=== PATIENT | female | born 1945 | race Caucasian/White ===

== ENCOUNTER → 2017-08-24 | Outpatient (CLI) | payer MEDICARE, BC ==
[2017-08-24 17:28] LABS: Anti-DNA, DS unit <1.0 IU/mL; DNA Double-Stranded NEGATIVE (NEGATIVE); RNP 0.2 AI; Scleroderma SC-70 Ab <0.2 AI
[2017-08-26 14:42] LABS: ANA Pattern Centromere
== END | disposition home or self-care (01) ==
LOC: LABWHC1 11:26
PROVIDERS: ATTEND Internal Medicine Rheumatology
DX: M10.9 Gout, unspecified (principal); M34.9 Systemic sclerosis, unspecified; J84.9 Interstitial pulmonary disease, unspecified
CPT/HCPCS: 36415; 84550; 86038; 86039; 86160; 86225; 86235

== ENCOUNTER → 2017-10-13 | Outpatient (CLI) | payer MEDICARE, BC ==
[2017-10-13 11:35] LABS: Basophils # (A) 0.1 k/uL (0-0.2); Basophils % (A) 1 %; Eosinophils # (A) 0.3 k/uL (0-0.7); Eosinophils % (A) 4 %; HCT 36.6 % (34.0-46.0); HGB 12.1 gm/dL (11.4-16.0); Lymphocytes # (A) 1.8 k/uL (1.0-4.8); Lymphocytes % (A) 25 %; MCH 31.5 pg (25.0-35.0); MCHC 33.1 g/dL (31.0-37.0); MCV 94.9 fL (80.0-100.0); Mean Platelet Volume 7.6; Monocytes # (A) 0.4 k/uL (0-1.0); Monocytes % (A) 6 %; Neutrophils # (A) 4.5 k/uL (1.3-7.7); Neutrophils % (A) 62 %; Platelet Count 245 k/uL (150-450); RBC 3.86 m/uL (3.80-5.40); RDW 13.1 % (11.5-15.5); WBC 7.3 k/uL (3.8-10.6)
[2017-10-13 11:43] LABS: Calcium 9.2 mg/dL (8.4-10.2); Potassium 3.9 mmol/L (3.5-5.1)
== END | disposition home or self-care (01) ==
LOC: LABWHC1 11:00
PROVIDERS: ATTEND Internal Medicine Nephrology
DX: N18.6 End stage renal disease (principal); D64.9 Anemia, unspecified
CPT/HCPCS: 36415; 80048; 85025

== ENCOUNTER 2018-07-28 12:34 | Emergency (ER) | payer MEDICARE, BC ==
[2018-07-28 12:56] VITALS: RESP 18; TEMP 97.9
[2018-07-28] MEDS ORDERED: HYDROcodone/APAP 5-325MG 1 EACH TAB PO STA (13:56)
--- NOTE | 2018-07-28 15:14 | ED ---
Fall HPI - General Chief Complaint: Fall Stated Complaint: Fall Time Seen by Provider: 07/28/18 13:30 Source: patient Mode of arrival: wheelchair - History of Present Illness Initial Comments: 72-year-old female patient with past medical history significant for renal failure with peritoneal dialysis, and pulmonary embolus with chronic use of Eliquis presents to the emergency department today after experiencing a fall. Patient states that she was coming up the steps when she tripped on the last step and fell forward striking her face and head on the porch. States that she is having right-sided neck pain, headache, blurred vision to the right eye, and abdominal discomfort since the fall. She is reporting right upper quadrant pain and tenderness as well as tenderness around her dialysis catheter. She denies any loss of consciousness with this. States that she did have epistaxis and does have nasal pain; is concerned that she may have fractured her nose. She is also complaining of left knee pain. She does have history of left total knee arthroplasty. States she is able to ambulate however it is painful. Denies any difficulty with range of motion. Injury occurred around 11:30 this morning. Patient denies any back pain, chest pain, shortness of breath, dizziness, weakness, abdominal pain, nausea, vomiting, or difficulties with bowel movements or urination. - Related Data Home Medications Medication Instructions Recorded Confirmed Apixaban [Eliquis] 12.5 mg PO BID 07/28/18 07/28/18 Atorvastatin [Lipitor] 20 mg PO HS 07/28/18 07/28/18 Doxepin HCl 75 mg PO HS 07/28/18 07/28/18 Folic Acid 0.8 mg PO DAILY 07/28/18 07/28/18 Furosemide [Lasix] 80 mg PO BID 07/28/18 07/28/18 Levothyroxine Sodium [Synthroid] 125 mcg PO DAILY 07/28/18 07/28/18 Sevelamer [Renvela] 800 mg PO AC-TID 07/28/18 07/28/18 Temazepam [Restoril] 15 mg PO HS 07/28/18 07/28/18 azaTHIOprine [Imuran] 25 mg PO DAILY 07/28/18 07/28/18 Allergies Allergy/AdvReac Type Severity Reaction Status Date / Time adhesive Allergy Unknown Verified 07/28/18 13:40 allopurinol Allergy Unknown Verified 07/28/18 13:40 codeine Allergy Unknown Verified 07/28/18 13:40 iodine Allergy Unknown Verified 07/28/18 13:40 meperidine HCl [From Demerol] Allergy Unknown Verified 07/28/18 13:40 povidone-iodine Allergy Unknown Verified 07/28/18 13:40 [From Betadine] soap [From Betadine] Allergy Unknown Verified 07/28/18 13:40 Sulfa (Sulfonamide Allergy Unknown Verified 07/28/18 13:40 Antibiotics) Review of Systems ROS Statement: Those systems with pertinent positive or pertinent negative responses have been documented in the HPI. ROS Other: All systems not noted in ROS Statement are negative. Past Medical History Past Medical History: Blood Disorder, Heart Failure, COPD, Dialysis, GERD/Reflux , Hyperlipidemia, Pulmonary Embolus (PE), Renal Disease, Thyroid Disorder Additional Past Medical History / Comment(s): scleraderma, gout, peritoneal dialysis History of Any Multi-Drug Resistant Organisms: None Reported Past Surgical History: Bowel Resection, Cholecystectomy, Hysterectomy, Orthopedic Surgery Additional Past Surgical History / Comment(s): left knee replacement, insertion of peritoneal diaylsis Past Psychological History: Anxiety, Depression Smoking Status: Never smoker Past Alcohol Use History: None Reported Past Drug Use History: None Reported General Exam Limitations: no limitations General appearance: alert, in no apparent distress, other (Social well-developed , well-nourished elderly female patient in no acute distress. Vital signs upon presentation are temperature 97.9F, pulse 90, respirations 18, blood pressure 123/80, pulse ox 96% on room air.) Head exam: Present: other (Right forehead ecchymosis) Eye exam: Present: normal appearance, PERRL, EOMI. Absent: scleral icterus, conjunctival injection, periorbital swelling, periorbital tenderness ENT exam: Present: normal oropharynx, mucous membranes moist, other (There is nasal bridge tenderness, small nasal abrasion. Dried blood to the bilateral nares. No evidence of septal hematoma. ). Absent: normal exam Neck exam: Present: normal inspection, tenderness (Right sided paraspinal cervical tenderness), full ROM (Increased pain with rotation), other (No cervical tenderness, bony step-off, or deformity to firm midline palpation of the posterior cervical spine.). Absent: meningismus, lymphadenopathy Respiratory exam: Present: normal lung sounds bilaterally. Absent: respiratory distress, wheezes, rales, rhonchi, stridor Cardiovascular Exam: Present: regular rate, normal rhythm, normal heart sounds. Absent: systolic murmur, diastolic murmur, rubs, gallop, clicks GI/Abdominal exam: Present: soft, tenderness (Right upper quadrant tenderness, lower abdominal tenderness.), normal bowel sounds. Absent: distended, guarding , rebound, rigid Back exam: Present: normal inspection, other (Nontender, no step-off, no deformity to firm midline palpation of the thoracic and lumbar vertebrae. Full range of motion without pain or limitation.). Absent: vertebral tenderness Neurological exam: Present: alert, oriented X3, CN II-XII intact Psychiatric exam: Present: normal affect, normal mood Skin exam: Present: warm, dry, intact, normal color. Absent: rash Course Vital Signs 07/28/18 07/28/18 12:52 16:49 Temperature 97.9 F Pulse Rate 90 94 Respiratory 18 18 Rate Blood Pressure 123/80 123/74 O2 Sat by Pulse 96 98 Oximetry Medical Decision Making - Medical Decision Making 72-year-old female patient presented to the emergency department today for evaluation after expressing H and fall. Patient did have facial trauma nasal bone tenderness, bleeding from the bilateral nares. Patient is also reporting headache and blurred vision and abdominal pain. CT brain C-spine was performed and showed no acute intracranial or cervical abnormalities. CT facial bones did reveal nasal bone fracture with deviation to the left. Patient had no evidence of septal hematoma. CT abdomen and pelvis was obtained and showed no acute abnormalities. Patient be discharged home to follow-up with the ears, nose, and throat specialist for further evaluation. She is instructed take Tylenol for pain control. Apply ice to the painful areas. Return parameters were discussed in detail. She verbalizes understanding and agrees with this plan. - Radiology Data Radiology results: report reviewed, image reviewed Computed tomography scan of the sinuses performed without contrast. Report was reviewed in its entirety. Impression by Dr. Leo shows nasal bone fracture with deviation to the left side. He does not clear. Soft tissue air on the lateral aspect of the maxilla the right side more than the left could relate to laceration. No maxillary fracture seen. Right lateral orbital fracture cannot be entirely excluded. CT abdomen and pelvis without contrast was obtained. Dialysis catheter noted. Free fluid in the abdomen consistent with peritoneal dialysis. No dilated x- ray no acute abnormality seen within the abdomen and pelvis. Mild fibrotic changes and subsegmental atelectasis at the lung bases. Small pericardial effusion. 3 views of the left knee are obtained. Report was reviewed in its entirety. Impression by Dr. Leo shows no Acute process. No fracture. CT of the head and C-spine are performed without contrast. Report was reviewed in its entirety. Impression by Dr. Leo shows mild cerebral atrophy. Otherwise negative exam. Spondylotic changes of cervical spine with degenerative mild kyphotic curvature. No fracture seen. Disposition Clinical Impression: Nasal bone fracture, Forehead contusion, Abdominal pain Disposition: HOME SELF-CARE Condition: Good Instructions: Nasal Fracture (ED), Contusion in Adults (ED), Abdominal Pain (ED ) Additional Instructions: Apply ice to the painful areas. Follow-up with ears, nose, and throat specialist for further evaluation of the nasal bone fracture. Return immediately for any new, worsening, or concerning symptoms. Is patient prescribed a controlled substance at d/c from ED?: No Referrals: Cheryl Penny MD [Primary Care Provider] - 1-2 days Justino Grove MD [STAFF PHYSICIAN] - 1-2 days Time of Disposition: 17:17
--- NOTE | 2018-07-28 16:04 | CT ---
EXAMINATION TYPE: CT brain mag jin con DATE OF EXAM: 07/28/2018 COMPARISON: None HISTORY: Patient fell and landed on face. Right side facial pain. CT DLP: 1047.2 mGycm Automated exposure control for dose reduction was used. TECHNIQUE: CT scan of the head and cervical spine are performed without contrast. FINDINGS: Ventricles of normal size. There is no mass effect nor midline shift. There is no sign of intracranial hemorrhage. Calvarium is intact. There is minimal cerebral atrophy. The cervical vertebra show slight kyphotic curvature. There is degenerative disc space narrowing from C3 to C7 with spurring. Facet joints are intact. Skull base is intact. I see no bony destructive pro cess. There is mild hypertrophic facet arthropathy. IMPRESSION: Mild cerebral atrophy. Otherwise negative exam. Spondylotic changes of the cervical spine with degenerative mild kyphotic curvature. No fracture seen .
--- NOTE | 2018-07-28 16:12 | CT ---
EXAMINATION TYPE: CT facial bones wo con DATE OF EXAM: 07/28/2018 COMPARISON: HISTORY: Patient fell and landed on face. Right side facial pain. CT DLP: 769.5 mGycm Automated exposure control for dose reduction was used. TECHNIQUE: CT scan of the sinuses is performed without contrast, axial images are obtained, coronal r eformatted images are also reviewed. FINDINGS: Nasal bone is deviated slightly to the left side. The zygomatic arches are intact. The maxi lla appears intact. There is soft tissue air around the maxilla bilaterally. The mandibular ring appe ars intact. Temporomandibular joints are intact. There is no evidence of a blowout fracture. There is fairly normal aeration of the paranasal sinuses. There is no evidence of retro-orbital mass. There is a thin lucent line through the anterior aspect of the lateral wall of the right orbit that is thou ght to be not a fracture. This would be unusual location for fracture. Correlation with the physical exam is recommended. IMPRESSION: There is nasal bone fracture with deviation to the left side. Age is not clear. There is soft tissue air around the lateral aspect of the maxilla on the right side more than the lef t and could relate to laceration. No maxillary fracture seen. Right lateral wall orbital fracture can not BE entirely excluded.
--- NOTE | 2018-07-28 16:13 | XR ---
EXAMINATION TYPE: XR knee complete LT DATE OF EXAM: 07/28/2018 COMPARISON: NONE HISTORY: Fall. Pain. TECHNIQUE: 3 views FINDINGS: There is left knee prosthesis. Components appear in anatomic position. I see no fracture. IMPRESSION: No complicating process seen. No fracture seen.
--- NOTE | 2018-07-28 16:24 | CT ---
EXAMINATION TYPE: CT abdomen pelvis wo con DATE OF EXAM: 07/28/2018 COMPARISON: None HISTORY: Patient fell and landed on face. Right side facial pain. CT DLP: 606.6 mGycm Automated exposure control for dose reduction was used. TECHNIQUE: Helical acquisition of images was performed from the lung bases through the pelvis. FINDINGS: Lung bases are clear of consolidation. There is some patchy scarring and atelectasis at the lung base s. There is pericardial effusion. Heart is enlarged. There are clips from cholecystectomy. Liver shows no focal defect. Spleen appears normal. There is no sign of a pancreatic mass. There is fluid in the abdomen related apparently to dialysis. There is no adrenal mass. Kidneys show mild atrophy. There are bilateral renal cortical cysts that measure up to 3 cm. There is no hydronephrosis. Ureters are not dilated. There is no retroperitoneal adenopathy. T here is peritoneal dialysis catheter noted. The bladder distends smoothly. There is no inguinal hernia. There is no evidence of a bowel obstructi on. I see no sign of free air. There are spondylotic changes in the lower lumbar spine. There is no c ompression fracture. I see no bony destructive process. There is hemangioma in the left acetabulum. IMPRESSION: DIALYSIS CATHETER NOTED. FREE FLUID IN THE ABDOMEN CONSISTENT WITH PERITONEAL DIALYSIS. NO DILATED DU CTS. NO ACUTE ABNORMALITY SEEN WITHIN THE ABDOMEN AND PELVIS. MILD FIBROTIC CHANGES AND SUBSEGMENTAL ATELECTASIS AT THE LUNG BASES. SMALL PERICARDIAL EFFUSION.
[2018-07-28 16:50] VITALS: BP 123/74; PULSE 94
== END 2018-07-28 17:33 | disposition home or self-care (01) ==
LOC: EC 12:34
DX: S02.2XXA Fracture of nasal bones, initial encounter for closed fracture (principal); S00.83XA Contusion of other part of head, initial encounter; R10.11 Right upper quadrant pain; G31.9 Degenerative disease of nervous system, unspecified; M40.292 Other kyphosis, cervical region; J84.10 Pulmonary fibrosis, unspecified; J98.11 Atelectasis; I31.3 Pericardial effusion (noninflammatory); H53.8 Other visual disturbances; M54.2 Cervicalgia; M25.562 Pain in left knee; N19 Unspecified kidney failure; E78.5 Hyperlipidemia, unspecified; I50.9 Heart failure, unspecified; Z88.2 Allergy status to sulfonamides; Z88.5 Allergy status to narcotic agent; Z88.8 Allergy status to other drugs, medicaments and biological substances; Z91.048 Other nonmedicinal substance allergy status; Z79.01 Long term (current) use of anticoagulants; Z79.899 Other long term (current) drug therapy; Z86.711 Personal history of pulmonary embolism; Z90.49 Acquired absence of other specified parts of digestive tract; Z96.652 Presence of left artificial knee joint; Z99.2 Dependence on renal dialysis; W01.0XXA Fall on same level from slipping, tripping and stumbling without subsequent striking against object, initial encounter; Y93.01 Activity, walking, marching and hiking
CPT/HCPCS: 70450; 70486; 72125; 74176; 99284

== ENCOUNTER 2020-01-29 18:09 | Emergency (ER) | payer MEDICARE, BC ==
--- NOTE | 2020-01-29 19:36 | ED ---
Fever HPI - General Chief Complaint: Fever Stated Complaint: Covid test sent by PCP Time Seen by Provider: 01/29/20 18:39 Source: patient, RN notes reviewed Mode of arrival: ambulatory Limitations: no limitations - History of Present Illness Initial Comments: This is a 74-year-old female with a history of recent hand surgery for skin cancer also history of renal dialysis who presents with complaints of sore throat and right earache and fever and also some diarrhea. States he had a shunt placed 2 weeks ago and has not had any trouble that she was exposed to a young family member with strep in last couple days. She call her dialysis unit was sent over for evaluation for possible covid. She also has somewhat of a headache. She states her normal temperature 90.5 96 was 99 today. MD Complaint: fever - Related Data Home Medications Medication Instructions Recorded Confirmed Apixaban [Eliquis] 12.5 mg PO BID 07/28/18 07/28/18 Atorvastatin [Lipitor] 20 mg PO HS 07/28/18 07/28/18 Doxepin HCl 75 mg PO HS 07/28/18 07/28/18 Folic Acid 0.8 mg PO DAILY 07/28/18 07/28/18 Furosemide [Lasix] 80 mg PO BID 07/28/18 07/28/18 Levothyroxine Sodium [Synthroid] 125 mcg PO DAILY 07/28/18 07/28/18 Sevelamer [Renvela] 800 mg PO AC-TID 07/28/18 07/28/18 Temazepam [Restoril] 15 mg PO HS 07/28/18 07/28/18 azaTHIOprine [Imuran] 25 mg PO DAILY 07/28/18 07/28/18 Previous Rx's Medication Instructions Recorded Amoxic-Pot Clav 875-125Mg 1 tab PO Q12HR 3 Days #20 tab 01/29/20 [Augmentin 875-125] Allergies Allergy/AdvReac Type Severity Reaction Status Date / Time adhesive Allergy Unknown Verified 01/29/20 18:21 allopurinol Allergy Unknown Verified 01/29/20 18:21 codeine Allergy Unknown Verified 01/29/20 18:21 iodine Allergy Unknown Verified 01/29/20 18:21 meperidine HCl [From Demerol] Allergy Unknown Verified 01/29/20 18:21 povidone-iodine Allergy Unknown Verified 01/29/20 18:21 [From Betadine] soap [From Betadine] Allergy Unknown Verified 01/29/20 18:21 Sulfa (Sulfonamide Allergy Unknown Verified 01/29/20 18:21 Antibiotics) Review of Systems ROS Statement: Those systems with pertinent positive or pertinent negative responses have been documented in the HPI. ROS Other: All systems not noted in ROS Statement are negative. Past Medical History Past Medical History: Blood Disorder, Heart Failure, COPD, Dialysis, GERD/Reflux, Hyperlipidemia, Pulmonary Embolus (PE), Renal Disease, Thyroid Disorder Additional Past Medical History / Comment(s): scleraderma, gout, peritoneal dialysis History of Any Multi-Drug Resistant Organisms: None Reported Past Surgical History: Bowel Resection, Cholecystectomy, Hysterectomy, Orthopedic Surgery Additional Past Surgical History / Comment(s): left knee replacement, insertion of peritoneal diaylsis Past Psychological History: Anxiety, Depression Smoking Status: Never smoker Past Alcohol Use History: None Reported Past Drug Use History: None Reported General Exam - General Exam Comments Initial Comments: This a well-developed well-nourished awake alert oriented 3 female Limitations: no limitations General appearance: alert, in no apparent distress Head exam: Present: atraumatic, normocephalic, normal inspection Eye exam: Present: normal appearance, PERRL, EOMI. Absent: scleral icterus, conjunctival injection, periorbital swelling ENT exam: Present: mucous membranes moist, other (Right tympanic membrane is somewhat dull compared to the left also note tonsillar exudates no apparent hyperemia seen.) Neck exam: Present: normal inspection, lymphadenopathy ( Salicylate adenopathy absent right with some mild tenderness in the right submandibular region no stridor JVD or bruits). Absent: tenderness, meningismus Respiratory exam: Present: normal lung sounds bilaterally. Absent: respiratory distress, wheezes, rales, rhonchi, stridor Cardiovascular Exam: Present: regular rate, normal rhythm, normal heart sounds. Absent: systolic murmur, diastolic murmur, rubs, gallop, clicks GI/Abdominal exam: Present: soft, normal bowel sounds. Absent: distended, tenderness, guarding, rebound, rigid Extremities exam: Present: normal inspection, full ROM, normal capillary refill. Absent: tenderness, pedal edema, joint swelling, calf tenderness Back exam: Present: normal inspection Neurological exam: Present: alert, oriented X3, CN II-XII intact Psychiatric exam: Present: normal affect, normal mood Skin exam: Present: warm, dry, intact, normal color, other (No evidence of infectious processes on the integument). Absent: rash Course Vital Signs 01/29/20 18:19 Temperature 98.1 F Pulse Rate 85 Respiratory 16 Rate Blood Pressure 120/64 O2 Sat by Pulse 96 Oximetry Medical Decision Making - Medical Decision Making I did discuss findings with patient the strep screen is negative as is the influenza screening the other viral screen is pending. Patient does demonstrate evidence of otitis media she'll be placed on appropriate antibiotics she will follow-up with her doctor return when necessary she is in agreement with this. - Lab Data Lab Results 01/29/20 01/29/20 Range/Units 19:39 19:46 Influenza Type A RNA Not Detected (Not Detectd) Influenza Type B (PCR) Not Detected (Not Detectd) Group A Strep Rapid Negative (Negative) Disposition Clinical Impression: Otitis media Disposition: HOME SELF-CARE Condition: Good Instructions (If sedation given, give patient instructions): Serous Otitis Media (ED) Additional Instructions: Your prescription was e scribed to your preferred [facility] pharmacy Prescriptions: Amoxic-Pot Clav 875-125Mg [Augmentin 875-125] 1 tab PO Q12HR 3 Days #20 tab Is patient prescribed a controlled substance at d/c from ED?: No Referrals: Cheryl Penny MD [Primary Care Provider] - 1-2 days
[2020-01-29] MEDS ORDERED: AMOXIC-POT CLAV 875MG STARTER PACK 2 TAB BTL PO STA (20:16)
[2020-01-29 20:43] VITALS: BP 139/79; PULSE 77; RESP 18; TEMP 97.8
== END 2020-01-29 20:31 | disposition home or self-care (01) ==
LOC: EC 18:09
DX: H66.91 Otitis media, unspecified, right ear (principal); R19.7 Diarrhea, unspecified; I50.9 Heart failure, unspecified; J44.9 Chronic obstructive pulmonary disease, unspecified; K21.9 Gastro-esophageal reflux disease without esophagitis; E78.5 Hyperlipidemia, unspecified; E07.9 Disorder of thyroid, unspecified; F32.9 Major depressive disorder, single episode, unspecified; F41.9 Anxiety disorder, unspecified; Z86.711 Personal history of pulmonary embolism; Z79.01 Long term (current) use of anticoagulants; Z79.899 Other long term (current) drug therapy; Z79.890 Hormone replacement therapy; Z88.2 Allergy status to sulfonamides; Z88.5 Allergy status to narcotic agent; Z88.8 Allergy status to other drugs, medicaments and biological substances; Z91.041 Radiographic dye allergy status; Z91.048 Other nonmedicinal substance allergy status; Z96.652 Presence of left artificial knee joint; Z99.2 Dependence on renal dialysis; Z20.828 Contact with and (suspected) exposure to other viral communicable diseases
CPT/HCPCS: 99283; 87081; 87430; 87502; U0003

== ENCOUNTER 2020-03-13 09:05 | Inpatient (IN) | payer MEDICARE, BC ==
[2020-03-13] MEDS ORDERED: DIPH,PERTUS(ACELL)TETVAC-LF 0.5 ML VIAL IM ONE (09:08)
[2020-03-13] MEDS ORDERED: HYDROmorphone 1 MG/ML 1 ML SYRINGE IVP STA ×2 (09:10→10:19)
[2020-03-13] MEDS ORDERED: ETOMIDATE 2 MG/ML 10 ML VIAL IVP STA (09:27)
--- NOTE | 2020-03-13 09:28 | XR ---
EXAMINATION TYPE: XR pelvis AP view DATE OF EXAM: 03/13/2020 CLINICAL HISTORY: Fall injury with pain TECHNIQUE: A single AP view of the pelvis is obtained. COMPARISON: CT 2018. FINDINGS: There is no acute fracture/dislocation evident in the pelvis. The sacroiliac joints are t hought within normal limits. Moderate axial joint space loss in both hips. Scattered pelvic phleboli ths bilaterally. Pubic symphysis is intact. IMPRESSION: There is no acute fracture or dislocation in the pelvis.
--- NOTE | 2020-03-13 09:30 | XR ---
EXAMINATION TYPE: XR ankle limited LT DATE OF EXAM: 03/13/2020 CLINICAL HISTORY: Pain after fall injury. TECHNIQUE: Frontal and lateral images of the left ankle are obtained. COMPARISON: None. FINDINGS: Overlying clothing or blanket material is seen. There is significant fracture and dislocati on with displaced fracture deformity through the medial malleolus, distal fracture fragment not well identified. Comminuted displaced fracture through the lateral malleolus is present. Posterior malleol us appears intact. The talus is impacted along with laterally displaced and posteriorly and laterally angulated relative to the distal tibia. Incidental large inferior calcaneal spur. IMPRESSION: There is acute markedly displaced bimalleolar fracture with mortise disruption. (Initial encounter closed type post traumatic fracture)
--- NOTE | 2020-03-13 09:32 | XR ---
EXAMINATION TYPE: XR chest 1V portable DATE OF EXAM: 03/13/2020 COMPARISON: Chest x-ray December 17, 2015. HISTORY: Chest pain after fall injury. TECHNIQUE: Single AP portable frontal upright view of the chest is obtained. FINDINGS: New right internal jugular dual lumen dialysis catheter has leads terminating in SVC. Ther e is background chronic parenchymal change bilaterally without suspicious new focal air space opacity , pleural effusion, or pneumothorax seen. The cardiac silhouette size remains upper limits of normal . The osseous structures are demineralized. Surgical coils or clips right midabdomen are suspected. IMPRESSION: Chronic changes without acute pulmonary process.
[2020-03-13 09:36] LABS: Basophils % (A) 1 %; Eosinophils # (A) 0.2 k/uL (0-0.7); Eosinophils % (A) 3 %; HCT 39.4 % (34.0-46.0); HGB 12.5 gm/dL (11.4-16.0); Lymphocytes # (A) 2.1 k/uL (1.0-4.8); Lymphocytes % (A) 30 %; MCH 31.1 pg (25.0-35.0); MCHC 31.6 g/dL (31.0-37.0); MCV 98.4 fL (80.0-100.0); Mean Platelet Volume 7.7; Monocytes # (A) 0.4 k/uL (0-1.0); Monocytes % (A) 6 %; Neutrophils % (A) 58 %; Platelet Count 225 k/uL (150-450); RBC 4.01 m/uL (3.80-5.40); RDW 13.8 % (11.5-15.5); WBC 6.9 k/uL (3.8-10.6)
--- NOTE | 2020-03-13 09:36 | ED ---
General Adult HPI - General Chief complaint: Trauma Stated complaint: Fall Time Seen by Provider: 03/13/20 09:07 Source: patient, EMS Mode of arrival: EMS Limitations: no limitations - History of Present Illness Initial comments: 74-year-old female presents status post fall down 3 stairs. With left ankle injury. Transported by EMS. She is on our requests there was no head neck or back trauma. Patient's only pain complaint is of the left ankle. There was deformity, splint was applied by EMS during transport. Distal pulses were intact during transport. Patient denies abdominal pain or chest pain. She denies any other known injury. Patient does have history of end-stage renal disease, she is on Eliquis. Severity scale (1-10): 10 - Related Data Home Medications Medication Instructions Recorded Confirmed Apixaban [Eliquis] 12.5 mg PO BID 07/28/18 07/28/18 Atorvastatin [Lipitor] 20 mg PO HS 07/28/18 07/28/18 Doxepin HCl 75 mg PO HS 07/28/18 07/28/18 Folic Acid 0.8 mg PO DAILY 07/28/18 07/28/18 Furosemide [Lasix] 80 mg PO BID 07/28/18 07/28/18 Levothyroxine Sodium [Synthroid] 125 mcg PO DAILY 07/28/18 07/28/18 Sevelamer [Renvela] 800 mg PO AC-TID 07/28/18 07/28/18 Temazepam [Restoril] 15 mg PO HS 07/28/18 07/28/18 azaTHIOprine [Imuran] 25 mg PO DAILY 07/28/18 07/28/18 Previous Rx's Medication Instructions Recorded Amoxic-Pot Clav 875-125Mg 1 tab PO Q12HR 3 Days #20 tab 01/29/20 [Augmentin 875-125] Allergies Allergy/AdvReac Type Severity Reaction Status Date / Time adhesive Allergy Unknown Verified 01/29/20 18:21 allopurinol Allergy Unknown Verified 01/29/20 18:21 codeine Allergy Unknown Verified 01/29/20 18:21 iodine Allergy Unknown Verified 01/29/20 18:21 meperidine HCl [From Demerol] Allergy Unknown Verified 01/29/20 18:21 povidone-iodine Allergy Unknown Verified 01/29/20 18:21 [From Betadine] soap [From Betadine] Allergy Unknown Verified 01/29/20 18:21 Sulfa (Sulfonamide Allergy Unknown Verified 01/29/20 18:21 Antibiotics) Review of Systems ROS Statement: Those systems with pertinent positive or pertinent negative responses have been documented in the HPI. ROS Other: All systems not noted in ROS Statement are negative. Past Medical History Past Medical History: Blood Disorder, Heart Failure, COPD, Dialysis, GERD/Refl ux, Hyperlipidemia, Pulmonary Embolus (PE), Renal Disease, Thyroid Disorder Additional Past Medical History / Comment(s): scleraderma, gout, peritoneal dialysis History of Any Multi-Drug Resistant Organisms: None Reported Past Surgical History: Bowel Resection, Cholecystectomy, Hysterectomy, Orthopedic Surgery Additional Past Surgical History / Comment(s): left knee replacement, insertion of peritoneal diaylsis Past Psychological History: Anxiety, Depression Past Alcohol Use History: None Reported Past Drug Use History: None Reported General Exam Limitations: no limitations General appearance: alert, in no apparent distress Head exam: Present: atraumatic, normocephalic Eye exam: Present: normal appearance, PERRL ENT exam: Present: normal exam Neck exam: Present: normal inspection. Absent: tenderness, meningismus Respiratory exam: Present: normal lung sounds bilaterally. Absent: respiratory distress Cardiovascular Exam: Present: regular rate, normal rhythm GI/Abdominal exam: Present: soft. Absent: distended, tenderness, guarding Extremities exam: Present: other (Deformity of the left ankle, with external angulation, distal pulses intact 2+, normal cap refill, there is abrasion on the medial malleolus, no laceration, I do not think this is an open fracture.) Neurological exam: Present: alert, oriented X3 Psychiatric exam: Present: normal affect, normal mood Skin exam: Present: abrasion (left Malleolus abrasion) Course Vital Signs 03/13/20 03/13/20 03/13/20 09:07 09:12 09:48 Temperature 98.1 F 98.1 F Pulse Rate 81 Pulse Rate [ 81 Sde ] Respiratory 18 16 12 Rate Blood Pressure 109/81 Blood Pressure 109/81 [Right Arm Sitting] O2 Sat by Pulse 98 98 Oximetry 03/13/20 10:09 Temperature Pulse Rate 77 Pulse Rate [ Sde ] Respiratory 18 Rate Blood Pressure 127/89 Blood Pressure [Right Arm Sitting] O2 Sat by Pulse 98 Oximetry - Reevaluation(s) Reevaluation #1: 03/13/ 09:[address] Cain bryant for trauma surgery regarding fall on [place]. EKG Findings - EKG Comments: EKG Findings:: EKG: Sinus rhythm with first-degree AV block, rate of 80, OH interval 222, QRS duration 102, QTC 452, no ST segment elevation. Procedures - Orthopedic Fracture Reduction Fracture #1 Consent Obtained: written consent Side: left Fracture Reduction Location: tibia, fibula Analgesia: procedural sedation Technique: direct manipulation, traction/counter-traction Post Reduction X-rays Demonstrate: anatomical reduction Post-Reduction Neuro Exam: intact Post-Reduction Vascular Exam: intact Splint Applied: Yes Patient Tolerated Procedure: well - Orthopedic Splinting/Casting Injury #1 Side: left Lower Extremity Injury Location: short leg, ankle Lower Extremity Immobilizer: posterior splint, stirrup splint - Procedural Sedation Indications: fracture/dislocation reduction ASA Class: III Mallampati Airway Score: 2 Preparation: alarm security or surveillance monitor applied, pulse oximeter, capnometry used, supplemental O2 applied, suction/airway equipment at bedside, IV secured IV Etomidate Dose (mgs): 10 Reversal Agents Used: Naloxone Complications: hypoventilation Interventions: oxygen applied, airway repositioned, assist by BVM Patient Tolerated Procedure: other Additional Comments: Patient did hyperventilate and required BVM, there was no hypoxia, oxygenation remained greater than 90% throughout the procedure. She had return of normal ventilation after approximately 5 minutes. There is no bradycardia, no hypotension. Medical Decision Making - Medical Decision Making 74-year-old female with fall down 3 steps with ankle deformity. X-ray revealing a bimalleolar fracture and dislocation. Patient does have an overlying abrasion over the medial malleolus and is given a dose of IV antibiotics in the emergency department. I do not think this is an open fracture. She has end-stage renal disease and laboratory studies are unremarkable in the setting with an elevated serum creatinine. X-rays of the chest and pelvis are performed these are negative for any acute traumatic injury. After reduction the patient has improved alignment of the left ankle. She's placed in a splint in the emergency department. She has good cap refill and distal pulses. She will be admitted to orthopedics, case discussed with Dr. Raines. Both internal medicine and nephrology have been placed on consult. - Lab Data Result diagrams: 03/13/20 09:12 03/13/20 09:12 Lab Results 03/13/20 03/13/20 03/13/20 Range/Units 09:10 09:12 09:12 WBC 6.9 (3.8-10.6) k/uL RBC 4.01 (3.80-5.40) m/uL Hgb 12.5 (11.4-16.0) gm/dL Hct 39.4 (34.0-46.0) % MCV 98.4 (80.0-100.0) fL MCH 31.1 (25.0-35.0) pg MCHC 31.6 (31.0-37.0) g/dL RDW 13.8 (11.5-15.5) % Plt Count 225 (150-450) k/uL Neutrophils % 58 % Lymphocytes % 30 % Monocytes % 6 % Eosinophils % 3 % Basophils % 1 % Neutrophils # 4.0 (1.3-7.7) k/uL Lymphocytes # 2.1 (1.0-4.8) k/uL Monocytes # 0.4 (0-1.0) k/uL Eosinophils # 0.2 (0-0.7) k/uL Basophils # 0.0 (0-0.2) k/uL PT 10.3 (9.0-12.0) sec INR 1.0 (<1.2) APTT 22.9 (22.0-30.0) sec Sodium (137-145) mmol/L Potassium (3.5-5.1) mmol/L Chloride (98-107) mmol/L Carbon Dioxide (22-30) mmol/L Anion Gap mmol/L BUN (7-17) mg/dL Creatinine (0.52-1.04) mg/dL Est GFR (CKD-EPI)AfAm (>60 ml/min/1.73 sqM) Est GFR (CKD-EPI)NonAf (>60 ml/min/1.73 sqM) Glucose (74-99) mg/dL Plasma Lactic Acid Jose Antonio (0.7-2.0) mmol/L Calcium (8.4-10.2) mg/dL Total Bilirubin (0.2-1.3) mg/dL AST (14-36) U/L ALT (4-34) U/L Alkaline Phosphatase (38-126) U/L Total Creatine Kinase (30-135) U/L CK-MB (CK-2) (0.0-2.4) ng/mL CK-MB (CK-2) Rel Index Troponin I (0.000-0.034) ng/mL Total Protein (6.3-8.2) g/dL Albumin (3.5-5.0) g/dL Amylase (30-110) U/L Lipase (23-300) U/L Serum Alcohol mg/dL Blood Type A Positive Blood Type Confirm Blood Type Recheck No Previous Record Bld Type Recheck Status CABO Indicated Antibody Screen NEGATIVE Spec Expiration Date 03/16/2020230903/13/20 03/13/20 03/13/20 Range/Units 09:12 09:12 09:12 WBC (3.8-10.6) k/uL RBC (3.80-5.40) m/uL Hgb (11.4-16.0) gm/dL Hct (34.0-46.0) % MCV (80.0-100.0) fL MCH (25.0-35.0) pg MCHC (31.0-37.0) g/dL RDW (11.5-15.5) % Plt Count (150-450) k/uL Neutrophils % % Lymphocytes % % Monocytes % % Eosinophils % % Basophils % % Neutrophils # (1.3-7.7) k/uL Lymphocytes # (1.0-4.8) k/uL Monocytes # (0-1.0) k/uL Eosinophils # (0-0.7) k/uL Basophils # (0-0.2) k/uL PT (9.0-12.0) sec INR (<1.2) APTT (22.0-30.0) sec Sodium 133 L (137-145) mmol/L Potassium 3.8 (3.5-5.1) mmol/L Chloride 98 (98-107) mmol/L Carbon Dioxide 23 (22-30) mmol/L Anion Gap 12 mmol/L BUN 23 H (7-17) mg/dL Creatinine 4.41 H (0.52-1.04) mg/dL Est GFR (CKD-EPI)AfAm 11 (>60 ml/min/1.73 sqM) Est GFR (CKD-EPI)NonAf 9 (>60 ml/min/1.73 sqM) Glucose 111 H (74-99) mg/dL Plasma Lactic Acid Jose Antonio 2.7 H* (0.7-2.0) mmol/L Calcium 9.1 (8.4-10.2) mg/dL Total Bilirubin 0.4 (0.2-1.3) mg/dL AST 20 (14-36) U/L ALT 10 (4-34) U/L Alkaline Phosphatase 69 (38-126) U/L Total Creatine Kinase 47 (30-135) U/L CK-MB (CK-2) 1.1 (0.0-2.4) ng/mL CK-MB (CK-2) Rel Index 2.3 Troponin I <0.012 (0.000-0.034) ng/mL Total Protein 6.1 L (6.3-8.2) g/dL Albumin 3.8 (3.5-5.0) g/dL Amylase 43 (30-110) U/L Lipase 105 (23-300) U/L Serum Alcohol <10 mg/dL Blood Type Blood Type Confirm Blood Type Recheck Bld Type Recheck Status Antibody Screen Spec Expiration Date 03/13/20 Range/Units 09:14 WBC (3.8-10.6) k/uL RBC (3.80-5.40) m/uL Hgb (11.4-16.0) gm/dL Hct (34.0-46.0) % MCV (80.0-100.0) fL MCH (25.0-35.0) pg MCHC (31.0-37.0) g/dL RDW (11.5-15.5) % Plt Count (150-450) k/uL Neutrophils % % Lymphocytes % % Monocytes % % Eosinophils % % Basophils % % Neutrophils # (1.3-7.7) k/uL Lymphocytes # (1.0-4.8) k/uL Monocytes # (0-1.0) k/uL Eosinophils # (0-0.7) k/uL Basophils # (0-0.2) k/uL PT (9.0-12.0) sec INR (<1.2) APTT (22.0-30.0) sec Sodium (137-145) mmol/L Potassium (3.5-5.1) mmol/L Chloride (98-107) mmol/L Carbon Dioxide (22-30) mmol/L Anion Gap mmol/L BUN (7-17) mg/dL Creatinine (0.52-1.04) mg/dL Est GFR (CKD-EPI)AfAm (>60 ml/min/1.73 sqM) Est GFR (CKD-EPI)NonAf (>60 ml/min/1.73 sqM) Glucose (74-99) mg/dL Plasma Lactic Acid Jose Antonio (0.7-2.0) mmol/L Calcium (8.4-10.2) mg/dL Total Bilirubin (0.2-1.3) mg/dL AST (14-36) U/L ALT (4-34) U/L Alkaline Phosphatase (38-126) U/L Total Creatine Kinase (30-135) U/L CK-MB (CK-2) (0.0-2.4) ng/mL CK-MB (CK-2) Rel Index Troponin I (0.000-0.034) ng/mL Total Protein (6.3-8.2) g/dL Albumin (3.5-5.0) g/dL Amylase (30-110) U/L Lipase (23-300) U/L Serum Alcohol mg/dL Blood Type Blood Type Confirm A Positive Blood Type Recheck Bld Type Recheck Status Antibody Screen Spec Expiration Date Disposition Clinical Impression: Bimalleolar fracture of left ankle, ESRD (end stage renal disease) Disposition: ADMITTED IP TO THIS [facility] Condition: Stable Is patient prescribed a controlled substance at d/c from ED?: No Referrals: Cheryl Penny MD [Primary Care Provider] - 1-2 days Decision to Admit Reason: Admit from EC Decision Date: 03/13/20 Decision Time: 10:28
[2020-03-13 09:44] LABS: ALT 10 U/L (4-34); AST 20 U/L (14-36); African American GFR (CKD) 11 (>60 ml/min/1.73 sqM); Albumin 3.8 g/dL (3.5-5.0); Alcohol <10 mg/dL; Alkaline Phosphatase 69 U/L (38-126); Amylase 43 U/L (30-110); Anion Gap 12 mmol/L; Blood Urea Nitrogen 23 mg/dL (7-17); Calcium 9.1 mg/dL (8.4-10.2); Carbon Dioxide 23 mmol/L (22-30); Chloride 98 mmol/L (98-107); Glucose 111 mg/dL (74-99); Non-African American GFR(CKD) 9 (>60 ml/min/1.73 sqM); Potassium 3.8 mmol/L (3.5-5.1); Sodium 133 mmol/L (137-145); Total Bilirubin 0.4 mg/dL (0.2-1.3); Total Protein 6.1 g/dL (6.3-8.2)
[2020-03-13 09:47] LABS: Partial Thromboplastin Time 22.9 sec (22.0-30.0); Prothrombin Time 10.3 sec (9.0-12.0)
[2020-03-13] MEDS ORDERED: NALOXONE 0.4 MG/ML 1 ML VIAL IVP STA (09:48)
[2020-03-13 09:53] LABS: Creatine Kinase 47 U/L (30-135)
[2020-03-13] MEDS ORDERED: SODIUM CHLORIDE 0.9% 500 ML 500 ML IV ONE (09:53)
[2020-03-13 10:05] LABS: Creatine Kinase MB 1.1 ng/mL (0.0-2.4); Troponin I <0.012 ng/mL (0.000-0.034)
--- NOTE | 2020-03-13 10:14 | XR ---
EXAMINATION TYPE: XR ankle limited LT DATE OF EXAM: 03/13/2020 CLINICAL HISTORY: Ankle fracture status post reduction and splinting. TECHNIQUE: Frontal and lateral images of the left ankle are obtained. COMPARISON: Left ankle x-ray earlier today.. FINDINGS: There is now new overlying fiberglass cast or splint material which is noted to lower radi ographic sensitivity. Comminuted fractures through the lateral malleolus shows marked improved alignm ent with some persistent posterior and slight lateral displacement distal fracture fragments. Transve rse fracture through the medial malleolus shows some improved alignment with some persistent distract ion and slight lateral displacement. Ankle mortise shows persistent but improved lateral position rel ative to the distal tibia. Moderate diffuse soft tissue swelling noted. IMPRESSION: As above. Improved alignment after reduction and casting.
[2020-03-13] MEDS ORDERED: NALOXONE 0.4 MG/ML 1 ML VIAL IV PRN (10:24)
[2020-03-13] MEDS ORDERED: ACETAMINOPHEN TAB 325 MG TAB PO PRN (10:24)
--- NOTE | 2020-03-13 11:30 | XR ---
EXAMINATION TYPE: XR knee complete LT, XR tibia fibula LT DATE OF EXAM: 03/13/2020 CLINICAL HISTORY: Pain after fall injury. Known left ankle fractures after recent fall. TECHNIQUE: Three views of the left knee are obtained. 2 views left tibia and fibula. COMPARISON: Left knee x-ray July 28, 2018. Left ankle x-rays earlier today FINDINGS: There is metallic hardware from total left knee arthroplasty redemonstrated. There is new mildly displaced oblique fracture through the proximal fibular diaphysis. Of more concern however is cortical step-off consistent with new acute comminuted fracture through the medial aspect of the dist al femoral metaphysis. There is new large suprapatellar joint effusion or hemarthrosis. Fracture line less well seen on lateral view. Casting material and known bimalleolar fractures are redemonstrated and unchanged in appearance from most recent x-ray. IMPRESSION: As above. Additional proximal fractures noted.
--- NOTE | 2020-03-13 12:14 | P.HPOR ---
History of Present Illness H&P Date: 03/13/20 Chief Complaint: Left bimalleolar ankle fracture with dislocation Patient is a 74-year-old female who was brought to [facility] early this morning after tripping down her stairs on her front porch. She had immediate pain and deformity of the left ankle, EMS to bring the patient to the hospital. Upon arrival to the hospital, multiple imaging and lab tests were done. He was determined she had a bimalleolar ankle fracture with dislocation. The ER staff Garibay Dr. Raines regarding this, a reduction of the ankle with splinting was done by the emergency room physician. I was unable to examine the patient later in the morning in the emergency room. She is resting comfortably, there is a posterior splint intact time. She notes most discomfort in the ankle and her knee. X-rays were also done of the tib-fib and left knee, this demonstrated a minimally displaced medial femoral condyle fracture and also a proximal fibular fracture. Patient does have a history of a left total knee [place]. X-rays were also done post reduction and splinting of the left ankle which do demonstrate a displaced bimalleolar fracture. At this time she has no other orthopedic complaints. She has multiple medical comorbidities which she sees multiple medical doctors for. Currently she denies any chest pain, shortness of breath, lightheadedness, headaches, fever chills, nausea vomiting, abdominal discomfort, lower extremity paresthesias. Review of Systems Constitutional: Reports as per HPI Past Medical History Past Medical History: Blood Disorder, Heart Failure, COPD, Dialysis, GERD/Reflux, Hyperlipidemia, Pulmonary Embolus (PE), Renal Disease, Thyroid Disorder Additional Past Medical History / Comment(s): scleraderma, gout, peritoneal dialysis History of Any Multi-Drug Resistant Organisms: None Reported Past Surgical History: Bowel Resection, Cholecystectomy, Hysterectomy, Orthopedic Surgery Additional Past Surgical History / Comment(s): left knee replacement, insertion of peritoneal diaylsis Past Psychological History: Anxiety, Depression Past Alcohol Use History: None Reported Past Drug Use History: None Reported Medications and Allergies Home Medications Medication Instructions Recorded Confirmed Type Apixaban [Eliquis] 12.5 mg PO BID 07/28/18 07/28/18 History Atorvastatin [Lipitor] 20 mg PO HS 07/28/18 07/28/18 History Doxepin HCl 75 mg PO HS 07/28/18 07/28/18 History Folic Acid 0.8 mg PO DAILY 07/28/18 07/28/18 History Furosemide [Lasix] 80 mg PO BID 07/28/18 07/28/18 History Levothyroxine Sodium [Synthroid] 125 mcg PO DAILY 07/28/18 07/28/18 History Sevelamer [Renvela] 800 mg PO AC-TID 07/28/18 07/28/18 History Temazepam [Restoril] 15 mg PO HS 07/28/18 07/28/18 History azaTHIOprine [Imuran] 25 mg PO DAILY 07/28/18 07/28/18 History Amoxic-Pot Clav 875-125Mg 1 tab PO Q12HR 3 Days #20 tab 01/29/20 Rx [Augmentin 875-125] Allergies Allergy/AdvReac Type Severity Reaction Status Date / Time adhesive Allergy Unknown Verified 01/29/20 18:21 allopurinol Allergy Unknown Verified 01/29/20 18:21 codeine Allergy Unknown Verified 01/29/20 18:21 iodine Allergy Unknown Verified 01/29/20 18:21 meperidine HCl [From Demerol] Allergy Unknown Verified 01/29/20 18:21 povidone-iodine Allergy Unknown Verified 01/29/20 18:21 [From Betadine] soap [From Betadine] Allergy Unknown Verified 01/29/20 18:21 Sulfa (Sulfonamide Allergy Unknown Verified 01/29/20 18:21 Antibiotics) Physical Examination left lower extremity: Incision is well-healed over the anterior aspect of the knee. There is an obvious effusion present on the knee. She's tender with palpation along the medial femoral condyle. Valgus stress test does reveal some laxity there. She is absent is tender with palpation in that area. There is no open lesions or sores visualized. Logroll maneuver that extremity reproduces no groin pain, she is nontender in the proximal femur. Posterior splint is in good position and condition. I was able to discuss with the emergency room physician the general skin exam prior to putting on the splint. He mentioned a small abrasion just distal to the medial malleolus, there was obvious skin tenting prereduction. He was unable to appreciate any lacerations or other wounds. The skin is warm to touch both proximal distal splint. Her sensory exam to light touch both proximal distal to the splint are intact. She is able to wiggle the toes and no difficulties. Results - Labs Labs: Abnormal Lab Results - Last 24 Hours (Table) 03/13/20 03/13/20 Range/Units 09:12 09:12 Sodium 133 L (137-145) mmol/L BUN 23 H (7-17) mg/dL Creatinine 4.41 H (0.52-1.04) mg/dL Glucose 111 H (74-99) mg/dL Plasma Lactic Acid Jose Antonio 2.7 H* (0.7-2.0) mmol/L Total Protein 6.1 L (6.3-8.2) g/dL H & H 03/13/20 Range/Units 09:12 Hgb 12.5 (11.4-16.0) gm/dL Hct 39.4 (34.0-46.0) % Coagulation 03/13/20 Range/Units 09:12 INR 1.0 (<1.2) Result Diagrams: 03/13/20 09:12 03/13/20 09:12 - Diagnostic results Knee x-ray: report reviewed, image reviewed Ankle/Foot x-ray: report reviewed, image reviewed (Multiple x-rays were reviewed, the pre-and post reduction x-rays of the ankle demonstrate a bimalleolar ankle fracture. The x-rays involving the knee and tib-fib demonstrate a minimally displaced medial femoral condyle fracture and the proximal fibular fracture.) Assessment and Plan Assessment: Left ankle bimalleolar ankle fracture with dislocation, status post relocation with splinting Minimally displaced medial femoral condyle fracture left knee Minimally displaced left proximal fibular fracture Multiple medical comorbidities Plan: I was able to discuss the case, including both physical exam findings and imaging studies my attending Dr. Raines. Our plan is to proceed with an open reduction internal fixation procedure of the left ankle, date will be 03/14/2020. Obtain consent for procedure on the left ankle Continue use of the splint on the ankle at this time, recommend icing and elevating [id number] until then No orthopedic surgical intervention recommended on the knee and proximal fibula at this time, we'll likely utilize bracing post ankle procedure Patient has history of blood clots, she takes Eliquis, this will be held at this time. Will utilize tourniquet at surgery and plan to restart medication after surgery Consult multiple medical providers for help with management of her medical comorbidities Pain control, oral and IV as needed Further recommendations to follow Time with Patient: Less than 30
--- NOTE | 2020-03-13 13:35 | P.NPCON ---
History of Present Illness - Reason for Consult Consult date: 03/13/20 end stage renal disease - Chief Complaint Left ankle fracture - History of Present Illness ESRD patient of [facility] schedule coming to the hospital with left ankle pain. Last dialysis was Sunday, on dialysis for the last 4 years initially on PD for first 2 years and later switched over to he more. Currently dialysis through right jugular permacath. Complaining of pain no nausea vomiting diarrhea. No missed dialysis treatments. Review of Systems Constitutional: Reports as per HPI Past Medical History Past Medical History: Blood Disorder, Heart Failure, COPD, Dialysis, GERD/Reflux, Hyperlipidemia, Pulmonary Embolus (PE), Renal Disease, Thyroid Disorder Additional Past Medical History / Comment(s): scleraderma, gout, peritoneal dialysis History of Any Multi-Drug Resistant Organisms: None Reported Past Surgical History: Bowel Resection, Cholecystectomy, Hysterectomy, Orthopedic Surgery Additional Past Surgical History / Comment(s): left knee replacement, insertion of peritoneal diaylsis Past Psychological History: Anxiety, Depression Past Alcohol Use History: None Reported Past Drug Use History: None Reported Medications and Allergies Home Medications Medication Instructions Recorded Confirmed Type Apixaban [Eliquis] 12.5 mg PO BID 07/28/18 07/28/18 History Atorvastatin [Lipitor] 20 mg PO HS 07/28/18 07/28/18 History Doxepin HCl 75 mg PO HS 07/28/18 07/28/18 History Folic Acid 0.8 mg PO DAILY 07/28/18 07/28/18 History Furosemide [Lasix] 80 mg PO BID 07/28/18 07/28/18 History Levothyroxine Sodium [Synthroid] 125 mcg PO DAILY 07/28/18 07/28/18 History Sevelamer [Renvela] 800 mg PO AC-TID 07/28/18 07/28/18 History Temazepam [Restoril] 15 mg PO HS 07/28/18 07/28/18 History azaTHIOprine [Imuran] 25 mg PO DAILY 07/28/18 07/28/18 History Amoxic-Pot Clav 875-125Mg 1 tab PO Q12HR 3 Days #20 tab 01/29/20 Rx [Augmentin 875-125] Allergies Allergy/AdvReac Type Severity Reaction Status Date / Time adhesive Allergy Unknown Verified 03/13/20 13:19 allopurinol Allergy Unknown Verified 03/13/20 13:19 codeine Allergy Unknown Verified 03/13/20 13:19 iodine Allergy Unknown Verified 03/13/20 13:19 meperidine HCl [From Demerol] Allergy Unknown Verified 03/13/20 13:19 povidone-iodine Allergy Unknown Verified 03/13/20 13:19 [From Betadine] soap [From Betadine] Allergy Unknown Verified 03/13/20 13:19 Sulfa (Sulfonamide Allergy Unknown Verified 03/13/20 13:19 Antibiotics) Physical Exam Vitals: Vital Signs Temp Pulse Pulse Pulse Resp BP BP 03/13/20 13:31 97.5 F L 56 L 18 94/57 03/13/20 12:46 98.1 F 81 16 104/64 03/13/20 10:57 98.1 F 65 18 120/81 03/13/20 10:30 98.0 F 69 15 127/89 03/13/20 10:09 77 18 127/89 03/13/20 09:48 12 03/13/20 09:12 98.1 F 81 16 109/81 03/13/20 09:07 98.1 F 81 18 109/81 Pulse Ox 03/13/20 13:31 92 L 03/13/20 12:46 98 03/13/20 10:57 98 03/13/20 10:30 100 03/13/20 10:09 98 03/13/20 09:48 03/13/20 09:12 98 03/13/20 09:07 98 Intake and Output 03/12/20 03/13/20 03/13/20 22:59 06:59 14:59 Other: Weight 78.018 kg No acute distress S1-S2 heard Lungs clear Right jugular permacath No edema Results - Lab Results Most recent lab results Calcium 9.1 mg/dL (8.4-10.2) 03/13/20 09:12 03/13/20 09:12 03/13/20 09:12 Assessment and Plan Assessment: #1 left ankle fracture #2 ESRD on HD via right jugular permacath MWF schedule. #3 hypertension with ESRD #4 anemia with ESRD #5 metabolic bone disease with ESRD Plan: #1 plan hemodialysis on Sunday #2 ESRD medications #3 supportive care
[2020-03-13] MEDS: HYDROmorphone 0.5 MG/0.5 ML SYRINGE IVP PRN ×2 (13:47→17:31)
[2020-03-13] MEDS: SEVELAMER 800 MG TAB PO SCH (17:31)
--- NOTE | 2020-03-13 17:48 | P.CONS ---
History of Present Illness - Reason for Consult Consult date: 03/13/20 pre op clearance Requesting physician: Luis M Raines - Chief Complaint left ankle pain - History of Present Illness Patient is a 74-year-old female with a history of end-stage renal disease on dialysis Sunday/Sunday/Sunday, hypotension, hypothyroidism, scleroderma, and I'll be who was brought to [facility] secondary to left ankle deformity. She was subsequently found to have a left bimalleolar ankle fracture with dislocation in the emergency department. She was admitted to orthopedic services and we were asked to consult regarding medical clearance for operation. Patient seen and examined at bedside. She reports that she has chronic shortness of breath secondary to her scleroderma and interstitial lung disease. She also has a history of lupus. She denies any history of congestive heart failure, myocardial infarction, stroke. She has no history of diabetes. 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 She states she has been in her typical state of health. She denies any recent chest pain, changes in her shortness of breath, nausea, vomiting, diarrhea, or dysuria. She does urinate approximately once daily. We discussed her NSQUIP surgical calculator score. She is aware that she is at a higher risk than average for serious complications of this surgery including readmission, PNA, cardiac complications. She is having pain in her left ankle. She states that she does have a tendency to develop fluid overload from her ESRD but this is a rare occurence. She does have dizziness from her low blood pressur es. Last Stress test at in [place] years ago. Review of Systems Pertinent positives and negatives as discussed in HPI, a complete review of sys tems was performed and all other systems are negative. Past Medical History Past Medical History: Blood Disorder, COPD, Dialysis, GERD/Reflux, Hype rlipidemia, Pulmonary Embolus (PE), Renal Disease, Thyroid Disorder Additional Past Medical History / Comment(s): scleraderma, gout, peritoneal dialysis. 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, Lupus History of Any Multi-Drug Resistant Organisms: None Reported Past Surgical History: Bowel Resection, Cholecystectomy, Hysterectomy, Orthopedic Surgery Additional Past Surgical History / Comment(s): left knee replacement, insertion of peritoneal diaylsis, thyroidectomy due to goiter, kidney biopsy X 2, Lung biopsy, Graft Left arm with failure, Right pointer finger amputation Past Psychological History: Anxiety, Depression Smoking Status: Never smoker Past Alcohol Use History: None Reported Past Drug Use History: None Reported Additional History: Cane and walker at home - Past Family History Mother Additional Family Medical History / Comment(s): breast CA , mitrale valve damage, kidney disease, gout Father Family Medical History: Thyroid Disorder Medications and Allergies Home Medications Medication Instructions Recorded Confirmed Type Apixaban [Eliquis] 12.5 mg PO BID 07/28/18 03/13/20 History Atorvastatin [Lipitor] 20 mg PO HS 07/28/18 03/13/20 History Doxepin HCl 75 mg PO HS 07/28/18 03/13/20 History Folic Acid 0.8 mg PO DAILY 07/28/18 03/13/20 History Levothyroxine Sodium [Synthroid] 125 mcg PO DAILY 07/28/18 03/13/20 History azaTHIOprine [Imuran] 25 mg PO DAILY 07/28/18 03/13/20 History Calcium Acetate [Phoslo] 667 mg PO BID 03/13/20 03/13/20 History Cyclobenzaprine [Flexeril] 10 mg PO BID 03/13/20 03/13/20 History Magnebind 300 1 tab PO BID 03/13/20 03/13/20 History Midodrine HCl 10 mg PO TID 03/13/20 03/13/20 History Allergies Allergy/AdvReac Type Severity Reaction Status Date / Time adhesive Allergy Unknown Verified 03/13/20 16:36 allopurinol Allergy Unknown Verified 03/13/20 16:36 codeine Allergy Unknown Verified 03/13/20 16:36 iodine Allergy Unknown Verified 03/13/20 16:36 meperidine HCl [From Demerol] Allergy Unknown Verified 03/13/20 16:36 povidone-iodine Allergy Unknown Verified 03/13/20 16:36 [From Betadine] soap [From Betadine] Allergy Unknown Verified 03/13/20 16:36 Sulfa (Sulfonamide Allergy Unknown Verified 03/13/20 16:36 Antibiotics) Physical Exam Osteopathic Statement: *. No significant issues noted on an osteopathic structural exam other than those noted in the History and Physical/Consult. Vitals: Vital Signs Temp Pulse Pulse Pulse Resp BP BP 03/13/20 15:04 62 18 03/13/20 15:00 97.7 F 66 18 132/74 03/13/20 13:47 62 110/69 03/13/20 13:31 97.5 F L 56 L 18 94/57 03/13/20 12:46 98.1 F 81 16 104/64 03/13/20 10:57 98.1 F 65 18 120/81 03/13/20 10:30 98.0 F 69 15 127/89 03/13/20 10:09 77 18 127/89 03/13/20 09:48 12 03/13/20 09:12 98.1 F 81 16 109/81 03/13/20 09:07 98.1 F 81 18 109/81 Pulse Ox 03/13/20 15:04 03/13/20 15:00 99 03/13/20 13:47 03/13/20 13:31 92 L 03/13/20 12:46 98 03/13/20 10:57 98 03/13/20 10:30 100 03/13/20 10:09 98 03/13/20 09:48 03/13/20 09:12 98 03/13/20 09:07 98 Intake and Output 03/13/20 03/13/20 03/13/20 06:59 14:59 22:59 Other: Voiding Method Bedside Commode Weight 78.018 kg General: non toxic, no distress, appears at stated age Derm: warm, dry Head: atraumatic, normocephalic, symmetric Eyes: EOMI, no lid lag, anicteric sclera, pupils equal round reactive to light ENT: Nose and ears atraumatic, no thrush, no pharyngeal erythema Neck: No thyromegaly, no cervical lymphadenopathy, trachea midline, supple Mouth: no lip lesion, mucus membranes moist Cardiovascular: S1S2 reg, no murmur, positive posterior tibial pulse bilateral, no edema, capillary refill less than 2 seconds Lungs: clear to ascultation bilateral, no ronchi, no rales, no wheeze, no accessory muscle use Abdominal: soft, nontender to palpation, no guarding, no appreciable organo megaly, normal bowel sounds Ext: no gross muscle atrophy, muscle strength muscle strength 5 out of 5 in upper extremities, no contractures, left ankle in dressing Neuro: CN II-XI grossly intact, light touch intact all 4 extremities, finger to nose within normal limits, Psych: Alert, oriented, appropriate affect Results CBC & Chem 7: 03/13/20 09:12 03/13/20 09:12 Labs: Abnormal Lab Results - Last 24 Hours (Table) 03/13/20 03/13/20 Range/Units 09:12 09:12 Sodium 133 L (137-145) mmol/L BUN 23 H (7-17) mg/dL Creatinine 4.41 H (0.52-1.04) mg/dL Glucose 111 H (74-99) mg/dL Plasma Lactic Acid Jose Antonio 2.7 H* (0.7-2.0) mmol/L Total Protein 6.1 L (6.3-8.2) g/dL Assessment and Plan Assessment: Left ankle fracture ESRD Hypotnesion Interstitial Lung disease Scleroderma Lupus Hx of Pulmonary embolism X 2 We discussed her NSQUIP surgical calculator score. She is aware that she is at a higher risk than average for serious complications of this surgery including readmission, PNA, cardiac complications. Patient medically optimized for surgery. No additional testing needed at this time. She does not want to go to a SNF on discharge. Will need to be started on anticoagulation as soon as able after surgery if remains bed bound. Continue midodrine. Monitor closely for ILD flare post-op, EDDIE gomes Thank you for allowing us to participate in the care of this pleasant patient.
[2020-03-13] MEDS ORDERED: HYDROmorphone 0.5 MG/0.5 ML SYRINGE IM STA (19:27)
[2020-03-13] MEDS ORDERED: HYDROmorphone 0.5 MG/0.5 ML SYRINGE IVP STA (19:43)
[2020-03-13] MEDS ORDERED: CALCIUM ACETATE 667 MG TAB PO SCH (21:00)
[2020-03-13] MEDS: DOXEPIN 25 MG CAP PO SCH (22:01)
[2020-03-13] MEDS: ATORVASTATIN 20 MG TAB PO SCH (22:01)
[2020-03-13] MEDS: CYCLOBENZAPRINE 10 MG TAB PO SCH (22:01)
[2020-03-13] MEDS: HYDROmorphone 1 MG/ML 1 ML SYRINGE IVP PRN (22:46)
[2020-03-14] MEDS: HYDROmorphone 1 MG/ML 1 ML SYRINGE IVP PRN ×5 (02:24→23:48)
[2020-03-14] MEDS: LEVOTHYROXINE 125 MCG TAB PO SCH (05:55)
[2020-03-14] MEDS: FOLIC ACID 1 MG TAB PO SCH (07:13)
[2020-03-14] MEDS: CYCLOBENZAPRINE 10 MG TAB PO SCH ×2 (07:29→21:05)
[2020-03-14] MEDS: FOLIC ACID-VIT B COMPLEX-VIT C 1 CAP PO SCH (07:29)
[2020-03-14] MEDS: MIDODRINE 5 MG TAB PO SCH ×3 (07:29→17:54)
[2020-03-14] MEDS: azaTHIOprine 50 MG TAB PO SCH (07:30)
[2020-03-14 07:31] LABS: HGB 10.1 gm/dL (11.4-16.0); MCH 31.5 pg (25.0-35.0); MCHC 31.5 g/dL (31.0-37.0); Mean Platelet Volume 8.1; Platelet Count 189 k/uL (150-450); RDW 13.8 % (11.5-15.5); WBC 7.4 k/uL (3.8-10.6)
[2020-03-14 07:39] LABS: Calcium 8.8 mg/dL (8.4-10.2); Potassium 4.1 mmol/L (3.5-5.1)
[2020-03-14] MEDS: SEVELAMER 800 MG TAB PO SCH ×3 (08:30→17:54)
[2020-03-14] MEDS: diphenhydrAMINE 50 MG/ML 1 ML VIAL IVP PRN (08:50)
[2020-03-14] MEDS ORDERED: ONDANSETRON 4 MG/2 ML VIAL ONE (11:26)
[2020-03-14] MEDS ORDERED: PHENYLEPHRINE-0.9% NACL SYG 1 MG/10 ML SYRINGE ONE (11:26)
[2020-03-14] MEDS ORDERED: GLYCOPYRROLATE 0.2 MG/ML 2 ML VIAL ONE (11:26)
[2020-03-14] MEDS ORDERED: fentaNYL (PF) 50 MCG/ML 2 ML AMP ONE (11:26)
[2020-03-14] MEDS ORDERED: NEOSTIGMINE 1 MG/ML 10 ML VIAL ONE (11:26)
[2020-03-14] MEDS ORDERED: ROCURONIUM BROMIDE 10 MG/ML 5 ML VIAL IV ONE (11:26)
[2020-03-14] MEDS ORDERED: PROPOFOL 10 MG/ML 20 ML VIAL IV ONE (11:26)
[2020-03-14] MEDS ORDERED: LIDOCAINE 1% INJ 10MG/ML (20 ML MDV) ONE (11:26)
[2020-03-14] MEDS ORDERED: DEXAMETHASONE SOD PHOSPHATE 10 MG/ML 1 ML VIAL ONE (11:26)
[2020-03-14] MEDS ORDERED: SODIUM CHLORIDE 0.9% 1,000 ML IV ONE (11:29)
[2020-03-14] MEDS ORDERED: SODIUM CHLORIDE 0.9% 100 ML with ceFAZolin 2,000 MG IV ONE ×2 (11:45)
[2020-03-14] MEDS ORDERED: ceFAZolin 1,000 MG in SODIUM CHLORIDE 0.9% 1,000 ML IRRIGATION ONE (12:00)
--- NOTE | 2020-03-14 13:34 | XR ---
EXAMINATION TYPE: XR ankle limited LT, FL guidance operating room DATE OF EXAM: 03/14/2020 COMPARISON: NONE HISTORY: 74 year-old female left ankle ORIF FINDINGS: Intraoperative fluoroscopy demonstrating screw fixation of the medial malleolus and lateral side plat e and multiple screw fixation of the lateral malleolus. FLUOROSCOPY Fluoroscopy time of 43 seconds was used during left ankle ORIF. 3 image/s document/s the procedure. IMPRESSION: Intraoperative fluoroscopy as above.
--- NOTE | 2020-03-14 13:34 | P.OP ---
Date of Procedure: 03/14/20 Preoperative Diagnosis: Left comminuted/displaced bimalleolar ankle fracture Postoperative Diagnosis: Same Procedure(s) Performed: Open reduction and internal fixation left bimalleolar ankle fracture Implants: Arthrex 8 hole one third tubular plate, 2 cannulated screws4.0 mm 44 mm Anesthesia: IVANNA Surgeon: Luis M Raines Machine Clipper #1: Jesse Mcdonald Estimated Blood Loss (ml): 10 Pathology: none sent Condition: stable Disposition: PACU Indications for Procedure: The patient's a 74-year-old female who presents after falling injuring her left ankle. She was noted have a fracture dislocation. She underwent provisional r eduction of her bimalleolar ankle fracture in the emergency room. A discussion of the risks and benefits of operative intervention was made with patient. She opted to proceed with surgery. Operative risks to include infection, neurovascular injury, development of blood clots, possible development of nonunion/malunion, and possible need for subsequent procedures was discussed. Informed consent was obtained. Operative Findings: As below Description of Procedure: The patient was brought to the operating room, and after induction of general anesthesia the left lower extremity was prepped and draped in normal fashion. The tourniquet was inflated to 270 mmHg. A longitudinal incision extending approximately 10 cm was made along the posterior lateral border of the fibula. Skin was incised sharply. Subcutaneous tissues were divided bluntly. The periosteum overlying the distal fibula was elevated exposing the fracture site. There was significant comminution of the distal fibula. This was provisionally held in place with reduction clamps. An 8 hole one third tubular plate was contoured and placed along the lateral aspect of the fibula. The fibula was brought out to length with the aid of fluoroscopy. This was attached proximally with 3.5 mm cortical screws the appropriate length. Distally a placed 4.0 mm cancellus screws the appropriate length. Attention was then paid towards the medial malleolus. A 5 cm incision was made over the medial malleolus. Skin was incised sharply. Subcutaneous tissues were divided bluntly. The fracture site was identified and cleaned of clot and debris. The medial talar dome was inspected. Periosteum was elevated to facilitate fracture reduction. It was then held reduced and 2 guidewires were placed in a parallel fashion. This was verified with fluoroscopy. A cannulated drill was used over these. 4.0 mm x 44 mm partially threaded cancellus screws were inserted with good purchase. Final fluoroscopic views to include AP, mortise, and lateral views showed adequate reduction of the mortise, voodoo of fibular length, and implant placement. I did check syndesmotic stability and did not feel additional fixation was needed at this point. The wounds were irrigated normal saline. The subcutaneous tissues reapproximated interrupted 3-0 Vicryl suture. Skin was reapproximated with 3-0 subcuticular Prolene suture. Steri-Strips were applied. A sterile dressing was applied in addition to a bulky splint. The tourniquet was deflated with approximately 70 minutes total tourniquet time. The patient was awoken from general anesthesia and transferred to recovery room in fair condition. Blood loss was estimated 10 mL. No complications were incurred. Sponge and needle counts were correct at the end the case.
[2020-03-14] MEDS ORDERED: HYDROmorphone 0.5 MG/0.5 ML SYRINGE IVP ONE ×4 (13:40→14:22)
[2020-03-14] MEDS ORDERED: HYDROmorphone 1 MG/ML 1 ML SYRINGE IVP ONE (14:25)
--- NOTE | 2020-03-14 15:12 | P.PN ---
Subjective Progress Note Date: 03/14/20 Patient was seen and examined. No acute events overnight. Patient reports decently controlled pain in her left ankle. She denies any chest pain, shortness breath or palpitations. No nausea or vomiting. No fever or chills. Plans for surgery today. Objective - Vital Signs Vital signs: Vital Signs Temp 97.6 F 03/14/20 07:00 Pulse 65 03/14/20 14:30 Resp 16 03/14/20 14:30 BP 123/56 03/14/20 14:30 Pulse Ox 97 03/14/20 14:30 Intake & Output 03/13/20 03/14/20 03/14/20 18:59 06:59 18:59 Intake Total 551 Output Total 10 Balance 541 Weight 78.018 kg Intake: IV 551 Output: Estimated Blood Loss 10 Other: Voiding Method Bedside Commode Bedside Commode Bedside Commode # Voids 1 1 - Exam General: [non toxic], [no distress], [appears at stated age] Derm: [warm], [dry] Head: [atraumatic], [normocephalic], [symmetric] Eyes: [EOMI], [no lid lag], [anicteric sclera] Mouth: [no lip lesion], [mucus membranes moist] Cardiovascular: [S1S2 reg], [systolic murmur], [positive posterior tibial pulse bilateral], Lungs: [CTA bilateral], [no rhonchi, no rales] , [no accessory muscle use] Abdominal: [soft], [ nontender to palpation], [no guarding], [no appreciable organomegaly] Ext: [no gross muscle atrophy], [no edema], [no contractures], left lower extremity wrapped dressing clean dry and intact with limited range of motion. Neuro: [no focal neuro deficits] Psych: [Alert], [oriented], [appropriate affect] - Labs CBC & Chem 7: 03/14/20 06:41 03/14/20 06:41 Labs: Abnormal Lab Results - Last 24 Hours (Table) 03/14/20 03/14/20 Range/Units 06:41 06:41 RBC 3.20 L (3.80-5.40) m/uL Hgb 10.1 L (11.4-16.0) gm/dL Hct 32.0 L (34.0-46.0) % Sodium 132 L (137-145) mmol/L Chloride 97 L (98-107) mmol/L BUN 30 H (7-17) mg/dL Creatinine 4.83 H (0.52-1.04) mg/dL Assessment and Plan Assessment: Left ankle fracture ESRD Hypotension Interstitial lung disease Scleroderma lupus History of pulmonary embolus Hypothyroidism Patient is higher risk than average for serious complication. She is medically optimized for surgery. Nephrology on board for hemodialysis. Continue Sevelamer. Continue Midodrin for hypotension. Supplemental O2 per nasal cannula to maintain O2 saturation greater than 92%. Will need careful cardiopulmonary monitoring post surgery. Continue azathioprine. Restart anticoagulation as soon as possible after surgery if patient continues to remain bedbound. Continue Synthroid. Thank you for this consult. Please call with any additional questions or concerns.
[2020-03-14] MEDS: ENOXAPARIN 40 MG/0.4 ML SYRINGE SQ SCH (17:53)
[2020-03-14] MEDS: DOXEPIN 25 MG CAP PO SCH (21:06)
[2020-03-14] MEDS: ATORVASTATIN 20 MG TAB PO SCH (21:06)
[2020-03-15] MEDS: HYDROmorphone 1 MG/ML 1 ML SYRINGE IVP PRN (04:40)
[2020-03-15] MEDS: LEVOTHYROXINE 125 MCG TAB PO SCH (04:48)
--- NOTE | 2020-03-15 08:17 | XR ---
EXAMINATION TYPE: XR chest 1V portable DATE OF EXAM: 03/15/2020 Comparison: 03/13/2020 Clinical History: 74-year-old female hypoxia Findings: Right-sided double lumen hemodialysis catheter with tips cavoatrial junction. Heart limits of normal in size. Relative upper lung lucencies. Strandy atelectasis in the lower lungs. No clive consolidatio n or sizable effusion. Stable line in the periphery of the left midlung from prior resection. Cholecy stectomy clips and embolization material right upper quadrant. Impression: Possible underlying COPD. There may be some mild strandy atelectasis in the lower lungs. Otherwise, n o definite acute process.
[2020-03-15] MEDS: ENOXAPARIN 40 MG/0.4 ML SYRINGE SQ SCH (08:23)
[2020-03-15] MEDS: SEVELAMER 800 MG TAB PO SCH ×4 (08:24→16:51)
[2020-03-15] MEDS: diphenhydrAMINE 50 MG/ML 1 ML VIAL IVP PRN (08:24)
[2020-03-15] MEDS: FOLIC ACID-VIT B COMPLEX-VIT C 1 CAP PO SCH (08:24)
[2020-03-15] MEDS: MIDODRINE 5 MG TAB PO SCH ×3 (08:24→16:49)
[2020-03-15] MEDS: HYDROcodone/APAP 5-325MG 1 EACH TAB PO PRN ×2 (11:59→16:50)
--- NOTE | 2020-03-15 12:54 | P.PN ---
Subjective Progress Note Date: 03/15/20 Patient was seen and examined. No acute events overnight. Patient reports 8 out of 10 pain severity in her left lower extremity. She is nonweightbearing. She denies any chest pain, shortness breath or palpitations. No nausea or vomiting. No fever or chills. Objective - Vital Signs Vital signs: Vital Signs Temp 98.0 F 03/15/20 07:00 Pulse 83 03/15/20 07:00 Resp 17 03/15/20 07:00 BP 113/64 03/15/20 07:00 Pulse Ox 91 L 03/15/20 07:00 Intake & Output 03/14/20 03/15/20 03/15/20 18:59 06:59 18:59 Intake Total 551 222 Output Total 10 200 Balance 541 22 Intake: IV 551 Oral 222 Output: Urine 200 Estimated Blood Loss 10 Other: Voiding Method Bedside Commode Bedside Commode # Voids 1 - Exam General: [non toxic], [no distress], [appears at stated age] Derm: [warm], [dry] Head: [atraumatic], [normocephalic], [symmetric] Eyes: [EOMI], [no lid lag], [anicteric sclera] Mouth: [no lip lesion], [mucus membranes moist] Cardiovascular: [S1S2 reg], [systolic murmur], [positive posterior tibial pulse bilateral], Lungs: [CTA bilateral], [no rhonchi, no rales] , [no accessory muscle use] Abdominal: [soft], [ nontender to palpation], [no guarding], [no appreciable organomegaly] Ext: [no gross muscle atrophy], [no edema], [no contractures], left lower extremity wrapped dressing clean dry and intact with limited range of motion. Neuro: [no focal neuro deficits] Psych: [Alert], [oriented], [appropriate affect] - Labs CBC & Chem 7: 03/14/20 06:41 03/14/20 06:41 Assessment and Plan Assessment: Left ankle fracture postoperative day 1 Acute blood loss anemia Hypoxia ESRD Hypotension Interstitial lung disease Scleroderma lupus History of pulmonary embolus Hypothyroidism Patient is higher risk than average for serious complication. She is medically optimized for surgery. Needs better pain control, managed by orthopedic surgery . Hemoglobin downtrending from 12.5-10. Expected results of surgery. Transfuse PRBCs female less than 7. Chest x-ray shows atelectasis. Start incentive spirometer. Nephrology on board for hemodialysis. Continue Sevelamer. Continue Midodrin for hypotension. Supplemental O2 per nasal cannula to maintain O2 saturation greater than 92%. Will need careful cardiopulmonary monitoring post surgery. Continue azathioprine. Restart anticoagulation as soon as possible after surgery if patient continues to remain bedbound. Continue Synthroid. [Patient will likely need discharge to subacute rehab as she is nonweightbearing and has stairs at home.] Thank you for this consult. Please call with any additional questions or concerns.
[2020-03-15] MEDS: CYCLOBENZAPRINE 10 MG TAB PO SCH ×2 (13:08→20:26)
[2020-03-15] MEDS: FOLIC ACID 1 MG TAB PO SCH (13:08)
[2020-03-15] MEDS: azaTHIOprine 50 MG TAB PO SCH (13:09)
--- NOTE | 2020-03-15 14:39 | P.PN ---
Subjective Progress Note Date: 03/15/20 Principal diagnosis: status post ORIF left bimalleolar ankle fracture Patient evaluated today at bedside, she resting comfortably. Her pain is well- controlled. She is utilizing the postoperative splint and knee immobilizer. She denies any chest pain or shortness of breath. Objective - Vital Signs Vital signs: Vital Signs Temp 98.0 F 03/15/20 07:00 Pulse 83 03/15/20 07:00 Resp 17 03/15/20 07:00 BP 113/64 03/15/20 07:00 Pulse Ox 91 L 03/15/20 07:00 Intake & Output 03/14/20 03/15/20 03/15/20 18:59 06:59 18:59 Intake Total 551 222 Output Total 10 200 Balance 541 22 Intake: IV 551 Oral 222 Output: Urine 200 Estimated Blood Loss 10 Other: Voiding Method Bedside Commode Bedside Commode # Voids 1 1 - Exam Left lower extremity: Postop splint is in good position and condition. The immobilizer is in good position and condition. Skin is warm to touch. Sensory exam to light touch is intact throughout the extremity. - Labs CBC & Chem 7: 03/14/20 06:41 03/14/20 06:41 Assessment and Plan Assessment: Status post ORIF left ankle bimalleolar fracture Plan: Pain control, continue current medication GI and DVT prophylaxis, resume home medications tomorrow Nonweightbearing left lower extremity Continue use the postop splint and immobilizer Other medical special recommendations Discharge planning: Anticipate discharge in the next few days Time with Patient: Less than 30
--- NOTE | 2020-03-15 17:39 | PN ---
PROGRESS NOTE Patient is seen for followup for end-stage renal disease. She is scheduled for hemodialysis today. She was admitted with a fall and fracture of the left ankle, status post surgery on 03/14/2020. The patient had open reduction, internal fixation of left bimalleolar ankle fracture. Her pain is fairly well controlled. PHYSICAL EXAMINATION: On examination today, blood pressure was 113/64, heart rate 83 per minute. She is afebrile. EXAMINATION OF THE HEART: S1 and S2. EXAMINATION OF LUNGS: Bilateral breath sounds are heard. ABDOMEN: Soft, non-tender. Examination of lower extremities shows no significant edema. Left leg is currently in cast. LABS: Sodium 132, potassium 4.1, serum creatinine 4.83, hemoglobin 10.1 g/dL. ASSESSMENT: 1. End-stage renal disease, on hemodialysis on a Sunday, Sunday, Sunday schedule[facility] 2. Left ankle fracture, status post open reduction and internal fixation on 03/14/2020. 3. Chronic kidney disease mineral bone disorder. 4. History of scleroderma/lupus, maintained on Imuran. PLAN: Continue with Renvela. Hemodialysis today. Continue midodrine, as blood pressure runs low. MMODL / IJN: [id number] /
[2020-03-15] MEDS: ATORVASTATIN 20 MG TAB PO SCH (20:26)
[2020-03-15] MEDS: DOXEPIN 25 MG CAP PO SCH (20:28)
[2020-03-16] MEDS: HYDROcodone/APAP 5-325MG 1 EACH TAB PO PRN ×3 (05:10→17:23)
[2020-03-16] MEDS: LEVOTHYROXINE 125 MCG TAB PO SCH (05:11)
[2020-03-16] MEDS: MIDODRINE 5 MG TAB PO SCH ×3 (09:05→17:19)
[2020-03-16] MEDS: CYCLOBENZAPRINE 10 MG TAB PO SCH ×2 (09:06→21:23)
[2020-03-16] MEDS: FOLIC ACID-VIT B COMPLEX-VIT C 1 CAP PO SCH (09:06)
[2020-03-16] MEDS: FOLIC ACID 1 MG TAB PO SCH (09:06)
[2020-03-16] MEDS: APIXABAN 2.5 MG TABLET PO SCH ×2 (09:06→21:23)
[2020-03-16] MEDS: SEVELAMER 800 MG TAB PO SCH ×3 (09:06→17:19)
[2020-03-16] MEDS: azaTHIOprine 50 MG TAB PO SCH (09:06)
--- NOTE | 2020-03-16 11:56 | P.PN ---
Subjective Progress Note Date: 03/16/20 Feels better, pain is better controlled. No chest pain no abdominal pain, no shortness of breath. Up in chair, does not appear to be in distress. Objective - Vital Signs Vital signs: Vital Signs Temp 98.9 F 03/16/20 06:49 Pulse 79 03/16/20 06:49 Resp 16 03/16/20 06:49 BP 108/61 03/16/20 06:49 Pulse Ox 94 L 03/16/20 06:49 Intake & Output 03/15/20 03/16/20 03/16/20 18:59 06:59 18:59 Output Total 1500 200 Balance -1500 -200 Output: Urine 200 Hemodialysis 1500 Other: # Voids 1 1 - Exam General: [non toxic], [no distress], [appears at stated age] Derm: [warm], [dry] Head: [atraumatic], [normocephalic], [symmetric] Eyes: [EOMI], [no lid lag], [anicteric sclera] Mouth: [no lip lesion], [mucus membranes moist] Cardiovascular: [S1S2 reg], [systolic murmur] Lungs: [CTA bilateral], [no rhonchi, no rales] Abdominal: [soft], [ nontender to palpation] Ext: [no gross muscle atrophy], [no edema], [no contractures], left lower extremity wrapped dressing Neuro: [no focal neuro deficits] Psych: [Alert], [oriented], [appropriate affect] - Labs CBC & Chem 7: 03/14/20 06:41 03/14/20 06:41 Assessment and Plan Plan: Left ankle fracture postoperative day 2 Acute blood loss anemia Hypoxia ESRD Hypotension Interstitial lung disease Scleroderma lupus History of pulmonary embolus Hypothyroidism Continue pain control, managed by orthopedic surgery. Transfuse PRBCs for less than 7. Monitor H&H Chest x-ray shows atelectasis. Continue incentive spirometer. Nephrology on board for hemodialysis. Continue Sevelamer. Continue Midodrin for hypotension. Supplemental O2 per nasal cannula to maintain O2 saturation greater than 92% Continue azathioprine. Restart anticoagulation as soon as possible after surgery if patient continues to remain bedbound. Continue Synthroid. Pending discharge to rehab
--- NOTE | 2020-03-16 13:13 | P.PN ---
Subjective Progress Note Date: 03/16/20 Principal diagnosis: status post ORIF left bimalleolar ankle fracture Patient evaluated today at bedside, she resting comfortably. Her pain is well- controlled. She is utilizing the postoperative splint and knee immobilizer. She denies any chest pain or shortness of breath. Objective - Vital Signs Vital signs: Vital Signs Temp 98.0 F 03/16/20 12:03 Pulse 74 03/16/20 12:03 Resp 18 03/16/20 12:03 BP 104/54 03/16/20 12:03 Pulse Ox 94 L 03/16/20 06:49 Intake & Output 03/15/20 03/16/20 03/16/20 18:59 06:59 18:59 Output Total 1197 381 8552 Balance -1500 -200 -1000 Output: Urine 200 Hemodialysis 1500 1000 Other: # Voids 1 1 - Exam Left lower extremity: Postop splint is in good position and condition. The immobilizer is in good position and condition. Skin is warm to touch. Sensory exam to light touch is intact throughout the extremity. - Labs CBC & Chem 7: 03/14/20 06:41 03/14/20 06:41 Assessment and Plan Assessment: Status post ORIF left ankle bimalleolar fracture Plan: Pain control, continue current medication GI and DVT prophylaxis, continue Eliquis Nonweightbearing left lower extremity Continue use the postop splint and immobilizer Other medical special recommendations Discharge planning: Anticipate discharge to rehab tomorrow Time with Patient: Less than 30
--- NOTE | 2020-03-16 17:32 | PN ---
PROGRESS NOTE Patient is seen for followup for end-stage renal disease. She is seen on hemodialysis. Patient is tolerating her treatment well. She was dialyzed for about 2-1/2 hours yesterday and therefore patient is being done again today. Plans are for discharge with outpatient dialysis tomorrow on her regular scheduled visit. PHYSICAL EXAMINATION: On examination today, blood pressure was 108/61, heart rate 79 per minute. Patient is afebrile. EXAMINATION OF THE HEART: S1 and S2. EXAMINATION OF LUNGS: Bilateral breath sounds are heard. ABDOMEN: Soft, non-tender. Examination of lower extremities shows left lower extremity in cast. No significant edema noted in the right lower extremity. SLIVER LAP MACHINE TENDER exam is grossly intact. LABS: Sodium 132, potassium 4.1, BUN 30, creatinine 4.83, hemoglobin 10.1 g/dL. ASSESSMENT: 1. End-stage renal disease, on hemodialysis on a Sunday, Sunday, Sunday schedule. The patient will be dialyzed again tomorrow. If she is discharged she can have her dialysis as outpatient. Otherwise we will plan to run her tomorrow as inpatient. 2. Left ankle fracture, status post surgery. 3. Dyslipidemia. 4. 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 PLAN: Hemodialysis in a.m. MMODL / IJN: [id number] /
[2020-03-16] MEDS: DOXEPIN 25 MG CAP PO SCH (21:23)
[2020-03-16] MEDS: ATORVASTATIN 20 MG TAB PO SCH (21:23)
[2020-03-17] MEDS: HYDROcodone/APAP 5-325MG 1 EACH TAB PO PRN ×2 (03:58→10:18)
[2020-03-17] MEDS: LEVOTHYROXINE 125 MCG TAB PO SCH (04:09)
[2020-03-17] MEDS: azaTHIOprine 50 MG TAB PO SCH (08:42)
[2020-03-17] MEDS: SEVELAMER 800 MG TAB PO SCH ×2 (08:42→11:18)
[2020-03-17] MEDS: FOLIC ACID-VIT B COMPLEX-VIT C 1 CAP PO SCH (08:43)
[2020-03-17] MEDS: CYCLOBENZAPRINE 10 MG TAB PO SCH (08:43)
[2020-03-17] MEDS: MIDODRINE 5 MG TAB PO SCH ×2 (08:43→12:04)
[2020-03-17] MEDS: FOLIC ACID 1 MG TAB PO SCH (08:43)
[2020-03-17] MEDS: APIXABAN 2.5 MG TABLET PO SCH (08:43)
--- NOTE | 2020-03-17 09:57 | P.PN ---
Subjective Progress Note Date: 03/17/20 Principal diagnosis: status post ORIF left bimalleolar ankle fracture Patient evaluated today at bedside, she resting comfortably. Her pain is well- controlled. She is utilizing the postoperative splint and knee immobilizer. She denies any chest pain or shortness of breath. Objective - Vital Signs Vital signs: Vital Signs Temp 98.6 F 03/17/20 07:00 Pulse 70 03/17/20 07:00 Resp 14 03/17/20 07:00 BP 98/57 03/17/20 07:00 Pulse Ox 94 L 03/17/20 07:00 Intake & Output 03/16/20 03/17/20 03/17/20 18:59 06:59 18:59 Intake Total 360 Output Total 1200 300 Balance -840 -300 Intake: Oral 360 Output: Urine 200 300 Hemodialysis 1000 Other: Voiding Method Bedside Commode - Exam Left lower extremity: Postop splint is in good position and condition. The immobilizer is in good position and condition. Skin is warm to touch. Sensory exam to light touch is intact throughout the extremity. - Labs CBC & Chem 7: 03/14/20 06:41 03/14/20 06:41 Assessment and Plan Assessment: Status post ORIF left ankle bimalleolar fracture Plan: Pain control, plan for dc on [place] 5mg/325mg GI and DVT prophylaxis, continue Eliquis Nonweightbearing left lower extremity Continue use the postop splint and immobilizer Other medical special recommendations Discharge planning: Anticipate discharge to rehab today Time with Patient: Less than 30
--- NOTE | 2020-03-17 10:01 | P.DS ---
Providers Date of admission: 03/13/20 10:24 Expected date of discharge: 03/17/20 Attending physician: Luis M Raines Consults: 03/13/20 10:25 Consult Physician Routine Consulting Provider: Safia Pandey Consult Reason/Comments: Preoperative clearance, left ankle fracture Do you want consulting provider notified?: Yes Consult Physician Routine Consulting Provider: Tala Galan Consult Reason/Comments: ESRD Do you want consulting provider notified?: Yes Primary care physician: Cheryl Penny MD Hospital Course: Date of admission: 03/13/2020 Date of discharge: 03/17/2020 Admission diagnosis: Displaced left bimalleolar ankle fracture, minimally displaced left medial femoral condyle fracture and left proximal fibular fracture Discharge diagnosis: Status post ORIF left bimalleolar ankle fracture, closed reduction with knee immobilizer placement left knee medial femoral condyle fracture and left proximal fibular fracture Attending physician: Dr. Raines Surgical procedures: ORIF left bimalleolar ankle fracture, closed reduction with knee immobilizer placement left knee medial femoral condyle fracture and left proximal fibular fracture Brief history: Patient is a 74-year-old female who presented to [facility] on 03/13/2020 after sustaining a fall that resulted in a dislocation and left bimalleolar ankle fracture and also a left knee medial f emoral condyle fracture and left proximal fibular fracture. I did see the patient in the emergency room after the reduction and splint was placed. She was scheduled for surgery on 03/14/[address] Raines. Hospital course: Details of patient's surgery can be found in operative report. Patient tolerated the procedure well and was subsequently transported to orthopedic floor. Patient's orthopeidc and medical care was provided daily. Patient had daily laboratory tests performed for evaluation of overall blood counts. Patient had daily physical therapy to include strengthening range of motion as well as education with walker ambulation. Patient was treated with Lovenox for their postoperative DVT prophylaxis during their inpatient stay. Patient was noted to have a relatively uneventful postoperative course. Patient reported satisfactory pain control with oral pain medications by postoperative day 0. Patient showed satisfactory progress with physical therapy. Patient moved steadily through the program and had no difficulty meeting the goals by postoperative day 4. Given patient's otherwise satisfactory course and having met physical therapy goals, plan is to discharge patient rehab on postoperative day 4. Discharge condition/disposition: Patient will be discharged to rehab in stable condition. Discharge medications: Instructions are given on resumption of patient's normal daily medications per primary care recommendation, in addition patient will be prescribed [place] 5 mg/325 mg, Colace 100 mg. Discharge instructions: 1. Do not remove the splint, utilize knee immobilizer at all times. 2. Nonweightbearing left lower extremity 3. Ice and elevate when necessary. Do not exceed 20 minutes per hour with ice pack. 4. Utilize compression sleeve until seen at first follow up appointment. 5. Visiting nursing care. 7. Pain meds and anticoagulants per prescription. 8. Pain medication has potential to cause constipation. Increase oral fluid and fiber intake. Contact primary care provider if you have not had a bowel movement within 48 hours after discharge 9. No anti-inflammatory medication until discussed at first post operative visit, this including Motrin, Aleve, Mobic, Diclofenac, Aspirin. 10. Follow up in office at 2 weeks postop with Ross Mcdonald PA-C 11. Follow up with your primary care doctor 7-10 days after discharge. 12. Contact [facility] with any questions, . Procedures: Open reduction internal fixation left bimalleolar ankle fracture, closed reduction was placement of knee immobilizer left proximal fibula and medial femoral condyle fracture left knee Patient Condition at Discharge: Stable Plan - Discharge Summary New Discharge Prescriptions: New Docusate [Colace] 100 mg PO DAILY #30 capsule Hydrocodone/Acetaminophen [[place] 5-325] 1 each PO Q6HR PRN #28 tab PRN Reason: Pain No Action Levothyroxine Sodium [Synthroid] 125 mcg PO DAILY Doxepin HCl 75 mg PO HS Atorvastatin [Lipitor] 20 mg PO HS azaTHIOprine [Imuran] 25 mg PO DAILY Apixaban [Eliquis] 12.5 mg PO BID Folic Acid 0.8 mg PO DAILY Calcium Acetate [Phoslo] 667 mg PO BID Magnebind 300 1 tab PO BID Midodrine HCl 10 mg PO TID Cyclobenzaprine [Flexeril] 10 mg PO BID Discharge Medication List Apixaban [Eliquis] 12.5 mg PO BID 07/28/18 [History] Atorvastatin [Lipitor] 20 mg PO HS 07/28/18 [History] Doxepin HCl 75 mg PO HS 07/28/18 [History] Folic Acid 0.8 mg PO DAILY 07/28/18 [History] Levothyroxine Sodium [Synthroid] 125 mcg PO DAILY 07/28/18 [History] azaTHIOprine [Imuran] 25 mg PO DAILY 07/28/18 [History] Calcium Acetate [[place]] 667 mg PO BID 03/13/20 [History] Cyclobenzaprine [Flexeril] 10 mg PO BID 03/13/20 [History] Magnebind 300 1 tab PO BID 03/13/20 [History] Midodrine HCl 10 mg PO TID 03/13/20 [History] Docusate [Colace] 100 mg PO DAILY #30 capsule 03/17/20 [Rx] Hydrocodone/Acetaminophen [[place] 5-325] 1 each PO Q6HR PRN #28 tab 03/17/20 [Rx] Follow up Appointment(s)/Referral(s): [facility], [NON-STAFF] - Jesse Mcdonald PAC [PHYSICIAN HEAD TRIMMER] - 04/02/20 3:50 pm Cheryl Penny MD [Primary Care Provider] - 03/22/20 11:40 am (Your appointment will be with Dr. Gunter. Please arrive 15 minutes early. Please bring you ID and insurance card along with a face covering. Thank you.) Activity/Diet/Wound Care/Special Instructions: Orthopedic discharge instructions: 1. Resume home medications 2. Pain medication as needed 3. Nonweightbearing left lower extremity 4. Do not remove splint, utilizing the immobilizer, okay to remove the immobilizer when lying flat 5. Plan for follow-up at [facility] in 2 weeks Discharge Disposition: TRANSFER TO SNF/ECF
--- NOTE | 2020-03-17 11:21 | P.PN ---
Subjective Progress Note Date: 03/17/20 Feels better, pain is better controlled. No chest pain no abdominal pain, no shortness of breath. In bed , does not appear to be in distress Objective - Vital Signs Vital signs: Vital Signs Temp 97.3 F L 03/17/20 10:58 Pulse 66 03/17/20 10:58 Resp 20 03/17/20 10:58 BP 106/53 03/17/20 10:58 Pulse Ox 94 L 03/17/20 07:00 Intake & Output 03/16/20 03/17/20 03/17/20 18:59 06:59 18:59 Intake Total 360 Output Total 3171 164 8524 Balance -840 -300 -1000 Intake: Oral 360 Output: Urine 200 300 Hemodialysis 1000 1000 Other: Voiding Method Bedside Commode - Exam General: [non toxic], [no distress], [appears at stated age] Derm: [warm], [dry] Head: [atraumatic], [normocephalic] Eyes: [EOMI], [no lid lag], [anicteric sclera] Mouth: [no lip lesion], [mucus membranes moist] Cardiovascular: [S1S2 reg], [systolic murmur] Lungs: [CTA bilateral], [no rhonchi, no rales] Abdominal: [soft], [ nontender to palpation] Ext: [no gross muscle atrophy], [no edema], [no contractures] Neuro: [no focal neuro deficits] Psych: [Alert], [oriented], [appropriate affect] - Labs CBC & Chem 7: 03/14/20 06:41 03/14/20 06:41 Assessment and Plan Plan: Left ankle fracture postoperative day 3 Acute blood loss anemia Hypoxia ESRD Hypotension Interstitial lung disease Scleroderma lupus History of pulmonary embolus Hypothyroidism Continue pain control, managed by orthopedic surgery. Transfuse PRBCs for less than 7. Monitor H&H Chest x-ray shows atelectasis. Continue incentive spirometer. Nephrology on board for hemodialysis. Continue Sevelamer. PROCESS CONTROL ENGINEER per schedule Continue Midodrin for hypotension. Supplemental O2 per nasal cannula to maintain O2 saturation greater than 92% Continue azathioprine. Eliquis for anticoagulation Continue Synthroid. medically ok for discharge to rehab today
[2020-03-17 12:55] VITALS: BP 87/58; PULSE 97; RESP 16; TEMP 97.8
[2020-03-17] MEDS ORDERED: DARBEPOETIN ALFA 40 MCG/0.4 ML SYRINGE SQ SCH (14:00)
--- NOTE | 2020-03-17 16:30 | PN ---
PROGRESS NOTE Patient is seen for followup for end-stage renal disease. She is currently seen on hemodialysis. Patient denies any significant complaints. Pain is better controlled. On examination today, blood pressure was 87/58, heart rate 66 per minute. Patient is afebrile. EXAMINATION OF THE HEART: S1 and S2. EXAMINATION OF LUNGS: Bilateral breath sounds are heard. Decreased breath sounds at bases. ABDOMEN: Soft, non-tender. Examination of lower extremities shows no evidence of edema. Left leg is currently in cast. BIOLOGY ADJUNCT INSTRUCTOR exam is grossly intact. LABS: Labs show sodium 132, potassium 4.1, hemoglobin 10.1 g/dL. ASSESSMENT: 1. End-stage renal disease, on hemodialysis on a Sunday, Sunday, Sunday schedule. 2. Status post fracture of left ankle, status post open reduction, internal fixation, currently in cast. Patient will be going to rehab. 3. Anemia of chronic disease. 4. 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 5. Hypothyroidism, maintained on Synthroid. PLAN: Hemodialysis today. Decrease ultrafiltration, as blood pressure is low. Continue with Renvela. Next hemodialysis on Sunday. Continue with midodrine as well. I will give a dose of Aranesp for the anemia. MMODL / IJN: [id number] /
--- NOTE | 2020-03-18 08:42 | CDI ---
Documentation Clarification Form Date: 03/18/20 From: Yaz Emmanuel Phone: If you have a question about this query, please contact Jessie Herrera, Step Finisher at [phone] between 8am and 5pm. Admit Date: 03/13/20 Discharge Date:03/17/20 Patient Name: Miguelina Norris Visit Number: [id number] ATTENTION: The Clinical Documentation Specialists (CDI) and [facility] Coding Staff appreciate your assistance in clarifying documentation. Please respond to the clarification below the line at the bottom and electronically sign. The CDI & [facility] Coding staff will review the response and follow-up if needed. Please note: Queries are made part of the Legal Health Record. If you have any questions, please contact the author of this message via ITS. Dear Dr. Cote The patient presented with the following bimalleolar fracture after a fall. Hypoxia was documented in your 03/16 and 03/[address] Brito's 03/15 progress note. History/Risk Factors: COPD, interstitial lung disease, hypertension Clinical Indicators: Decreased pulse ox. Tobacco use: Never smoker Home Oxygen: None Lab findings: 03/14 - hgb 10.1, hct 32.0 Radiology findings: CXR on 03/15 - Possible underlying COPD. There may be some mild strandy atelectasis in the lower lungs. Otherwise, no definite acute process. Vital Signs: T. 98.0, P. 83, R. 17, BP 113/64 Pulse oximetry: 04/13 - 92%, 03/15 - 94%, 91%, 03/16 - 94% Lung/Breathing assessment: CTA bilateral, no rhonchi, no rales, no accessory muscle use Treatment: O2 - Room air only In your professional opinion, can you please clarify the etiology of the hypoxia? Acute Respiratory Insufficiency COPD exacerbation Other, please specify Unable to determine copd without exacerbation MTDD
== END 2020-03-17 16:27 | DRG 492 ==
LOC: EC 09:05 → SUPCPDRO 09:05 → 4SSUR 10:24
PROVIDERS: ADMIT Orthopaedic Surgery; ATTEND Orthopaedic Surgery
PROC: 0QSKXZZ Reposition Left Fibula, External Approach (ICD-10-PCS; 2020-03-13)
PROC: 0QSCXZZ Reposition Left Lower Femur, External Approach (ICD-10-PCS; 2020-03-13)
PROC: 0QSK04Z Reposition Left Fibula with Internal Fixation Device, Open Approach (ICD-10-PCS; principal; 2020-03-14 11:00)
PROC: 0QSH04Z Reposition Left Tibia with Internal Fixation Device, Open Approach (ICD-10-PCS; principal; 2020-03-14 11:00)
PROC: 3E1M39Z Irrigation of Peritoneal Cavity using Dialysate, Percutaneous Approach (ICD-10-PCS; 2020-03-15)
DX: S82.842A Displaced bimalleolar fracture of left lower leg, initial encounter for closed fracture (principal); N18.6 End stage renal disease; S72.432A Displaced fracture of medial condyle of left femur, initial encounter for closed fracture; D62 Acute posthemorrhagic anemia; I12.0 Hypertensive chronic kidney disease with stage 5 chronic kidney disease or end stage renal disease; J84.9 Interstitial pulmonary disease, unspecified; J98.11 Atelectasis; D63.1 Anemia in chronic kidney disease; E83.9 Disorder of mineral metabolism, unspecified; M34.9 Systemic sclerosis, unspecified; I95.9 Hypotension, unspecified; S82.832A Other fracture of upper and lower end of left fibula, initial encounter for closed fracture; E78.5 Hyperlipidemia, unspecified; E89.0 Postprocedural hypothyroidism; F32.9 Major depressive disorder, single episode, unspecified; F41.9 Anxiety disorder, unspecified; K21.9 Gastro-esophageal reflux disease without esophagitis; M10.9 Gout, unspecified; J44.9 Chronic obstructive pulmonary disease, unspecified; R06.89 Other abnormalities of breathing; Z79.01 Long term (current) use of anticoagulants; Z79.890 Hormone replacement therapy; Z79.899 Other long term (current) drug therapy; Z86.711 Personal history of pulmonary embolism; Z90.710 Acquired absence of both cervix and uterus; Z96.652 Presence of left artificial knee joint; Z99.2 Dependence on renal dialysis; Z88.5 Allergy status to narcotic agent; Z88.2 Allergy status to sulfonamides; Z88.8 Allergy status to other drugs, medicaments and biological substances; Z91.041 Radiographic dye allergy status; Z90.49 Acquired absence of other specified parts of digestive tract; Z80.3 Family history of malignant neoplasm of breast; Z82.49 Family history of ischemic heart disease and other diseases of the circulatory system; Z84.1 Family history of disorders of kidney and ureter; Z84.89 Family history of other specified conditions; W10.8XXA Fall (on) (from) other stairs and steps, initial encounter; Y92.008 Other place in unspecified non-institutional (private) residence as the place of occurrence of the external cause
CPT/HCPCS: 27810; 36415; 71045; 72170; 80048; 80053; 80320; 82150; 82550; 82553; 83605; 83690; 84484; 85025; 85027; 85610; 85730; 86850; 86900; 86901; 90471; 90715; 90935; 93005; 96361; 96365; 96374; 96375; 96376; 99285

== ENCOUNTER 2020-04-26 10:09 | Inpatient (IN) | payer MEDICARE, BC ==
--- NOTE | 2020-04-26 10:27 | ED ---
General Adult HPI - General Stated complaint: GI Bleed Time Seen by Provider: 04/26/20 10:13 Source: EMS, RN notes reviewed, old records reviewed Mode of arrival: EMS Limitations: no limitations - History of Present Illness Initial comments: 74-year-old female presenting from home. Patient had been talking to her family members on the phone and noted to be confused, EMS was called. Upon EMS arrival the patient had been incontinent of stool and there was dark stool throughout the home. She is able answer questions. Denying pain complaints. She is on hemodialysis, scheduled for dialysis today. She reports some mild dyspnea. She is uncertain how long she has had dark stools. She states she does get iron transfusions with dialysis but is not on any oral iron supplementation. She denies chest pain. Denies fever. She receives hemodialysis through a right chest wall permacath. Denies focal numbness or weakness. - Related Data Home Medications Medication Instructions Recorded Confirmed Atorvastatin [Lipitor] 20 mg PO HS 07/28/18 03/13/20 Doxepin HCl 75 mg PO HS 07/28/18 03/13/20 Folic Acid 0.8 mg PO DAILY 07/28/18 03/13/20 Levothyroxine Sodium [Synthroid] 125 mcg PO DAILY 07/28/18 03/13/20 azaTHIOprine [Imuran] 25 mg PO DAILY 07/28/18 03/13/20 Cyclobenzaprine [Flexeril] 10 mg PO BID 03/13/20 03/13/20 Magnebind 300 1 tab PO BID 03/13/20 03/13/20 Midodrine HCl 10 mg PO TID 03/13/20 03/13/20 Previous Rx's Medication Instructions Recorded Apixaban [Eliquis] 2.5 mg PO BID tablet 03/17/20 Docusate [Colace] 100 mg PO DAILY #30 capsule 03/17/20 Folic Acid-Vit B Complex-Vit C 1 each PO DAILY cap 03/17/20 [Nephrocaps] Hydrocodone/Acetaminophen [[place] 1 each PO Q6HR PRN #28 tab 03/17/20 5-325] Sevelamer [Renvela] 800 mg PO TID-W/MEALS tab 03/17/20 Allergies Allergy/AdvReac Type Severity Reaction Status Date / Time adhesive Allergy Unknown Verified 03/13/20 16:36 allopurinol Allergy Unknown Verified 03/13/20 16:36 codeine Allergy Unknown Verified 03/13/20 16:36 iodine Allergy Unknown Verified 03/13/20 16:36 meperidine HCl [From Demerol] Allergy Unknown Verified 03/13/20 16:36 povidone-iodine Allergy Unknown Verified 03/13/20 16:36 [From Betadine] soap [From Betadine] Allergy Unknown Verified 03/13/20 16:36 Sulfa (Sulfonamide Allergy Unknown Verified 03/13/20 16:36 Antibiotics) Review of Systems ROS Statement: Those systems with pertinent positive or pertinent negative responses have been documented in the HPI. ROS Other: All systems not noted in ROS Statement are negative. Past Medical History Past Medical History: Blood Disorder, COPD, Dialysis, GERD/Reflux, H yperlipidemia, Pulmonary Embolus (PE), Renal Disease, Thyroid Disorder Additional Past Medical History / Comment(s): scleraderma, gout, peritoneal dialysis. 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, Lupus History of Any Multi-Drug Resistant Organisms: None Reported Past Surgical History: Bowel Resection, Cholecystectomy, Hysterectomy, Orthopedic Surgery Additional Past Surgical History / Comment(s): left knee replacement, insertion of peritoneal diaylsis, thyroidectomy due to goiter, kidney biopsy X 2, Lung biopsy, Graft Left arm with failure, Right pointer finger amputation Past Psychological History: Anxiety, Depression Smoking Status: Never smoker Past Alcohol Use History: None Reported Past Drug Use History: None Reported - Past Family History Mother Additional Family Medical History / Comment(s): breast CA , mitrale valve damage, kidney disease, gout Father Family Medical History: Thyroid Disorder General Exam Limitations: no limitations General appearance: alert, in no apparent distress Head exam: Present: atraumatic, normocephalic Eye exam: Present: normal appearance, PERRL ENT exam: Present: mucous membranes moist Neck exam: Present: normal inspection. Absent: tenderness, meningismus Respiratory exam: Present: rales, rhonchi, decreased breath sounds. Absent: respiratory distress, wheezes Cardiovascular Exam: Present: regular rate, normal rhythm GI/Abdominal exam: Present: soft. Absent: distended, tenderness Extremities exam: Present: normal capillary refill Neurological exam: Present: alert, oriented X3, CN II-XII intact Psychiatric exam: Present: normal affect, normal mood Skin exam: Present: warm, dry, intact, pallor Course Vital Signs 04/26/20 04/26/20 10:12 12:08 Temperature 98.1 F Pulse Rate 50 L 80 Respiratory 18 16 Rate Blood Pressure 115/70 139/92 O2 Sat by Pulse 98 100 Oximetry - Reevaluation(s) Reevaluation #1: 04/26/20 12:12 Vitals are stable while in the emergency department. EKG Findings - EKG Comments: EKG Findings:: EKG: Normal sinus rhythm, low voltage, rate of 73, W[place] interval 202, QRS duration 96, QTC 447, no ST segment elevation. Medical Decision Making - Medical Decision Making 74-year-old female presenting with syncope, confusion, concern for GI bleed. Patient has melanotic stool. Vital signs are stable. She does have history of end-stage renal disease and she is on Eliquis. Her hemoglobin today is 6.8 from recent of 9.1. She is transfused one unit of packed RBCs. Anticoagulation will be held. Additionally she started on proton pump inhibitor. Serial hemoglobins will be obtained. She has been admitted to Dr. Hill who is aware of the patient. Both gastroenterology and nephrology are placed on consult. - Lab Data Result diagrams: 04/26/20 10:42 04/26/20 10:42 Lab Results 04/26/20 04/26/20 04/26/20 Range/Units 10:30 10:42 10:42 WBC 11.6 H (3.8-10.6) k/uL RBC 2.29 L (3.80-5.40) m/uL Hgb 6.8 L* D (11.4-16.0) gm/dL Hct 21.0 L (34.0-46.0) % MCV 91.9 D (80.0-100.0) fL MCH 29.9 (25.0-35.0) pg MCHC 32.5 (31.0-37.0) g/dL RDW 16.0 H (11.5-15.5) % Plt Count 365 (150-450) k/uL Neutrophils % 84 % Lymphocytes % 11 % Monocytes % 4 % Eosinophils % 0 % Basophils % 0 % Neutrophils # 9.8 H (1.3-7.7) k/uL Lymphocytes # 1.3 (1.0-4.8) k/uL Monocytes # 0.4 (0-1.0) k/uL Eosinophils # 0.0 (0-0.7) k/uL Basophils # 0.0 (0-0.2) k/uL Hypochromasia Slight PT 12.0 (9.0-12.0) sec INR 1.2 H (<1.2) APTT 23.9 (22.0-30.0) sec Sodium (137-145) mmol/L Potassium (3.5-5.1) mmol/L Chloride (98-107) mmol/L Carbon Dioxide (22-30) mmol/L Anion Gap mmol/L BUN (7-17) mg/dL Creatinine (0.52-1.04) mg/dL Est GFR (CKD-EPI)AfAm (>60 ml/min/1.73 sqM) Est GFR (CKD-EPI)NonAf (>60 ml/min/1.73 sqM) Glucose (74-99) mg/dL POC Glucose (mg/dL) 108 H (75-99) mg/dL POC Glu Explosive Ordnance Technician ID Sloane Wu Calcium (8.4-10.2) mg/dL Total Bilirubin (0.2-1.3) mg/dL AST (14-36) U/L ALT (4-34) U/L Alkaline Phosphatase (38-126) U/L Troponin I (0.000-0.034) ng/mL NT-Pro-B Natriuret Pep pg/mL Total Protein (6.3-8.2) g/dL Albumin (3.5-5.0) g/dL Stool Occult Blood (Negative) Serum Alcohol mg/dL 04/26/20 04/26/20 04/26/20 Range/Units 10:42 10:42 10:42 WBC (3.8-10.6) k/uL RBC (3.80-5.40) m/uL Hgb (11.4-16.0) gm/dL Hct (34.0-46.0) % MCV (80.0-100.0) fL MCH (25.0-35.0) pg MCHC (31.0-37.0) g/dL RDW (11.5-15.5) % Plt Count (150-450) k/uL Neutrophils % % Lymphocytes % % Monocytes % % Eosinophils % % Basophils % % Neutrophils # (1.3-7.7) k/uL Lymphocytes # (1.0-4.8) k/uL Monocytes # (0-1.0) k/uL Eosinophils # (0-0.7) k/uL Basophils # (0-0.2) k/uL Hypochromasia PT (9.0-12.0) sec INR (<1.2) APTT (22.0-30.0) sec Sodium 132 L (137-145) mmol/L Potassium 4.0 (3.5-5.1) mmol/L Chloride 92 L (98-107) mmol/L Carbon Dioxide 28 (22-30) mmol/L Anion Gap 12 mmol/L BUN 100 H (7-17) mg/dL Creatinine 5.90 H (0.52-1.04) mg/dL Est GFR (CKD-EPI)AfAm 8 (>60 ml/min/1.73 sqM) Est GFR (CKD-EPI)NonAf 7 (>60 ml/min/1.73 sqM) Glucose 98 (74-99) mg/dL POC Glucose (mg/dL) (75-99) mg/dL POC Glu Explosive Ordnance Technician ID Calcium 10.7 H (8.4-10.2) mg/dL Total Bilirubin 0.4 (0.2-1.3) mg/dL AST 21 (14-36) U/L ALT 8 (4-34) U/L Alkaline Phosphatase 61 (38-126) U/L Troponin I 0.023 (0.000-0.034) ng/mL NT-Pro-B Natriuret Pep 2690 pg/mL Total Protein 5.9 L (6.3-8.2) g/dL Albumin 3.5 (3.5-5.0) g/dL Stool Occult Blood (Negative) Serum Alcohol <10 mg/dL 04/26/20 Range/Units 10:42 WBC (3.8-10.6) k/uL RBC (3.80-5.40) m/uL Hgb (11.4-16.0) gm/dL Hct (34.0-46.0) % MCV (80.0-100.0) fL MCH (25.0-35.0) pg MCHC (31.0-37.0) g/dL RDW (11.5-15.5) % Plt Count (150-450) k/uL Neutrophils % % Lymphocytes % % Monocytes % % Eosinophils % % Basophils % % Neutrophils # (1.3-7.7) k/uL Lymphocytes # (1.0-4.8) k/uL Monocytes # (0-1.0) k/uL Eosinophils # (0-0.7) k/uL Basophils # (0-0.2) k/uL Hypochromasia PT (9.0-12.0) sec INR (<1.2) APTT (22.0-30.0) sec Sodium (137-145) mmol/L Potassium (3.5-5.1) mmol/L Chloride (98-107) mmol/L Carbon Dioxide (22-30) mmol/L Anion Gap mmol/L BUN (7-17) mg/dL Creatinine (0.52-1.04) mg/dL Est GFR (CKD-EPI)AfAm (>60 ml/min/1.73 sqM) Est GFR (CKD-EPI)NonAf (>60 ml/min/1.73 sqM) Glucose (74-99) mg/dL POC Glucose (mg/dL) (75-99) mg/dL POC Glu Explosive Ordnance Technician ID Calcium (8.4-10.2) mg/dL Total Bilirubin (0.2-1.3) mg/dL AST (14-36) U/L ALT (4-34) U/L Alkaline Phosphatase (38-126) U/L Troponin I (0.000-0.034) ng/mL NT-Pro-B Natriuret Pep pg/mL Total Protein (6.3-8.2) g/dL Albumin (3.5-5.0) g/dL Stool Occult Blood Positive H (Negative) Serum Alcohol mg/dL Critical Care Time Critical Care Time: Yes Total Critical Care Time: 35 Disposition Clinical Impression: ESRD (end stage renal disease), GI bleed Disposition: ADMITTED IP TO THIS [facility] Condition: Stable Is patient prescribed a controlled substance at d/c from ED?: No Referrals: Nonstaff,Physician [REFERRING] - 1-2 days Time of Disposition: 12:12 Decision to Admit Reason: Admit from EC Decision Date: 04/26/20 Decision Time: 12:12
[2020-04-26 10:31] LABS: Glucose,Whole Blood 108 mg/dL (75-99)
[2020-04-26] MEDS ORDERED: PANTOPRAZOLE 40 MG/10 ML VIAL IVP STA (10:33)
[2020-04-26 11:11] LABS: ALT 8 U/L (4-34); AST 21 U/L (14-36); African American GFR (CKD) 8 (>60 ml/min/1.73 sqM); Albumin 3.5 g/dL (3.5-5.0); Alcohol <10 mg/dL; Alkaline Phosphatase 61 U/L (38-126); Anion Gap 12 mmol/L; Blood Urea Nitrogen 100 mg/dL (7-17); Calcium 10.7 mg/dL (8.4-10.2); Carbon Dioxide 28 mmol/L (22-30); Chloride 92 mmol/L (98-107); Glucose 98 mg/dL (74-99); Non-African American GFR(CKD) 7 (>60 ml/min/1.73 sqM); Sodium 132 mmol/L (137-145); Total Bilirubin 0.4 mg/dL (0.2-1.3); Total Protein 5.9 g/dL (6.3-8.2)
[2020-04-26 11:17] LABS: Basophils % (A) 0 %; Eosinophils % (A) 0 %; Hypochromasia Slight; INR 1.2 (<1.2); Lymphocytes # (A) 1.3 k/uL (1.0-4.8); Lymphocytes % (A) 11 %; MCH 29.9 pg (25.0-35.0); MCHC 32.5 g/dL (31.0-37.0); Mean Platelet Volume 7.8; Monocytes # (A) 0.4 k/uL (0-1.0); Monocytes % (A) 4 %; Neutrophils # (A) 9.8 k/uL (1.3-7.7); Neutrophils % (A) 84 %; Partial Thromboplastin Time 23.9 sec (22.0-30.0); Platelet Count 365 k/uL (150-450); RBC 2.29 m/uL (3.80-5.40); WBC 11.6 k/uL (3.8-10.6)
[2020-04-26 11:24] LABS: HGB 6.8 gm/dL (11.4-16.0)
[2020-04-26 11:25] LABS: MCV 91.9 fL (80.0-100.0)
--- NOTE | 2020-04-26 11:31 | CT ---
EXAMINATION TYPE: CT brain wo con DATE OF EXAM: 04/26/2020 COMPARISON: 07/28/2018 HISTORY: Weakness CT DLP: 1098.4 mGycm Automated exposure control for dose reduction was used. FINDINGS: Intracranial atherosclerotic changes noted. Mild generalized degenerative change. No midline shift or mass effect. Craniocervical junction maintained. Sella turcica has a normal appearance. Faint perive ntricular low attenuation is nonspecific but most likely on the basis of remote microvascular IMPRESSION: NO ACUTE HEMORRHAGE OR MASS EFFECT. NO MIDLINE SHIFT.
--- NOTE | 2020-04-26 11:34 | XR ---
EXAMINATION TYPE: XR chest 1V portable DATE OF EXAM: 04/26/2020 COMPARISON: 03/15/2020 INDICATION: Altered mental status syncope TECHNIQUE: Single frontal view of the chest is obtained. FINDINGS: The heart size is normal. The pulmonary vasculature is normal. The lungs are clear. Double-lumen catheter is on the right with the tips in the superior vena cava proximal right atrium. IMPRESSION: 1. No acute pulmonary process. 2. Right-sided catheter stable in position
[2020-04-26] MEDS ORDERED: NALOXONE 0.4 MG/ML 1 ML VIAL IV PRN (12:09)
[2020-04-26] MEDS ORDERED: ONDANSETRON 4 MG TAB PO PRN (13:35)
--- NOTE | 2020-04-26 16:44 | P.HPIM ---
History of Present Illness Patient is being admitted for GI bleed and possible syncope. Patient apparently was bit confused as per the family members found patient was found to be incontinent of stool and the was in dark stool when EMS arrived to her house. Patient is found to have been of around 6.7 transfusing 1 unit of PRBC although patient is a poor historian and doesn't give me any clear history of dark stools or blood in the stools prior to this episode. Patient the his end-stage renal disease patient hemodialysis dependent had a history of recent fracture of the ankle for which patient underwent surgical correction. There was a concern patient may have had a syncope although history is not very clear. Patient has a right chest wall permacath does get the iron transfusions at dialysis. was on Eliquis for atrial fibrillation. Patient although is able to provide me her appropriate to medical history. Review of Systems All other review of systems was negative although patient is a poor historian not a reliable historian. Past Medical History Past Medical History: Blood Disorder, COPD, Dialysis, GERD/Reflux, Hyperlipidemia, Pulmonary Embolus (PE), Renal Disease, Thyroid Disorder Additional Past Medical History / Comment(s): scleraderma, gout, peritoneal dialysis. 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, Lupus History of Any Multi-Drug Resistant Organisms: None Reported Past Surgical History: Bowel Resection, Cholecystectomy, Hysterectomy, Orthopedic Surgery Additional Past Surgical History / Comment(s): left knee replacement, insertion of peritoneal diaylsis, thyroidectomy due to goiter, kidney biopsy X 2, Lung biopsy, Graft Left arm with failure, Right pointer finger amputation Past Anesthesia/Blood Transfusion Reactions: No Reported Reaction Past Psychological History: Anxiety, Depression Smoking Status: Never smoker Past Alcohol Use History: None Reported Past Drug Use History: None Reported - Past Family History Mother Additional Family Medical History / Comment(s): breast CA , mitrale valve damage, kidney disease, gout Father Family Medical History: Thyroid Disorder Medications and Allergies Home Medications Medication Instructions Recorded Confirmed Type Atorvastatin [Lipitor] 20 mg PO HS 07/28/18 04/26/20 History Doxepin HCl 75 mg PO HS 07/28/18 04/26/20 History Folic Acid 0.8 mg PO DAILY 07/28/18 04/26/20 History Levothyroxine Sodium [Synthroid] 125 mcg PO DAILY 07/28/18 04/26/20 History azaTHIOprine [Imuran] 25 mg PO DAILY 07/28/18 04/26/20 History Cyclobenzaprine [Flexeril] 10 mg PO BID 03/13/20 04/26/20 History Midodrine HCl 10 mg PO TID 03/13/20 04/26/20 History Apixaban [Eliquis] 2.5 mg PO BID tablet 03/17/20 04/26/20 Rx Docusate [Colace] 100 mg PO DAILY #30 capsule 03/17/20 04/26/20 Rx Calcium Acetate [Phoslo] 667 mg PO TID 04/26/20 04/26/20 History Calcium Carb-Mag Carb-Folic 1 tab PO TID 04/26/20 04/26/20 History [Magnebind 400 Rx] Ondansetron [Zofran] 4 mg PO TID PRN 04/26/20 04/26/20 History Allergies Allergy/AdvReac Type Severity Reaction Status Date / Time adhesive Allergy Unknown Verified 03/13/20 16:36 allopurinol Allergy Unknown Verified 03/13/20 16:36 codeine Allergy Unknown Verified 03/13/20 16:36 iodine Allergy Unknown Verified 03/13/20 16:36 meperidine HCl [From Demerol] Allergy Unknown Verified 03/13/20 16:36 povidone-iodine Allergy Unknown Verified 03/13/20 16:36 [From Betadine] soap [From Betadine] Allergy Unknown Verified 03/13/20 16:36 Sulfa (Sulfonamide Allergy Unknown Verified 03/13/20 16:36 Antibiotics) Physical Exam Vitals: Vital Signs Temp Pulse Resp BP Pulse Ox 04/26/20 12:30 97.8 F 75 18 110/63 99 04/26/20 12:08 80 16 139/92 100 04/26/20 10:12 98.1 F 50 L 18 115/70 98 Intake and Output 04/26/20 04/26/20 04/26/20 06:59 14:59 22:59 Other: Weight 77.111 kg PHYSICAL EXAMINATION: GENERAL: The patient is alert and oriented x3, not in any acute distress. Well developed, well nourished. does look significantly pale HEENT: Pupils are round and equally reacting to light. EOMI. No scleral icterus. Does have conjunctival pallor. Normocephalic, atraumatic. No pharyngeal erythema. No thyromegaly. CARDIOVASCULAR: S1 and S2 present. No murmurs, rubs, or gallops. PULMONARY: Chest is clear to auscultation, no wheezing or crackles. ABDOMEN: Soft, nontender, nondistended, normoactive bowel sounds. No palpable organomegaly. MUSCULOSKELETAL: No joint swelling or deformity. EXTREMITIES: No cyanosis, clubbing, or pedal edema. NEUROLOGICAL: Gross neurological examination did not reveal any focal deficits. She does have some muscle atrophy in both legs. SKIN: No rashes. Results CBC & Chem 7: 04/26/20 10:42 04/26/20 10:42 Labs: Abnormal Lab Results - Last 24 Hours (Table) 04/26/20 04/26/20 04/26/20 Range/Units 10:30 10:42 10:42 WBC 11.6 H (3.8-10.6) k/uL RBC 2.29 L (3.80-5.40) m/uL Hgb 6.8 L* D (11.4-16.0) gm/dL Hct 21.0 L (34.0-46.0) % RDW 16.0 H (11.5-15.5) % Neutrophils # 9.8 H (1.3-7.7) k/uL INR 1.2 H (<1.2) Sodium (137-145) mmol/L Chloride (98-107) mmol/L BUN (7-17) mg/dL Creatinine (0.52-1.04) mg/dL POC Glucose (mg/dL) 108 H (75-99) mg/dL Calcium (8.4-10.2) mg/dL Total Protein (6.3-8.2) g/dL Stool Occult Blood (Negative) Crossmatch 04/26/20 04/26/20 04/26/20 Range/Units 10:42 10:42 10:48 WBC (3.8-10.6) k/uL RBC (3.80-5.40) m/uL Hgb (11.4-16.0) gm/dL Hct (34.0-46.0) % RDW (11.5-15.5) % Neutrophils # (1.3-7.7) k/uL INR (<1.2) Sodium 132 L (137-145) mmol/L Chloride 92 L (98-107) mmol/L BUN 100 H (7-17) mg/dL Creatinine 5.90 H (0.52-1.04) mg/dL POC Glucose (mg/dL) (75-99) mg/dL Calcium 10.7 H (8.4-10.2) mg/dL Total Protein 5.9 L (6.3-8.2) g/dL Stool Occult Blood Positive H (Negative) Crossmatch See Detail Thrombosis Risk Factor Assmnt - Choose All That Apply Each Risk Factor Represents 2 Points: Age 61-74 years Thrombosis Risk Factor Assessment Total Risk Factor Score: 2 Thrombosis Risk Factor Assessment Level: Low Risk Assessment and Plan Plan: -Acute bleed: Possibly upper GI bleed patient will be continued on Protonix twice a day and the patient possibly has a syncope from that. Gastric probably was consulted. 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
[2020-04-26] MEDS: MIDODRINE 5 MG TAB PO SCH ×2 (20:37→20:43)
[2020-04-26] MEDS: CALCIUM ACETATE 667 MG TAB PO SCH ×2 (20:37→20:42)
[2020-04-26] MEDS: CALCIUM CARB-MAG CARB-FOLIC 1 EACH TAB PO SCH ×2 (20:37→20:44)
[2020-04-26] MEDS: PANTOPRAZOLE 40 MG/10 ML VIAL IVP SCH (20:42)
[2020-04-26] MEDS: traMADol 50 MG TAB PO PRN (20:42)
[2020-04-26] MEDS: DOXEPIN 25 MG CAP PO SCH (20:43)
[2020-04-26] MEDS: ATORVASTATIN 20 MG TAB PO SCH (20:43)
[2020-04-26] MEDS: SODIUM CHLORIDE 0.9% 1,000 ML IV SCH (20:44)
[2020-04-26] MEDS: LACTATED RINGERS 1,000 ML IV SCH (20:50)
[2020-04-26 23:16] LABS: Basophils % (A) 0 %; Eosinophils # (A) 0.1 k/uL (0-0.7); Eosinophils % (A) 1 %; HCT 25.6 % (34.0-46.0); Lymphocytes # (A) 1.8 k/uL (1.0-4.8); Lymphocytes % (A) 19 %; MCH 30.2 pg (25.0-35.0); MCHC 33.4 g/dL (31.0-37.0); MCV 90.3 fL (80.0-100.0); Mean Platelet Volume 8.3; Monocytes # (A) 0.4 k/uL (0-1.0); Monocytes % (A) 5 %; Neutrophils # (A) 7.2 k/uL (1.3-7.7); Neutrophils % (A) 75 %; Platelet Count 304 k/uL (150-450); Poikilocytosis Slight; RBC 2.84 m/uL (3.80-5.40); RDW 15.4 % (11.5-15.5); WBC 9.6 k/uL (3.8-10.6)
[2020-04-26 23:19] LABS: HGB 8.6 gm/dL (11.4-16.0)
[2020-04-27 03:43] LABS: HCT 22.2 % (34.0-46.0); HGB 7.2 gm/dL (11.4-16.0); Hypochromasia Slight; MCH 29.5 pg (25.0-35.0); MCHC 32.3 g/dL (31.0-37.0); MCV 91.4 fL (80.0-100.0); Mean Platelet Volume 7.4; Platelet Count 266 k/uL (150-450); Poikilocytosis Slight; RBC 2.43 m/uL (3.80-5.40); RDW 15.4 % (11.5-15.5)
--- NOTE | 2020-04-27 08:47 | CONS ---
CONSULTATION DATE OF SERVICE: April 26, 2020. REQUESTING PHYSICIAN: Dr. Penny. HISTORY OF PRESENT ILLNESS: The patient is a 74-year-old pleasant white female who was admitted to the hospital with black tarry stools apparently for the last 2 or 3 days duration. Apparently the EMS went to pick her up from home and was noted to have a dark stool and was found to be incontinent and she was brought to the emergency room and a hemoglobin was 6.7 g/dL. She was given one unit of PRBC transfusion and we are consulted for possible GI bleed. The patient has history of end-stage renal disease and has been on hemodialysis for the last 4 years duration. She recalls having peptic ulcer disease with a duodenal ulcer in the past. She has been taking Motrin on a regular basis for degenerative joint disease. She reports no abdominal pain. No nausea, no vomiting. Since being in the ER, she had not had any evidence of bleeding. No evidence of melena. She has history of atrial fibrillation and has been on Eliquis and she recalls taking it last night but none this morning. PAST MEDICAL HISTORY: Significant for end-stage renal disease on hemodialysis for the last 4 years duration, history of hypertension, hyperlipidemia, hypothyroidism, COPD. PAST SURGICAL HISTORY: Cholecystectomy, hysterectomy, left arm AV fistula, EGD 4 years ago. SOCIAL HISTORY: No smoking. No alcohol use. FAMILY HISTORY: Mother had breast cancer. Father thyroid disorder. SOCIAL HISTORY: No smoking. No alcohol use. MEDICATIONS: Medications at home include Lipitor, folic acid, Synthroid, Imuran, Flexeril, midodrine, Eliquis, Colace, PhosLo, Zofran. ALLERGIES: TO ALLOPURINOL, CODEINE, IODINE, DEMEROL, IODINE. REVIEW OF SYSTEMS: CARDIOPULMONARY: She denies any chest pain or shortness of breath. : No dysuria or hematuria. MUSCULOSKELETAL unremarkable. SKIN unremarkable. ENDOCRINE unremarkable. PSYCHIATRIC unremarkable. NEUROLOGY: Unremarkable. ENT/VISION: Unremarkable. CONSTITUTIONAL: No recent weight loss. No fever, chills, night sweats. PHYSICAL EXAMINATION: She appears comfortable. No apparent distress. Vital signs stable. Blood pressure is 126/70, pulse rate 73, temperature 97.4. HEENT examination unremarkable. Conjunctivae pink. Sclerae anicteric. Oral cavity no lesions. NECK no JVD or lymph node enlargement. CHEST was clear to auscultation. HEART: Regular rate and rhythm. ABDOMEN: Soft. Bowel sounds are positive. No organomegaly. EXTREMITIES: No pedal edema. SKIN: No rashes. NEURO: She is alert and oriented x3. No focal deficits. LABS: WBC 7.6, hemoglobin 6.8, platelets normal. Basic metabolic panel is within normal limits. Sodium 132, potassium 4, chloride 92, CO2 28, BUN 100, creatinine 5.90. Stool occult blood was positive. INR is 1.12. IMPRESSION: 1. Black tarry stools for the last 3 days duration. Patient noted to have a hemoglobin of 6.8 g/dL. She is going to be receiving one unit of PRBC transfusion during her dialysis today. Her baseline hemoglobin is between 10-12 g/dL. Most likely we are dealing with an upper gastrointestinal source of bleeding. The patient has prior history of peptic ulcer disease about 4 years ago. 2. End-stage renal disease on hemodialysis. 3. History of atrial fibrillation on Eliquis which is currently on hold. Last dose was yesterday. 4. History of hypothyroidism. RECOMMENDATIONS: 1. Continue Protonix 40 mg twice daily. 2. CBC on a daily basis. 3. We will proceed with an upper endoscopy tomorrow. I discussed with her risks, benefits and complications and she is agreeable to it. Thank you for this consultation. MMODL / IJN: [id number] /
[2020-04-27] MEDS: CALCIUM CARB-MAG CARB-FOLIC 1 EACH TAB PO SCH ×4 (09:46→22:24)
[2020-04-27] MEDS: CALCIUM ACETATE 667 MG TAB PO SCH ×3 (09:46→22:23)
[2020-04-27] MEDS: MIDODRINE 5 MG TAB PO SCH ×3 (09:46→22:24)
[2020-04-27] MEDS: azaTHIOprine 50 MG TAB PO SCH (09:46)
[2020-04-27] MEDS: PANTOPRAZOLE 40 MG/10 ML VIAL IVP SCH ×2 (09:46→22:23)
[2020-04-27] MEDS: LEVOTHYROXINE 125 MCG TAB PO SCH (09:47)
[2020-04-27] MEDS: FOLIC ACID 1 MG TAB PO SCH (09:47)
[2020-04-27 10:18] LABS: Calcium 9.6 mg/dL (8.4-10.2); Potassium 3.4 mmol/L (3.5-5.1)
[2020-04-27 10:40] LABS: HCT 27.6 % (34.0-46.0); HGB 8.9 gm/dL (11.4-16.0); Hypochromasia Slight; MCH 29.8 pg (25.0-35.0); MCHC 32.3 g/dL (31.0-37.0); MCV 92.1 fL (80.0-100.0); Mean Platelet Volume 7.7; Platelet Count 305 k/uL (150-450); Poikilocytosis Slight; RDW 15.4 % (11.5-15.5); WBC 8.1 k/uL (3.8-10.6)
--- NOTE | 2020-04-27 12:08 | CDI ---
Documentation Clarification Form Date: 04/27/2020 1205 CDS: Lula Chavez RN, CCDS Admit Date: 04/26/2020 1209 Patient Name: Miguelina Norris ATTENTION: The Clinical Documentation Specialists (CDI) and [facility] Coding Staff appreciate your assistance in clarifying documentation. Please respond to the clarification below the line at the bottom and electronically sign. The CDI & [facility] Coding staff will review the response and follow-up if needed. Please note: Queries are made part of the Legal Health Record. If you have any questions, please contact the author of this message via ITS. Dr. Tse Confusion was documented in the ED note and H&P and requires further specificity. History/Risk Factors: ESRD with HD, GIB, Hypothyroidism, anemia of CKD, PE Clinical Indicators: 04/26 ED Note: " Patient had been talking to her family members on the phone and noted to be confused, EMS was called." 04/26 H&P: "Patient apparently was bit confused as per the family members found patient was found to be incontinent of stool and the was in dark stool when EMS arrived to her house. 74-year-old female presenting with syncope, confusion, concern for GI bleed. " 04/26-04/27 Labs: Hgb 6.8/8.6/7.2/8.9, BUN 100/44, Creatinine 5.9/3.64 04/26 CXR:NO acute pulmonary process CT Brain: "NO ACUTE HEMORRHAGE OR MASS EFFECT.NO MIDLINE SHIFT." Treatment: 1 Unit PRBC's transfused 10 mg Midodrine PO TID 0.9% NS @ 20 cc/hr In your professional opinion, please clarify the etiology of the Altered Mental Status, if known. Metabolic Encephalopathy (specify Underlying Medical Illness) Delirium (specify cause): Other condition (please specify) Unable to determine Please continue to document in your progress notes and discharge summary in order to capture severity of illness and risk of mortality. Include clinical findings that support your diagnosis. No encephalopathy MTDD
--- NOTE | 2020-04-27 12:38 | P.PN ---
Subjective Patient had similar episodes of dark stools. Patient was admitted for Acute upper GI bleed patient will undergo upper GI and patient had history of ulcer disease in the past and patient is hemodialysis dependent will undergo dialysis sessions as scheduled. Constitutional: Denied any fatigue denied any fever. Cardio vascular: denied any chest pain, palpitations Gastrointestinal denied any nausea vomiting Pulmonary: Denied any shortness of breath cough Neurologic denied any new focal deficits All inpatient medications were reviewed and appropriate changes in these medications as dictated in the interval history and assessment and plan. Objective - Vital Signs Vital signs: Vital Signs Temp 97.5 F L 04/27/20 11:29 Pulse 62 04/27/20 11:29 Resp 18 04/27/20 11:29 BP 100/57 04/27/20 11:29 Pulse Ox 98 04/27/20 08:00 Intake & Output 04/26/20 04/27/20 04/27/20 18:59 06:59 18:59 Intake Total 310 Output Total 1000 Balance 310 -1000 Weight 77.111 kg 75 kg Intake: Blood Product 310 Rc As-1 Unit 310 [id number] Output: Hemodialysis 1000 Other: Voiding Method Bedpan # Voids 1 # Bowel Movements 1 - Exam PHYSICAL EXAMINATION: GENERAL: The patient is alert and oriented x3, not in any acute distress. Well developed, well nourished. does look significantly pale HEENT: Pupils are round and equally reacting to light. EOMI. No scleral icterus. Does have conjunctival pallor. Normocephalic, atraumatic. No pharyngeal erythema. No thyromegaly. CARDIOVASCULAR: S1 and S2 present. No murmurs, rubs, or gallops. PULMONARY: Chest is clear to auscultation, no wheezing or crackles. ABDOMEN: Soft, nontender, nondistended, normoactive bowel sounds. No palpable organomegaly. MUSCULOSKELETAL: No joint swelling or deformity. EXTREMITIES: No cyanosis, clubbing, or pedal edema. NEUROLOGICAL: Gross neurological examination did not reveal any focal deficits. She does have some muscle atrophy in both legs. SKIN: No rashes. - Labs CBC & Chem 7: 04/27/20 09:39 04/27/20 09:39 Labs: Abnormal Lab Results - Last 24 Hours (Table) 04/26/20 04/26/20 04/27/20 Range/Units 10:48 22:10 03:12 RBC 2.84 L 2.43 L (3.80-5.40) m/uL Hgb 8.6 L D 7.2 L (11.4-16.0) gm/dL Hct 25.6 L 22.2 L (34.0-46.0) % Sodium (137-145) mmol/L Potassium (3.5-5.1) mmol/L BUN (7-17) mg/dL Creatinine (0.52-1.04) mg/dL Crossmatch See Detail 04/27/20 04/27/20 Range/Units 09:39 09:39 RBC 3.00 L (3.80-5.40) m/uL Hgb 8.9 L D (11.4-16.0) gm/dL Hct 27.6 L (34.0-46.0) % Sodium 135 L (137-145) mmol/L Potassium 3.4 L (3.5-5.1) mmol/L BUN 44 H (7-17) mg/dL Creatinine 3.64 H (0.52-1.04) mg/dL Crossmatch Assessment and Plan Plan: -Acute bleed: Possibly upper GI bleed patient will be continued on Protonix twice a day and the patient possibly has a syncope from that. Patient underwent upper endoscopy today patient had 3 episodes of dark stools yesterday. 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
[2020-04-27] MEDS ORDERED: PROPOFOL 10 MG/ML 20 ML VIAL IV ONE (13:11)
[2020-04-27] MEDS ORDERED: LACTATED RINGERS 1,000 ML IV ONE (13:34)
--- NOTE | 2020-04-27 13:37 | P.PCN ---
Date of Procedure: 04/27/20 Procedure(s) Performed: BRIEF HISTORY: Patient is a 74-year-old, pleasant, female admitted to [facility] with severe symptomatic anemia, hemoglobin of 6.8 g/dL and black stools for the last few days duration. She has history of end-stage renal disease on hemodialysis. She scheduled for an upper endoscopy to evaluate further.. PROCEDURE PERFORMED: Esophagogastroduodenoscopy with biopsy. PREOPERATIVE DIAGNOSIS: Anemia and black tarry stools. IV sedation per anesthesia. PROCEDURE: After informed consent was obtained, the patient was brought into the endoscopy unit. IV sedation was administered by Anesthesia under continuous monitoring. Initially the Olympus GIF-140 video endoscope was inserted into the mouth. Esophagus intubated without any difficulty. It was gradually advanced into the stomach and duodenum and carefully examined. The second part of the duodenum appeared normal. There was a duodenal stricture identified along the duodenal sweep and the scope could be advanced to the stricture. In the duodenal bulb there was a superficial 5 mm ulcer noted. No active bleeding s een. The scope at this time was withdrawn to the stomach, adequately insufflated with air, and upon careful examination, mucosa of the antrum, had mild gastritis and biopsies were done from this area. The body, cardia and the fundus appeared normal. The scope was then withdrawn into the esophagus. The GE junction was located at 39 cm from the incisors. The esophagus appeared normal. There were no erosions or ulcerations seen and the patient tolerated the procedure well. IMPRESSION: 1. Small superficial duodenal bulbar ulcer. 2. Duodenal stricture along the duodenal sweep 3. Antral erosive gastritis. RECOMMENDATIONS: The findings of this examination were discussed with the patient. Continue with Protonix 40 mg daily. Avoid NSAIDs. Monitor CBC daily. Advance diet as tolerated.
[2020-04-27 13:46] VITALS: BMI 25.9
[2020-04-27] MEDS: traMADol 50 MG TAB PO PRN (16:10)
--- NOTE | 2020-04-27 16:17 | CONS ---
CONSULTATION REASON FOR CONSULT: End-stage renal disease. HISTORY OF PRESENT ILLNESS: The patient is a 74-year-old female who was admitted to the hospital with complaints of increased weakness; patient almost passed out. She was also found to have dark-colored stools. On arrival to the ER, patient was noted to have a hemoglobin of 6.7. She was transfused packed RBCs and she also had her dialysis treatment yesterday. Patient is maintained on a Sunday, Sunday, Sunday schedule for dialysis. The patient admitted to having had a GI bleed previously about 6 years ago with clipping of a bleeding vessel noted on EGD. She is maintained on Eliquis for atrial fibrillation. No chest pains or shortness of breath. No abdominal pain or diarrhea. PAST MEDICAL HISTORY: COPD, gastroesophageal reflux disease, end-stage renal disease, history of PE, hypothyroidism, hyperlipidemia, scleroderma, anxiety and depression. PAST SURGICAL HISTORY: Bowel resection, cholecystectomy, hysterectomy, left knee arthroplasty, PD catheter placement, removal, thyroidectomy, kidney biopsy, left arm AV graft, right index finger amputation. SOCIAL HISTORY: Negative for smoking, drug abuse or alcohol abuse. MEDICATIONS: Medications prior to admission included Lipitor, doxepin, folic acid, Synthroid, Imuran, Flexeril, midodrine, Eliquis, Colace, PhosLo, MagneBind, Zofran. ALLERGIES: ALLERGIES are MULTIPLE, including ADHESIVE TAPE, ALLOPURINOL, CODEINE, IODINE, DEMEROL, BETADINE AND SULFA. REVIEW OF SYSTEMS: As per HPI. Other systems negative. PHYSICAL EXAMINATION: Patient is comfortable, awake, alert, oriented x3, not in any acute distress. Blood pressure 104/58, heart rate 58 per minute. She is afebrile. EXAMINATION OF THE HEART: S1 and S2. EXAMINATION OF LUNGS: Bilateral breath sounds are heard. ABDOMEN: Soft, non-tender. Examination of lower extremities shows no evidence of edema. [employer] exam is grossly intact. LABS: Labs show sodium 135, potassium 3.4, hemoglobin 8.9 g/dL. ASSESSMENT: 1. End-stage renal disease, on hemodialysis on a Sunday, Sunday, Sunday schedule via [employer]. We will schedule the patient for hemodialysis tomorrow. She did have a treatment yesterday with UF of about 1 L. 2. Gastrointestinal bleed, status post packed RBCs transfusion. Scheduled for EGD today with previous history of GI bleed requiring clipping of bleeding vessel 6 years ago. 3. Hypokalemia. Hold off on replacement for now and repeat labs in a.m. 4. Chronic kidney disease mineral bone disorder. Continue current phosphate binders. 5. Hypotension from anemia and blood loss, currently improved. Patient is also maintained on midodrine. 6. History of scleroderma, maintained on Imuran. PLAN: Hemodialysis in a.m. Continue current phosphate binders. Repeat labs in a.m. Do not replace potassium yet. MMODL / IJN: [id number] /
[2020-04-27] MEDS: SODIUM CHLORIDE 0.9% 1,000 ML IV SCH (16:19)
[2020-04-27] MEDS: CYCLOBENZAPRINE 10 MG TAB PO PRN (22:23)
[2020-04-27] MEDS: DOXEPIN 25 MG CAP PO SCH (22:24)
[2020-04-27] MEDS: ATORVASTATIN 20 MG TAB PO SCH (22:24)
[2020-04-28] MEDS: LACTATED RINGERS 1,000 ML IV SCH ×2 (06:04→23:39)
[2020-04-28] MEDS: LEVOTHYROXINE 125 MCG TAB PO SCH (07:29)
[2020-04-28] MEDS: FOLIC ACID 1 MG TAB PO SCH (09:57)
[2020-04-28] MEDS: CALCIUM ACETATE 667 MG TAB PO SCH ×3 (09:57→20:48)
[2020-04-28] MEDS: azaTHIOprine 50 MG TAB PO SCH (09:57)
[2020-04-28] MEDS: CALCIUM CARB-MAG CARB-FOLIC 1 EACH TAB PO SCH ×3 (09:57→20:48)
[2020-04-28] MEDS: PANTOPRAZOLE 40 MG/10 ML VIAL IVP SCH ×2 (09:57→20:49)
[2020-04-28] MEDS: MIDODRINE 5 MG TAB PO SCH ×3 (10:16→17:18)
[2020-04-28] MEDS: SODIUM CHLORIDE 0.9% 1,000 ML IV SCH (12:00)
[2020-04-28] MEDS: traMADol 50 MG TAB PO PRN ×2 (13:14→20:48)
--- NOTE | 2020-04-28 14:07 | P.PN ---
Subjective Patient had similar episodes of dark stools. Patient was admitted for Acute upper GI bleed patient will undergo upper GI and patient had history of ulcer disease in the past and patient is hemodialysis dependent will undergo dialysis sessions as scheduled. 04/28/2020 Patient is complaining of for pain everywhere in the body. Patient's pain is n ot in the joints. Patient is concerned about gout although patient's symptomology is not consistent with gouty arthritis or lupus arthritis or arthritis from scleroderma. Patient did get an upper GI endoscopy which showed a duodenal bulb ulcer and antral gastritis patient will be off anticoagulation will be continued on Protonix. Patient probably will be discharged to subacute rehabilitation tomorrow patient is receiving hemodialysis today. Constitutional: Denied any fatigue denied any fever. Cardio vascular: denied any chest pain, palpitations Gastrointestinal denied any nausea vomiting Pulmonary: Denied any shortness of breath cough Neurologic denied any new focal deficits All inpatient medications were reviewed and appropriate changes in these medications as dictated in the interval history and assessment and plan. Objective - Vital Signs Vital signs: Vital Signs Temp 97.7 F 04/28/20 04:32 Pulse 104 H 04/28/20 04:32 Resp 16 04/28/20 04:32 BP 106/67 04/28/20 04:32 Pulse Ox 94 L 04/28/20 04:32 Intake & Output 04/27/20 04/28/20 04/28/20 18:59 06:59 18:59 Intake Total 440 700 Output Total 250 Balance 440 450 Weight 75 kg Intake: IV 200 Intake, IV Titration 160 Amount Lactated Ringers 1,000 ml 160 @ 20 mls/hr IV .Q24H [facility] Rx#:[id number] Oral 240 540 Output: Urine 250 Other: Voiding Method Bedpan Bedside Commode # Voids 1 1 - Exam PHYSICAL EXAMINATION: GENERAL: The patient is alert and oriented x3, not in any acute distress. Well developed, well nourished. does look significantly pale HEENT: Pupils are round and equally reacting to light. EOMI. No scleral icterus. Does have conjunctival pallor. Normocephalic, atraumatic. No pharyngeal e rythema. No thyromegaly. CARDIOVASCULAR: S1 and S2 present. No murmurs, rubs, or gallops. PULMONARY: Chest is clear to auscultation, no wheezing or crackles. ABDOMEN: Soft, nontender, nondistended, normoactive bowel sounds. No palpable organomegaly. MUSCULOSKELETAL: No joint swelling or deformity. EXTREMITIES: No cyanosis, clubbing, or pedal edema. NEUROLOGICAL: Gross neurological examination did not reveal any focal deficits. She does have some muscle atrophy in both legs. SKIN: No rashes. - Labs CBC & Chem 7: 04/27/20 09:39 04/27/20 09:39 Assessment and Plan Plan: -Acute bleed: Possibly upper GI bleed patient will be continued on Protonix twice a day and the patient possibly has a syncope from that. Patient had an upper GI endoscopy which showed a duodenal bulb ulcer. 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
--- NOTE | 2020-04-28 15:49 | P.PN ---
Subjective Progress Note Date: 04/28/20 Principal diagnosis: Black tarry stools, anemia This is a 74-year-old white female who is minute the hospital with black tarry stools for the last 2-3 days duration. She was brought in by EMS for dark- colored stools, with the presenting hemoglobin of 6.7. She was given 1 unit of packed red blood cells. The patient has a history of end-stage renal disease has been on hemodialysis for the past 4 years duration, she is on a Sunday schedule. She is currently getting hemodialysis done today. She did have a history of peptic ulcer disease with a duodenal ulcer in the past. She takes Motrin on a regular basis for degenerative joint disease. She underwent an upper endoscopy yesterday with Dr. Hatfield with findings that include small superficial duodenal bulbar ulcer, duodenal stricture along the duodenal sweep and antral erosive gastritis. Hemoglobin is stable 8.9.. She states she does not have much of an appetite today. She denies any abdominal pain, nausea, or vomiting. She denies any bowel movements or melena. She does complain today that she has a flareup of gout. Objective - Vital Signs Vital signs: Vital Signs Temp 97.7 F 04/28/20 04:32 Pulse 104 H 04/28/20 04:32 Resp 16 04/28/20 04:32 BP 106/67 04/28/20 04:32 Pulse Ox 94 L 04/28/20 04:32 Intake & Output 04/27/20 04/28/20 04/28/20 18:59 06:59 18:59 Intake Total 440 700 Output Total 250 Balance 440 450 Weight 75 kg Intake: IV 200 Intake, IV Titration 160 Amount Lactated Ringers 1,000 ml 160 @ 20 mls/hr IV .Q24H [facility] Rx#:[id number] Oral 240 540 Output: Urine 250 Other: Voiding Method Bedpan Bedside Commode # Voids 1 1 - Exam General appearance: The patient is alert, oriented, in no acute distress. HET: Head is normocephalic and atraumatic. Conjunctiva pink. Sclera anicteric. Neck: Supple without lymphadenopathy. Trachea midline. Abdomen: Soft, nontender, nondistended with bowel sounds. Extremities: Normal skin color and turgor. No pedal edema. Neurological: No focal deficits. Alert and oriented 3. - Labs CBC & Chem 7: 04/27/20 09:39 04/27/20 09:39 Assessment and Plan Assessment: 1. Black tarry stools for last 3 days duration. Patient noted to have a he moglobin of 6.8. She is status post 1 unit of packed red blood cell transfusion. Baseline hemoglobin is between 10 and 12. Most likely dealing with upper gastrointestinal source of bleeding. The patient has prior history of peptic ulcer disease about 4 years ago. 2. End-stage renal disease on hemodialysis 3. History of atrial fibrillation on Ahlquist which is currently on hold. 4. History of hypothyroidism Plan: 1. Continue Protonix 40 mg twice daily 2. CBC on daily basis 3. Upper endoscopy completed findings that include a small superficial duodenal bulbar ulcer, duodenal stricture along the duodenal sweep and antral erosive gastritis. 4. Advance diet as tolerated 5. We will continue to follow.
--- NOTE | 2020-04-28 16:03 | PN ---
PROGRESS NOTE Patient is seen for followup for end-stage renal disease. She is seen on hemodialysis today, tolerating her treatment. However, she is complaining of pain all over the body secondary to flareup of gout. PHYSICAL EXAMINATION: On examination, blood pressure is 106/67, heart rate 104 per minute. She is afebrile. EXAMINATION OF THE HEART: S1 and S2. EXAMINATION OF LUNGS: Bilateral breath sounds are heard. Decreased breath sounds at bases. ABDOMEN: Soft, non-tender. Examination of lower extremities shows no significant edema. [employer] exam is grossly intact. LABS: Labs show sodium 135, potassium 3.4, BUN 44, creatinine 3.64, hemoglobin 8.9 g/dL. ASSESSMENT: 1. End-stage renal disease, on hemodialysis on a Sunday, Sunday, Sunday schedule. 2. Gastrointestinal bleed, status post esophagogastroduodenoscopy done yesterday which showed a small superficial duodenal bulb ulcer and antral erosive gastritis along with duodenal stricture. 3. History of gout with severe pain all over the body, but no significant joint swelling or erythema noted. PLAN: Hemodialysis on Sunday. I will check on her home medication. The patient states she was getting infusions for flareup of gout prior to admission. MMODL / IJN: [id number] /
[2020-04-28] MEDS: ATORVASTATIN 20 MG TAB PO SCH (20:48)
[2020-04-28] MEDS: DOXEPIN 25 MG CAP PO SCH (20:48)
[2020-04-28] MEDS: PREGABALIN 75 MG CAP PO SCH (20:48)
[2020-04-29] MEDS: LEVOTHYROXINE 125 MCG TAB PO SCH ×2 (06:13→06:17)
[2020-04-29] MEDS: FOLIC ACID 1 MG TAB PO SCH (08:23)
[2020-04-29] MEDS: PANTOPRAZOLE 40 MG/10 ML VIAL IVP SCH ×2 (08:23→19:25)
[2020-04-29] MEDS: PREGABALIN 75 MG CAP PO SCH ×2 (08:23→19:26)
[2020-04-29] MEDS: CALCIUM ACETATE 667 MG TAB PO SCH ×3 (08:24→22:38)
[2020-04-29] MEDS: MIDODRINE 5 MG TAB PO SCH ×4 (08:29→17:11)
[2020-04-29] MEDS: CALCIUM CARB-MAG CARB-FOLIC 1 EACH TAB PO SCH ×3 (08:29→22:38)
[2020-04-29] MEDS: azaTHIOprine 50 MG TAB PO SCH (08:31)
[2020-04-29] MEDS: traMADol 50 MG TAB PO PRN ×2 (08:33→19:25)
[2020-04-29 13:09] LABS: HGB 7.9 gm/dL (11.4-16.0); Hypochromasia Slight; MCH 30.7 pg (25.0-35.0); MCHC 32.7 g/dL (31.0-37.0); MCV 93.7 fL (80.0-100.0); Platelet Count 316 k/uL (150-450); RBC 2.57 m/uL (3.80-5.40); RDW 15.5 % (11.5-15.5); WBC 12.5 k/uL (3.8-10.6)
[2020-04-29] MEDS ORDERED: DARBEPOETIN ALFA 60 MCG/0.3 ML SYRINGE SQ SCH (13:30)
[2020-04-29] MEDS: SODIUM CHLORIDE 0.9% 1,000 ML IV SCH (15:24)
--- NOTE | 2020-04-29 16:17 | P.PN ---
Subjective Progress Note Date: 04/29/20 Principal diagnosis: Black tarry stools, anemia This is a 74-year-old white female who is minute the hospital with black tarry stools for the last 2-3 days duration. She was brought in by EMS for dark- colored stools, with the presenting hemoglobin of 6.7. She was given 1 unit of packed red blood cells. The patient has a history of end-stage renal disease has been on hemodialysis for the past 4 years duration, she is on a Sunday schedule. The patient is status post upper endoscopy this hospital admission. Her hemoglobin is stable. She is sleepy and not very responsive this morning. She does respond to stimuli and is not grimacing with any abdominal pain. There is been no reports of any melena or hematemesis. Objective - Vital Signs Vital signs: Vital Signs Temp 98.8 F 04/29/20 11:46 Pulse 74 04/29/20 11:46 Resp 17 04/29/20 11:46 BP 107/65 04/29/20 11:46 Pulse Ox 93 L 04/29/20 11:46 Intake & Output 04/28/20 04/29/20 04/29/20 18:59 06:59 18:59 Intake Total 118 850 160 Output Total 950 250 Balance -832 600 160 Intake: Intake, IV Titration 60 160 Amount Sodium Chloride 0.9% 1, 60 160 000 ml @ 20 mls/hr IV . Q24H [facility] Rx#:[id number] Oral 118 790 Output: Urine 250 Hemodialysis 950 Other: Voiding Method Bedside Commode Bedside Commode # Voids 1 - Exam General appearance: The patient is alert, oriented, in no acute distress. HET: Head is normocephalic and atraumatic. Conjunctiva pink. Sclera anicteric. Neck: Supple without lymphadenopathy. Trachea midline. Abdomen: Soft, nontender, nondistended with bowel sounds. Extremities: Normal skin color and turgor. No pedal edema. Neurological: No focal deficits. Alert and oriented 3. - Labs CBC & Chem 7: 04/29/20 10:52 04/27/20 09:39 Labs: Abnormal Lab Results - Last 24 Hours (Table) 04/29/20 Range/Units 10:52 WBC 12.5 H (3.8-10.6) k/uL RBC 2.57 L (3.80-5.40) m/uL Hgb 7.9 L (11.4-16.0) gm/dL Hct 24.0 L (34.0-46.0) % Assessment and Plan Assessment: 1. Black tarry stools for last 3 days duration. Patient noted to have a hemoglobin of 6.8. She is status post 1 unit of packed red blood cell transfusion. Baseline hemoglobin is between 10 and 12. Most likely dealing with upper gastrointestinal source of bleeding. The patient has prior history of peptic ulcer disease about 4 years ago. 2. End-stage renal disease on hemodialysis 3. History of atrial fibrillation on Ahlquist which is currently on hold. 4. History of hypothyroidism Plan: 1. Continue Protonix 40 mg twice daily 2. CBC on daily basis 3. Upper endoscopy completed findings that include a small superficial duodenal bulbar ulcer, duodenal stricture along the duodenal sweep and antral erosive gastritis. 4. Advance diet as tolerated 5. We will sign off at this time, if there are any future concerns please do not hesitate to contact us The impression and plan of care has been dictated as directed. Dr. Nomi Hatfield I performed a history and examination of this patient, discussed the same with the dictator. I agree with the dictator's note ,documented as a scribe. Any additional findings or plans will be noted.
--- NOTE | 2020-04-29 17:12 | PN ---
PROGRESS NOTE Patient is seen for followup for end-stage renal disease. She is maintained on a Sunday, Sunday, Sunday schedule for dialysis. Patient was dialyzed yesterday. Patient was found to have a superficial duodenal ulcer and duodenal stricture along with erosive gastritis. No active bleeding noted currently. PHYSICAL EXAMINATION: On examination today, blood pressure 107/65, heart rate 74 per minute. She did have a temperature of 100.2 degrees Fahrenheit yesterday. Abdomen is soft, nontender. Examination of lower extremities shows no evidence of edema. Patient is sleeping. She is arousable. [employer] exam grossly intact. LABS: Labs show hemoglobin 7.9. Potassium was 3.4 on 04/27. ASSESSMENT: 1. End-stage renal disease, on hemodialysis on a Sunday, Sunday, Sunday schedule. 2. Gastrointestinal bleed, status post esophagogastroduodenoscopy showing duodenal bulb ulcer, duodenal stricture and erosive gastritis. 3. Chronic kidney disease mineral bone disorder. PLAN: Hemodialysis in a.m. Continue with the [facility] for anemia. MMODL / IJN: [id number] /
[2020-04-29] MEDS: DOXEPIN 25 MG CAP PO SCH (19:25)
[2020-04-29] MEDS: ATORVASTATIN 20 MG TAB PO SCH (19:26)
[2020-04-30] MEDS: LACTATED RINGERS 1,000 ML IV SCH (02:40)
[2020-04-30] MEDS: LEVOTHYROXINE 125 MCG TAB PO SCH (05:03)
[2020-04-30] MEDS: CALCIUM ACETATE 667 MG TAB PO SCH ×3 (08:04→22:22)
[2020-04-30] MEDS: PREGABALIN 75 MG CAP PO SCH ×2 (08:05→19:48)
[2020-04-30] MEDS: FOLIC ACID 1 MG TAB PO SCH (08:05)
[2020-04-30] MEDS: PANTOPRAZOLE 40 MG/10 ML VIAL IVP SCH ×2 (08:05→19:48)
[2020-04-30] MEDS: CALCIUM CARB-MAG CARB-FOLIC 1 EACH TAB PO SCH ×3 (08:06→22:22)
[2020-04-30] MEDS: MIDODRINE 5 MG TAB PO SCH ×3 (08:07→16:43)
[2020-04-30] MEDS: azaTHIOprine 50 MG TAB PO SCH (08:07)
[2020-04-30] MEDS: traMADol 50 MG TAB PO PRN (11:12)
[2020-04-30 12:53] LABS: Basophils % (A) 0 %; Eosinophils % (A) 0 %; HCT 23.5 % (34.0-46.0); HGB 7.3 gm/dL (11.4-16.0); Hypochromasia Moderate; Lymphocytes # (A) 1.4 k/uL (1.0-4.8); Lymphocytes % (A) 12 %; MCH 29.7 pg (25.0-35.0); MCHC 31.2 g/dL (31.0-37.0); MCV 95.1 fL (80.0-100.0); Mean Platelet Volume 8.1; Monocytes # (A) 0.6 k/uL (0-1.0); Monocytes % (A) 5 %; Neutrophils # (A) 9.2 k/uL (1.3-7.7); Neutrophils % (A) 81 %; Platelet Count 338 k/uL (150-450); RBC 2.47 m/uL (3.80-5.40); RDW 15.2 % (11.5-15.5); WBC 11.3 k/uL (3.8-10.6)
--- NOTE | 2020-04-30 15:14 | PN ---
PROGRESS NOTE Patient is seen for followup for end-stage renal disease. She is currently seen on hemodialysis. Patient is sleepy from pain medications. PHYSICAL EXAMINATION: On examination today, blood pressure 92/46, heart rate 69 per minute. She is afebrile. Examination shows no significant edema in lower extremities. Blood pressure had been running low. Therefore, we will remove only about a L of fluid today. LAB: Show hemoglobin 7.3 g/dL. ASSESSMENT: 1. End-stage renal disease, on hemodialysis on a Sunday, Sunday, Sunday schedule. 2. Chronic kidney disease mineral bone disorder. 3. Gastrointestinal bleed, currently stable. No active bleeding noted at this time. 4. History of gout. 5. 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 PLAN: Continue with Aranesp. Decrease goal to about a L today on hemodialysis. Next treatment on Sunday. MMODL / DARNELLN: [id number] /
[2020-04-30] MEDS: SODIUM CHLORIDE 0.9% 1,000 ML IV SCH (15:27)
[2020-04-30 15:37] LABS: Appearance,Urine Clear (Clear); Bilirubin,Urine Negative (Negative); Blood,Urine Negative (Negative); Color,Urine Yellow; Glucose,Urine (UA) Negative (Negative); Ketones,Urine Negative (Negative); Leukocyte Esterase,Urine Negative (Negative); Mucus,Urine Rare /hpf; Nitrite,Urine Negative (Negative); Protein,Urine 2+ (Negative); RBC,Urine 1 /hpf (0-5); Specific Gravity,Urine 1.011 (1.001-1.035); Urobilinogen,Urine <2.0 mg/dL (<2.0); WBC,Urine <1 /hpf (0-5)
--- NOTE | 2020-04-30 16:01 | CT ---
EXAMINATION TYPE: CT brain wo con DATE OF EXAM: 04/30/2020 HISTORY: ams. Weakness. CT DLP: 1153 mGycm. Automated Exposure Control for Dose Reduction was Utilized. TECHNIQUE: CT scan of the head is performed without contrast. COMPARISON: CT brain 4 days ago. FINDINGS: There is no acute intracranial hemorrhage or midline shift identified. There is diffuse v entricular and sulcal prominence consistent with diffuse age-related cerebral atrophy. There is low- attenuation in the periventricular white matter consistent with chronic small vessel ischemic change. The globes are intact and the visualized sinuses are clear. IMPRESSION: No acute intracranial hemorrhage or midline shift. There is [id number] diffuse ag e-related cerebral atrophy and chronic small vessel ischemic change redemonstrated. No significant c hange from prior.
[2020-04-30 16:26] LABS: Amphetamine Screen,Urine Not Detected (NotDetected); Barbiturate Screen,Urine Not Detected (NotDetected); Benzodiazepines Screen,Urine Not Detected (NotDetected); Cocaine Screen,Urine Not Detected (NotDetected); Methadone Screen, Urine Not Detected (NotDetected); Opiate Screen,Urine Not Detected (NotDetected); Oxycodone Screen, Urine Not Detected (NotDetected); Phencyclidine Screen,Urine Not Detected (NotDetected); Tricyclic Antidepressant,Urine Detected (NotDetected); Urn Cannabinoid Scrn Not Detected (NotDetected)
[2020-04-30] MEDS: DOXEPIN 25 MG CAP PO SCH (19:48)
[2020-04-30] MEDS: ATORVASTATIN 20 MG TAB PO SCH (19:48)
[2020-04-30 22:20] LABS: African American GFR (CKD) 43.4 (60.0-200.0); Anion Gap 8.1 mmol/L (4.00-12.00); BUN/Creat Ratio 7.86 Ratio (12.00-20.00); Calcium 8.3 mg/dL (8.7-10.3); Carbon Dioxide 30.9 mmol/L (21.6-31.8); Non-African American GFR(CKD) 37.4 (60.0-200.0); Potassium 3.3 mmol/L (3.5-5.5)
[2020-05-01] MEDS: LEVOTHYROXINE 125 MCG TAB PO SCH (05:49)
[2020-05-01] MEDS: traMADol 50 MG TAB PO PRN ×2 (05:49→12:43)
[2020-05-01] MEDS: FOLIC ACID 1 MG TAB PO SCH (08:17)
[2020-05-01] MEDS: PREGABALIN 75 MG CAP PO SCH ×2 (08:17→20:08)
[2020-05-01] MEDS: CALCIUM ACETATE 667 MG TAB PO SCH ×3 (08:17→21:29)
[2020-05-01] MEDS: PANTOPRAZOLE 40 MG/10 ML VIAL IVP SCH ×2 (08:17→20:08)
[2020-05-01] MEDS: azaTHIOprine 50 MG TAB PO SCH (08:18)
[2020-05-01] MEDS: CALCIUM CARB-MAG CARB-FOLIC 1 EACH TAB PO SCH ×3 (08:18→21:29)
[2020-05-01] MEDS: MIDODRINE 5 MG TAB PO SCH ×3 (08:18→17:46)
--- NOTE | 2020-05-01 10:18 | P.PN ---
Subjective patient is seen in follow-up for her incisional disease. She is maintained on hemodialysis on Sunday schedule. Patient is very tearful at this time. Not answering questions. brain CT revealed no acute changes. Vital signs are stable. General: The patient appeared well nourished and normally developed. HEENT: Head exam is unremarkable. Neck is without jugular venous distension. LUNGS: Breath sounds decreased. HEART: Rate and Rhythm are regular. ABDOMEN: soft, nontender. EXTREMITITES: No clubbing, cyanosis, or edema. Objective - Vital Signs Vital signs: Vital Signs Temp 98.5 F 05/01/20 04:15 Pulse 68 05/01/20 04:15 Resp 15 05/01/20 04:15 BP 105/58 05/01/20 04:15 Pulse Ox 95 05/01/20 04:15 Intake & Output 04/30/20 05/01/20 05/01/20 18:59 06:59 18:59 Intake Total 1000 60 Output Total 700 Balance 300 60 Weight 75 kg Intake: Oral 60 Hemodialysis 1000 Output: Urine 700 Straight 700 Other: Voiding Method Incontinent Incontinent Incontinent # Voids 1 1 - Labs CBC & Chem 7: 04/30/20 12:34 04/30/20 12:34 Labs: Abnormal Lab Results - Last 24 Hours (Table) 04/30/20 04/30/20 04/30/20 Range/Units 12:34 12:34 15:31 WBC 11.3 H (3.8-10.6) k/uL RBC 2.47 L (3.80-5.40) m/uL Hgb 7.3 L (11.4-16.0) gm/dL Hct 23.5 L (34.0-46.0) % Neutrophils # 9.2 H (1.3-7.7) k/uL Potassium 3.3 L (3.5-5.5) mmol/L Est GFR (CKD-EPI)AfAm 43.4 L (60.0-200.0) Est GFR (CKD-EPI)NonAf 37.4 L (60.0-200.0) BUN/Creatinine Ratio 7.86 L (12.00-20.00) Ratio Glucose 133 H (70-110) mg/dL Calcium 8.3 L (8.7-10.3) mg/dL Urine Protein (Negative) Urine Mucus (None) /hpf U Tricyclic Antidepress Detected H (NotDetected) 04/30/20 Range/Units 15:31 WBC (3.8-10.6) k/uL RBC (3.80-5.40) m/uL Hgb (11.4-16.0) gm/dL Hct (34.0-46.0) % Neutrophils # (1.3-7.7) k/uL Potassium (3.5-5.5) mmol/L Est GFR (CKD-EPI)AfAm (60.0-200.0) Est GFR (CKD-EPI)NonAf (60.0-200.0) BUN/Creatinine Ratio (12.00-20.00) Ratio Glucose (70-110) mg/dL Calcium (8.7-10.3) mg/dL Urine Protein 2+ H (Negative) Urine Mucus Rare H (None) /hpf U Tricyclic Antidepress (NotDetected) Assessment and Plan Plan: assessment: 1. End-stage renal disease maintained on hemodialysis on Sunday schedule. 2. GI bleed status post EGD which revealed superficial duodenal bulbar ulcer, duodenal stricture and antral erosive gastritis. 3. 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 4. Anemia of chronic kidney disease maintained on Aranesp. 5. Chronic hypotension maintained on midodrine. 6. altered mental status. Possibly depression. Psychiatry consulted. plan: Hemodialysis on Sunday.
[2020-05-01 10:23] LABS: HCT 28.1 % (34.0-46.0); HGB 8.5 gm/dL (11.4-16.0); Hypochromasia Marked; MCH 30.4 pg (25.0-35.0); MCHC 30.3 g/dL (31.0-37.0); Macrocytosis Slight; Mean Platelet Volume 10.4; Platelet Count 237 k/uL (150-450); WBC 10.1 k/uL (3.8-10.6)
[2020-05-01 10:26] LABS: MCV 100.4 fL (80.0-100.0)
[2020-05-01 12:12] LABS: Lymphocytes # (M) 1.41 k/uL (1.0-4.8); Neutrophils # (M) 8.18 k/uL (1.3-7.7); Neutrophils % (M) 81 %; Nucleated Red Blood Cells 0 /100 WBC (0-0); Total Cells Counted 100
[2020-05-01] MEDS: SODIUM CHLORIDE 0.9% 1,000 ML IV SCH (12:48)
[2020-05-01] MEDS: OLANZapine 2.5 MG TAB PO SCH ×2 (17:44→21:29)
[2020-05-01] MEDS: DOXEPIN 25 MG CAP PO SCH (20:08)
[2020-05-01] MEDS: ATORVASTATIN 20 MG TAB PO SCH (20:08)
[2020-05-01] MEDS ORDERED: OLANZapine 2.5 MG TAB PO SCH (21:00)
--- NOTE | 2020-05-01 23:57 | P.PN ---
Subjective Progress Note Date: 04/29/20 Principal diagnosis: Acute GI bleed status post EGD Patient was admitted for Acute upper GI bleed patient underwent upper GI and patient had history of ulcer disease in the past and patient is hemodialysis dependent will undergo dialysis sessions as scheduled. 04/28/2020 Patient is complaining of for pain everywhere in the body. Patient's pain is not in the joints. Patient is concerned about gout although patient's symptomology is not consistent with gouty arthritis or lupus arthritis or arthritis from scleroderma. Patient did get an upper GI endoscopy which showed a duodenal bulb ulcer and antral gastritis patient will be off anticoagulation will be continued on Protonix. Patient probably will be discharged to subacute rehabilitation tomorrow patient is receiving hemodialysis today. 04/29/2020 Patient is currently lying in the bed comfortably. Awake alert but refused to communicate. Patient underwent hemodialysis yesterday. Status post EGD which showed small superficial duodenal bulbar ulcer. Duodenal stricture along the duodenal sweep. Antral erosive gastritis. Continued on Protonix currently. Laboratory data showed hemoglobin 7.9 today. Platelets 316 Coronavirus PCR not detected. Anticoagulation is on hold. Patient's son applying for guardianship. Awaiting transfer to rehab. No complaints of chest pain or shortness of. No fever no chills. No nausea vomiting or abdominal pain or diarrhea. Current medications reviewed. Objective - Vital Signs Vital signs: Vital Signs Temp 98.8 F 04/29/20 11:46 Pulse 74 04/29/20 11:46 Resp 17 04/29/20 11:46 BP 107/65 04/29/20 11:46 Pulse Ox 93 L 04/29/20 11:46 Intake & Output 04/29/20 04/29/20 04/30/20 06:59 18:59 06:59 Intake Total 850 160 Output Total 250 Balance 600 160 Intake: Intake, IV Titration 60 160 Amount Sodium Chloride 0.9% 1, 60 160 000 ml @ 20 mls/hr IV . Q24H [facility] Rx#:[id number] Oral 790 Output: Urine 250 Other: Voiding Method Bedside Commode # Voids 1 - Exam PHYSICAL EXAMINATION: GENERAL: The patient is alert and oriented x3, not in any acute distress. Well developed, well nourished. does look significantly pale HEENT: Pupils are round and equally reacting to light. EOMI. No scleral icterus. Does have conjunctival pallor. Normocephalic, atraumatic. No pharyngeal erythema. No thyromegaly. CARDIOVASCULAR: S1 and S2 present. No murmurs, rubs, or gallops. PULMONARY: Chest is clear to auscultation, no wheezing or crackles. ABDOMEN: Soft, nontender, nondistended, normoactive bowel sounds. No palpable organomegaly. MUSCULOSKELETAL: No joint swelling or deformity. EXTREMITIES: No cyanosis, clubbing, or pedal edema. NEUROLOGICAL: Gross neurological examination did not reveal any focal deficits. She does have some muscle atrophy in both legs. SKIN: No rashes. - Labs CBC & Chem 7: 05/01/20 10:03 04/30/20 12:34 Labs: Abnormal Lab Results - Last 24 Hours (Table) 04/29/20 Range/Units 10:52 WBC 12.5 H (3.8-10.6) k/uL RBC 2.57 L (3.80-5.40) m/uL Hgb 7.9 L (11.4-16.0) gm/dL Hct 24.0 L (34.0-46.0) % Assessment and Plan Assessment: -Acute bleed: . s/p EGD continued on Protonix twice a day and the patient possibly has a syncope from that. Patient had an upper GI endoscopy which showed a duodenal bulb ulcer. No more active GI bleed -End-stage renal disease and dialysis dependen resumed on hemodialysis -History of PE for which patient denied correlation which will be held because of GI bleed -Hypothyroidism -COPD without any acute exacerbation -Metabolic bone disease from end-stage renal disease -Anemia of chronic kidney disease -Hyperlipidemia continue statin Time with Patient: Greater than 30
--- NOTE | 2020-05-02 00:03 | P.PN ---
Subjective Progress Note Date: 04/30/20 Principal diagnosis: Acute GI bleed status post EGD Patient was admitted for Acute upper GI bleed patient underwent upper GI and patient had history of ulcer disease in the past and patient is hemodialysis dependent will undergo dialysis sessions as scheduled. 04/28/2020 Patient is complaining of for pain everywhere in the body. Patient's pain is not in the joints. Patient is concerned about gout although patient's symptomology is not consistent with gouty arthritis or lupus arthritis or arthritis from scleroderma. Patient did get an upper GI endoscopy which showed a duodenal bulb ulcer and antral gastritis patient will be off anticoagulation will be continued on Protonix. Patient probably will be discharged to subacute rehabilitation tomorrow patient is receiving hemodialysis today. 04/29/2020 Patient is currently lying in the bed comfortably. Awake alert but refused to communicate. Patient underwent hemodialysis yesterday. Status post EGD which showed small superficial duodenal bulbar ulcer. Duodenal stricture along the duodenal sweep. Antral erosive gastritis. Continued on Protonix currently. Laboratory data showed hemoglobin 7.9 today. Platelets 316 Coronavirus PCR not detected. Anticoagulation is on hold. Patient's son applying for guardianship. Awaiting transfer to rehab. No complaints of chest pain or shortness of. No fever no chills. No nausea vomiting or abdominal pain or diarrhea. 04/29/2020 Patient is currently lying in the bed comfortably. No headache or dizziness. Otherwise patient seems like not communicating purposefully while she was told that she needs to go to rehab. Patient son is applying for guardianship. Denied any complaints of chest pain or shortness breath no nausea vomiting, abdominal pain.Tolerating oral diet. Laboratory data showed hemoglobin level 7.3 today. Slight drop from 7.9 yesterday. Patient is being continued on Protonix. Potassium level 3.3 which was replaced. Psychiatry was consulted for altered mental status with whispering, yelling on and off. Current medications reviewed. Objective - Vital Signs Vital signs: Vital Signs Temp 97.5 F L 04/30/20 19:56 Pulse 69 04/30/20 19:56 Resp 14 04/30/20 19:56 BP 108/61 04/30/20 19:56 Pulse Ox 96 04/30/20 19:56 Intake & Output 04/30/20 04/30/20 05/01/20 06:59 18:59 06:59 Intake Total 1000 Output Total 700 Balance 300 Weight 75 kg Intake: Hemodialysis 1000 Output: Urine 700 Straight 700 Other: Voiding Method Bedside Commode Incontinent # Voids 0 1 - Exam PHYSICAL EXAMINATION: GENERAL: The patient is alert and oriented x3, not in any acute distress. Well developed, well nourished. does look significantly pale HEENT: Pupils are round and equally reacting to light. EOMI. No scleral icterus. Does have conjunctival pallor. Normocephalic, atraumatic. No pharyngeal erythema. No thyromegaly. CARDIOVASCULAR: S1 and S2 present. No murmurs, rubs, or gallops. PULMONARY: Chest is clear to auscultation, no wheezing or crackles. ABDOMEN: Soft, nontender, nondistended, normoactive bowel sounds. No palpable organomegaly. MUSCULOSKELETAL: No joint swelling or deformity. EXTREMITIES: No cyanosis, clubbing, or pedal edema. NEUROLOGICAL: Gross neurological examination did not reveal any focal deficits. She does have some muscle atrophy in both legs. SKIN: No rashes. - Labs CBC & Chem 7: 05/01/20 10:03 04/30/20 12:34 Labs: Abnormal Lab Results - Last 24 Hours (Table) 04/30/20 04/30/20 04/30/20 Range/Units 12:34 15:31 15:31 WBC 11.3 H (3.8-10.6) k/uL RBC 2.47 L (3.80-5.40) m/uL Hgb 7.3 L (11.4-16.0) gm/dL Hct 23.5 L (34.0-46.0) % Neutrophils # 9.2 H (1.3-7.7) k/uL Urine Protein 2+ H (Negative) Urine Mucus Rare H (None) /hpf U Tricyclic Antidepress Detected H (NotDetected) Assessment and Plan Assessment: -Acute bleed: . s/p EGD continued on Protonix twice a day and the patient possibly has a syncope from that. Patient had an upper GI endoscopy which showed a duodenal bulb ulcer. No more active GI bleed superficial duodenal bulbar ulcer, duodenal stricture and antral erosive gastritis. -End-stage renal disease and dialysis dependen resumed on hemodialysis -History of PE for which patient denied correlation which will be held because of GI bleed -Hypothyroidism -COPD without any acute exacerbation -Metabolic bone disease from end-stage renal disease -Anemia of chronic kidney disease -Hyperlipidemia continue statin Time with Patient: Greater than 30
[2020-05-02] MEDS: LEVOTHYROXINE 125 MCG TAB PO SCH (05:23)
[2020-05-02] MEDS: CALCIUM ACETATE 667 MG TAB PO SCH ×3 (09:11→21:20)
[2020-05-02] MEDS: MIDODRINE 5 MG TAB PO SCH ×3 (09:11→17:16)
[2020-05-02] MEDS: OLANZapine 2.5 MG TAB PO SCH ×2 (09:11→20:59)
[2020-05-02] MEDS: CALCIUM CARB-MAG CARB-FOLIC 1 EACH TAB PO SCH ×3 (09:11→21:00)
[2020-05-02] MEDS: FOLIC ACID 1 MG TAB PO SCH (09:11)
[2020-05-02] MEDS: PANTOPRAZOLE 40 MG/10 ML VIAL IVP SCH ×2 (09:12→20:59)
[2020-05-02] MEDS: PREGABALIN 75 MG CAP PO SCH ×2 (09:12→21:00)
[2020-05-02] MEDS: azaTHIOprine 50 MG TAB PO SCH (09:12)
--- NOTE | 2020-05-02 11:10 | P.PN ---
Subjective patient is seen in follow-up for end-stage renal disease. She is maintained on hemodialysis on Sunday schedule. mentation is a little better today. Still quite tearful. does not want to go to her rehab facility. Vital signs are stable. General: The patient appeared well nourished and normally developed. HEENT: Head exam is unremarkable. Neck is without jugular venous distension. LUNGS: Breath sounds decreased. HEART: Rate and Rhythm are regular. ABDOMEN: soft, nontender. EXTREMITITES: No clubbing, cyanosis, or edema. Objective - Vital Signs Vital signs: Vital Signs Temp 97.8 F 05/02/20 04:38 Pulse 71 05/02/20 04:38 Resp 14 05/02/20 04:38 BP 107/65 05/02/20 04:38 Pulse Ox 97 05/02/20 04:38 Intake & Output 05/01/20 05/02/20 05/02/20 18:59 06:59 18:59 Intake Total 660 Balance 660 Intake: Intake, IV Titration 240 Amount Sodium Chloride 0.9% 1, 240 000 ml @ 20 mls/hr IV . Q24H [facility] Rx#:[id number] Oral 420 Other: Voiding Method Incontinent Incontinent # Voids 2 1 - Labs CBC & Chem 7: 05/01/20 10:03 04/30/20 12:34 Labs: Abnormal Lab Results - Last 24 Hours (Table) 05/01/20 Range/Units 10:03 Neutrophils # (Manual) 8.18 H (1.3-7.7) k/uL Assessment and Plan Plan: assessment: 1. End-stage renal disease maintained on hemodialysis on Sunday schedule. 2. GI bleed status post EGD which revealed superficial duodenal bulbar ulcer, duodenal stricture and antral erosive gastritis. 3. 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 4. Anemia of chronic kidney disease maintained on Aranesp. 5. Chronic hypotension maintained on midodrine. 6. altered mental status. Possibly depression. Psychiatry consulted. plan: Hemodialysis on Sunday.
[2020-05-02] MEDS: SODIUM CHLORIDE 0.9% 1,000 ML IV SCH (17:49)
[2020-05-02] MEDS: ATORVASTATIN 20 MG TAB PO SCH (20:58)
[2020-05-02] MEDS: DOXEPIN 25 MG CAP PO SCH (20:59)
--- NOTE | 2020-05-02 22:09 | P.PN ---
Subjective Progress Note Date: 05/01/20 Principal diagnosis: Acute GI bleed status post EGD Patient was admitted for Acute upper GI bleed patient underwent upper GI and patient had history of ulcer disease in the past and patient is hemodialysis dependent will undergo dialysis sessions as scheduled. 04/28/2020 Patient is complaining of for pain everywhere in the body. Patient's pain is not in the joints. Patient is concerned about gout although patient's symptomology is not consistent with gouty arthritis or lupus arthritis or arthritis from scleroderma. Patient did get an upper GI endoscopy which showed a duodenal bulb ulcer and antral gastritis patient will be off anticoagulation will be continued on Protonix. Patient probably will be discharged to subacute rehabilitation tomorrow patient is receiving hemodialysis today. 04/29/2020 Patient is currently lying in the bed comfortably. Awake alert but refused to communicate. Patient underwent hemodialysis yesterday. Status post EGD which showed small superficial duodenal bulbar ulcer. Duodenal stricture along the duodenal sweep. Antral erosive gastritis. Continued on Protonix currently. Laboratory data showed hemoglobin 7.9 today. Platelets 316 Coronavirus PCR not detected. Anticoagulation is on hold. Patient's son applying for guardianship. Awaiting transfer to rehab. No complaints of chest pain or shortness of. No fever no chills. No nausea vomiting or abdominal pain or diarrhea. 04/29/2020 Patient is currently lying in the bed comfortably. No headache or dizziness. Otherwise patient seems like not communicating purposefully while she was told that she needs to go to rehab. Patient son is applying for guardianship. Denied any complaints of chest pain or shortness breath no nausea vomiting, abdominal pain.Tolerating oral diet. Laboratory data showed hemoglobin level 7.3 today. Slight drop from 7.9 yesterday. Patient is being continued on Protonix. Potassium level 3.3 which was replaced. Psychiatry was consulted for altered mental status with whispering, yelling on and off. 05/01/2020 Patient is currently resting in the bed comfortably. Awake alert oriented x2-3. Less confusion today. No complaints of chest pain or shortness breath. Nephrology is following and hemodialysis as Per schedule. Psychiatrically was consulted due to agitation and bizarre behavior on and off. Recommendations pending at this time. Possible discharge to rehab on Sunday. Current medications reviewed. Objective - Vital Signs Vital signs: Vital Signs Temp 97.3 F L 05/01/20 20:54 Pulse 68 05/01/20 20:54 Resp 14 05/01/20 20:54 BP 113/72 05/01/20 20:54 Pulse Ox 98 05/01/20 20:54 Intake & Output 05/01/20 05/01/20 05/02/20 06:59 18:59 06:59 Intake Total 60 260 Balance 60 260 Intake: Intake, IV Titration 80 Amount Sodium Chloride 0.9% 1, 80 000 ml @ 20 mls/hr IV . Q24H [facility] Rx#:[id number] Oral 60 180 Other: Voiding Method Incontinent Incontinent # Voids 1 2 1 - Exam PHYSICAL EXAMINATION: GENERAL: The patient is alert and oriented x3, not in any acute distress. Well developed, well nourished. does look significantly pale HEENT: Pupils are round and equally reacting to light. EOMI. No scleral icterus. Does have conjunctival pallor. Normocephalic, atraumatic. No pharyngeal erythema. No thyromegaly. CARDIOVASCULAR: S1 and S2 present. No murmurs, rubs, or gallops. PULMONARY: Chest is clear to auscultation, no wheezing or crackles. ABDOMEN: Soft, nontender, nondistended, normoactive bowel sounds. No palpable organomegaly. MUSCULOSKELETAL: No joint swelling or deformity. EXTREMITIES: No cyanosis, clubbing, or pedal edema. NEUROLOGICAL: Gross neurological examination did not reveal any focal deficits. She does have some muscle atrophy in both legs. SKIN: No rashes. - Labs CBC & Chem 7: 05/01/20 10:03 04/30/20 12:34 Labs: Abnormal Lab Results - Last 24 Hours (Table) 05/01/20 Range/Units 10: RBC 2.80 L (3.80-5.40) m/uL Hgb 8.5 L (11.4-16.0) gm/dL Hct 28.1 L (34.0-46.0) % MCV 100.4 H D (80.0-100.0) fL MCHC 30.3 L (31.0-37.0) g/dL Neutrophils # (Manual) 8.18 H (1.3-7.7) k/uL Assessment and Plan Assessment: -Acute bleed: . s/p EGD continued on Protonix twice a day and the patient possibly has a syncope from that. Patient had an upper GI endoscopy which showed a duodenal bulb ulcer. No more active GI bleed superficial duodenal bulbar ulcer, duodenal stricture and antral erosive gastritis. 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
--- NOTE | 2020-05-02 22:14 | P.PN ---
Subjective Progress Note Date: 05/02/20 Principal diagnosis: Acute GI bleed status post EGD Patient was admitted for Acute upper GI bleed patient underwent upper GI and patient had history of ulcer disease in the past and patient is hemodialysis dependent will undergo dialysis sessions as scheduled. 04/28/2020 Patient is complaining of for pain everywhere in the body. Patient's pain is not in the joints. Patient is concerned about gout although patient's symptomology is not consistent with gouty arthritis or lupus arthritis or arthritis from scleroderma. Patient did get an upper GI endoscopy which showed a duodenal bulb ulcer and antral gastritis patient will be off anticoagulation will be continued on Protonix. Patient probably will be discharged to subacute rehabilitation tomorrow patient is receiving hemodialysis today. 04/29/2020 Patient is currently lying in the bed comfortably. Awake alert but refused to communicate. Patient underwent hemodialysis yesterday. Status post EGD which showed small superficial duodenal bulbar ulcer. Duodenal stricture along the duodenal sweep. Antral erosive gastritis. Continued on Protonix currently. Laboratory data showed hemoglobin 7.9 today. Platelets 316 Coronavirus PCR not detected. Anticoagulation is on hold. Patient's son applying for guardianship. Awaiting transfer to rehab. No complaints of chest pain or shortness of. No fever no chills. No nausea vomiting or abdominal pain or diarrhea. 04/29/2020 Patient is currently lying in the bed comfortably. No headache or dizziness. Otherwise patient seems like not communicating purposefully while she was told that she needs to go to rehab. Patient son is applying for guardianship. Denied any complaints of chest pain or shortness breath no nausea vomiting, abdominal pain.Tolerating oral diet. Laboratory data showed hemoglobin level 7.3 today. Slight drop from 7.9 yesterday. Patient is being continued on Protonix. Potassium level 3.3 which was replaced. Psychiatry was consulted for altered mental status with whispering, yelling on and off. 05/01/2020 Patient is currently resting in the bed comfortably. Awake alert oriented x2-3. Less confusion today. No complaints of chest pain or shortness breath. Nephrology is following and hemodialysis as Per schedule. Psychiatrically was consulted due to agitation and bizarre behavior on and off. Recommendations pending at this time. Possible discharge to rehab on Sunday. 05/02/2020 Patient is currently resting in bed comfortably. No nausea vomiting or abdominal pain. No further episodes of bleeding per rectum. Anticoagulation continues to be on hold due to duodenal ulcer. Patient has been continued on IV Protonix. Otherwise patient is more awake and oriented today. No chest pain or shortness breath. Nephrology is on board. Psychiatry recommendations are pending at this time. Possible discharge to rehab. Patients son is applying for guardianship. Current medications reviewed. Objective - Vital Signs Vital signs: Vital Signs Temp 98.1 F 05/02/20 21:00 Pulse 73 05/02/20 21:00 Resp 18 05/02/20 21:00 BP 142/81 05/02/20 21:00 Pulse Ox 93 L 05/02/20 21:00 Intake & Output 05/02/20 05/02/20 05/03/20 06:59 18:59 06:59 Intake Total 660 850 0 Balance 660 850 0 Intake: Intake, IV Titration 240 Amount Sodium Chloride 0.9% 1, 240 000 ml @ 20 mls/hr IV . Q24H [facility] Rx#:[id number] Oral 420 850 0 Other: Voiding Method Incontinent # Voids 1 1 0 - Exam PHYSICAL EXAMINATION: GENERAL: The patient is alert and oriented x3, not in any acute distress. Well developed, well nourished. does look significantly pale HEENT: Pupils are round and equally reacting to light. EOMI. No scleral icterus. Does have conjunctival pallor. Normocephalic, atraumatic. No pharyngeal erythema. No thyromegaly. CARDIOVASCULAR: S1 and S2 present. No murmurs, rubs, or gallops. PULMONARY: Chest is clear to auscultation, no wheezing or crackles. ABDOMEN: Soft, nontender, nondistended, normoactive bowel sounds. No palpable organomegaly. MUSCULOSKELETAL: No joint swelling or deformity. EXTREMITIES: No cyanosis, clubbing, or pedal edema. NEUROLOGICAL: Gross neurological examination did not reveal any focal deficits. She does have some muscle atrophy in both legs. SKIN: No rashes. - Labs CBC & Chem 7: 05/01/20 10:03 04/30/20 12:34 Assessment and Plan Assessment: -Acute bleed: . s/p EGD continued on Protonix twice a day and the patient possibly has a syncope from that. Patient had an upper GI endoscopy which showed a duodenal bulb ulcer. No more active GI bleed superficial duodenal bulbar ulcer, duodenal stricture and antral erosive amauri ritis. 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 Time with Patient: Greater than 30
[2020-05-03 05:54] LABS: RBC 2.26 m/uL (3.80-5.40); WBC 6.1 k/uL (3.8-10.6)
[2020-05-03 05:55] LABS: Basophils % (A) 0 %; Eosinophils # (A) 0.2 k/uL (0-0.7); Eosinophils % (A) 4 %; HCT 21.2 % (34.0-46.0); Hypochromasia Moderate; Lymphocytes # (A) 1.2 k/uL (1.0-4.8); Lymphocytes % (A) 20 %; MCH 28.6 pg (25.0-35.0); MCHC 30.5 g/dL (31.0-37.0); Mean Platelet Volume 8.2; Monocytes # (A) 0.3 k/uL (0-1.0); Monocytes % (A) 4 %; Neutrophils # (A) 4.3 k/uL (1.3-7.7); Neutrophils % (A) 70 %; Platelet Count 403 k/uL (150-450)
[2020-05-03] MEDS: LEVOTHYROXINE 125 MCG TAB PO SCH (06:03)
[2020-05-03 06:06] LABS: HGB 6.5 gm/dL (11.4-16.0)
[2020-05-03 06:07] LABS: MCV 93.9 fL (80.0-100.0)
--- NOTE | 2020-05-03 07:27 | CONS ---
CONSULTATION DATE OF SERVICE: 05/01/2020 PURPOSE FOR CONSULTATION: Evaluate for altered mental status. HISTORY OF PRESENTING ILLNESS: The patient is a 74-year-old female. She was admitted for GI bleed and possible syncope. She was found by a family to be at home. She was confused. She had dark stool on evaluation. She was found to have a hemoglobin of 6.[address] Hill. There was concern the patient may have had syncope, though the history of that was not clear. She does have other complicating general health problems and more recent issue is there was question about her fluctuating mental status. Staff have noted that there may be times in the day where she is a completely oriented. She knows where she is at, the days of the week and so forth than there is other times where she gets into a very confused state where she has difficulty communicating at all. Her son, Vineet, has had contact with staff and expressed concern that some of her change in mental status may be volitional based on the idea that the patient has not been wanting to return to a senior care or rehab facility. She had suffered a fall about 6 weeks ago and fractured her ankle. Rehabilitation has been recommended for her to be able to build strength in her leg. She lives at home alone and only has a limited support from family, mainly because they are not in the immediate area. Apparently, the patient was showing improvement, the son, Vineet, had noted that she seemed to have a fairly rapid change towards the confusion just at the time that a discussion was had about her returning to [facility] for rehabilitation. Apparently, the patient has been fairly insistent on wanting to return home. When I saw the patient in the afternoon, nursing stated that earlier in the day, she was completely oriented. She knew where she was. She knew her current circumstances. She knew the day and date. When I talked to her she barely responded at all, though some of the time there was some inconsistency in her responses. Home medications that she was taking included doxepin 75 mg a day as her only psychotropic medication. There is no information available on the indication for doxepin or how long she has been on it. She has been continued on doxepin 75 mg a day. She is also on tramadol p.r.n. as another psychoactive medication. As noted the nurse indicated that in the morning time today she was fully oriented. When I saw her early afternoon, she mostly kept her eyes closed. She apparently had been sleeping prior to my coming into the room. When her name was called, she did respond by opening her eyes part way. For most of the interview, she kept her eyes closed, though it seemed like there was some twitching of her eyelids as if she was making an effort to hold her eyes closed. She would open her eyes some. She responded just with brief responses, though it is noted she responded appropriately to questions. She indicated that she wanted to go home. When I told her that my understanding was she would need to go to rehabilitation for strengthening before she went home, she would respond no to that statement and said she only wanted to go home. We discussed this in several different ways which she responded likewise. She did seem to understand that she was having weakness, which she said, and that weakness would make it very difficult for her to function at home living independently. She responded yes that she seemed to understand that, but yet would not consider the option of going to rehabilitation. She could not offer any explanations. Toward the end of the interview, she did keep her eyes open. She seemed to be understanding the questions I asked though continued in essentially the circular thinking about that she wanted to go home and did not seem to understand the idea that rehabilitation was her route to get home. She had a quiet manner. She did not make any odd or unusual statements. It is noted that her hands were under the blanket. Her left hand appeared across her wrist. She was moving it continuously during much of the interview. The nurse said she had been having that kind of movement frequently when examined. ASSESSMENT: This 74-year-old female may possibly be having some delirium, though it is not clear that she has any infectious condition. There is some concern that apparently the son raised that she may have some malingering type behavior as part of a resistance to going to a nursing facility as opposed to being discharged to home. How she responded during the interview does suggest that there may be a volitional component to her behavior around communication and responsiveness. At this point, I will start the patient on Zyprexa 2.5 mg twice a day for possible psychotic symptoms that may relate to some underlying mild delirium and it is noteworthy that the patient has had two CT scans for possible CVA, both of which have been unremarkable with no positive finding. I will make an effort to talk to the patient's son and continue to follow. MMODL / IJN: [id number] /
[2020-05-03 07:39] LABS: Basophils % (A) 0 %; Eosinophils # (A) 0.3 k/uL (0-0.7); Eosinophils % (A) 5 %; Hypochromasia Marked; Lymphocytes # (A) 1.2 k/uL (1.0-4.8); Lymphocytes % (A) 18 %; MCH 29.7 pg (25.0-35.0); MCHC 30.3 g/dL (31.0-37.0); MCV 98.1 fL (80.0-100.0); Mean Platelet Volume 8.2; Monocytes # (A) 0.3 k/uL (0-1.0); Monocytes % (A) 4 %; Neutrophils # (A) 4.7 k/uL (1.3-7.7); Neutrophils % (A) 71 %; Platelet Count 427 k/uL (150-450); RBC 2.34 m/uL (3.80-5.40); RDW 14.9 % (11.5-15.5); WBC 6.6 k/uL (3.8-10.6)
--- NOTE | 2020-05-03 08:08 | CONS ---
CONSULTATION DATE OF SERVICE: 05/02/2020 PURPOSE FOR CONSULTATION: Evaluate for altered mental status. INTERVAL HISTORY: Patient has been doing fair. I reviewed issues with the nurse who indicated that this morning the patient was clear in her mentation. She was fully oriented and communicating appropriately. I saw the patient around 11:30 this morning. When I saw her, she was able to talk coherently. She spoke in sentences and was able to express some of her concerns. She was oriented when I talked to her. I had a telephone contact with the patient's son, Vineet. He indicates that there has been some intermittent confusion that the patient has seemed to manifest, though it is unclear to the family whether or not any of this could be contrived. He noted that around 1:30 in the afternoon they had some contact with the patient and she was quite confused. She was talking about being in some chair in the parking lot and that there was snow. She was not able to make any sense of things that she was saying. Her son noted that around 9 in the evening, they had a telephone contact with the patient, both that he was on the line, as well as a grandchild. At that time, he said the patient was fully alert, aware of details and well oriented. She talked about the events that had occurred at different times in the past and was fully accurate with much detail. There was no indication of any difficulties in her thought process or thought content. According to the evening nurse, it was reported from the day nurse that she was having some confusion in the afternoon and she was making some statements such as she was refusing to take medications. For the most part she was awake in the afternoon. She kept her eyes open when there was any communication, though she did not communicate much that was meaningful. Apparently in the afternoon and the evening time when the 2nd shift nurse came on, the nurse noted that she was cooperative. She did take a little coaxing to accept her medications though she took them without difficulty. Her thoughts were clear and coherent. She was well oriented, according to the nurse. When I talked to the patient earlier in the day, I brought up the issue of rehabilitation. The only comment the patient made to that was that she did not see how she could make an effort in rehabilitation, that she felt too weak. As noted above, when I talked to the patient, she talked in complete sentences. Her sentences were somewhat short, but appropriate. Her responses were clear, coherent and in tune with what we were discussing. She had a quiet calm manner. She did not appear to be significantly depressed or distressed. She did not exhibit any abnormal movements or mannerisms. ASSESSMENT: I would continue the current diagnosis and assessment. She continues to show fluctuation in mental status. Still it is not clear whether there is some underlying issue with cognition or whether there is a primary behavioral component about the patient making an effort to avoid being referred to a nursing or rehabilitation facility. It is noted that the son has intention of getting temporary guardianship. Given some of the uncertainties about her mental status changes, it would be reasonable to request psychiatric followup again tomorrow to further evaluate issues related to mental status changes. It is my sense of things with the patient being able to make quite dramatic shifts from being fully oriented and connected to her situation and a broad range of family activities on the one hand, and then going into a state where she almost completely is non-responsive, does seem to suggest more of a volitional component on her part. The motivation may be as the son suggests as far as avoidance of being referred back to a nursing rehab facility. It might be reasonable to discharge the patient to a rehabilitation facility and work towards engaging her in some productive activities that would help improve her function to return home. YULIET / MANJU: [id number] / IAIN
[2020-05-03] MEDS: PREGABALIN 75 MG CAP PO SCH ×2 (08:42→20:02)
[2020-05-03] MEDS: PANTOPRAZOLE 40 MG/10 ML VIAL IVP SCH ×2 (08:43→20:03)
[2020-05-03] MEDS: FOLIC ACID 1 MG TAB PO SCH (08:43)
[2020-05-03] MEDS: CALCIUM ACETATE 667 MG TAB PO SCH ×3 (08:43→20:02)
[2020-05-03] MEDS: CALCIUM CARB-MAG CARB-FOLIC 1 EACH TAB PO SCH ×3 (08:45→21:54)
[2020-05-03] MEDS: OLANZapine 2.5 MG TAB PO SCH ×2 (08:46→21:54)
[2020-05-03] MEDS: MIDODRINE 5 MG TAB PO SCH ×3 (08:46→17:12)
[2020-05-03] MEDS: azaTHIOprine 50 MG TAB PO SCH (08:46)
--- NOTE | 2020-05-03 10:38 | P.PN ---
Subjective patient is seen in follow-up for end-stage renal disease. She is maintained on hemodialysis on Sunday schedule. remains quite depressed. does not want to go to her rehab facility. hemoglobin 6.5 this morning and on repeat 7.0. No active bleeding. Vital signs are stable. General: The patient appeared well nourished and normally developed. HEENT: Head exam is unremarkable. Neck is without jugular venous distension. LUNGS: Breath sounds decreased. HEART: Rate and Rhythm are regular. ABDOMEN: soft, nontender. EXTREMITITES: No clubbing, cyanosis, or edema. Objective - Vital Signs Vital signs: Vital Signs Temp 98.1 F 05/03/20 05:00 Pulse 62 05/03/20 05:00 Resp 18 05/03/20 05:00 BP 98/58 05/03/20 05:00 Pulse Ox 97 05/03/20 05:00 Intake & Output 05/02/20 05/03/20 05/03/20 18:59 06:59 18:59 Intake Total 850 0 Balance 850 0 Intake: Oral 850 0 Other: Voiding Method Incontinent # Voids 1 0 # Bowel Movements 0 - Labs CBC & Chem 7: 05/03/20 07:05 04/30/20 12:34 Labs: Abnormal Lab Results - Last 24 Hours (Table) 05/03/20 05/03/20 Range/Units 05:08 07:05 RBC 2.26 L 2.34 L (3.80-5.40) m/uL Hgb 6.5 L* D 7.0 L (11.4-16.0) gm/dL Hct 21.2 L 23.0 L (34.0-46.0) % MCHC 30.5 L 30.3 L (31.0-37.0) g/dL Assessment and Plan Plan: assessment: 1. End-stage renal disease maintained on hemodialysis on Sunday schedule. 2. GI bleed status post EGD which revealed superficial duodenal bulbar ulcer, duodenal stricture and antral erosive gastritis. hemoglobin 7.0 this morning. 3. 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 4. Anemia of chronic kidney disease maintained on Aranesp. 5. Chronic hypotension maintained on midodrine. 6. altered mental status. Possibly depression. Psychiatry following. plan: Hemodialysis today. transfuse 1 unit packed red cells with dialysis today.
[2020-05-03 11:00] LABS: African American GFR (CKD) 12.2 (60.0-200.0); Anion Gap 9.7 mmol/L (4.00-12.00); BUN/Creat Ratio 9.75 Ratio (12.00-20.00); Calcium 8.4 mg/dL (8.7-10.3); Carbon Dioxide 23.3 mmol/L (21.6-31.8); Non-African American GFR(CKD) 10.5 (60.0-200.0); Potassium 3.8 mmol/L (3.5-5.5)
[2020-05-03] MEDS: traMADol 50 MG TAB PO PRN (12:57)
[2020-05-03] MEDS: SUCRALFATE 1 GM TAB PO SCH ×3 (13:01→20:02)
[2020-05-03] MEDS: SODIUM CHLORIDE 0.9% 1,000 ML IV SCH (13:02)
--- NOTE | 2020-05-03 15:23 | CDI ---
Documentation Clarification Form Date: 05/03/2020 03:14:46 PM From: Lula Chavez RN, CCDS Admit Date: 04/26/2020 12:09:00 PM Patient Name: Miguelina Norris Visit Number: [id number] ATTENTION: The Clinical Documentation Specialists (CDI) and [facility] Coding Staff appreciate your assistance in clarifying documentation. Please respond to the clarification below the line at the bottom and electronically sign. The CDI & [facility] Coding staff will review the response and follow-up if needed. Please note: Queries are made part of the Legal Health Record. If you have any questions, please contact the author of this message via ITS. Dr. Regan Dasilva Atrial Fibrillation is documented in the H&P and Consults and requires further specificity. History/Risk Factors: COPD, GERD, Hypothyroid, Scleroderma Clinical Indicators: 04/27 Nephrology Progress note: "She is maintained on Eliquis for atrial fibrillation" 04/27 GI Progress note: "History of atrial fibrillation on Eliquis which is currently on hold." EKG/telemetry: NSR Treatment: Eliquis on hold No cardiac meds at current In your professional opinion, can you please clarify the type of Atrial Fibrillation, if known? Chronic/Permanent Paroxysmal Persistent Other, please specify Unable to determine (Last Revision: October 2017) Paroxysmal MTDD
[2020-05-03] MEDS: CYCLOBENZAPRINE 10 MG TAB PO PRN (17:12)
--- NOTE | 2020-05-03 19:06 | PN ---
PROGRESS NOTE DATE OF SERVICE: 05/03/2020 This 74-year-old woman who was admitted with multiple medical problems, including acute GI bleed, also had syncope. The hemoglobin is still low. Superficial duodenal bulb ulcer was also noted. The patient was on hemodialysis. The patient is mildly confused. Hemoglobin was found to be 6.5 and 7 today. One unit of transfusion was arranged. Past medical history reviewed. Review of systems could not be taken; the patient is mildly confused. CURRENT MEDICATIONS: Reviewed. They include Lipitor, Imuran, PhosLo, Flexeril, Aranesp, sinequan, folic acid, Synthroid, ProAmatine, Narcan, Zyprexa, Zofran, Protonix, Lyrica, Carafate, Ultram. PHYSICAL EXAMINATION: Patient is alert and oriented x3. Pulse 69, blood pressure 121/70, respiration 20, temperature 97.8, pulse ox 98% on 3 L. HEENT: Conjunctivae normal. NECK: No jugular venous distention. CARDIOVASCULAR SYSTEM: S1, S2 muffled. RESPIRATORY SYSTEM: Breath sounds diminished at the bases. A few scattered rhonchi and crackles. ABDOMEN: Soft, non-tender. LEGS: No edema. No swelling. NERVOUS SYSTEM: No focal deficit. LABS: WBC 6.6, hemoglobin 7. Other labs are noted. ASSESSMENT: 1. Acute gastrointestinal bleed with acute blood loss anemia with acute superficial duodenal bulbar ulcer. 2. Duodenal stricture and antral erosive gastritis on esophagogastroduodenoscopy. 3. Status post blood transfusion. 4. End-stage renal disease, on hemodialysis. 5. Change in mental status, acute metabolic encephalopathy, multifactorial. 6. History of pulmonary embolism. 7. Anticoagulation held because of the gastrointestinal bleed. 8. Hypothyroidism. 9. Chronic obstructive pulmonary disease. 10.Metabolic bone disease. 11.Anemia. 12.Hyperlipidemia. 13.Acute delirium. 14.Hyponatremia. 15.Hypokalemia. RECOMMENDATIONS AND DISCUSSION: In this 74-year-old woman who presented with multiple complex medical issues, we will monitor the patient closely, continue the current medications, continue symptomatic treatment. One unit transfusion. Repeat labs in the morning. Continue the rest of the medications. Continue the hemodialysis. Continue with Protonix. I would also add Carafate to the current regimen. PT/OT evaluation and possible ECF rehab. Guarded prognosis. Further recommendations to follow. Hold antiplatelet agents currently. Prognosis guarded because of above-mentioned multiple complex medical issues. MMODL / IJN: [id number] / [email or web address]
[2020-05-03] MEDS: ATORVASTATIN 20 MG TAB PO SCH (20:02)
[2020-05-03] MEDS: DOXEPIN 25 MG CAP PO SCH (20:02)
[2020-05-04 06:09] LABS: Anisocytosis Slight; Basophils % (A) 0 %; Eosinophils # (A) 0.3 k/uL (0-0.7); Eosinophils % (A) 3 %; HCT 26.5 % (34.0-46.0); HGB 8.2 gm/dL (11.4-16.0); Hypochromasia Moderate; Lymphocytes # (A) 1.6 k/uL (1.0-4.8); Lymphocytes % (A) 19 %; MCH 28.7 pg (25.0-35.0); MCHC 31.1 g/dL (31.0-37.0); Monocytes # (A) 0.3 k/uL (0-1.0); Monocytes % (A) 4 %; Neutrophils # (A) 6.2 k/uL (1.3-7.7); Neutrophils % (A) 73 %; Platelet Count 346 k/uL (150-450); Poikilocytosis Slight; RBC 2.87 m/uL (3.80-5.40); RDW 16.3 % (11.5-15.5); WBC 8.5 k/uL (3.8-10.6)
[2020-05-04 06:14] LABS: MCV 92.3 fL (80.0-100.0)
[2020-05-04] MEDS: LEVOTHYROXINE 125 MCG TAB PO SCH (06:23)
[2020-05-04] MEDS: SUCRALFATE 1 GM TAB PO SCH ×4 (08:31→22:22)
[2020-05-04] MEDS: CALCIUM ACETATE 667 MG TAB PO SCH ×3 (08:31→22:06)
[2020-05-04] MEDS: PANTOPRAZOLE 40 MG/10 ML VIAL IVP SCH ×2 (08:31→22:21)
[2020-05-04] MEDS: PREGABALIN 75 MG CAP PO SCH ×2 (08:31→22:22)
[2020-05-04] MEDS: FOLIC ACID 1 MG TAB PO SCH (08:31)
[2020-05-04] MEDS: OLANZapine 2.5 MG TAB PO SCH ×2 (08:32→22:06)
[2020-05-04] MEDS: azaTHIOprine 50 MG TAB PO SCH (08:32)
[2020-05-04] MEDS: MIDODRINE 5 MG TAB PO SCH ×3 (08:32→17:20)
[2020-05-04] MEDS: CALCIUM CARB-MAG CARB-FOLIC 1 EACH TAB PO SCH ×3 (08:32→22:05)
[2020-05-04 09:36] LABS: African American GFR (CKD) 20.5 (60.0-200.0); Anion Gap 10.5 mmol/L (4.00-12.00); BUN/Creat Ratio 7.69 Ratio (12.00-20.00); Calcium 8.8 mg/dL (8.7-10.3); Carbon Dioxide 21.5 mmol/L (21.6-31.8); Non-African American GFR(CKD) 17.7 (60.0-200.0); Potassium 4.5 mmol/L (3.5-5.5)
--- NOTE | 2020-05-04 10:55 | P.PN ---
Subjective patient is seen in follow-up for end-stage renal disease. She is maintained on hemodialysis on Sunday schedule. remains quite depressed. does not want to go to her rehab facility. No changes overnight. Hemoglobin improved post blood contusion. No active bleeding noted. Vital signs are stable. General: The patient appeared well nourished and normally developed. HEENT: Head exam is unremarkable. Neck is without jugular venous distension. LUNGS: Breath sounds decreased. HEART: Rate and Rhythm are regular. ABDOMEN: soft, nontender. EXTREMITITES: No clubbing, cyanosis, or edema. Objective - Vital Signs Vital signs: Vital Signs Temp 98.3 F 05/04/20 04:47 Pulse 68 05/04/20 04:47 Resp 16 05/04/20 04:47 BP 108/69 05/04/20 04:47 Pulse Ox 98 05/04/20 04:47 Intake & Output 05/03/20 05/04/20 05/04/20 18:59 06:59 18:59 Intake Total 510 60 Output Total 1999 250 Balance -1490 -190 Weight 75 kg Intake: Intake, IV Titration 60 Amount Sodium Chloride 0.9% 1, 60 000 ml @ 20 mls/hr IV . Q24H [facility] Rx#:[id number] Oral 200 Blood Product 310 Rc As-1 Unit 310 [id number] Output: Urine 250 Hemodialysis 1999 Other: Voiding Method Incontinent # Voids 2 # Bowel Movements 0 0 - Labs CBC & Chem 7: 05/04/20 04:57 05/04/20 04:57 Labs: Abnormal Lab Results - Last 24 Hours (Table) 05/03/20 05/03/20 05/04/20 Range/Units 05:08 07:05 04:57 RBC 2.87 L (3.80-5.40) m/uL Hgb 8.2 L (11.4-16.0) gm/dL Hct 26.5 L (34.0-46.0) % RDW 16.3 H (11.5-15.5) % Sodium 133 L (135-145) mmol/L Carbon Dioxide (21.6-31.8) mmol/L BUN 39.0 H (9.0-27.0) mg/dL Creatinine 4.0 H (0.6-1.5) mg/dL Est GFR (CKD-EPI)AfAm 12.2 L (60.0-200.0) Est GFR (CKD-EPI)NonAf 10.5 L (60.0-200.0) BUN/Creatinine Ratio 9.75 L (12.00-20.00) Ratio Glucose 62 L (70-110) mg/dL Calcium 8.4 L (8.7-10.3) mg/dL Crossmatch See Detail 05/04/20 Range/Units 04:57 RBC (3.80-5.40) m/uL Hgb (11.4-16.0) gm/dL Hct (34.0-46.0) % RDW (11.5-15.5) % Sodium (135-145) mmol/L Carbon Dioxide 21.5 L (21.6-31.8) mmol/L BUN (9.0-27.0) mg/dL Creatinine 2.6 H (0.6-1.5) mg/dL Est GFR (CKD-EPI)AfAm 20.5 L (60.0-200.0) Est GFR (CKD-EPI)NonAf 17.7 L (60.0-200.0) BUN/Creatinine Ratio 7.69 L (12.00-20.00) Ratio Glucose (70-110) mg/dL Calcium (8.7-10.3) mg/dL Crossmatch Assessment and Plan Plan: assessment: 1. End-stage renal disease maintained on hemodialysis on Sunday schedule. 2. GI bleed status post EGD which revealed superficial duodenal bulbar ulcer, duodenal stricture and antral erosive gastritis. Status post blood transfusion. Better. 3. 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 4. Anemia of chronic kidney disease maintained on Aranesp. 5. Chronic hypotension maintained on midodrine. 6. altered mental status. Possibly depression. Psychiatry following. plan: Hemodialysis tomorrow. Stable for discharge to rehab from nephrology standpoint.
[2020-05-04] MEDS: SODIUM CHLORIDE 0.9% 1,000 ML IV SCH (12:50)
[2020-05-04] MEDS: APIXABAN 2.5 MG TABLET PO SCH ×2 (12:57→22:07)
[2020-05-04] MEDS: DOXEPIN 25 MG CAP PO SCH (22:05)
[2020-05-04] MEDS: ATORVASTATIN 20 MG TAB PO SCH (22:06)
[2020-05-05 04:55] LABS: Basophils % (A) 0 %; Eosinophils # (A) 0.3 k/uL (0-0.7); Eosinophils % (A) 3 %; HCT 27.4 % (34.0-46.0); HGB 8.6 gm/dL (11.4-16.0); Hypochromasia Marked; Lymphocytes # (A) 1.1 k/uL (1.0-4.8); Lymphocytes % (A) 14 %; MCH 29.8 pg (25.0-35.0); MCHC 31.5 g/dL (31.0-37.0); MCV 94.4 fL (80.0-100.0); Mean Platelet Volume 8.5; Monocytes # (A) 0.3 k/uL (0-1.0); Monocytes % (A) 4 %; Neutrophils # (A) 6.4 k/uL (1.3-7.7); Neutrophils % (A) 78 %; Platelet Count 368 k/uL (150-450); RDW 15.8 % (11.5-15.5); WBC 8.2 k/uL (3.8-10.6)
[2020-05-05] MEDS: LEVOTHYROXINE 125 MCG TAB PO SCH (05:54)
[2020-05-05] MEDS: MIDODRINE 5 MG TAB PO SCH ×3 (08:54→16:23)
[2020-05-05] MEDS: azaTHIOprine 50 MG TAB PO SCH (08:55)
[2020-05-05] MEDS: APIXABAN 2.5 MG TABLET PO SCH (08:56)
[2020-05-05] MEDS: PANTOPRAZOLE 40 MG/10 ML VIAL IVP SCH (08:56)
[2020-05-05] MEDS: PREGABALIN 75 MG CAP PO SCH (08:57)
[2020-05-05] MEDS: SUCRALFATE 1 GM TAB PO SCH ×3 (09:12→16:22)
[2020-05-05] MEDS: CALCIUM ACETATE 667 MG TAB PO SCH ×2 (09:13→16:22)
[2020-05-05 09:29] LABS: Anion Gap 9.1 mmol/L (4.00-12.00); BUN/Creat Ratio 8.75 Ratio (12.00-20.00); Carbon Dioxide 21.9 mmol/L (21.6-31.8); Non-African American GFR(CKD) 13.8 (60.0-200.0); Potassium 4.2 mmol/L (3.5-5.5)
--- NOTE | 2020-05-05 10:44 | P.PN ---
Subjective patient is seen in follow-up for end-stage renal disease. She is maintained on hemodialysis on Sunday schedule. remains quite depressed. does not want to go to her rehab facility. No changes overnight. Hemoglobin improved post blood contusion. No active bleeding noted. Vital signs are stable. General: The patient appeared well nourished and normally developed. HEENT: Head exam is unremarkable. Neck is without jugular venous distension. LUNGS: Breath sounds decreased. HEART: Rate and Rhythm are regular. ABDOMEN: soft, nontender. EXTREMITITES: No clubbing, cyanosis, or edema. Objective - Vital Signs Vital signs: Vital Signs Temp 97.3 F L 05/05/20 04:48 Pulse 62 05/05/20 04:48 Resp 16 05/05/20 04:48 BP 128/76 05/05/20 04:48 Pulse Ox 96 05/05/20 04:48 Intake & Output 05/04/20 05/05/20 05/05/20 18:59 06:59 18:59 Intake Total 600 Output Total 250 Balance 350 Intake: Intake, IV Titration 100 Amount Sodium Chloride 0.9% 1, 100 000 ml @ 20 mls/hr IV . Q24H [facility] Rx#:[id number] Oral 500 Output: Urine 250 Other: Voiding Method Diaper Diaper Incontinent Incontinent # Voids 0 1 - Labs CBC & Chem 7: 05/05/20 04:08 05/05/20 04:08 Labs: Abnormal Lab Results - Last 24 Hours (Table) 05/05/20 05/05/20 Range/Units 04:08 04:08 RBC 2.90 L (3.80-5.40) m/uL Hgb 8.6 L (11.4-16.0) gm/dL Hct 27.4 L (34.0-46.0) % RDW 15.8 H (11.5-15.5) % Sodium 134 L (135-145) mmol/L BUN 28.0 H (9.0-27.0) mg/dL Creatinine 3.2 H (0.6-1.5) mg/dL Est GFR (CKD-EPI)AfAm 16.0 L (60.0-200.0) Est GFR (CKD-EPI)NonAf 13.8 L (60.0-200.0) BUN/Creatinine Ratio 8.75 L (12.00-20.00) Ratio Assessment and Plan Plan: assessment: 1. End-stage renal disease maintained on hemodialysis on Sunday schedule. 2. GI bleed status post EGD which revealed superficial duodenal bulbar ulcer, duodenal stricture and antral erosive gastritis. Status post blood transfusion. Better. 3. 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 4. Anemia of chronic kidney disease maintained on Aranesp. 5. Chronic hypotension maintained on midodrine. 6. altered mental status. Possibly depression. Psychiatry following. plan: currently seen while undergoing hemodialysis. Nexrt treatment on Sunday. Stable for discharge to rehab from nephrology standpoint.
--- NOTE | 2020-05-05 11:19 | P.PN ---
Subjective This is a pleasant 74 years old female with past medical history of COPD, hyperlipidemia, pulmonary embolism on anticoagulation, hypothyroidism presents with signs symptoms of GI bleed, patient is been evaluated by rn liaison and she underwent EGD showing GI bleed secondary to duodenal ulcers with duodenal stricture and antral erosive gastritis, she was treated with antiacids and she needed one unit of blood transfusion yesterday and her hemoglobin improved today to 8.1. However regular discharge Eliquis and monitor her hemoglobin for another 24 hours. Psychiatric: The patient for agitation however today she is more calm, her menta tion is a fluctuating she is alert awake and oriented to time, place but not person she is a little drowsy. Objective - Vital Signs Vital signs: Vital Signs Temp 97.4 F L 05/04/20 11:20 Pulse 66 05/04/20 11:20 Resp 16 05/04/20 11:20 BP 119/66 05/04/20 11:20 Pulse Ox 94 L 05/04/20 11:20 Intake & Output 05/03/20 05/04/20 05/04/20 18:59 06:59 18:59 Intake Total 510 60 Output Total 1999 250 Balance -1490 -190 Weight 75 kg Intake: Intake, IV Titration 60 Amount Sodium Chloride 0.9% 1, 60 000 ml @ 20 mls/hr IV . Q24H [facility] Rx#:[id number] Oral 200 Blood Product 310 Rc As-1 Unit 310 [id number] Output: Urine 250 Hemodialysis 1999 Other: Voiding Method Incontinent # Voids 2 # Bowel Movements 0 0 - Exam -GENERAL: The patient is alert and oriented x2, not in any acute distress. Well developed, well nourished. HEENT: Pupils are round and equally reacting to light. EOMI. No scleral icterus. No conjunctival pallor. Normocephalic, atraumatic. No pharyngeal erythema. No thyromegaly. CARDIOVASCULAR: S1 and S2 present. No murmurs, rubs, or gallops. PULMONARY: Chest is clear to auscultation, no wheezing or crackles. ABDOMEN: Soft, nontender, nondistended, normoactive bowel sounds. No palpable organomegaly. MUSCULOSKELETAL: No joint swelling or deformity. EXTREMITIES: No cyanosis, clubbing, or pedal edema. NEUROLOGICAL: Gross neurological examination did not reveal any focal deficits. SKIN: No rashes. no petechiae. - Labs CBC & Chem 7: 05/05/20 04:08 05/05/20 04:08 Labs: Abnormal Lab Results - Last 24 Hours (Table) 05/03/20 05/04/20 05/04/20 Range/Units 07:05 04:57 04:57 RBC 2.87 L (3.80-5.40) m/uL Hgb 8.2 L (11.4-16.0) gm/dL Hct 26.5 L (34.0-46.0) % RDW 16.3 H (11.5-15.5) % Carbon Dioxide 21.5 L (21.6-31.8) mmol/L Creatinine 2.6 H (0.6-1.5) mg/dL Est GFR (CKD-EPI)AfAm 20.5 L (60.0-200.0) Est GFR (CKD-EPI)NonAf 17.7 L (60.0-200.0) BUN/Creatinine Ratio 7.69 L (12.00-20.00) Ratio Crossmatch See Detail Assessment and Plan Assessment: GI bleed secondary to duodenal ulcer and duodenal strictures with antral erosive gastritis End-stage renal disease on hemodialysis Anemia of chronic disease Hypertension On the medial drain agitation , evaluated by psychiatrist, more calm today Plan: This is a pleasant 74 years old female who presents with GI bleed, she received 1 unit of blood transfusion yesterday and her hemoglobin improved, we'll start on liquids today and monitor for 24 hours Labs and medication were reviewed.. Continue same treatment. Continue with symptomatic treatment. Resume home medication. Monitor lytes and vitals. DVT and GI prophylaxis. Further recommendations of the clinical course of the patient DVT prophylaxis: Eliquis GI Prophylaxis: Pepcid Possible discharge in 24-48 hours if She keeps improving and hemoglobin is stable Prognosis is guarded
[2020-05-05] MEDS ORDERED: ALTEPLASE 2 MG VIAL (CATHFLO) IV STA ×2 (11:39→11:40)
[2020-05-05 12:02] VITALS: BP 104/56; TEMP 97.4
[2020-05-05] MEDS: CALCIUM CARB-MAG CARB-FOLIC 1 EACH TAB PO SCH ×2 (12:52→16:22)
[2020-05-05] MEDS: FOLIC ACID 1 MG TAB PO SCH (12:53)
[2020-05-05] MEDS: OLANZapine 2.5 MG TAB PO SCH (13:00)
[2020-05-05] MEDS: SODIUM CHLORIDE 0.9% 1,000 ML IV SCH (13:02)
[2020-05-05 13:50] VITALS: PULSE 72
[2020-05-05] MEDS: traMADol 50 MG TAB PO PRN (16:22)
[2020-05-05 16:42] VITALS: RESP 17
--- NOTE | 2020-05-05 16:54 | P.DS ---
Providers Date of admission: 04/26/20 12:09 Attending physician: Jose Alfredo Hill Consults: 04/26/20 12:10 Consult Physician Urgent Consulting Provider: Tala Galan Consult Reason/Comments: End-stage renal disease, anemia Do you want consulting provider notified?: Yes 04/30/20 16:25 Consult Physician Routine Consulting Provider: Tano Bennett Consult Reason/Comments: confusion, whispering/yelling, keeps eyes closed after discussion of ecf Do you want consulting provider notified?: Yes Primary care physician: Cheryl Penny MD Hospital Course: This is a pleasant 74 years old female with past medical history of COPD, hyperlipidemia, pulmonary embolism on anticoagulation, hypothyroidism presents with signs symptoms of GI bleed, patient is been evaluated by baby doctor and she underwent EGD showing GI bleed secondary to duodenal ulcers with duodenal stricture and antral erosive gastritis, she was treated with antiacids and she needed one unit of blood transfusion yesterday and her hemoglobin improved today to 8.1. However regular discharge Eliquis and monitor her hemoglobin for another 24 hours. Psychiatric: The patient for agitation however today she is more calm, her mentation is a fluctuating she is alert awake and oriented to time, place but not person she is a little drowsy. 05/05/2020 Patient reports having no abdominal pain, she is tolerating oral intake. Hemoglobins remained stable, she is resumed on anticoagulation. 4 Has had bowel movement recently. Vital signs were stable.No nausea vomiting or diarrhea. Denies chest pain, palpitation or shortness of breath. GENERAL: The patient is alert and oriented x3, not, in n has remained acute distress. Well developed, well nourished. HEENT: Pupils are round and equally reacting to ligh t. EOMI. No scleral icterus. No conjunctival pallor. Normocephalic, atraumatic. No pharyngeal erythema. No thyromegaly. CARDIOVASCULAR: S1 and S2 present. No murmurs, rubs, or gallops. PULMONARY: Chest is clear to auscultation, no wheezing or crackles. ABDOMEN: Soft, nontender, nondistended, normoactive bowel sounds. No palpable organomegaly. MUSCULOSKELETAL: No joint swelling or deformity. EXTREMITIES: No cyanosis, clubbing, or pedal edema. NEUROLOGICAL: Gross neurological examination did not reveal any focal deficits. SKIN: No rashes. no petechiae. Assessment: GI bleed secondary to duodenal ulcer and duodenal strictures with antral erosive gastritis End-stage renal disease on hemodialysis Anemia of chronic disease Hypertension On the medial drain agitation , evaluated by psychiatrist, more calm today Plan: This is a pleasant 74 years old female who presents with GI bleed, she received 1 unit of blood transfusion and her hemoglobin improved and remians stable. Labs and medications reviewed. Patient is planned to discharge to subacute rehab Further recommendations of the clinical course of the patient. Continue regular dialysis schedule. Plan is for discharge to subacute rehab, [facility]. DVT prophylaxis: Eliquis GI Prophylaxis: Pepcid Possible discharge in 24-48 hours if She keeps improving and hemoglobin is stable Prognosis is guarded Patient Condition at Discharge: Stable Plan - Discharge Summary Discharge Rx Participant: No New Discharge Prescriptions: New Pantoprazole Sodium [Protonix] 40 mg PO BID #60 tablet. Continue Levothyroxine Sodium [Synthroid] 125 mcg PO DAILY Doxepin HCl 75 mg PO HS Atorvastatin [Lipitor] 20 mg PO HS azaTHIOprine [Imuran] 25 mg PO DAILY Folic Acid 0.8 mg PO DAILY Midodrine HCl 10 mg PO TID Cyclobenzaprine [Flexeril] 10 mg PO BID Docusate [Colace] 100 mg PO DAILY #30 capsule Calcium Carb-Mag Carb-Folic [Magnebind 400] 1 tab PO TID Calcium Acetate [PhosLo] 667 mg PO TID Ondansetron [Zofran] 4 mg PO TID PRN PRN Reason: Nausea No Action Apixaban [Eliquis] 2.5 mg PO BID tablet Discharge Medication List Atorvastatin [Lipitor] 20 mg PO HS 07/28/18 [History] Doxepin HCl 75 mg PO HS 07/28/18 [History] Folic Acid 0.8 mg PO DAILY 07/28/18 [History] Levothyroxine Sodium [Synthroid] 125 mcg PO DAILY 07/28/18 [History] azaTHIOprine [Imuran] 25 mg PO DAILY 07/28/18 [History] Cyclobenzaprine [Flexeril] 10 mg PO BID 03/13/20 [History] Midodrine HCl 10 mg PO TID 03/13/20 [History] Apixaban [Eliquis] 2.5 mg PO BID tablet 03/17/20 [Rx] Docusate [Colace] 100 mg PO DAILY #30 capsule 03/17/20 [Rx] Calcium Acetate [PhosLo] 667 mg PO TID 04/26/20 [History] Calcium Carb-Mag Carb-Folic [Magnebind 400] 1 tab PO TID 04/26/20 [History] Ondansetron [Zofran] 4 mg PO TID PRN 04/26/20 [History] Pantoprazole Sodium [Protonix] 40 mg PO BID #60 tablet. 04/30/20 [Rx] Follow up Appointment(s)/Referral(s): Myles Larson MD [STAFF PHYSICIAN] - 1-2 Days Discharge Disposition: HOME SELF-CARE
== END 2020-05-05 17:17 | DRG 377 ==
LOC: EC 10:09 → 3SCARD 12:09 → 6NMEDSUR 04-27 20:33
PROVIDERS: ADMIT Hospitalist; ATTEND Hospitalist
PROC: 30233N1 Transfusion of Nonautologous Red Blood Cells into Peripheral Vein, Percutaneous Approach (ICD-10-PCS; 2020-04-26)
PROC: 0DB78ZX Excision of Stomach, Pylorus, Via Natural or Artificial Opening Endoscopic, Diagnostic (ICD-10-PCS; principal; 2020-04-27 07:30)
PROC: 5A1D70Z Performance of Urinary Filtration, Intermittent, Less than 6 Hours Per Day (ICD-10-PCS; 2020-04-30)
DX: K26.4 Chronic or unspecified duodenal ulcer with hemorrhage (principal); N18.6 End stage renal disease; G93.41 Metabolic encephalopathy; K31.5 Obstruction of duodenum; D62 Acute posthemorrhagic anemia; E87.1 Hypo-osmolality and hyponatremia; I12.0 Hypertensive chronic kidney disease with stage 5 chronic kidney disease or end stage renal disease; K29.01 Acute gastritis with bleeding; D63.1 Anemia in chronic kidney disease; E78.5 Hyperlipidemia, unspecified; F32.9 Major depressive disorder, single episode, unspecified; F41.9 Anxiety disorder, unspecified; M19.90 Unspecified osteoarthritis, unspecified site; M10.9 Gout, unspecified; J44.9 Chronic obstructive pulmonary disease, unspecified; K21.9 Gastro-esophageal reflux disease without esophagitis; Z96.652 Presence of left artificial knee joint; Z20.828 Contact with and (suspected) exposure to other viral communicable diseases; M34.9 Systemic sclerosis, unspecified; E83.89 Other disorders of mineral metabolism; E87.6 Hypokalemia; I48.0 Paroxysmal atrial fibrillation; E89.0 Postprocedural hypothyroidism; I95.89 Other hypotension; Z79.01 Long term (current) use of anticoagulants; Z79.890 Hormone replacement therapy; Z79.899 Other long term (current) drug therapy; Z88.5 Allergy status to narcotic agent; Z88.2 Allergy status to sulfonamides; Z88.8 Allergy status to other drugs, medicaments and biological substances; Z91.09 Other allergy status, other than to drugs and biological substances; Z86.711 Personal history of pulmonary embolism; Z90.710 Acquired absence of both cervix and uterus; Z80.3 Family history of malignant neoplasm of breast; Z90.49 Acquired absence of other specified parts of digestive tract; Z99.2 Dependence on renal dialysis; Z98.890 Other specified postprocedural states; Z83.49 Family history of other endocrine, nutritional and metabolic diseases; Z91.81 History of falling
CPT/HCPCS: 36415; 43239; 70450; 71045; 80048; 80053; 80306; 80320; 81001; 82272; 83880; 84484; 85025; 85027; 85610; 85730; 86850; 86900; 86901; 86920; 88305; 88342; 90935; 93005; 94760; 96374; 99291

== ENCOUNTER 2020-05-06 17:54 | Observation (INO) | payer MEDICARE, OTHER, BC ==
[2020-05-06] MEDS ORDERED: SODIUM CHLORIDE 0.9% 1,000 ML IV STA (18:36)
--- NOTE | 2020-05-06 18:43 | ED ---
General Adult HPI - General Chief complaint: Altered Mental Status Stated complaint: Altered Mental Status Time Seen by Provider: 05/06/20 18:13 Source: patient, EMS, RN notes reviewed Mode of arrival: EMS Limitations: no limitations - History of Present Illness Initial comments: Patient is a pleasant 74-year-old female presenting to the emergency Department with generalized weakness. Patient is a poor historian and provides limited history. Patient has no complaints. Patient does admit to seeing small people with white periods occasionally. Supposedly patient's doctor wanted patient to be admitted for neurology evaluation secondary to weakness. Further details on the weakness is unclear. Patient reportedly also has had dark urine. - Related Data Home Medications Medication Instructions Recorded Confirmed Atorvastatin [Lipitor] 20 mg PO HS 07/28/18 04/26/20 Doxepin HCl 75 mg PO HS 07/28/18 04/26/20 Folic Acid 0.8 mg PO DAILY 07/28/18 04/26/20 Levothyroxine Sodium [Synthroid] 125 mcg PO DAILY 07/28/18 04/26/20 azaTHIOprine [Imuran] 25 mg PO DAILY 07/28/18 04/26/20 Cyclobenzaprine [Flexeril] 10 mg PO BID 03/13/20 04/26/20 Midodrine HCl 10 mg PO TID 03/13/20 04/26/20 Calcium Acetate [PhosLo] 667 mg PO TID 04/26/20 04/26/20 Calcium Carb-Mag Carb-Folic 1 tab PO TID 04/26/20 04/26/20 [Magnebind 400] Ondansetron [Zofran] 4 mg PO TID PRN 04/26/20 04/26/20 Previous Rx's Medication Instructions Recorded Apixaban [Eliquis] 2.5 mg PO BID tablet 03/17/20 Docusate [Colace] 100 mg PO DAILY #30 capsule 03/17/20 Pantoprazole Sodium [Protonix] 40 mg PO BID #60 tablet. 04/30/20 Allergies Allergy/AdvReac Type Severity Reaction Status Date / Time adhesive Allergy Unknown Verified 03/13/20 16:36 allopurinol Allergy Unknown Verified 03/13/20 16:36 codeine Allergy Unknown Verified 03/13/20 16:36 iodine Allergy Unknown Verified 03/13/20 16:36 meperidine HCl [From Demerol] Allergy Unknown Verified 03/13/20 16:36 povidone-iodine Allergy Unknown Verified 03/13/20 16:36 [From Betadine] soap [From Betadine] Allergy Unknown Verified 03/13/20 16:36 Sulfa (Sulfonamide Allergy Unknown Verified 03/13/20 16:36 Antibiotics) Review of Systems ROS Statement: Those systems with pertinent positive or pertinent negative responses have been documented in the HPI. ROS Other: All systems not noted in ROS Statement are negative. Constitutional: Denies: fever Eyes: Denies: eye pain ENT: Denies: ear pain Respiratory: Denies: cough, dyspnea Cardiovascular: Denies: chest pain Endocrine: Denies: polydipsia Gastrointestinal: Denies: abdominal pain Genitourinary: Reports: as per HPI. Denies: dysuria Musculoskeletal: Denies: back pain Skin: Denies: rash Neurological: Reports: weakness Past Medical History Past Medical History: Blood Disorder, COPD, Dialysis, GERD/Reflux, Hyperlipidemia, Pulmonary Embolus (PE), Renal Disease, Thyroid Disorder Additional Past Medical History / Comment(s): scleraderma, gout, peritoneal dialysis. 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, Lupus History of Any Multi-Drug Resistant Organisms: None Reported Past Surgical History: Bowel Resection, Cholecystectomy, Hysterectomy, Orthoped ic Surgery Additional Past Surgical History / Comment(s): left knee replacement, insertion of peritoneal diaylsis, thyroidectomy due to goiter, kidney biopsy X 2, Lung biopsy, Graft Left arm with failure, Right pointer finger amputation Past Anesthesia/Blood Transfusion Reactions: No Reported Reaction Past Psychological History: Anxiety, Depression Smoking Status: Never smoker Past Alcohol Use History: None Reported Past Drug Use History: None Reported - Past Family History Mother Additional Family Medical History / Comment(s): breast CA , mitrale valve damage, kidney disease, gout Father Family Medical History: Thyroid Disorder General Exam Limitations: no limitations General appearance: alert, in no apparent distress Head exam: Present: normocephalic Eye exam: Present: normal appearance Neck exam: Present: normal inspection Respiratory exam: Present: normal lung sounds bilaterally Cardiovascular Exam: Present: regular rate, normal rhythm GI/Abdominal exam: Present: soft. Absent: tenderness Extremities exam: Present: normal inspection Neurological exam: Present: alert, CN II-XII intact Expanded Neurological exam: Present: protecting the airway Patient oriented to: Present: person, time. Absent: place Motor strength exam: RUE: 4, LUE: 4, RLE: 3, LLE: 3 Eye Response: (4) open spontaneously Motor Response: (6) obeys commands Verbal Response: (4) confused conversation Psychiatric exam: Present: normal affect, normal mood Skin exam: Present: normal color Course Vital Signs 05/06/20 05/06/20 17:56 20:40 Temperature 98.0 F 98.0 F Pulse Rate 73 68 Respiratory 17 16 Rate Blood Pressure 120/90 113/56 O2 Sat by Pulse 98 100 Oximetry EKG Findings - EKG Comments: EKG Findings:: Sinus rhythm at 69. For screening AV block CO of 232. QRS 92. QT 402. QTC 4:30. Normal axis. Septal Q waves. No acute ST change. Medical Decision Making - Medical Decision Making Patient reevaluated and updated. Case discussed with Dr. Lai, who will admit for Dr. Bernard. - Lab Data Result diagrams: 05/06/20 19:51 05/06/20 19:51 Lab Results 05/06/20 05/06/20 05/06/20 Range/Units 19:51 19:51 19:51 WBC 7.3 (3.8-10.6) k/uL RBC 3.08 L (3.80-5.40) m/uL Hgb 9.4 L (11.4-16.0) gm/dL Hct 29.1 L (34.0-46.0) % MCV 94.4 (80.0-100.0) fL MCH 30.4 (25.0-35.0) pg MCHC 32.2 (31.0-37.0) g/dL RDW 15.8 H (11.5-15.5) % Plt Count 360 (150-450) k/uL Neutrophils % 67 % Lymphocytes % 23 % Monocytes % 5 % Eosinophils % 3 % Basophils % 1 % Neutrophils # 4.9 (1.3-7.7) k/uL Lymphocytes # 1.7 (1.0-4.8) k/uL Monocytes # 0.3 (0-1.0) k/uL Eosinophils # 0.2 (0-0.7) k/uL Basophils # 0.1 (0-0.2) k/uL Hypochromasia Slight PT 10.0 (9.0-12.0) sec INR 1.0 (<1.2) APTT 28.3 (22.0-30.0) sec Sodium (137-145) mmol/L Potassium (3.5-5.1) mmol/L Chloride (98-107) mmol/L Carbon Dioxide (22-30) mmol/L Anion Gap mmol/L BUN (7-17) mg/dL Creatinine (0.52-1.04) mg/dL Est GFR (CKD-EPI)AfAm (>60 ml/min/1.73 sqM) Est GFR (CKD-EPI)NonAf (>60 ml/min/1.73 sqM) Glucose (74-99) mg/dL Plasma Lactic Acid Jose Antonio (0.7-2.0) mmol/L Calcium (8.4-10.2) mg/dL Phosphorus (2.5-4.5) mg/dL Magnesium (1.6-2.3) mg/dL Total Bilirubin (0.2-1.3) mg/dL AST (14-36) U/L ALT (4-34) U/L Alkaline Phosphatase (38-126) U/L Troponin I (0.000-0.034) ng/mL Total Protein (6.3-8.2) g/dL Albumin (3.5-5.0) g/dL Urine Color Yellow Urine Appearance Turbid H (Clear) Urine pH 7.0 (5.0-8.0) Ur Specific [place] 1.017 (1.001-1.035) Urine Protein 2+ H (Negative) Urine Glucose (UA) Negative (Negative) Urine Ketones Negative (Negative) Urine Blood Moderate H (Negative) Urine Nitrite Negative (Negative) Urine Bilirubin Negative (Negative) Urine Urobilinogen <2.0 (<2.0) mg/dL Ur Leukocyte Esterase Large H (Negative) Urine RBC 96 H (0-5) /hpf Urine WBC >182 H (0-5) /hpf Urine WBC Clumps Many H (None) /hpf Urine Bacteria Many H (None) /hpf Urine Opiates Screen (NotDetected) Ur Oxycodone Screen (NotDetected) Urine Methadone Screen (NotDetected) Ur Propoxyphene Screen (NotDetected) Ur Barbiturates Screen (NotDetected) U Tricyclic Antidepress (NotDetected) Ur Phencyclidine Scrn (NotDetected) Ur Amphetamines Screen (NotDetected) U Methamphetamines Scrn (NotDetected) U Benzodiazepines Scrn (NotDetected) Urine Cocaine Screen (NotDetected) U Marijuana (THC) Screen (NotDetected) Serum Alcohol mg/dL 05/06/20 05/06/20 05/06/20 Range/Units 19:51 19:51 19:51 WBC (3.8-10.6) k/uL RBC (3.80-5.40) m/uL Hgb (11.4-16.0) gm/dL Hct (34.0-46.0) % MCV (80.0-100.0) fL MCH (25.0-35.0) pg MCHC (31.0-37.0) g/dL RDW (11.5-15.5) % Plt Count (150-450) k/uL Neutrophils % % Lymphocytes % % Monocytes % % Eosinophils % % Basophils % % Neutrophils # (1.3-7.7) k/uL Lymphocytes # (1.0-4.8) k/uL Monocytes # (0-1.0) k/uL Eosinophils # (0-0.7) k/uL Basophils # (0-0.2) k/uL Hypochromasia PT (9.0-12.0) sec INR (<1.2) APTT (22.0-30.0) sec Sodium 134 L (137-145) mmol/L Potassium 4.3 (3.5-5.1) mmol/L Chloride 103 (98-107) mmol/L Carbon Dioxide 25 (22-30) mmol/L Anion Gap 6 mmol/L BUN 32 H (7-17) mg/dL Creatinine 3.26 H (0.52-1.04) mg/dL Est GFR (CKD-EPI)AfAm 16 (>60 ml/min/1.73 sqM) Est GFR (CKD-EPI)NonAf 14 (>60 ml/min/1.73 sqM) Glucose 94 (74-99) mg/dL Plasma Lactic Acid Jose Antonio 0.9 (0.7-2.0) mmol/L Calcium 9.3 (8.4-10.2) mg/dL Phosphorus 2.1 L (2.5-4.5) mg/dL Magnesium 2.3 (1.6-2.3) mg/dL Total Bilirubin 0.4 (0.2-1.3) mg/dL AST 25 (14-36) U/L ALT 11 (4-34) U/L Alkaline Phosphatase 74 (38-126) U/L Troponin I <0.012 (0.000-0.034) ng/mL Total Protein 5.1 L (6.3-8.2) g/dL Albumin 2.7 L (3.5-5.0) g/dL Urine Color Urine Appearance (Clear) Urine pH (5.0-8.0) Ur Specific [place] (1.001-1.035) Urine Protein (Negative) Urine Glucose (UA) (Negative) Urine Ketones (Negative) Urine Blood (Negative) Urine Nitrite (Negative) Urine Bilirubin (Negative) Urine Urobilinogen (<2.0) mg/dL Ur Leukocyte Esterase (Negative) Urine RBC (0-5) /hpf Urine WBC (0-5) /hpf Urine WBC Clumps (None) /hpf Urine Bacteria (None) /hpf Urine Opiates Screen (NotDetected) Ur Oxycodone Screen (NotDetected) Urine Methadone Screen (NotDetected) Ur Propoxyphene Screen (NotDetected) Ur Barbiturates Screen (NotDetected) U Tricyclic Antidepress (NotDetected) Ur Phencyclidine Scrn (NotDetected) Ur Amphetamines Screen (NotDetected) U Methamphetamines Scrn (NotDetected) U Benzodiazepines Scrn (NotDetected) Urine Cocaine Screen (NotDetected) U Marijuana (THC) Screen (NotDetected) Serum Alcohol <10 mg/dL 05/06/20 Range/Units 19:51 WBC (3.8-10.6) k/uL RBC (3.80-5.40) m/uL Hgb (11.4-16.0) gm/dL Hct (34.0-46.0) % MCV (80.0-100.0) fL MCH (25.0-35.0) pg MCHC (31.0-37.0) g/dL RDW (11.5-15.5) % Plt Count (150-450) k/uL Neutrophils % % Lymphocytes % % Monocytes % % Eosinophils % % Basophils % % Neutrophils # (1.3-7.7) k/uL Lymphocytes # (1.0-4.8) k/uL Monocytes # (0-1.0) k/uL Eosinophils # (0-0.7) k/uL Basophils # (0-0.2) k/uL Hypochromasia PT (9.0-12.0) sec INR (<1.2) APTT (22.0-30.0) sec Sodium (137-145) mmol/L Potassium (3.5-5.1) mmol/L Chloride (98-107) mmol/L Carbon Dioxide (22-30) mmol/L Anion Gap mmol/L BUN (7-17) mg/dL Creatinine (0.52-1.04) mg/dL Est GFR (CKD-EPI)AfAm (>60 ml/min/1.73 sqM) Est GFR (CKD-EPI)NonAf (>60 ml/min/1.73 sqM) Glucose (74-99) mg/dL Plasma Lactic Acid Jose Antonio (0.7-2.0) mmol/L Calcium (8.4-10.2) mg/dL Phosphorus (2.5-4.5) mg/dL Magnesium (1.6-2.3) mg/dL Total Bilirubin (0.2-1.3) mg/dL AST (14-36) U/L ALT (4-34) U/L Alkaline Phosphatase (38-126) U/L Troponin I (0.000-0.034) ng/mL Total Protein (6.3-8.2) g/dL Albumin (3.5-5.0) g/dL Urine Color Urine Appearance (Clear) Urine pH (5.0-8.0) Ur Specific [place] (1.001-1.035) Urine Protein (Negative) Urine Glucose (UA) (Negative) Urine Ketones (Negative) Urine Blood (Negative) Urine Nitrite (Negative) Urine Bilirubin (Negative) Urine Urobilinogen (<2.0) mg/dL Ur Leukocyte Esterase (Negative) Urine RBC (0-5) /hpf Urine WBC (0-5) /hpf Urine WBC Clumps (None) /hpf Urine Bacteria (None) /hpf Urine Opiates Screen Not Detected (NotDetected) Ur Oxycodone Screen Not Detected (NotDetected) Urine Methadone Screen Not Detected (NotDetected) Ur Propoxyphene Screen Not Detected (NotDetected) Ur Barbiturates Screen Not Detected (NotDetected) U Tricyclic Antidepress Not Detected (NotDetected) Ur Phencyclidine Scrn Not Detected (NotDetected) Ur Amphetamines Screen Not Detected (NotDetected) U Methamphetamines Scrn Not Detected (NotDetected) U Benzodiazepines Scrn Not Detected (NotDetected) Urine Cocaine Screen Not Detected (NotDetected) U Marijuana (THC) Screen Not Detected (NotDetected) Serum Alcohol mg/dL - Radiology Data Radiology results: image reviewed Disposition Clinical Impression: Urinary tract infection, Altered mental status, Weakness Disposition: ADMITTED IP TO THIS [facility] Is patient prescribed a controlled substance at d/c from ED?: No Referrals: Tano Bernard DO [Primary Care Provider] - 1-2 days Decision Time: 21:01
[2020-05-06 20:04] LABS: Basophils # (A) 0.1 k/uL (0-0.2); Basophils % (A) 1 %; Eosinophils # (A) 0.2 k/uL (0-0.7); Eosinophils % (A) 3 %; HCT 29.1 % (34.0-46.0); HGB 9.4 gm/dL (11.4-16.0); Hypochromasia Slight; Lymphocytes # (A) 1.7 k/uL (1.0-4.8); Lymphocytes % (A) 23 %; MCH 30.4 pg (25.0-35.0); MCHC 32.2 g/dL (31.0-37.0); MCV 94.4 fL (80.0-100.0); Mean Platelet Volume 8.3; Monocytes # (A) 0.3 k/uL (0-1.0); Monocytes % (A) 5 %; Neutrophils # (A) 4.9 k/uL (1.3-7.7); Neutrophils % (A) 67 %; Platelet Count 360 k/uL (150-450); RBC 3.08 m/uL (3.80-5.40); RDW 15.8 % (11.5-15.5); WBC 7.3 k/uL (3.8-10.6)
[2020-05-06 20:10] LABS: Partial Thromboplastin Time 28.3 sec (22.0-30.0)
[2020-05-06 20:15] LABS: ALT 11 U/L (4-34); AST 25 U/L (14-36); African American GFR (CKD) 16 (>60 ml/min/1.73 sqM); Albumin 2.7 g/dL (3.5-5.0); Alcohol <10 mg/dL; Alkaline Phosphatase 74 U/L (38-126); Anion Gap 6 mmol/L; Blood Urea Nitrogen 32 mg/dL (7-17); Calcium 9.3 mg/dL (8.4-10.2); Carbon Dioxide 25 mmol/L (22-30); Chloride 103 mmol/L (98-107); Glucose 94 mg/dL (74-99); Magnesium 2.3 mg/dL (1.6-2.3); Non-African American GFR(CKD) 14 (>60 ml/min/1.73 sqM); Phosphorus 2.1 mg/dL (2.5-4.5); Potassium 4.3 mmol/L (3.5-5.1); Sodium 134 mmol/L (137-145); Total Bilirubin 0.4 mg/dL (0.2-1.3); Total Protein 5.1 g/dL (6.3-8.2)
[2020-05-06 20:25] LABS: Appearance,Urine Turbid (Clear); Bacteria,Urine Many /hpf; Bilirubin,Urine Negative (Negative); Blood,Urine Moderate (Negative); Color,Urine Yellow; Glucose,Urine (UA) Negative (Negative); Ketones,Urine Negative (Negative); Leukocyte Esterase,Urine Large (Negative); Nitrite,Urine Negative (Negative); Protein,Urine 2+ (Negative); RBC,Urine 96 /hpf (0-5); Specific Gravity,Urine 1.017 (1.001-1.035); Urobilinogen,Urine <2.0 mg/dL (<2.0); WBC,Urine >182 /hpf (0-5)
[2020-05-06 20:33] LABS: Amphetamine Screen,Urine Not Detected (NotDetected); Barbiturate Screen,Urine Not Detected (NotDetected); Benzodiazepines Screen,Urine Not Detected (NotDetected); Cocaine Screen,Urine Not Detected (NotDetected); Methadone Screen, Urine Not Detected (NotDetected); Opiate Screen,Urine Not Detected (NotDetected); Oxycodone Screen, Urine Not Detected (NotDetected); Phencyclidine Screen,Urine Not Detected (NotDetected); Tricyclic Antidepressant,Urine Not Detected (NotDetected); Urn Cannabinoid Scrn Not Detected (NotDetected)
[2020-05-06] MEDS ORDERED: NALOXONE 0.4 MG/ML 1 ML VIAL IV PRN (21:02)
[2020-05-06] MEDS ORDERED: cefTRIAXone IN SWFI 1,000 MG/10 ML SYRINGE IVP STA (21:02)
--- NOTE | 2020-05-06 21:23 | CT ---
EXAMINATION: CT brain wo con DATE AND TIME: 05/06/2020 8:45 PM CLINICAL INDICATION: PHH; weakness TECHNIQUE: Standard departmental protocol DLP: 1074.4 mGy-cm COMPARISON: 04/30/2020 FINDINGS: The calvarium is intact. There is no intracranial hemorrhage. There is no intracranial mass or mass effect. No definite new intra-axial or extra-axial attenuation defect. The paranasal sinuses, middle ear cavities, and mastoid sinus air cells are clear. The orbits are unremarkable. IMPRESSION: NO ACUTE PROCESS.
--- NOTE | 2020-05-06 21:28 | XR ---
EXAMINATION: XR chest 2V DATE AND TIME: 05/06/2020 8:35 PM CLINICAL INDICATION: PHH; Weakness TECHNIQUE: PA and lateral views COMPARISON: 04/26/2020 FINDINGS: Right IJ double lumen catheter tip superimposed over the cavoatrial junction, similar in appearance. The lungs are clear. The pleural spaces are negative. The cardiac silhouette is not enlarged. The remainder of the mediastinal silhouette is unremarkable. The skeletal structures and soft tissues are negative for acute findings. IMPRESSION: NO ACUTE PROCESS.
[2020-05-06] MEDS ORDERED: ONDANSETRON 4 MG TAB PO PRN (22:15)
[2020-05-06] MEDS: ACETAMINOPHEN TAB 325 MG TAB PO PRN (22:23)
[2020-05-07] MEDS: SODIUM CHLORIDE 0.9% 1,000 ML IV SCH ×2 (04:23→12:57)
[2020-05-07] MEDS ORDERED: LEVOTHYROXINE 50 MCG TAB PO SCH (06:00)
[2020-05-07] MEDS ORDERED: APIXABAN 2.5 MG TABLET PO SCH (08:00)
[2020-05-07] MEDS ORDERED: DOCUSATE 100 MG CAP PO SCH (08:00)
[2020-05-07] MEDS ORDERED: CYCLOBENZAPRINE 10 MG TAB PO SCH (08:00)
[2020-05-07] MEDS ORDERED: azaTHIOprine 50 MG TAB PO SCH (08:00)
[2020-05-07] MEDS ORDERED: NON FORMULARY DRUG (Folic Acid [Folic Acid] 0.8 MG Capsule) PO SCH (08:00)
[2020-05-07] MEDS ORDERED: PANTOPRAZOLE 40 MG TABLET PO SCH (08:00)
[2020-05-07] MEDS: ACETAMINOPHEN TAB 325 MG TAB PO PRN (08:53)
[2020-05-07] MEDS: MIDODRINE 5 MG TAB PO SCH ×2 (08:53→13:00)
[2020-05-07] MEDS: CALCIUM ACETATE 667 MG TAB PO SCH ×2 (08:53→13:00)
--- NOTE | 2020-05-07 11:07 | P.CNNES ---
History of Present Illness Consult date: 05/07/20 Requesting physician: Sami Lemon Reason for Consult: altered mental status and weakness History of Present Illness: This is a 74-year-old woman with medical history of end-stage renal disease on dialysis, pulmonary embolism, lupus, hyperlipidemia that presented to the emergency department on 05/06/2020 for generalized weakness. It is noted that that patient's primary care physician wanted the patient to be admitted for neurology evaluation secondary to weakness. The details of the weakness is unclear. Also which were reported that the patient has dark urine. Upon seeing the patient at bedside that she was getting dialysis and she was wide awake in the having normal conversation with the laboratory technology teacher. The patient she's not sure what she is doing at the hospital. She was told that she had generalized weakness for the last couple days. Per the patient feels much better today compared to yesterday. She denies of any focal weakness, visual disturbance, headache, slurring of his speech. Patient denies any history of seizures. Per the patient as well as the laboratory technology teacher who is familiar with the patient is about a couple month ago patient was walking her dog out and then she felt lightheaded that it somewhat dizzy she went to sit down and pontine sit down she missed a step according to the patient and as a result the injured her left ankle. She recalls of the episodes and she denies any loss of consciousness. Also upon reviewing medical records it's the reported that the patient is on Eliquis for atrial fibrillation. Workup in the hospital consisted of: Initial vital signs: Blood pressure of 120/90, heart rate of 73, temperature of 98.0 Fahrenheit oral, respiratory of 17 and pulse ox 98% at room air. CT of the head was reported as no acute process. Personally reviewed the CT of the head and there is no acute ischemia, hemorrhage or any encephalomalacia that is appreciable. EKG was reported as sinus rhythm with first-degree AV block. Septal infarct, age undetermined. Ventricular rate of 69. Cannot rule out inferior infarct, age undetermined. Abnormal EKG. Chest x-ray was reported as no acute process. Urinalysis: Appears to her bed, urine blood is moderate, nitrate was negative, leukocyte esterase was large, urine white blood cell is more than 182, urine 1 blood cell clumps are many and urine bacteria is many. Review of Systems View of system the prone positive and negative per HPI the rest cannot be obtained because of the patient condition. Past Medical History Past Medical History: Blood Disorder, COPD, Dialysis, GERD/Reflux, Hyperlipidemia, Pulmonary Embolus (PE), Renal Disease, Thyroid Disorder Additional Past Medical History / Comment(s): scleraderma, gout, peritoneal dialysis. 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, Lupus History of Any Multi-Drug Resistant Organisms: None Reported Past Surgical History: Bowel Resection, Cholecystectomy, Hysterectomy, Orthopedic Surgery Additional Past Surgical History / Comment(s): left knee replacement, insertion of peritoneal diaylsis, thyroidectomy due to goiter, kidney biopsy X 2, Lung biopsy, Graft Left arm with failure, Right pointer finger amputation Past Anesthesia/Blood Transfusion Reactions: No Reported Reaction Past Psychological History: Anxiety, Depression Smoking Status: Never smoker Past Alcohol Use History: None Reported Past Drug Use History: None Reported - Past Family History Mother Additional Family Medical History / Comment(s): breast CA , mitrale valve damage, kidney disease, gout Father Family Medical History: Thyroid Disorder Medications and Allergies Home Medications Medication Instructions Recorded Confirmed Type Atorvastatin [Lipitor] 20 mg PO HS@2100 07/28/18 05/06/20 History Doxepin HCl 75 mg PO HS@2100 07/28/18 05/06/20 History Folic Acid 0.8 mg PO DAILY@0800 07/28/18 05/06/20 History Levothyroxine Sodium [Synthroid] 125 mcg PO DAILY@0600 07/28/18 05/06/20 History azaTHIOprine [Imuran] 25 mg PO DAILY@0800 07/28/18 05/06/20 History Cyclobenzaprine [Flexeril] 10 mg PO BID@0800,1700 03/13/20 05/06/20 History Midodrine HCl 10 mg PO TID@0800,1200,1700 03/13/20 05/06/20 History Calcium Acetate [PhosLo] 667 mg PO TID@0800,1200,1700 04/26/20 05/06/20 History Calcium Carb-Mag Carb-Folic 1 tab PO TID@0800,1200,1700 04/26/20 05/06/20 History [Magnebind 400] Ondansetron [Zofran] 4 mg PO TID PRN 04/26/20 05/06/20 History Apixaban [Eliquis] 2.5 mg PO BID@0800,1700 05/06/20 05/06/20 History Docusate [Colace] 100 mg PO DAILY@0800 05/06/20 05/06/20 History Pantoprazole Sodium [Protonix] 40 mg PO BID@0800,1700 05/06/20 05/06/20 History Cefuroxime Axetil [Ceftin] 500 mg PO BID 4 Days #8 tab 05/07/20 Rx Allergies Allergy/AdvReac Type Severity Reaction Status Date / Time adhesive Allergy Unknown Verified 05/06/20 21:23 allopurinol Allergy Unknown Verified 05/06/20 21:23 codeine Allergy Unknown Verified 05/06/20 21:23 iodine Allergy Unknown Verified 05/06/20 21:23 meperidine HCl [From Demerol] Allergy Unknown Verified 05/06/20 21:23 povidone-iodine Allergy Unknown Verified 05/06/20 21:23 [From Betadine] soap [From Betadine] Allergy Unknown Verified 05/06/20 21:23 Sulfa (Sulfonamide Allergy Unknown Verified 05/06/20 21:23 Antibiotics) Physical Examination - Vital Signs Vital Signs: Vital Signs Temp Pulse Pulse Resp BP BP Pulse Ox 05/07/20 05:00 98.0 F 66 18 112/69 97 05/06/20 21:35 98.4 F 75 16 138/77 99 05/06/20 21:00 97.7 F 73 18 121/67 97 05/06/20 20:40 98.0 F 68 16 113/56 100 05/06/20 17:56 98.0 F 73 17 120/90 98 Intake and Output 05/06/20 05/07/20 05/07/20 22:59 06:59 14:59 Intake Total 480 240 Balance 480 240 Intake: Oral 480 240 Other: Voiding Method Diaper Weight 77.111 kg GENERAL: The patient is lying in bed and is not in acute distress. She is currently getting dialysis. CHEST: The heart rate is regular rate rhythm. No murmurs to auscultation. LUNG: Clear to auscultation bilaterally no wheezing noted throughout. Not labored breathing. ABDOMEN/GI: Bowel sounds present in all 4 quadrants. No tenderness to palpation throughout. NEUROLOGICAL: Higher mental function: The patient is awake, alert, oriented to self, place and time. Patient is following commands. No aphasia and no neglect. Cranial nerves: The pupils are round, equal and reactive to light and accommodation. Visual holley are full to confrontation throughout. Extraocular movement is intact no nystagmus is noted. Facial sensation is normal to touch throughout. The facial strength is normal throughout. Hearing is normal bilaterally to hand rub. Tongue is midline and moved [id number] without any difficulty. No dysarthria is noted. Shoulder shrug is normal bilaterally. Motor: Gait is defered. Right upper extremity proximally was limited because of patient's shoulder pain but was able to lift up without drift. Left lower distal extremity was wrapped in cause because of previous fall so examination wa s limited but was moving antigravity. Otherwise the strength is 5 over 5 throughout. Normal tone and bulk. Cerebellum: Normal finger to nose bilaterally. Sensation: Sensation is normal to touch throughout. Reflexes (right/left): 2+ of all upper extremities while 1+ is lower extremities. Plantars are mute bilaterally. Results AST 25 and ALTs of 11. Vibration study: PT of 10.0, INR 1.0 and PTT of 28.3. Toxicology is nondetected on the basic ecology screen. Serum all call is less than 10 - Laboratory Findings CBC and BMP: 05/06/20 19:51 05/06/20 19:51 Abnormal Lab Findings: Abnormal Labs 05/06/20 05/06/20 05/06/20 19:51 19:51 19:51 RBC 3.08 L Hgb 9.4 L Hct 29.1 L RDW 15.8 H Sodium 134 L BUN 32 H Creatinine 3.26 H Phosphorus 2.1 L Total Protein 5.1 L Albumin 2.7 L Urine Appearance Turbid H Urine Protein 2+ H Urine Blood Moderate H Ur Leukocyte Esterase Large H Urine RBC 96 H Urine WBC >182 H Urine WBC Clumps Many H Urine Bacteria Many H Assessment and Plan Assessment: 74-year-old woman with medical history of end-stage renal disease on dialysis, pulmonary embolism, lupus, hyperlipidemia that presented to the emergency department on 05/06/2020 for generalized weakness. History was obtained from medical records since the patient is a poor historian. It is noted that that patient's primary care physician wanted the patient to be admitted for neurology evaluation secondary to generalized weakness. She has UTI. Toxic metabolic encephalopathy Generalized weakness due to urinary tract infection--currently much improved Urinary tract infection Atrial fibrillation End-stage renal disease on dialysis Lupus History of pulmonary embolism Hyperlipidemia Plan: EEG is NOT warranted at this time. I feel the patient confusion is likely due to her underlying urinary tract infection and currently is doing much better. Ordered ammonia level, folate and Vitamin B12. Recent TSH in 03/23/2020 TSH was more than 100 and the free T4 is 0.94. I'll repeat it. Regarding the patient urinary tract infection she is currently on ceftriaxone. We'll defer the management to the primary team. I'll defer the rest of her medical issues to the primary team. Thank You for the consult. Plan was discussed with the patient as well as the primary team. Misael Stokes M.D. Neuro-hospitalist Time with Patient: Greater than 30
--- NOTE | 2020-05-07 11:28 | P.NPCON ---
History of Present Illness - Reason for Consult end stage renal disease - History of Present Illness reason for consultation: End-stage renal disease History of present illness: Patient is a 74-year-old female seen in consultation for end-stage renal disease. She is maintained on hemodialysis on Sunday schedule. Currently undergoing hemodialysis. Patient was just discharged from the hospital 2 days ago to an extended care facility. Patient was noted to be confused/weak and was sent to the hospital. Patient's brain CT was negative. Her mentation is back to baseline. She is currently awake and alert. Denies chest pain or shortness of breath. Oral intake is fair. she is currently on antibiotics for UTI. she was recently admitted for GI bleed and underwent EGD. She required blood transfusions. hemoglobin 9.4 today. Vital signs are stable. General: The patient appeared well nourished and normally developed. HEENT: Head exam is unremarkable. Neck is without jugular venous distension. LUNGS: Lungs are clear to auscultation and percussion. Breath sounds decreased. HEART: Rate and Rhythm are regular. ABDOMEN: soft, nontender. EXTREMITITES: No clubbing, cyanosis, or edema. Past Medical History Past Medical History: Blood Disorder, COPD, Dialysis, GERD/Reflux, Hyperlipidemia, Pulmonary Embolus (PE), Renal Disease, Thyroid Disorder Additional Past Medical History / Comment(s): scleraderma, gout, peritoneal dialysis. 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, Lupus History of Any Multi-Drug Resistant Organisms: None Reported Past Surgical History: Bowel Resection, Cholecystectomy, Hysterectomy, Orthopedic Surgery Additional Past Surgical History / Comment(s): left knee replacement, insertion of peritoneal diaylsis, thyroidectomy due to goiter, kidney biopsy X 2, Lung biopsy, Graft Left arm with failure, Right pointer finger amputation Past Anesthesia/Blood Transfusion Reactions: No Reported Reaction Past Psychological History: Anxiety, Depression Smoking Status: Never smoker Past Alcohol Use History: None Reported Past Drug Use History: None Reported - Past Family History Mother Additional Family Medical History / Comment(s): breast CA , mitrale valve damage, kidney disease, gout Father Family Medical History: Thyroid Disorder Medications and Allergies Home Medications Medication Instructions Recorded Confirmed Type Atorvastatin [Lipitor] 20 mg PO HS@2100 07/28/18 05/06/20 History Doxepin HCl 75 mg PO HS@2100 07/28/18 05/06/20 History Folic Acid 0.8 mg PO DAILY@0800 07/28/18 05/06/20 History Levothyroxine Sodium [Synthroid] 125 mcg PO DAILY@0600 07/28/18 05/06/20 History azaTHIOprine [Imuran] 25 mg PO DAILY@0800 07/28/18 05/06/20 History Cyclobenzaprine [Flexeril] 10 mg PO BID@0800,1700 03/13/20 05/06/20 History Midodrine HCl 10 mg PO TID@0800,1200,1700 03/13/20 05/06/20 History Calcium Acetate [PhosLo] 667 mg PO TID@0800,1200,1700 04/26/20 05/06/20 History Calcium Carb-Mag Carb-Folic 1 tab PO TID@0800,1200,1700 04/26/20 05/06/20 History [Magnebind 400] Ondansetron [Zofran] 4 mg PO TID PRN 04/26/20 05/06/20 History Apixaban [Eliquis] 2.5 mg PO BID@0800,1700 05/06/20 05/06/20 History Docusate [Colace] 100 mg PO DAILY@0800 05/06/20 05/06/20 History Pantoprazole Sodium [Protonix] 40 mg PO BID@0800,1700 05/06/20 05/06/20 History Cefuroxime Axetil [Ceftin] 500 mg PO BID 4 Days #8 tab 05/07/20 Rx Allergies Allergy/AdvReac Type Severity Reaction Status Date / Time adhesive Allergy Unknown Verified 05/06/20 21:23 allopurinol Allergy Unknown Verified 05/06/20 21:23 codeine Allergy Unknown Verified 05/06/20 21:23 iodine Allergy Unknown Verified 05/06/20 21:23 meperidine HCl [From Demerol] Allergy Unknown Verified 05/06/20 21:23 povidone-iodine Allergy Unknown Verified 05/06/20 21:23 [From Betadine] soap [From Betadine] Allergy Unknown Verified 05/06/20 21:23 Sulfa (Sulfonamide Allergy Unknown Verified 05/06/20 21:23 Antibiotics) Physical Exam Vitals: Vital Signs Temp Pulse Pulse Resp BP BP Pulse Ox 05/07/20 05:00 98.0 F 66 18 112/69 97 05/06/20 21:35 98.4 F 75 16 138/77 99 05/06/20 21:00 97.7 F 73 18 121/67 97 05/06/20 20:40 98.0 F 68 16 113/56 100 05/06/20 17:56 98.0 F 73 17 120/90 98 Intake and Output 05/06/20 05/07/20 05/07/20 22:59 06:59 14:59 Intake Total 480 240 Balance 480 240 Intake: Oral 480 240 Other: Voiding Method Diaper Diaper Incontinent Weight 77.111 kg Results - Lab Results Most recent lab results Calcium 9.3 mg/dL (8.4-10.2) 05/06/20 19:51 Phosphorus 2.1 mg/dL (2.5-4.5) L 05/06/20 19:51 Magnesium 2.3 mg/dL (1.6-2.3) 05/06/20 19:51 05/06/20 19:51 05/06/20 19:51 Assessment and Plan Plan: assessment: 1. End-stage renal disease maintained on hemodialysis on Sunday schedule. 2. Toxic metabolic encephalopathy possibly from UTI. Seen by neurology. 3. Anemia of chronic kidney disease. Recent GI bleed requiring blood transfusion. Hemoglobin 9.4 today. 4. Chronic kidney disease mineral bone disease maintained on PhosLo. 5. UTI maintained on Rocephin. 6. Chronic hypotension maintained on midodrine. plan: Currently seen was undergoing hemodialysis. Follow-up urine culture. Anticipate discharge soon back to rehab. Thank you for the consultation. I will continue to follow the patient with you during her hospital stay.
[2020-05-07 13:06] VITALS: BP 144/73; PULSE 68; RESP 18; TEMP 98.2
--- NOTE | 2020-05-07 15:35 | P.HPIM ---
History of Present Illness 74-year-old the female was recently discharged from the hospital was sent back to the hospital because of generalized weakness is no focal weakness, it was believed patient will need a neurological evaluation because of which patient was at sent in here. Patient is alert oriented 3 without any confusion. Patient is clinically stable medically stable patient doesn't have any fever chills patient is a have a leukocytosis patient urine is bit abnormal. Patient doesn't have any symptoms of dysuria patient denied any suprapubic pain. Patient has a symptom by bacteria which will not require any antibiotics but was started on Rocephin from ER. Patient has history of end-stage renal disease hemodialysis dependent. Review of Systems REVIEW OF SYSTEMS: CONSTITUTIONAL: No fever, no malaise, no fatigue. HEENT: No recent visual problems or hearing problems. Denied any sore throat. CARDIOVASCULAR: No chest pain, orthopnea, PND, no palpitations, no syncope. PULMONARY: No shortness of breath, no cough, no hemoptysis. GASTROINTESTINAL: No diarrhea, no nausea, no vomiting, no abdominal pain. NEUROLOGICAL: No headaches, no weakness, no numbness. HEMATOLOGICAL: Denies any bleeding or petechiae. GENITOURINARY: Denies any burning micturition, frequency, or urgency. MUSCULOSKELETAL/RHEUMATOLOGICAL: Denies any joint pain, swelling, or any muscle pain. ENDOCRINE: Denies any polyuria or polydipsia. The rest of the 14-point review of systems is negative. Past Medical History Past Medical History: Blood Disorder, COPD, Dialysis, GERD/Reflux, Hyp erlipidemia, Pulmonary Embolus (PE), Renal Disease, Thyroid Disorder Additional Past Medical History / Comment(s): scleraderma, gout, peritoneal dialysis. 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, Lupus History of Any Multi-Drug Resistant Organisms: None Reported Past Surgical History: Bowel Resection, Cholecystectomy, Hysterectomy, Orthopedic Surgery Additional Past Surgical History / Comment(s): left knee replacement, insertion of peritoneal diaylsis, thyroidectomy due to goiter, kidney biopsy X 2, Lung biopsy, Graft Left arm with failure, Right pointer finger amputation Past Anesthesia/Blood Transfusion Reactions: No Reported Reaction Past Psychological History: Anxiety, Depression Smoking Status: Never smoker Past Alcohol Use History: None Reported Past Drug Use History: None Reported - Past Family History Mother Additional Family Medical History / Comment(s): breast CA , mitrale valve damage, kidney disease, gout Father Family Medical History: Thyroid Disorder Medications and Allergies Home Medications Medication Instructions Recorded Confirmed Type Atorvastatin [Lipitor] 20 mg PO HS@209907/28/18 05/06/20 History Doxepin HCl 75 mg PO HS@2100 07/28/18 05/06/20 History Folic Acid 0.8 mg PO DAILY@0800 07/28/18 05/06/20 History Levothyroxine Sodium [Synthroid] 125 mcg PO DAILY@0600 07/28/18 05/06/20 History azaTHIOprine [Imuran] 25 mg PO DAILY@0800 07/28/18 05/06/20 History Cyclobenzaprine [Flexeril] 10 mg PO BID@0800,1700 03/13/20 05/06/20 History Midodrine HCl 10 mg PO TID@0800,1200,1700 03/13/20 05/06/20 History Calcium Acetate [PhosLo] 667 mg PO TID@0800,1200,1700 04/26/20 05/06/20 History Calcium Carb-Mag Carb-Folic 1 tab PO TID@0800,1200,1700 04/26/20 05/06/20 History [Magnebind 400] Ondansetron [Zofran] 4 mg PO TID PRN 04/26/20 05/06/20 History Apixaban [Eliquis] 2.5 mg PO BID@0800,1700 05/06/20 05/06/20 History Docusate [Colace] 100 mg PO DAILY@0800 05/06/20 05/06/20 History Pantoprazole Sodium [Protonix] 40 mg PO BID@0800,1700 05/06/20 05/06/20 History Cefuroxime Axetil [Ceftin] 500 mg PO BID 4 Days #8 tab 05/07/20 Rx Allergies Allergy/AdvReac Type Severity Reaction Status Date / Time adhesive Allergy Unknown Verified 05/06/20 21:23 allopurinol Allergy Unknown Verified 05/06/20 21:23 codeine Allergy Unknown Verified 05/06/20 21:23 iodine Allergy Unknown Verified 05/06/20 21:23 meperidine HCl [From Demerol] Allergy Unknown Verified 05/06/20 21:23 povidone-iodine Allergy Unknown Verified 05/06/20 21:23 [From Betadine] soap [From Betadine] Allergy Unknown Verified 05/06/20 21:23 Sulfa (Sulfonamide Allergy Unknown Verified 05/06/20 21:23 Antibiotics) Physical Exam Vitals: Vital Signs Temp Pulse Pulse Resp BP BP Pulse Ox 05/07/20 13:04 98.2 F 68 18 144/73 05/07/20 12:37 97.6 F 73 19 110/67 96 05/07/20 05:00 98.0 F 66 18 112/69 97 05/06/20 21:35 98.4 F 75 16 138/77 99 05/06/20 21:00 97.7 F 73 18 121/67 97 05/06/20 20:40 98.0 F 68 16 113/56 100 05/06/20 17:56 98.0 F 73 17 120/90 98 Intake and Output 05/07/20 05/07/20 05/07/20 06:59 14:59 22:59 Intake Total 240 Output Total 2000 Balance 240 -1999 Intake: Oral 240 Output: Hemodialysis 1999 Other: Voiding Method Diaper Diaper Incontinent # Voids 1 PHYSICAL EXAMINATION: GENERAL: The patient is alert and oriented x3, not in any acute distress. Well developed, well nourished. HEENT: Pupils are round and equally reacting to light. EOMI. No scleral icterus. No conjunctival pallor. Normocephalic, atraumatic. No pharyngeal erythema. No thyromegaly. CARDIOVASCULAR: S1 and S2 present. No murmurs, rubs, or gallops. PULMONARY: Chest is clear to auscultation, no wheezing or crackles. ABDOMEN: Soft, nontender, nondistended, normoactive bowel sounds. No palpable organomegaly. MUSCULOSKELETAL: No joint swelling or deformity. EXTREMITIES: No cyanosis, clubbing, or pedal edema. NEUROLOGICAL: Gross neurological examination did not reveal any focal deficits. SKIN: No rashes. Results CBC & Chem 7: 05/06/20 19:51 05/06/20 19:51 Labs: Abnormal Lab Results - Last 24 Hours (Table) 05/06/20 05/06/20 05/06/20 Range/Units 19:51 19:51 19:51 RBC 3.08 L (3.80-5.40) m/uL Hgb 9.4 L (11.4-16.0) gm/dL Hct 29.1 L (34.0-46.0) % RDW 15.8 H (11.5-15.5) % Sodium 134 L (137-145) mmol/L BUN 32 H (7-17) mg/dL Creatinine 3.26 H (0.52-1.04) mg/dL Phosphorus 2.1 L (2.5-4.5) mg/dL Total Protein 5.1 L (6.3-8.2) g/dL Albumin 2.7 L (3.5-5.0) g/dL Urine Appearance Turbid H (Clear) Urine Protein 2+ H (Negative) Urine Blood Moderate H (Negative) Ur Leukocyte Esterase Large H (Negative) Urine RBC 96 H (0-5) /hpf Urine WBC >182 H (0-5) /hpf Urine WBC Clumps Many H (None) /hpf Urine Bacteria Many H (None) /hpf Microbiology - Last 24 Hours (Table) 05/06/20 19:51 Urine Culture - Preliminary Urine,Voided Thrombosis Risk Factor Assmnt - Choose All That Apply Any of the Below Risk Factors Present?: Yes Each Factor Represents 1 point: Obesity (BMI >25) Each Risk Factor Represents 2 Points: Age 61-74 years, Patient confined to bed Thrombosis Risk Factor Assessment Total Risk Factor Score: 5 Thrombosis Risk Factor Assessment Level: High Risk Assessment and Plan Plan: -Generalized weakness, secondary to prolonged hospitalization and age related muscle atrophy. Patient doesn't have any encephalopathy. I do not even believe patient has UTI patient probably has asymptomatic bacteriuria. Patient was evaluated by neurology no further recommendations from them patient will need physical therapy occupational therapy. -End-stage renal disease hemodialysis dependent is undergoing hemodialysis today -Asymptomatic bacteriuria considering the concerns from the longterm are good and continue antibiotics for 3 days will continue to follow on the urine cultures. Patient will be discharged on Ceftin patient is doesn't need further hospitalization are further evaluation here in the hospital -Anemia of chronic kidney disease -Recent duodenal ulcer with GI bleed for which patient is on proton pump inhibitor -History of PE for which patient is on anticoagulation -Hypothyroidism -Hyperlipidemia Patient will be discharged back to subacute rehab today
[2020-05-07] MEDS ORDERED: ATORVASTATIN 20 MG TAB PO SCH (21:00)
== END 2020-05-07 14:30 ==
LOC: EC 17:54 → 6NMEDSUR 21:02
PROVIDERS: ADMIT Internal Medicine; ATTEND Internal Medicine
DX: R53.1 Weakness (principal); N18.6 End stage renal disease; R82.71 Bacteriuria; R41.82 Altered mental status, unspecified; D72.829 Elevated white blood cell count, unspecified; M62.50 Muscle wasting and atrophy, not elsewhere classified, unspecified site; D63.1 Anemia in chronic kidney disease; M89.8X9 Other specified disorders of bone, unspecified site; K26.4 Chronic or unspecified duodenal ulcer with hemorrhage; J44.9 Chronic obstructive pulmonary disease, unspecified; E78.5 Hyperlipidemia, unspecified; I95.89 Other hypotension; K21.9 Gastro-esophageal reflux disease without esophagitis; M10.9 Gout, unspecified; M32.9 Systemic lupus erythematosus, unspecified; Z99.2 Dependence on renal dialysis; E89.0 Postprocedural hypothyroidism; F41.9 Anxiety disorder, unspecified; F32.9 Major depressive disorder, single episode, unspecified; M34.9 Systemic sclerosis, unspecified; I48.91 Unspecified atrial fibrillation; I44.0 Atrioventricular block, first degree; D75.9 Disease of blood and blood-forming organs, unspecified; E66.9 Obesity, unspecified; Z68.26 Body mass index [BMI] 26.0-26.9, adult; Z79.01 Long term (current) use of anticoagulants; Z79.890 Hormone replacement therapy; Z79.899 Other long term (current) drug therapy; Z88.5 Allergy status to narcotic agent; Z88.2 Allergy status to sulfonamides; Z88.8 Allergy status to other drugs, medicaments and biological substances; Z91.048 Other nonmedicinal substance allergy status; Z86.711 Personal history of pulmonary embolism; Z90.49 Acquired absence of other specified parts of digestive tract; Z90.710 Acquired absence of both cervix and uterus; Z96.652 Presence of left artificial knee joint; Z89.021 Acquired absence of right finger(s); Z80.3 Family history of malignant neoplasm of breast; Z82.49 Family history of ischemic heart disease and other diseases of the circulatory system; Z84.1 Family history of disorders of kidney and ureter; Z83.49 Family history of other endocrine, nutritional and metabolic diseases
CPT/HCPCS: 96361 ×3; 96365; 96376; 99285; 36415; 93005; 82747; 80053; 82607; 82140; 83605; 83735; 84100; 84484; 85025; 85610; 85730; 81001; 80306; 87086; 87077; 87186; 87635; 71046; 70450; G0257; G0378 ×2; G0480; J7500; J0696 ×2; 80320; 82746; 84443; 90935

== ENCOUNTER 2020-05-16 08:18 | Emergency (ER) | payer MEDICARE, BC ==
[2020-05-16 08:29] VITALS: TEMP 98.4
--- NOTE | 2020-05-16 08:41 | ED ---
General Adult HPI - General Stated complaint: EPS eval Time Seen by Provider: 05/16/20 08:19 Source: EMS Mode of arrival: EMS Limitations: no limitations - History of Present Illness Initial comments: Dictation was produced using [employer] dictation software. please excuse any grammatical, word or spelling errors. This patient was cared for during a federal and state declared state of emergency secondary to Covid 19 Chief Complaint: 74-year-old female brought in from [facility] for psychiatric evaluation History of Present Illness: 74-year-old female she is brought in from [facility]. She is allegedly at her rehab facility for GI bleed. According EMS patient has been showing bizarre behavior. She is lying on the ground and exhibiting paranoia. Patient refusing to provide history of present illness at this time. She was recently seen in the hospital one week ago where she had computed tomography scan of the brain and neurology consultation. She was discharged in stable medical condition for asymptomatic bacteriuria. Just prior to that she was admitted for GI bleed. During that admission patient was evaluated by psychiatry. According EMS who received report from EMS patient has been very uncooperative over the last several days. She's been showing signs of paranoia is a 56 out to get her. She reports that she is very upset at her sons who do not live nearby. Unable to obtain ROS secondary. Patient being uncooperative PHYSICAL EXAM: General Impression: Alert and oriented x3, not in acute distress, cooperative HEENT: Normocephalic atraumatic, extra-ocular movements intact, pupils equal and reactive to light bilaterally, mucous membranes moist. Cardiovascular: Heart regular rate and rhythm Chest: Able to complete full sentences, no retractions, no tachypnea Abdomen: abdomen soft, non-tender, non-distended, no organomegaly Musculoskeletal: Pulses present and equal in all extremities, no peripheral edema Motor: no focal deficits noted Neurological: CN II-XII grossly intact, no focal motor or sensory deficits noted Skin: Intact with no visualized rashes Psych: Normal affect and mood ED course: 74-year-old female presents today for psychiatric evaluation. According to discharge summary from May 05 patient was advised by psychiatry. However I do not see a specific psychiatry evaluation no. Ends upon arrival are within acceptable limits. Patient is well-appearing and in no acute distress. She is very uncooperative and not showing any obvious signs of psychosis. She is clearly upset likely secondary to her relationship with her sons. Chart review was performed. Patient was most recently seen in the hospital one week ago for asymptomatic bacteriuria. The previous admission prior to that 3 or 4 days prior patient is admitted for GI bleed received blood transfusion was evaluated by psychiatry. Laboratory evaluation obtained. Hemoglobin 8.7 which around patient's baseline. Actually it's much more improved and her last hemoglobin level. Coag panel is unremarkable. Metabolic panel shows creatinine of 4.05. Patient has history of chronic kidney disease. Urinalysis shows persistent urinary tract infection. Unclear if patient has been compliant with her antibiotic medications. Joey biology results were reviewed. Patient had E. coli on her cultures from 05/06/2020. It showed that x-ray did not have any resistance to any antibiotics. Patient was given 1 g of ceftriaxone. Patient's most recent discharge back shows she was discharged on cefuroxime. So clear whether patient's urine is colonization from chronic kidney disease. Nonetheless, patient's urine will be sent for culture.patient medically cleared for EPS evaluation. Patient value by EPS with psychiatric clearance. Patient prescribed Keflex. Pending urine cultures EKG interpretation: Ventricular rate 67, normal sinus rhythm, NY interval 188, QRS 96, QTC 460. No NY prolongation, no QTC prolongation, no ST or T-wave changes noted. EKG compared to 05/06/2020 showing no changes. Overall, this EKG is unremarkable - Related Data Home Medications Medication Instructions Recorded Confirmed Atorvastatin [Lipitor] 20 mg PO HS@2100 07/28/18 05/16/20 Doxepin HCl 75 mg PO HS@2100 07/28/18 05/16/20 Folic Acid 0.8 mg PO DAILY@0800 07/28/18 05/16/20 Levothyroxine Sodium [Synthroid] 125 mcg PO DAILY@0600 07/28/18 05/16/20 azaTHIOprine [Imuran] 25 mg PO DAILY@0800 07/28/18 05/16/20 Cyclobenzaprine [Flexeril] 10 mg PO BID@0800,1700 03/13/20 05/16/20 Calcium Acetate [PhosLo] 667 mg PO TID@0800,1200,1700 04/26/20 05/16/20 Calcium Carb-Mag Carb-Folic 1 tab PO TID@0800,1200,1700 04/26/20 05/16/20 [Magnebind 400] Ondansetron [Zofran] 4 mg PO TID PRN 04/26/20 05/16/20 Apixaban [Eliquis] 2.5 mg PO BID@0800,1700 05/06/20 05/16/20 Docusate [Colace] 100 mg PO DAILY@0800 05/06/20 05/16/20 Pantoprazole Sodium [Protonix] 40 mg PO BID@0800,1700 05/06/20 05/16/20 ALPRAZolam [Xanax] 0.25 mg PO BID PRN 05/16/20 05/16/20 Acetaminophen [Tylenol] 650 mg PO Q4H PRN 05/16/20 05/16/20 Liqacal 60 ml PO BID 05/16/20 05/16/20 Magic Cup 1,500 ml PO DAILY@1500 05/16/20 05/16/20 Midodrine HCl 10 mg PO TID 05/16/20 05/16/20 Previous Rx's Medication Instructions Recorded Cephalexin [Keflex] 500 mg PO Q6HR 5 Days #20 cap 05/16/20 Allergies Allergy/AdvReac Type Severity Reaction Status Date / Time adhesive Allergy Unknown Verified 05/16/20 09:12 allopurinol Allergy Unknown Verified 05/16/20 09:12 codeine Allergy Unknown Verified 05/16/20 09:12 iodine Allergy Unknown Verified 05/16/20 09:12 meperidine HCl [From Demerol] Allergy Unknown Verified 05/16/20 09:12 povidone-iodine Allergy Unknown Verified 05/16/20 09:12 [From Betadine] soap [From Betadine] Allergy Unknown Verified 05/16/20 09:12 Sulfa (Sulfonamide Allergy Unknown Verified 05/16/20 09:12 Antibiotics) Review of Systems ROS Statement: Those systems with pertinent positive or pertinent negative responses have been documented in the HPI. ROS Other: All systems not noted in ROS Statement are negative. Past Medical History Past Medical History: Blood Disorder, COPD, Dialysis, GERD/Reflux, Hyperlipidemia, Pulmonary Embolus (PE), Renal Disease, Thyroid Disorder Additional Past Medical History / Comment(s): scleraderma, gout, peritoneal dialysis. 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, Lupus History of Any Multi-Drug Resistant Organisms: None Reported Past Surgical History: Bowel Resection, Cholecystectomy, Hysterectomy, Orthopedic Surgery Additional Past Surgical History / Comment(s): left knee replacement, insertion of peritoneal diaylsis, thyroidectomy due to goiter, kidney biopsy X 2, Lung biopsy, Graft Left arm with failure, Right pointer finger amputation Past Anesthesia/Blood Transfusion Reactions: No Reported Reaction Past Psychological History: Anxiety, Depression Smoking Status: Never smoker Past Alcohol Use History: None Reported Past Drug Use History: None Reported - Past Family History Mother Additional Family Medical History / Comment(s): breast CA , mitrale valve damage, kidney disease, gout Father Family Medical History: Thyroid Disorder General Exam Limitations: no limitations Course Vital Signs 05/16/20 05/16/20 08:19 11:16 Temperature 98.4 F Pulse Rate 68 69 Respiratory 18 18 Rate Blood Pressure 140/81 129/77 O2 Sat by Pulse 100 100 Oximetry Medical Decision Making - Lab Data Result diagrams: 05/16/20 08:57 05/16/20 08:57 Lab Results 05/16/20 05/16/20 05/16/20 Range/Units 08:57 08:57 08:57 WBC 8.9 (3.8-10.6) k/uL RBC 2.92 L (3.80-5.40) m/uL Hgb 8.7 L (11.4-16.0) gm/dL Hct 27.0 L (34.0-46.0) % MCV 92.4 (80.0-100.0) fL MCH 29.7 (25.0-35.0) pg MCHC 32.1 (31.0-37.0) g/dL RDW 15.8 H (11.5-15.5) % Plt Count 600 H (150-450) k/uL Neutrophils % 74 % Lymphocytes % 17 % Monocytes % 5 % Eosinophils % 2 % Basophils % 1 % Neutrophils # 6.5 (1.3-7.7) k/uL Lymphocytes # 1.5 (1.0-4.8) k/uL Monocytes # 0.5 (0-1.0) k/uL Eosinophils # 0.2 (0-0.7) k/uL Basophils # 0.0 (0-0.2) k/uL Hypochromasia Moderate PT 11.8 (9.0-12.0) sec INR 1.2 H (<1.2) APTT 31.8 H (22.0-30.0) sec Sodium 135 L (137-145) mmol/L Potassium 3.7 (3.5-5.1) mmol/L Chloride 95 L (98-107) mmol/L Carbon Dioxide 28 (22-30) mmol/L Anion Gap 12 mmol/L BUN 23 H (7-17) mg/dL Creatinine 4.05 H (0.52-1.04) mg/dL Est GFR (CKD-EPI)AfAm 12 (>60 ml/min/1.73 sqM) Est GFR (CKD-EPI)NonAf 10 (>60 ml/min/1.73 sqM) Glucose 74 (74-99) mg/dL Calcium 9.9 (8.4-10.2) mg/dL Total Bilirubin 0.5 (0.2-1.3) mg/dL AST 21 (14-36) U/L ALT 10 (4-34) U/L Alkaline Phosphatase 86 (38-126) U/L Total Protein 5.9 L (6.3-8.2) g/dL Albumin 3.2 L (3.5-5.0) g/dL Urine Color Urine Appearance (Clear) Urine pH (5.0-8.0) Ur Specific [place] (1.001-1.035) Urine Protein (Negative) Urine Glucose (UA) (Negative) Urine Ketones (Negative) Urine Blood (Negative) Urine Nitrite (Negative) Urine Bilirubin (Negative) Urine Urobilinogen (<2.0) mg/dL Ur Leukocyte Esterase (Negative) Urine RBC (0-5) /hpf Urine WBC (0-5) /hpf Urine WBC Clumps (None) /hpf Ur Squamous Epith Cells (0-4) /hpf Urine Bacteria (None) /hpf Urine Mucus (None) /hpf Blood Type Blood Type Recheck Bld Type Recheck Status Antibody Screen Spec Expiration Date 05/16/20 05/16/20 Range/Units 08:57 08:57 WBC (3.8-10.6) k/uL RBC (3.80-5.40) m/uL Hgb (11.4-16.0) gm/dL Hct (34.0-46.0) % MCV (80.0-100.0) fL MCH (25.0-35.0) pg MCHC (31.0-37.0) g/dL RDW (11.5-15.5) % Plt Count (150-450) k/uL Neutrophils % % Lymphocytes % % Monocytes % % Eosinophils % % Basophils % % Neutrophils # (1.3-7.7) k/uL Lymphocytes # (1.0-4.8) k/uL Monocytes # (0-1.0) k/uL Eosinophils # (0-0.7) k/uL Basophils # (0-0.2) k/uL Hypochromasia PT (9.0-12.0) sec INR (<1.2) APTT (22.0-30.0) sec Sodium (137-145) mmol/L Potassium (3.5-5.1) mmol/L Chloride (98-107) mmol/L Carbon Dioxide (22-30) mmol/L Anion Gap mmol/L BUN (7-17) mg/dL Creatinine (0.52-1.04) mg/dL Est GFR (CKD-EPI)AfAm (>60 ml/min/1.73 sqM) Est GFR (CKD-EPI)NonAf (>60 ml/min/1.73 sqM) Glucose (74-99) mg/dL Calcium (8.4-10.2) mg/dL Total Bilirubin (0.2-1.3) mg/dL AST (14-36) U/L ALT (4-34) U/L Alkaline Phosphatase (38-126) U/L Total Protein (6.3-8.2) g/dL Albumin (3.5-5.0) g/dL Urine Color Yellow Urine Appearance Turbid H (Clear) Urine pH 7.5 (5.0-8.0) Ur Specific [place] 1.019 (1.001-1.035) Urine Protein 3+ H (Negative) Urine Glucose (UA) Negative (Negative) Urine Ketones Trace H (Negative) Urine Blood Moderate H (Negative) Urine Nitrite Negative (Negative) Urine Bilirubin Negative (Negative) Urine Urobilinogen <2.0 (<2.0) mg/dL Ur Leukocyte Esterase Large H (Negative) Urine RBC 11 H (0-5) /hpf Urine WBC >182 H (0-5) /hpf Urine WBC Clumps Many H (None) /hpf Ur Squamous Epith Cells 14 H (0-4) /hpf Urine Bacteria Occasional H (None) /hpf Urine Mucus Occasional H (None) /hpf Blood Type A Positive Blood Type Recheck A Pos Bld Type Recheck Status No Antibody Screen NEGATIVE Spec Expiration Date 05/19/2020 - 2356 Disposition Clinical Impression: Bacteriuria Disposition: HOME SELF-CARE Condition: Good Instructions (If sedation given, give patient instructions): Medical Clearance for Psychiatric Care (ED) Prescriptions: Cephalexin [Keflex] 500 mg PO Q6HR 5 Days #20 cap Is patient prescribed a controlled substance at d/c from ED?: No Referrals: Tano Bernard DO [Primary Care Provider] - 1-2 days Time of Disposition: 11:25
[2020-05-16] MEDS ORDERED: ACETAMINOPHEN TAB 325 MG TAB PO STA (09:36)
[2020-05-16 09:41] LABS: Basophils % (A) 1 %; Eosinophils # (A) 0.2 k/uL (0-0.7); Eosinophils % (A) 2 %; HGB 8.7 gm/dL (11.4-16.0); Hypochromasia Moderate; Lymphocytes # (A) 1.5 k/uL (1.0-4.8); Lymphocytes % (A) 17 %; MCH 29.7 pg (25.0-35.0); MCHC 32.1 g/dL (31.0-37.0); MCV 92.4 fL (80.0-100.0); Mean Platelet Volume 7.8; Monocytes # (A) 0.5 k/uL (0-1.0); Monocytes % (A) 5 %; Neutrophils # (A) 6.5 k/uL (1.3-7.7); Neutrophils % (A) 74 %; Platelet Count 600 k/uL (150-450); RBC 2.92 m/uL (3.80-5.40); RDW 15.8 % (11.5-15.5); WBC 8.9 k/uL (3.8-10.6)
[2020-05-16 09:50] LABS: Albumin 3.2 g/dL (3.5-5.0); Calcium 9.9 mg/dL (8.4-10.2); Potassium 3.7 mmol/L (3.5-5.1); Total Bilirubin 0.5 mg/dL (0.2-1.3); Total Protein 5.9 g/dL (6.3-8.2)
[2020-05-16 09:52] LABS: INR 1.2 (<1.2); Partial Thromboplastin Time 31.8 sec (22.0-30.0); Prothrombin Time 11.8 sec (9.0-12.0)
[2020-05-16 10:44] LABS: Appearance,Urine Turbid (Clear); Bacteria,Urine Occasional /hpf; Bilirubin,Urine Negative (Negative); Blood,Urine Moderate (Negative); Color,Urine Yellow; Glucose,Urine (UA) Negative (Negative); Ketones,Urine Trace (Negative); Leukocyte Esterase,Urine Large (Negative); Mucus,Urine Occasional /hpf; Nitrite,Urine Negative (Negative); PH, Urine 7.5 (5.0-8.0); Protein,Urine 3+ (Negative); RBC,Urine 11 /hpf (0-5); Specific Gravity,Urine 1.019 (1.001-1.035); Squamous Epithelial Cell,Urine 14 /hpf (0-4); Urobilinogen,Urine <2.0 mg/dL (<2.0); WBC,Urine >182 /hpf (0-5)
[2020-05-16] MEDS ORDERED: cefTRIAXone IN SWFI 1,000 MG/10 ML SYRINGE IVP STA (10:47)
[2020-05-16] MEDS ORDERED: MORPHINE SULFATE 4 MG/ML SYRINGE IV STA (10:55)
[2020-05-16 11:49] VITALS: BP 122/74; PULSE 66; RESP 16
== END 2020-05-16 12:20 | disposition home or self-care (01) ==
LOC: EC 08:18
DX: R82.71 Bacteriuria (principal); N39.0 Urinary tract infection, site not specified; B96.20 Unspecified Escherichia coli [E. coli] as the cause of diseases classified elsewhere; N18.6 End stage renal disease; K21.9 Gastro-esophageal reflux disease without esophagitis; I26.99 Other pulmonary embolism without acute cor pulmonale; E07.9 Disorder of thyroid, unspecified; E78.5 Hyperlipidemia, unspecified; F41.9 Anxiety disorder, unspecified; F32.9 Major depressive disorder, single episode, unspecified; Z79.890 Hormone replacement therapy; Z79.899 Other long term (current) drug therapy; Z79.01 Long term (current) use of anticoagulants; Z91.048 Other nonmedicinal substance allergy status; Z88.5 Allergy status to narcotic agent; Z88.2 Allergy status to sulfonamides; Z88.3 Allergy status to other anti-infective agents; Z88.8 Allergy status to other drugs, medicaments and biological substances; Z96.652 Presence of left artificial knee joint; Z99.2 Dependence on renal dialysis
CPT/HCPCS: 36415; 93005; 86900; 86901; 80053; 85025; 85610; 85730; 86850; 81001; 99285; 96374; 96375; J2270; J0696

== ENCOUNTER 2020-05-19 23:19 | Observation (INO) | payer MEDICARE, OTHER, BC ==
[2020-05-19 23:52] LABS: Glucose,Whole Blood 107 mg/dL (75-99)
--- NOTE | 2020-05-20 00:18 | ED ---
Altered Mental Status HPI - General Chief Complaint: Altered Mental Status Stated Complaint: mental health Time Seen by Provider: 05/19/20 23:30 Source: patient, EMS Mode of arrival: EMS Limitations: altered mental status (Acute delirium) - History of Present Illness Initial Comments: This patient is 74-year-old woman sent from her extended care facility to have evaluation for being possibly delirious. Staff states that the patient is noncompliant with treatment and also appeared to be more disoriented than his usual. It is reported that previously when this occurred she had urinary tract infection MD Complaint: altered mental status, confusion -: hour(s) Severity: moderate Consistency of Symptoms: getting worse Context: history of similar presentation Associated Symptoms: denies other symptoms - Related Data Home Medications Medication Instructions Recorded Confirmed Atorvastatin [Lipitor] 20 mg PO HS@209907/28/18 05/16/20 Doxepin HCl 75 mg PO HS@209907/28/18 05/16/20 Folic Acid 0.8 mg PO DAILY@0800 07/28/18 05/16/20 Levothyroxine Sodium [Synthroid] 125 mcg PO DAILY@0600 07/28/18 05/16/20 azaTHIOprine [Imuran] 25 mg PO DAILY@0800 07/28/18 05/16/20 Cyclobenzaprine [Flexeril] 10 mg PO BID@0800,1700 03/13/20 05/16/20 Calcium Acetate [PhosLo] 667 mg PO TID@0800,1200,1700 04/26/20 05/16/20 Calcium Carb-Mag Carb-Folic 1 tab PO TID@0800,1200,1700 04/26/20 05/16/20 [Magnebind 400] Ondansetron [Zofran] 4 mg PO TID PRN 04/26/20 05/16/20 Apixaban [Eliquis] 2.5 mg PO BID@0800,1700 05/06/20 05/16/20 Docusate [Colace] 100 mg PO DAILY@0800 05/06/20 05/16/20 Pantoprazole Sodium [Protonix] 40 mg PO BID@0800,1700 05/06/20 05/16/20 ALPRAZolam [Xanax] 0.25 mg PO BID PRN 05/16/20 05/16/20 Acetaminophen [Tylenol] 650 mg PO Q4H PRN 05/16/20 05/16/20 Liqacal 60 ml PO BID 05/16/20 05/16/20 Magic Cup 1,500 ml PO DAILY@1500 05/16/20 05/16/20 Midodrine HCl 10 mg PO TID 05/16/20 05/16/20 Previous Rx's Medication Instructions Recorded Cephalexin [Keflex] 500 mg PO Q6HR 5 Days #20 cap 05/16/20 Allergies Allergy/AdvReac Type Severity Reaction Status Date / Time adhesive Allergy Unknown Verified 05/19/20 23:31 allopurinol Allergy Unknown Verified 05/19/20 23:31 codeine Allergy Unknown Verified 05/19/20 23:31 iodine Allergy Unknown Verified 05/19/20 23:31 meperidine HCl [From Demerol] Allergy Unknown Verified 05/19/20 23:31 povidone-iodine Allergy Unknown Verified 05/19/20 23:31 [From Betadine] soap [From Betadine] Allergy Unknown Verified 05/19/20 23:31 Sulfa (Sulfonamide Allergy Unknown Verified 05/19/20 23:31 Antibiotics) Review of Systems ROS Statement: Those systems with pertinent positive or pertinent negative responses have been documented in the HPI. ROS Other: All systems not noted in ROS Statement are negative. Limitations: ROS unobtainable due to patients medical condition (Acute delirium) Constitutional: Denies: fever Respiratory: Denies: cough, dyspnea Cardiovascular: Denies: chest pain Gastrointestinal: Denies: abdominal pain, vomiting, diarrhea Musculoskeletal: Denies: back pain Neurological: Denies: headache Past Medical History Past Medical History: Blood Disorder, COPD, Dialysis, GERD/Reflux, Hyper lipidemia, Pulmonary Embolus (PE), Renal Disease, Thyroid Disorder Additional Past Medical History / Comment(s): scleraderma, gout, peritoneal dialysis. 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, Lupus History of Any Multi-Drug Resistant Organisms: None Reported Past Surgical History: Bowel Resection, Cholecystectomy, Hysterectomy, Orthopedic Surgery Additional Past Surgical History / Comment(s): left knee replacement, insertion of peritoneal diaylsis, thyroidectomy due to goiter, kidney biopsy X 2, Lung biopsy, Graft Left arm with failure, Right pointer finger amputation Past Anesthesia/Blood Transfusion Reactions: No Reported Reaction Past Psychological History: Anxiety, Depression Smoking Status: Never smoker Past Alcohol Use History: None Reported Past Drug Use History: None Reported - Past Family History Mother Additional Family Medical History / Comment(s): breast CA , mitrale valve damage, kidney disease, gout Father Family Medical History: Thyroid Disorder General Exam General appearance: alert, other (Patient appears mildly delirious) Head exam: Present: atraumatic, normocephalic Eye exam: Present: normal appearance. Absent: scleral icterus, conjunctival injection ENT exam: Present: normal oropharynx Neck exam: Present: normal inspection Respiratory exam: Present: normal lung sounds bilaterally. Absent: respiratory distress, wheezes, rales, rhonchi, stridor Cardiovascular Exam: Present: regular rate, normal rhythm, normal heart sounds. Absent: systolic murmur, diastolic murmur, rubs, gallop GI/Abdominal exam: Present: soft. Absent: distended, tenderness, guarding, rebound, rigid, mass Extremities exam: Present: normal inspection, normal capillary refill. Absent: pedal edema, calf tenderness Back exam: Present: normal inspection. Absent: CVA tenderness (R), CVA tenderness (L) Neurological exam: Present: alert, CN II-XII intact. Absent: oriented X3 (Patient is oriented to person), motor sensory deficit Skin exam: Present: warm, dry, intact, normal color. Absent: rash Course Vital Signs 05/19/20 05/20/20 05/20/20 23:22 00:42 04:27 Temperature 97.9 F Pulse Rate 92 89 78 Respiratory 16 18 18 Rate Blood Pressure 134/107 122/85 141/80 O2 Sat by Pulse 99 99 98 Oximetry Medical Decision Making - Medical Decision Making Patient 74-year-old woman in with delirium. Patient does appear to have rec urrent urinary tract infection. Started on Rocephin and patient be admitted, also consultation to nephrology has patient is dialysis patient however she did have her last dialysis session as scheduled. No evidence of fluid overload. - Lab Data Result diagrams: 05/20/20 00:03 05/20/20 00:03 Lab Results 05/19/20 05/20/20 05/20/20 Range/Units 23:50 00:03 00:03 WBC 9.0 (3.8-10.6) k/uL RBC 3.04 L (3.80-5.40) m/uL Hgb 8.5 L (11.4-16.0) gm/dL Hct 28.0 L (34.0-46.0) % MCV 92.0 (80.0-100.0) fL MCH 28.0 (25.0-35.0) pg MCHC 30.4 L (31.0-37.0) g/dL RDW 16.1 H (11.5-15.5) % Plt Count 683 H (150-450) k/uL Neutrophils % 85 % Lymphocytes % 8 % Monocytes % 5 % Eosinophils % 0 % Basophils % 0 % Neutrophils # 7.6 (1.3-7.7) k/uL Lymphocytes # 0.7 L (1.0-4.8) k/uL Monocytes # 0.5 (0-1.0) k/uL Eosinophils # 0.0 (0-0.7) k/uL Basophils # 0.0 (0-0.2) k/uL Hypochromasia Moderate Anisocytosis Slight PT (9.0-12.0) sec INR (<1.2) APTT (22.0-30.0) sec Sodium 129 L (137-145) mmol/L Potassium 4.5 (3.5-5.1) mmol/L Chloride 93 L (98-107) mmol/L Carbon Dioxide 28 (22-30) mmol/L Anion Gap 8 mmol/L BUN 10 (7-17) mg/dL Creatinine 2.33 H (0.52-1.04) mg/dL Est GFR (CKD-EPI)AfAm 23 (>60 ml/min/1.73 sqM) Est GFR (CKD-EPI)NonAf 20 (>60 ml/min/1.73 sqM) Glucose 106 H (74-99) mg/dL POC Glucose (mg/dL) 107 H (75-99) mg/dL POC Glu Custodial Foreman ID Sprague, Clarisse Calcium 9.5 (8.4-10.2) mg/dL Total Bilirubin 0.8 (0.2-1.3) mg/dL AST 36 (14-36) U/L ALT 11 (4-34) U/L Alkaline Phosphatase 71 (38-126) U/L Troponin I (0.000-0.034) ng/mL Total Protein 6.3 (6.3-8.2) g/dL Albumin 3.3 L (3.5-5.0) g/dL Urine Color Urine Appearance (Clear) Urine pH (5.0-8.0) Ur Specific [place] (1.001-1.035) Urine Protein (Negative) Urine Glucose (UA) (Negative) Urine Ketones (Negative) Urine Blood (Negative) Urine Nitrite (Negative) Urine Bilirubin (Negative) Urine Urobilinogen (<2.0) mg/dL Ur Leukocyte Esterase (Negative) Urine RBC (0-5) /hpf Urine WBC (0-5) /hpf Urine WBC Clumps (None) /hpf Ur Squamous Epith Cells (0-4) /hpf 05/20/20 05/20/20 05/20/20 Range/Units 00:03 00:52 01:15 WBC (3.8-10.6) k/uL RBC (3.80-5.40) m/uL Hgb (11.4-16.0) gm/dL Hct (34.0-46.0) % MCV (80.0-100.0) fL MCH (25.0-35.0) pg MCHC (31.0-37.0) g/dL RDW (11.5-15.5) % Plt Count (150-450) k/uL Neutrophils % % Lymphocytes % % Monocytes % % Eosinophils % % Basophils % % Neutrophils # (1.3-7.7) k/uL Lymphocytes # (1.0-4.8) k/uL Monocytes # (0-1.0) k/uL Eosinophils # (0-0.7) k/uL Basophils # (0-0.2) k/uL Hypochromasia Anisocytosis PT 11.9 (9.0-12.0) sec INR 1.2 H (<1.2) APTT 28.8 (22.0-30.0) sec Sodium (137-145) mmol/L Potassium (3.5-5.1) mmol/L Chloride (98-107) mmol/L Carbon Dioxide (22-30) mmol/L Anion Gap mmol/L BUN (7-17) mg/dL Creatinine (0.52-1.04) mg/dL Est GFR (CKD-EPI)AfAm (>60 ml/min/1.73 sqM) Est GFR (CKD-EPI)NonAf (>60 ml/min/1.73 sqM) Glucose (74-99) mg/dL POC Glucose (mg/dL) (75-99) mg/dL POC Glu Custodial Foreman ID Calcium (8.4-10.2) mg/dL Total Bilirubin (0.2-1.3) mg/dL AST (14-36) U/L ALT (4-34) U/L Alkaline Phosphatase (38-126) U/L Troponin I <0.012 (0.000-0.034) ng/mL Total Protein (6.3-8.2) g/dL Albumin (3.5-5.0) g/dL Urine Color Yellow Urine Appearance Cloudy H (Clear) Urine pH 7.0 (5.0-8.0) Ur Specific [place] 1.013 (1.001-1.035) Urine Protein 2+ H (Negative) Urine Glucose (UA) Negative (Negative) Urine Ketones Negative (Negative) Urine Blood Small H (Negative) Urine Nitrite Negative (Negative) Urine Bilirubin Negative (Negative) Urine Urobilinogen <2.0 (<2.0) mg/dL Ur Leukocyte Esterase Large H (Negative) Urine RBC 6 H (0-5) /hpf Urine WBC >182 H (0-5) /hpf Urine WBC Clumps Many H (None) /hpf Ur Squamous Epith Cells 1 (0-4) /hpf - EKG Data -: EKG Interpreted by Fl EKG shows normal: sinus rhythm, axis (Normal), intervals (Normal), ST-T waves (Inferior T inversions.) Rate: normal (Rate 89 bpm) Interpretation: other (Possible old anterior infarct.) Disposition Clinical Impression: Urinary tract infection, Altered mental status Disposition: ADMITTED IP TO THIS HOSP Condition: Fair
[2020-05-20 00:19] LABS: Anisocytosis Slight; Basophils % (A) 0 %; Eosinophils % (A) 0 %; HGB 8.5 gm/dL (11.4-16.0); Hypochromasia Moderate; Lymphocytes # (A) 0.7 k/uL (1.0-4.8); Lymphocytes % (A) 8 %; MCHC 30.4 g/dL (31.0-37.0); Mean Platelet Volume 7.1; Monocytes # (A) 0.5 k/uL (0-1.0); Monocytes % (A) 5 %; Neutrophils # (A) 7.6 k/uL (1.3-7.7); Neutrophils % (A) 85 %; Platelet Count 683 k/uL (150-450); RBC 3.04 m/uL (3.80-5.40); RDW 16.1 % (11.5-15.5)
[2020-05-20 00:29] LABS: Albumin 3.3 g/dL (3.5-5.0); Calcium 9.5 mg/dL (8.4-10.2); Total Bilirubin 0.8 mg/dL (0.2-1.3); Total Protein 6.3 g/dL (6.3-8.2)
--- NOTE | 2020-05-20 00:35 | CT ---
EXAM: CT Head Without Intravenous Contrast CLINICAL HISTORY: Altered mental status. TECHNIQUE: Axial computed tomography images of the head/brain without intravenous contrast. CTDI is 49.27 mGy and DLP is 1142.4 mGy-cm. This CT exam was performed using one or more of the following dose reduction techniques: automated exposure control, adjustment of the mA and/or kV according to patient size, and/or use of iterative reconstruction technique. COMPARISON: 05/06/2020. FINDINGS: Brain: No abnormal extra-axial collection. No hemorrhage. Midline shift: No midline shift or mass-effect. Midline anatomy is unremarkable. Ventricles: There is prominence of the ventricular system, cortical sulci, basilar cisterns, compatible with age-related atrophy. Bones/joints: The calvarium is within normal limits. Hyperostosis frontalis. No acute fracture. Soft tissues: Unremarkable. Sinuses: Visualized sinuses are unremarkable. Mastoid air cells: Mastoid air cells are well pneumatized. IMPRESSION: 1. Age-related atrophy and small vessel disease of aging. 2. No acute intracranial pathology per 3. If there is concern for etiology such as early acute lacunar infarcts, magnetic resonance imaging of the brain with diffusion-weighted sequences should be performed.
--- NOTE | 2020-05-20 00:38 | XR ---
EXAM: XR Chest, 1 View CLINICAL HISTORY: ITS.REASON XR Reason: altered mental status TECHNIQUE: Frontal view of the chest. COMPARISON: 05/06/2020. FINDINGS: Lungs: Lungs are well aerated. Minimal subsegmental atelectasis at the left lung base. Probable scarring periphery of the left midlung. Pleural space: Unremarkable. No pneumothorax. Heart: There is cardiomegaly. Mediastinum: Unremarkable. Bones/joints: Osteopenia. Gentle dextro scoliosis of the thoracic spine. Vasculature: Atherosclerotic disease of the aortic knob. Tubes, lines and devices: Right subclavian catheter is noted in place with its tip at the distal superior vena cava. Upper abdomen: Postsurgical changes mid upper abdomen. IMPRESSION: 1. Cardiomegaly. 2. Minimal subsegmental atelectasis left lung base.
[2020-05-20 00:47] LABS: Potassium 4.5 mmol/L (3.5-5.1)
[2020-05-20 01:15] LABS: Appearance,Urine Cloudy (Clear); Bilirubin,Urine Negative (Negative); Blood,Urine Small (Negative); Color,Urine Yellow; Glucose,Urine (UA) Negative (Negative); Ketones,Urine Negative (Negative); Leukocyte Esterase,Urine Large (Negative); Nitrite,Urine Negative (Negative); Protein,Urine 2+ (Negative); RBC,Urine 6 /hpf (0-5); Specific Gravity,Urine 1.013 (1.001-1.035); Squamous Epithelial Cell,Urine 1 /hpf (0-4); Urobilinogen,Urine <2.0 mg/dL (<2.0); WBC,Urine >182 /hpf (0-5)
[2020-05-20 01:34] LABS: INR 1.2 (<1.2); Partial Thromboplastin Time 28.8 sec (22.0-30.0); Prothrombin Time 11.9 sec (9.0-12.0)
[2020-05-20] MEDS ORDERED: SODIUM CHLORIDE 0.9% 1,000 ML IV SCH (03:30)
[2020-05-20] MEDS ORDERED: NALOXONE 0.4 MG/ML 1 ML VIAL IV PRN (03:30)
[2020-05-20] MEDS ORDERED: ACETAMINOPHEN TAB 325 MG TAB PO PRN (03:30)
[2020-05-20] MEDS ORDERED: ONDANSETRON 4 MG TAB PO PRN (03:31)
[2020-05-20] MEDS ORDERED: LORazepam 2 MG/ML INJ IV STA (03:43)
[2020-05-20] MEDS: LEVOTHYROXINE 125 MCG TAB PO SCH (05:05)
[2020-05-20] MEDS ORDERED: NON FORMULARY DRUG (Folic Acid [Folic Acid] 0.8 MG Capsule) PO SCH (08:00)
[2020-05-20] MEDS ORDERED: [UNRECOGNIZED DRUG - OTHER] PO SCH (09:00)
[2020-05-20] MEDS: DOCUSATE 100 MG CAP PO SCH (09:27)
[2020-05-20] MEDS: CALCIUM ACETATE 667 MG TAB PO SCH ×3 (09:27→16:15)
[2020-05-20] MEDS: PANTOPRAZOLE 40 MG TABLET PO SCH ×2 (09:27→16:15)
[2020-05-20] MEDS: azaTHIOprine 50 MG TAB PO SCH (09:27)
[2020-05-20] MEDS: APIXABAN 2.5 MG TABLET PO SCH ×2 (09:27→16:15)
[2020-05-20] MEDS: CALCIUM CARB-MAG CARB-FOLIC 1 EACH TAB PO SCH ×3 (09:27→16:15)
[2020-05-20] MEDS: MIDODRINE 5 MG TAB PO SCH ×3 (09:28→16:15)
--- NOTE | 2020-05-20 09:44 | P.NPCON ---
History of Present Illness - Reason for Consult end stage renal disease - History of Present Illness Reason for consultation: End-stage renal disease History of present illness: Patient is a 74-year-old female seen in renal consultation for end-stage renal disease. She is maintained on hemodialysis on Sunday schedule. Completed dialysis yesterday. Patient was sent from an extended care facility for altered mental status. Patient was more delirious and disoriented. There was concern that she had a UTI. She did receive IV Rocephin in the ER. Urine culture is pending. Patient received Ativan and is currently sleeping. She does not answer any verbal commands. No edema. No fever or chills. Hemodynamically stable. Brain CT revealed no acute changes. No evidence of fluid overload on chest x-ray. Vital signs are stable. General: The patient appeared well nourished and normally developed. HEENT: Head exam is unremarkable. Neck is without jugular venous distension. LUNGS: Lungs are clear to auscultation and percussion. Breath sounds decreased. HEART: Rate and Rhythm are regular. ABDOMEN: Soft, nontender. EXTREMITITES: No edema. Past Medical History Past Medical History: Blood Disorder, COPD, Dialysis, GERD/Reflux, Hyperli pidemia, Pulmonary Embolus (PE), Renal Disease, Thyroid Disorder Additional Past Medical History / Comment(s): scleraderma, gout, peritoneal dialysis. 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, Lupus History of Any Multi-Drug Resistant Organisms: None Reported Past Surgical History: Bowel Resection, Cholecystectomy, Hysterectomy, Orthopedic Surgery Additional Past Surgical History / Comment(s): left knee replacement, insertion of peritoneal diaylsis, thyroidectomy due to goiter, kidney biopsy X 2, Lung biopsy, Graft Left arm with failure, Right pointer finger amputation Past Anesthesia/Blood Transfusion Reactions: No Reported Reaction Past Psychological History: Anxiety, Depression Smoking Status: Never smoker Past Alcohol Use History: None Reported Past Drug Use History: None Reported - Past Family History Mother Additional Family Medical History / Comment(s): breast CA , mitrale valve damage, kidney disease, gout Father Family Medical History: Thyroid Disorder Medications and Allergies Home Medications Medication Instructions Recorded Confirmed Type Atorvastatin [Lipitor] 20 mg PO HS@2100 07/28/18 05/20/20 History Doxepin HCl 75 mg PO HS@2100 07/28/18 05/20/20 History Folic Acid 0.8 mg PO DAILY@0800 07/28/18 05/20/20 History Levothyroxine Sodium [Synthroid] 125 mcg PO DAILY@0600 07/28/18 05/20/20 History azaTHIOprine [Imuran] 25 mg PO DAILY@0800 07/28/18 05/20/20 History Cyclobenzaprine [Flexeril] 10 mg PO BID@0800,1700 03/13/20 05/20/20 History Calcium Acetate [PhosLo] 667 mg PO TID@0800,1200,1700 04/26/20 05/20/20 History Calcium Carb-Mag Carb-Folic 1 tab PO TID@0800,1200,1700 04/26/20 05/20/20 History [Magnebind 400] Ondansetron [Zofran] 4 mg PO TID PRN 04/26/20 05/20/20 History Apixaban [Eliquis] 2.5 mg PO BID@0800,1700 05/06/20 05/20/20 History Docusate [Colace] 100 mg PO DAILY@1700 05/06/20 05/20/20 History Pantoprazole Sodium [Protonix] 40 mg PO BID@0800,1700 05/06/20 05/20/20 History ALPRAZolam [Xanax] 0.25 mg PO BID PRN 05/16/20 05/20/20 History Acetaminophen [Tylenol] 650 mg PO Q4H PRN 05/16/20 05/20/20 History Midodrine HCl 10 mg PO TID 05/16/20 05/20/20 History Cephalexin [Keflex] 500 mg PO BID@1200,2100 05/20/20 05/20/20 History Collagenase [Santyl] 1 applic TOPICAL DAILY 05/20/20 05/20/20 History Lactose-Reduced Food [Ensure Plus] 237 ml PO TID@0800,1200,1700 05/20/20 05/20/20 History risperiDONE ODT [RisperDAL M-TAB] 1 mg PO DAILY@1500 05/20/20 05/20/20 History Allergies Allergy/AdvReac Type Severity Reaction Status Date / Time adhesive Allergy Unknown Verified 05/20/20 08:20 allopurinol Allergy Unknown Verified 05/20/20 08:20 codeine Allergy Unknown Verified 05/20/20 08:20 iodine Allergy Unknown Verified 05/20/20 08:20 meperidine HCl [From Demerol] Allergy Unknown Verified 05/20/20 08:20 povidone-iodine Allergy Unknown Verified 05/20/20 08:20 [From Betadine] soap [From Betadine] Allergy Unknown Verified 05/20/20 08:20 Sulfa (Sulfonamide Allergy Unknown Verified 05/20/20 08:20 Antibiotics) Physical Exam Vitals: Vital Signs Temp Pulse Pulse Resp BP BP Pulse Ox 05/20/20 07:06 97.6 F 67 17 103/64 97 05/20/20 04:27 78 18 141/80 98 05/20/20 00:42 89 18 122/85 99 05/19/20 23:22 97.9 F 92 16 134/107 99 Intake and Output 05/19/20 05/20/20 05/20/20 22:59 06:59 14:59 Intake Total 40 Balance 40 Intake: Intake, IV Titration 40 Amount Sodium Chloride 0.9% 1, 40 000 ml @ 20 mls/hr IV . Q24H [facility] Rx#:[id number] Other: Weight 108.862 kg Results - Lab Results Most recent lab results Calcium 9.5 mg/dL (8.4-10.2) 05/20/20 00:03 05/20/20 00:03 05/20/20 00:03 Assessment and Plan Plan: Assessment: 1. End-stage renal disease maintained on hemodialysis on Sunday schedule. 2. Altered mental status with concern for UTI. 3. 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 4. Chronic hypotension maintained on midodrine. 5. Hyponatremia secondary to chronic kidney disease. 6. Anemia of chronic kidney disease. Plan: Hemodialysis tomorrow. Check iron studies. Add Aranesp. Follow-up cultures. Thank you for the consultation. I will continue to follow the patient with you during her hospital stay.
[2020-05-20] MEDS ORDERED: DARBEPOETIN ALFA 40 MCG/0.4 ML SYRINGE SQ SCH (11:00)
[2020-05-20] MEDS ORDERED: NON FORMULARY DRUG (Lactose-Reduced Food [Ensure Plus] 237 ML Liquid) PO SCH (13:26)
[2020-05-20] MEDS: SODIUM CHLORIDE 0.9% 1,000 ML IV SCH ×2 (14:59→22:19)
[2020-05-20] MEDS: COLLAGENASE 250 UNIT/GM OINTMENT 30 GM TUBE TOPICAL SCH (15:00)
[2020-05-20] MEDS ORDERED: NON FORMULARY DRUG (Magic Cup 1 EACH Ml) PO SCH (15:00)
[2020-05-20 15:36] LABS: % Iron Saturation 5.23 (12.00-45.00)
--- NOTE | 2020-05-20 17:41 | P.HPIM ---
History of Present Illness H&P Date: 05/20/20 Chief Complaint: Possible delirium History of presenting complaint: Patient presented to ER from the [facility], being followed by Dr. Bernard. for possible delirium. Apparently patient has been noncompliant with the treatment and appeared to be more disoriented. As per the EMS report patient was sitting in the region in the lobby of [facility] and yelling at staff. She was becoming combative and threatening the staff and tried to hit them. Patient is reason GI bleed in a UTI for which she was at [facility] for rehab. Patient not the best of historians. She denies any pain. No shortness of breath. Appetite is okay. Patient noticed today laying in bed comfortable. In the ER given a dose of IV ceftriaxone. 4 infected appearing urine. Review of systems: GEN.: Weak EYES: None HEENT: None NECK: None RESPIRATORY: None CARDIOVASCULAR: None GASTROINTESTINAL: None GENITOURINARY: None MUSCULOSKELETAL: None LYMPHATICS: None HEMATOLOGICAL: None PSYCHIATRY: Currently calm NEUROLOGICAL: None Past medical history to include: COPD, end-stage kidney disease on hemodialysis from underlying FSGS, GERD, hyperlipidemia, scleroderma, aspirin embolism in 2016,, chronic lupus, anxiety depression, anemia of chronic kidney disease total ulcer with GI bleed for which patient is on a PPI, hypothyroid, hyperlipidemia Social history: No history of smoking or alcohol. Currently at rehab at [facility]. Physical examination: VITAL SIGNS: 97.9, 92, 16, 122/85, 99% room air GENERAL: BMI 38.7, laying in bed, comfortable. EYES: Pupils equal. Conjunctiva normal. HEENT: External appearance of nose and ears normal, oral cavity grossly normal. NECK: JVD not raised; masses not palpable. HEART: First and second heart sounds are normal; no edema. LUNGS: Respiratory rate normal; clear to auscultation. ABDOMEN: Soft, nontender, liver spleen not palpable, no masses palpable. PSYCH: [Patient is able to answer questions. Not sexually in the hospital was the year and the month.. NEUROLOGICAL: Cranial nerves grossly intact; no facial asymmetry, power and sensation grossly intact. LYMPHATICS: No lymph nodes palpable in the axilla and neck INVESTIGATIONS, reviewed in the clinical context: White count 19 globin 8.5 platelets 683 sodium 129 potassium 4.5 creatinine 2.33 UA positive for leukoesterase, WBC EKG tracing personally reviewed by me-bowel sinus rhythm, poor R-wave progression Chest x-ray film personally reviewed by me-lung holley clear Investigations: -Acute delirium. Possibly from UTI -Acute UTI from cystitis -COPD -End-stage kidney disease on hemodialysis from underlying FSGS -GERD and-hyperlipidemia -Scleroderma -Chronic pulmonary embolism in 2016, on eliquis -Hypothyroid -Hyperlipidemia -Duodenal ulcer with recent bleed for which patient is on PPI -Medical debility for which patient underwent rehab -Chronic kidney disease middle bone disease on phosphate binders -Currently getting rehab at [facility] Plan: We'll continue the patient for another IV dose of ceftriaxone. Cultures are pending. Home medications resumed. We will watch another 24 hours. Should be able to return to the [facility] tomorrow. Consult nephrology for hemodialysis. Patient scheduled for hemodialysis tomorrow. Past Medical History Past Medical History: Blood Disorder, COPD, Dialysis, GERD/Reflux, Hyperlipidemia, Pulmonary Embolus (PE), Renal Disease, Thyroid Disorder Additional Past Medical History / Comment(s): scleraderma, gout, peritoneal dialysis. 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, Lupus History of Any Multi-Drug Resistant Organisms: None Reported Past Surgical History: Bowel Resection, Cholecystectomy, Hysterectomy, Orthopedi c Surgery Additional Past Surgical History / Comment(s): left knee replacement, insertion of peritoneal diaylsis, thyroidectomy due to goiter, kidney biopsy X 2, Lung biopsy, Graft Left arm with failure, Right pointer finger amputation Past Anesthesia/Blood Transfusion Reactions: No Reported Reaction Past Psychological History: Anxiety, Depression Smoking Status: Never smoker Past Alcohol Use History: None Reported Past Drug Use History: None Reported - Past Family History Mother Additional Family Medical History / Comment(s): breast CA , mitrale valve damage, kidney disease, gout Father Family Medical History: Thyroid Disorder Medications and Allergies Home Medications Medication Instructions Recorded Confirmed Type Atorvastatin [Lipitor] 20 mg PO HS@2100 07/28/18 05/20/20 History Doxepin HCl 75 mg PO HS@2100 07/28/18 05/20/20 History Folic Acid 0.8 mg PO DAILY@0800 07/28/18 05/20/20 History Levothyroxine Sodium [Synthroid] 125 mcg PO DAILY@0600 07/28/18 05/20/20 History azaTHIOprine [Imuran] 25 mg PO DAILY@0800 07/28/18 05/20/20 History Cyclobenzaprine [Flexeril] 10 mg PO BID@0800,1700 03/13/20 05/20/20 History Calcium Acetate [PhosLo] 667 mg PO TID@0800,1200,1700 04/26/20 05/20/20 History Calcium Carb-Mag Carb-Folic 1 tab PO TID@0800,1200,1700 04/26/20 05/20/20 History [Magnebind 400] Ondansetron [Zofran] 4 mg PO TID PRN 04/26/20 05/20/20 History Apixaban [Eliquis] 2.5 mg PO BID@0800,1700 05/06/20 05/20/20 History Docusate [Colace] 100 mg PO DAILY@1700 05/06/20 05/20/20 History Pantoprazole Sodium [Protonix] 40 mg PO BID@0800,1700 05/06/20 05/20/20 History ALPRAZolam [Xanax] 0.25 mg PO BID PRN 05/16/20 05/20/20 History Acetaminophen [Tylenol] 650 mg PO Q4H PRN 05/16/20 05/20/20 History Midodrine HCl 10 mg PO TID 05/16/20 05/20/20 History Cephalexin [Keflex] 500 mg PO BID@1200,2100 05/20/20 05/20/20 History Collagenase [Santyl] 1 applic TOPICAL DAILY 05/20/20 05/20/20 History Lactose-Reduced Food [Ensure Plus] 237 ml PO TID@0800,1200,1700 05/20/20 05/20/20 History risperiDONE ODT [RisperDAL M-TAB] 1 mg PO DAILY@1500 05/20/20 05/20/20 History Allergies Allergy/AdvReac Type Severity Reaction Status Date / Time adhesive Allergy Unknown Verified 05/20/20 08:20 allopurinol Allergy Unknown Verified 05/20/20 08:20 codeine Allergy Unknown Verified 05/20/20 08:20 iodine Allergy Unknown Verified 05/20/20 08:20 meperidine HCl [From Demerol] Allergy Unknown Verified 05/20/20 08:20 povidone-iodine Allergy Unknown Verified 05/20/20 08:20 [From Betadine] soap [From Betadine] Allergy Unknown Verified 05/20/20 08:20 Sulfa (Sulfonamide Allergy Unknown Verified 05/20/20 08:20 Antibiotics) Physical Exam Vitals: Vital Signs Temp Pulse Pulse Resp BP BP Pulse Ox 05/20/20 07:06 97.6 F 67 17 103/64 97 05/20/20 04:27 78 18 141/80 98 05/20/20 00:42 89 18 122/85 99 05/19/20 23:22 97.9 F 92 16 134/107 99 Intake and Output 05/19/20 05/20/20 05/20/20 22:59 06:59 14:59 Intake Total 40 Balance 40 Intake: Intake, IV Titration 40 Amount Sodium Chloride 0.9% 1, 40 000 ml @ 20 mls/hr IV . Q24H [facility] Rx#:[id number] Other: Weight 108.862 kg Results CBC & Chem 7: 05/20/20 00:03 05/20/20 00:03 Labs: Abnormal Lab Results - Last 24 Hours (Table) 05/19/20 05/20/20 05/20/20 Range/Units 23:50 00:03 00:03 RBC 3.04 L (3.80-5.40) m/uL Hgb 8.5 L (11.4-16.0) gm/dL Hct 28.0 L (34.0-46.0) % MCHC 30.4 L (31.0-37.0) g/dL RDW 16.1 H (11.5-15.5) % Plt Count 683 H (150-450) k/uL Lymphocytes # 0.7 L (1.0-4.8) k/uL INR (<1.2) Sodium 129 L (137-145) mmol/L Chloride 93 L (98-107) mmol/L Creatinine 2.33 H (0.52-1.04) mg/dL Glucose 106 H (74-99) mg/dL POC Glucose (mg/dL) 107 H (75-99) mg/dL Albumin 3.3 L (3.5-5.0) g/dL Urine Appearance (Clear) Urine Protein (Negative) Urine Blood (Negative) Ur Leukocyte Esterase (Negative) Urine RBC (0-5) /hpf Urine WBC (0-5) /hpf Urine WBC Clumps (None) /hpf 05/20/20 05/20/20 Range/Units 00:52 01:15 RBC (3.80-5.40) m/uL Hgb (11.4-16.0) gm/dL Hct (34.0-46.0) % MCHC (31.0-37.0) g/dL RDW (11.5-15.5) % Plt Count (150-450) k/uL Lymphocytes # (1.0-4.8) k/uL INR 1.2 H (<1.2) Sodium (137-145) mmol/L Chloride (98-107) mmol/L Creatinine (0.52-1.04) mg/dL Glucose (74-99) mg/dL POC Glucose (mg/dL) (75-99) mg/dL Albumin (3.5-5.0) g/dL Urine Appearance Cloudy H (Clear) Urine Protein 2+ H (Negative) Urine Blood Small H (Negative) Ur Leukocyte Esterase Large H (Negative) Urine RBC 6 H (0-5) /hpf Urine WBC >182 H (0-5) /hpf Urine WBC Clumps Many H (None) /hpf Microbiology - Last 24 Hours (Table) 05/20/20 00:52 Urine Culture - Preliminary Urine,Clean Catch Thrombosis Risk Factor Assmnt - Choose All That Apply Each Factor Represents 1 point: Obesity (BMI >25) Each Risk Factor Represents 2 Points: Age 61-74 years Each Risk Factor Represents 3 Points: Positive Factor V Leiden, Family history of DVT/PE, History of DVT/PE Thrombosis Risk Factor Assessment Total Risk Factor Score: 12 Thrombosis Risk Factor Assessment Level: High Risk
[2020-05-20] MEDS ORDERED: risperiDONE ODT 1 MG TAB PO SCH (21:00)
[2020-05-20] MEDS ORDERED: ATORVASTATIN 20 MG TAB PO SCH (21:00)
[2020-05-20] MEDS ORDERED: DOXEPIN 25 MG CAP PO SCH (21:00)
[2020-05-21] MEDS: SODIUM CHLORIDE 0.9% 1,000 ML IV SCH (05:02)
[2020-05-21] MEDS: LEVOTHYROXINE 125 MCG TAB PO SCH (05:02)
[2020-05-21] MEDS: PANTOPRAZOLE 40 MG TABLET PO SCH (07:34)
[2020-05-21] MEDS: MIDODRINE 5 MG TAB PO SCH ×2 (07:35→12:28)
[2020-05-21] MEDS: APIXABAN 2.5 MG TABLET PO SCH (07:36)
[2020-05-21] MEDS: DOCUSATE 100 MG CAP PO SCH (07:36)
[2020-05-21] MEDS: CALCIUM ACETATE 667 MG TAB PO SCH ×2 (07:36→12:29)
[2020-05-21] MEDS: CALCIUM CARB-MAG CARB-FOLIC 1 EACH TAB PO SCH ×2 (07:36→12:29)
[2020-05-21] MEDS: azaTHIOprine 50 MG TAB PO SCH (07:36)
[2020-05-21] MEDS: COLLAGENASE 250 UNIT/GM OINTMENT 30 GM TUBE TOPICAL SCH (07:45)
--- NOTE | 2020-05-21 09:26 | P.PN ---
Subjective Patient is seen in follow-up for end-stage renal disease. She is maintained on hemodialysis on Sunday schedule. Remains confused. Was initially refusing dialysis this morning but now agreeable. Vital signs are stable. General: The patient appeared well nourished and normally developed. HEENT: Head exam is unremarkable. Neck is without jugular venous distension. LUNGS: Lungs are clear to auscultation and percussion. Breath sounds decreased. HEART: Rate and Rhythm are regular. First and second heart sounds normal. No murmurs, rubs or gallops. ABDOMEN: Soft, nontender. EXTREMITITES: No clubbing, cyanosis, or edema. Objective - Vital Signs Vital signs: Vital Signs Temp 98.8 F 05/21/20 07:00 Pulse 82 05/21/20 07:00 Resp 20 05/21/20 07:00 BP 142/74 05/21/20 07:00 Pulse Ox 97 05/21/20 07:00 Intake & Output 05/20/20 05/21/20 05/21/20 18:59 06:59 18:59 Intake Total 160 300 Balance 160 300 Intake: IV 160 Sodium Chloride 0.9% 1, 160 000 ml @ 20 mls/hr IV . Q24H [facility] Rx#:[id number] Oral 300 Other: Voiding Method Incontinent Incontinent # Voids 1 - Labs CBC & Chem 7: 05/20/20 00:03 05/20/20 00:03 Labs: Abnormal Lab Results - Last 24 Hours (Table) 05/20/20 Range/Units 00:03 Iron 9 L (50-170) ug/dL TIBC 172 L (228-460) ug/dL % Saturation 5.23 L (12.00-45.00) Ferritin 1865.0 H (10.0-291.0) ng/mL Microbiology - Last 24 Hours (Table) 05/20/20 00:03 Blood Culture - Preliminary Blood No Growth after 24 hours 05/20/20 00:52 Urine Culture - Preliminary Urine,Clean Catch Assessment and Plan Plan: Assessment: 1. End-stage renal disease maintained on hemodialysis on Sunday schedule. 2. Altered mental status with concern for UTI. 3. 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 4. Chronic hypotension maintained on midodrine. 5. Hyponatremia secondary to chronic kidney disease. 6. Anemia of chronic kidney disease. High ferritin level noted. Maintained on Aranesp. Plan: Hemodialysis today. Follow-up cultures. Hep-Lock IV fluids.
[2020-05-21] MEDS ORDERED: HEPARIN SODIUM,PORCINE 5,000 UNIT/ML 1 ML VIAL ONE (10:15)
[2020-05-21 13:58] VITALS: BP 133/68; PULSE 77; RESP 16; TEMP 98.6
--- NOTE | 2020-05-21 15:28 | P.DS ---
Providers Date of admission: 05/20/20 03:30 Expected date of discharge: 05/21/20 Attending physician: Remy Lai Consults: 05/20/20 07:41 Consult Physician Routine Consulting Provider: Danis Barry Consult Reason/Comments: dialysis patient Do you want consulting provider notified?: Yes Primary care physician: [facility] Course: Chief Complaint: Possible delirium History of presenting complaint: Patient presented to ER from the [facility], being followed by Dr. Bernard. for possible delirium. Apparently patient has been noncompliant with the treatment and appeared to be more disoriented. As per the EMS report patient was sitting in the region in the lobby of [facility] and yelling at staff. She was becoming combative and threatening the staff and tried to hit them. Patient is reason GI bleed in a UTI for which she was at [facility] for rehab. Patient not the best of historians. She denies any pain. No shortness of breath. Appetite is okay. Patient noticed today laying in bed comfortable. In the ER given a dose of IV ceftriaxone. 4 infected appearing urine. Today-laying in bed. Comfortable. Urine culture came back for group D enterococcus. Change antibiotic to amoxicillin. Dose of Risperdal is being cut back. Xanax discontinued for lethargy. Flexeril may be used when necessary. Patient got hemodialyzed Consultation: Dr. Barry from nephrology Physical examination: VITAL SIGNS: 98.6, 77, 16, 133/68, 97% room air GENERAL:, laying in bed, comfortable. EYES: Pupils equal. Conjunctiva normal. HEENT: External appearance of nose and ears normal, oral cavity grossly normal. NECK: JVD not raised; masses not palpable. HEART: First and second heart sounds are normal; no edema. LUNGS: Respiratory rate normal; clear to auscultation. ABDOMEN: Soft, nontender, liver spleen not palpable, no masses palpable. PSYCH: [Patient is able to answer questions. . INVESTIGATIONS, reviewed in the clinical context: White count 19 globin 8.5 platelets 683 sodium 129 potassium 4.5 creatinine 2.33 UA positive for leukoesterase, WBC EKG tracing personally reviewed by me-bowel sinus rhythm, poor R-wave progres guilherme Chest x-ray film personally reviewed by me-lung holley clear COVID 19 P/Cr-not detected Investigations: -Acute delirium. Possibly from UTI. -Acute UTI from cystitis from group D enterococcus -COPD -End-stage kidney disease on hemodialysis from underlying FSGS -GERD and-hyperlipidemia -Scleroderma -Chronic pulmonary embolism in 2016, on eliquis -Hypothyroid -Hyperlipidemia -Duodenal ulcer with recent bleed for which patient is on PPI -Medical debility for which patient underwent rehab -Chronic kidney disease middle bone disease on phosphate binders -Currently getting rehab at [facility] Disposition: [facility] Patient Condition at Discharge: Stable Plan - Discharge Summary New Discharge Prescriptions: New risperiDONE ODT [RisperDAL M-TAB] 0.5 mg PO HS #3 tab Amoxicillin 875 mg PO Q12HR #14 tablet Continue Levothyroxine Sodium [Synthroid] 125 mcg PO DAILY@0600 Doxepin HCl 75 mg PO HS@2100 Atorvastatin [Lipitor] 20 mg PO HS@2100 azaTHIOprine [Imuran] 25 mg PO DAILY@0800 Folic Acid 0.8 mg PO DAILY@0800 Calcium Carb-Mag Carb-Folic [Magnebind 400] 1 tab PO TID@0800,1200,1700 Calcium Acetate [PhosLo] 667 mg PO TID@0800,1200,1700 Ondansetron [Zofran] 4 mg PO TID PRN PRN Reason: Nausea Docusate [Colace] 100 mg PO DAILY@1700 Apixaban [Eliquis] 2.5 mg PO BID@0800,1700 Pantoprazole Sodium [Protonix] 40 mg PO BID@0800,1700 Acetaminophen [Tylenol] 650 mg PO Q4H PRN PRN Reason: Pain Or Fever > 100.5 Midodrine HCl 10 mg PO TID Collagenase [Santyl] 1 applic TOPICAL DAILY Lactose-Reduced Food [Ensure Plus] 237 ml PO TID@0800,1200,1700 Discontinued Cyclobenzaprine [Flexeril] 10 mg PO BID@0800,1700 ALPRAZolam [Xanax] 0.25 mg PO BID PRN PRN Reason: Anxiety risperiDONE ODT [RisperDAL M-TAB] 1 mg PO DAILY@1500 Cephalexin [Keflex] 500 mg PO BID@1200,2100 Discharge Medication List Atorvastatin [Lipitor] 20 mg PO HS@2100 07/28/18 [History] Doxepin HCl 75 mg PO HS@2100 07/28/18 [History] Folic Acid 0.8 mg PO DAILY@0800 07/28/18 [History] Levothyroxine Sodium [Synthroid] 125 mcg PO DAILY@0600 07/28/18 [History] azaTHIOprine [Imuran] 25 mg PO DAILY@0800 07/28/18 [History] Calcium Acetate [PhosLo] 667 mg PO TID@0800,1200,1700 04/26/20 [History] Calcium Carb-Mag Carb-Folic [Magnebind 400] 1 tab PO TID@0800,1200,1700 04/26/20 [History] Ondansetron [Zofran] 4 mg PO TID PRN 04/26/20 [History] Apixaban [Eliquis] 2.5 mg PO BID@0800,1700 05/06/20 [History] Docusate [Colace] 100 mg PO DAILY@1700 05/06/20 [History] Pantoprazole Sodium [Protonix] 40 mg PO BID@0800,1700 05/06/20 [History] Acetaminophen [Tylenol] 650 mg PO Q4H PRN 05/16/20 [History] Midodrine HCl 10 mg PO TID 05/16/20 [History] Collagenase [Santyl] 1 applic TOPICAL DAILY 05/20/20 [History] Lactose-Reduced Food [Ensure Plus] 237 ml PO TID@0800,1200,1700 05/20/20 [History] Amoxicillin 875 mg PO Q12HR #14 tablet 05/21/20 [Rx] risperiDONE ODT [RisperDAL M-TAB] 0.5 mg PO HS #3 tab 05/21/20 [Rx] Follow up Appointment(s)/Referral(s): Tano Bernard DO [Primary Care Provider] - 1-2 days Patient Instructions/Handouts: Urinary Tract Infection in Women (DC) Discharge Disposition: TRANSFER TO SNF/ECF
== END 2020-05-21 14:27 ==
LOC: EC 23:19 → 4SSUR 05-20 03:30
PROVIDERS: ADMIT Hospitalist; ATTEND Hospitalist
DX: R41.82 Altered mental status, unspecified (principal); D63.1 Anemia in chronic kidney disease; N39.0 Urinary tract infection, site not specified; E78.5 Hyperlipidemia, unspecified; E87.1 Hypo-osmolality and hyponatremia; E89.0 Postprocedural hypothyroidism; F32.9 Major depressive disorder, single episode, unspecified; F41.9 Anxiety disorder, unspecified; I95.89 Other hypotension; J44.9 Chronic obstructive pulmonary disease, unspecified; M89.8X9 Other specified disorders of bone, unspecified site; N18.6 End stage renal disease; N26.9 Renal sclerosis, unspecified; Z79.01 Long term (current) use of anticoagulants; Z79.890 Hormone replacement therapy; Z79.899 Other long term (current) drug therapy; Z80.3 Family history of malignant neoplasm of breast; Z86.711 Personal history of pulmonary embolism; Z87.440 Personal history of urinary (tract) infections; Z91.15 Patient's noncompliance with renal dialysis; Z91.19 Patient's noncompliance with other medical treatment and regimen; Z96.652 Presence of left artificial knee joint; Z99.2 Dependence on renal dialysis
CPT/HCPCS: 96361; 96366; 96372; 96365; 96375; 99285; 36415 ×2; 93005; 97162; 97166; 80053; 82728; 83540; 83550; 84484; 85025; 85610; 85730; 81001; 87040; 87086; 87077; 87186; 87635; 71045; 70450; G0257; G0378 ×2; J7500 ×2; J2060; J0696 ×2; J0881; 90935

== ENCOUNTER 2020-05-29 18:40 | Emergency (ER) | payer MEDICARE, BC ==
[2020-05-29 18:52] VITALS: RESP 18; TEMP 98.8
[2020-05-29 19:54] LABS: Anisocytosis Slight; Basophils # (A) 0.1 k/uL (0-0.2); Basophils % (A) 1 %; Eosinophils # (A) 0.1 k/uL (0-0.7); Eosinophils % (A) 1 %; HCT 25.4 % (34.0-46.0); HGB 7.9 gm/dL (11.4-16.0); Hypochromasia Marked; Lymphocytes # (A) 1.4 k/uL (1.0-4.8); Lymphocytes % (A) 15 %; MCH 28.2 pg (25.0-35.0); MCHC 31.2 g/dL (31.0-37.0); MCV 90.3 fL (80.0-100.0); Mean Platelet Volume 7.8; Monocytes # (A) 0.5 k/uL (0-1.0); Monocytes % (A) 5 %; Neutrophils # (A) 7.2 k/uL (1.3-7.7); Neutrophils % (A) 77 %; Platelet Count 417 k/uL (150-450); Poikilocytosis Slight; RBC 2.82 m/uL (3.80-5.40); RDW 16.2 % (11.5-15.5); WBC 9.4 k/uL (3.8-10.6)
[2020-05-29 20:08] LABS: INR 1.1 (<1.2); Prothrombin Time 11.5 sec (9.0-12.0)
[2020-05-29 20:10] LABS: Albumin 2.6 g/dL (3.5-5.0); Calcium 9.7 mg/dL (8.4-10.2); Potassium 2.8 mmol/L (3.5-5.1); Total Bilirubin 0.4 mg/dL (0.2-1.3); Total Protein 5.4 g/dL (6.3-8.2)
--- NOTE | 2020-05-29 20:34 | ED ---
General Adult HPI - General Chief complaint: Recheck/Abnormal Lab/Rx Stated complaint: Nosebleed Time Seen by Provider: 05/29/20 19:02 Source: EMS Mode of arrival: EMS Limitations: no limitations - History of Present Illness Initial comments: 74-year-old female presents to the emergency department this evening via EMS from [facility] for evaluation of recurrent nosebleed. Per senior living staff, bleeding began this morning and they were able to control it with direct pressure. Repeat episode occurred again this evening and staff was concerned bec ause of her anemia. Pt denies any trauma or injury preceding bleeding. Arrives with nose clamp in place and bleeding controlled. Patient denies any recent rash, fever, chills, cough, shortness of breath, chest pain, abdominal pain, nausea, vomiting, diarrhea, constipation, back pain, numbness, tingling, dizziness, weakness, hematuria, dysuria, urinary urgency, urinary frequency, headache, visual changes, or any other complaints. - Related Data Home Medications Medication Instructions Recorded Confirmed Atorvastatin [Lipitor] 20 mg PO HS@209907/28/18 05/20/20 Doxepin HCl 75 mg PO HS@2100 07/28/18 05/20/20 Folic Acid 0.8 mg PO DAILY@0800 07/28/18 05/20/20 Levothyroxine Sodium [Synthroid] 125 mcg PO DAILY@0600 07/28/18 05/20/20 azaTHIOprine [Imuran] 25 mg PO DAILY@0800 07/28/18 05/20/20 Calcium Acetate [PhosLo] 667 mg PO TID@0800,1200,1700 04/26/20 05/20/20 Calcium Carb-Mag Carb-Folic 1 tab PO TID@0800,1200,1700 04/26/20 05/20/20 [Magnebind 400] Ondansetron [Zofran] 4 mg PO TID PRN 04/26/20 05/20/20 Apixaban [Eliquis] 2.5 mg PO BID@0800,1700 05/06/20 05/20/20 Docusate [Colace] 100 mg PO DAILY@1700 05/06/20 05/20/20 Pantoprazole Sodium [Protonix] 40 mg PO BID@0800,1700 05/06/20 05/20/20 Acetaminophen [Tylenol] 650 mg PO Q4H PRN 05/16/20 05/20/20 Midodrine HCl 10 mg PO TID 05/16/20 05/20/20 Collagenase [Santyl] 1 applic TOPICAL DAILY 05/20/20 05/20/20 Lactose-Reduced Food [Ensure Plus] 237 ml PO TID@0800,1200,1700 05/20/20 05/20/20 Previous Rx's Medication Instructions Recorded Amoxicillin 875 mg PO Q12HR #14 tablet 05/21/20 risperiDONE ODT [RisperDAL M-TAB] 0.5 mg PO HS #3 tab 05/21/20 Allergies Allergy/AdvReac Type Severity Reaction Status Date / Time adhesive Allergy Unknown Verified 05/20/20 08:20 allopurinol Allergy Unknown Verified 05/20/20 08:20 codeine Allergy Unknown Verified 05/20/20 08:20 iodine Allergy Unknown Verified 05/20/20 08:20 meperidine HCl [From Demerol] Allergy Unknown Verified 05/20/20 08:20 povidone-iodine Allergy Unknown Verified 05/20/20 08:20 [From Betadine] soap [From Betadine] Allergy Unknown Verified 05/20/20 08:20 Sulfa (Sulfonamide Allergy Unknown Verified 05/20/20 08:20 Antibiotics) Review of Systems ROS Statement: Those systems with pertinent positive or pertinent negative responses have been documented in the HPI. ROS Other: All systems not noted in ROS Statement are negative. Past Medical History Past Medical History: Blood Disorder, COPD, Dialysis, GERD/Reflux, Hyperlipidemia, Pulmonary Embolus (PE), Renal Disease, Thyroid Disorder Additional Past Medical History / Comment(s): scleraderma, gout, peritoneal dial ysis. 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, Lupus History of Any Multi-Drug Resistant Organisms: VRE Date of last positivie culture/infection: 05/20/20 MDRO Source:: Urine Past Surgical History: Bowel Resection, Cholecystectomy, Hysterectomy, Orthopedic Surgery Additional Past Surgical History / Comment(s): left knee replacement, insertion of peritoneal diaylsis, thyroidectomy due to goiter, kidney biopsy X 2, Lung biopsy, Graft Left arm with failure, Right pointer finger amputation Past Anesthesia/Blood Transfusion Reactions: No Reported Reaction Past Psychological History: Anxiety, Depression Smoking Status: Never smoker Past Alcohol Use History: None Reported Past Drug Use History: None Reported - Past Family History Mother Additional Family Medical History / Comment(s): breast CA , mitrale valve damage, kidney disease, gout Father Family Medical History: Thyroid Disorder General Exam Limitations: no limitations (Well-developed, well-nourished female in no acute distress. Initial temperature 98.8F, pulse 98, respirations 18, blood pressure 91/68, pulse ox 97% on room air.) General appearance: alert, in no apparent distress Head exam: Present: atraumatic, normocephalic ENT exam: Present: normal oropharynx (No evidence of trauma, injury, or swelling. Dried blood on tongue, teeth, and lips), other (Dried blood noted in bilateral nares; no active bleeding upon inspection) Respiratory exam: Present: normal lung sounds bilaterally. Absent: respiratory distress, wheezes, rales, rhonchi, stridor Cardiovascular Exam: Present: regular rate, normal rhythm, normal heart sounds. Absent: systolic murmur, diastolic murmur, rubs, gallop, clicks GI/Abdominal exam: Present: soft, normal bowel sounds. Absent: distended, tenderness, guarding, rebound, rigid Neurological exam: Present: alert Psychiatric exam: Present: normal affect, normal mood Skin exam: Present: warm, dry, intact, normal color. Absent: rash Course Vital Signs 05/29/20 05/29/20 18:50 21:09 Temperature 98.8 F Pulse Rate 98 70 Respiratory 18 18 Rate Blood Pressure 91/68 112/68 O2 Sat by Pulse 97 98 Oximetry Medical Decision Making - Medical Decision Making 74-year-old female presents to the emergency department via EMS from [facility] due to recurrent nosebleeds. She is a hemodialysis patient with a history of chronic anemia and dementia. Upon arrival bleeding had ceased and bilateral nares were patent despite dried blood. Patient denied any difficulty breathing. Blood work was obtained and appears stable for patient. Hemoglobin was 7.9, which was slightly improved from previous draw in which it was 7.4. Patient was found to be hypokalemic with a potassium level of 2.8. Intervention. BUN 24 and creatinine 3.2; patient was dialyzed Sunday. No episodes of re-bleeding while in the department therefore patient was discharged back to [facility] with instructio ns to be rechecked by her primary care provider. Return parameters noted and discussed. - Lab Data Result diagrams: 05/29/20 19:45 05/29/20 19:45 Lab Results 05/29/20 05/29/20 05/29/20 Range/Units 19:45 19:45 19:45 WBC 9.4 (3.8-10.6) k/uL RBC 2.82 L (3.80-5.40) m/uL Hgb 7.9 L (11.4-16.0) gm/dL Hct 25.4 L (34.0-46.0) % MCV 90.3 (80.0-100.0) fL MCH 28.2 (25.0-35.0) pg MCHC 31.2 (31.0-37.0) g/dL RDW 16.2 H (11.5-15.5) % Plt Count 417 (150-450) k/uL Neutrophils % 77 % Lymphocytes % 15 % Monocytes % 5 % Eosinophils % 1 % Basophils % 1 % Neutrophils # 7.2 (1.3-7.7) k/uL Lymphocytes # 1.4 (1.0-4.8) k/uL Monocytes # 0.5 (0-1.0) k/uL Eosinophils # 0.1 (0-0.7) k/uL Basophils # 0.1 (0-0.2) k/uL Hypochromasia Marked Poikilocytosis Slight Anisocytosis Slight PT 11.5 (9.0-12.0) sec INR 1.1 (<1.2) APTT 27.0 (22.0-30.0) sec Sodium 130 L (137-145) mmol/L Potassium 2.8 L (3.5-5.1) mmol/L Chloride 95 L (98-107) mmol/L Carbon Dioxide 30 (22-30) mmol/L Anion Gap 5 mmol/L BUN 24 H (7-17) mg/dL Creatinine 3.20 H (0.52-1.04) mg/dL Est GFR (CKD-EPI)AfAm 16 (>60 ml/min/1.73 sqM) Est GFR (CKD-EPI)NonAf 14 (>60 ml/min/1.73 sqM) Glucose 139 H (74-99) mg/dL Calcium 9.7 (8.4-10.2) mg/dL Total Bilirubin 0.4 (0.2-1.3) mg/dL AST 19 (14-36) U/L ALT 8 (4-34) U/L Alkaline Phosphatase 79 (38-126) U/L Total Protein 5.4 L (6.3-8.2) g/dL Albumin 2.6 L (3.5-5.0) g/dL Blood Type Blood Type Recheck Bld Type Recheck Status Antibody Screen Spec Expiration Date 05/29/20 Range/Units 19:45 WBC (3.8-10.6) k/uL RBC (3.80-5.40) m/uL Hgb (11.4-16.0) gm/dL Hct (34.0-46.0) % MCV (80.0-100.0) fL MCH (25.0-35.0) pg MCHC (31.0-37.0) g/dL RDW (11.5-15.5) % Plt Count (150-450) k/uL Neutrophils % % Lymphocytes % % Monocytes % % Eosinophils % % Basophils % % Neutrophils # (1.3-7.7) k/uL Lymphocytes # (1.0-4.8) k/uL Monocytes # (0-1.0) k/uL Eosinophils # (0-0.7) k/uL Basophils # (0-0.2) k/uL Hypochromasia Poikilocytosis Anisocytosis PT (9.0-12.0) sec INR (<1.2) APTT (22.0-30.0) sec Sodium (137-145) mmol/L Potassium (3.5-5.1) mmol/L Chloride (98-107) mmol/L Carbon Dioxide (22-30) mmol/L Anion Gap mmol/L BUN (7-17) mg/dL Creatinine (0.52-1.04) mg/dL Est GFR (CKD-EPI)AfAm (>60 ml/min/1.73 sqM) Est GFR (CKD-EPI)NonAf (>60 ml/min/1.73 sqM) Glucose (74-99) mg/dL Calcium (8.4-10.2) mg/dL Total Bilirubin (0.2-1.3) mg/dL AST (14-36) U/L ALT (4-34) U/L Alkaline Phosphatase (38-126) U/L Total Protein (6.3-8.2) g/dL Albumin (3.5-5.0) g/dL Blood Type A Positive Blood Type Recheck A Pos Bld Type Recheck Status No Antibody Screen NEGATIVE Spec Expiration Date 06/01/2020 - 2344 Disposition Clinical Impression: Epistaxis, Anemia, Hypokalemia Disposition: HOME SELF-CARE Condition: Good Additional Instructions: Avoid vigorous sneezing. Blow nose gently. Apply direct pressure for recurrent nosebleeds. Follow-up with the primary care provider in the next 1-2 days for recheck. Return to emergency department with any new, worsening, or concerning symptoms. Is patient prescribed a controlled substance at d/c from ED?: No Referrals: Nonstaff,Physician [Primary Care Provider] - 1-2 days Time of Disposition: 20:39
[2020-05-29 21:11] VITALS: BP 112/68; PULSE 70
== END 2020-05-29 21:11 | disposition home or self-care (01) ==
LOC: SUPCPDRO 18:40 → EC 18:40
DX: R04.0 Epistaxis (principal); D64.9 Anemia, unspecified; E87.6 Hypokalemia; F41.9 Anxiety disorder, unspecified; F32.9 Major depressive disorder, single episode, unspecified; K21.9 Gastro-esophageal reflux disease without esophagitis; E78.5 Hyperlipidemia, unspecified; E89.0 Postprocedural hypothyroidism; Z79.01 Long term (current) use of anticoagulants; Z79.890 Hormone replacement therapy; Z79.899 Other long term (current) drug therapy; Z88.2 Allergy status to sulfonamides; Z88.8 Allergy status to other drugs, medicaments and biological substances; Z88.5 Allergy status to narcotic agent; Z91.041 Radiographic dye allergy status; Z91.048 Other nonmedicinal substance allergy status; Z99.2 Dependence on renal dialysis; Z86.711 Personal history of pulmonary embolism; Z96.652 Presence of left artificial knee joint
CPT/HCPCS: 36415; 80053; 85025; 85610; 85730; 86850; 86900; 86901; 99283

== ENCOUNTER 2020-05-31 13:57 | Inpatient (IN) | payer MEDICARE, BC ==
--- NOTE | 2020-05-31 14:10 | ED ---
Recheck HPI - General Chief Complaint: Recheck/Abnormal Lab/Rx Stated Complaint: Low Hemoglobin Time Seen by Provider: 05/31/20 13:57 Source: patient, EMS, RN notes reviewed Mode of arrival: EMS Limitations: no limitations - History of Present Illness Initial Comments: this is a 74-year-old female history of multiple medical issues including renal failure and dialysis as previously had transfusion due to anemia who was sent here from dialysis today after being found have a hemoglobin level of 5.8. She denies any GI bleeding of any sort nausea no vomiting no black or dark colored stools no bright red blood. She has any abdominal pain no other symptoms reported. No other modifying factors - Related Data Home Medications Medication Instructions Recorded Confirmed Atorvastatin [Lipitor] 20 mg PO HS@2100 07/28/18 05/20/20 Doxepin HCl 75 mg PO HS@2100 07/28/18 05/20/20 Folic Acid 0.8 mg PO DAILY@0800 07/28/18 05/20/20 Levothyroxine Sodium [Synthroid] 125 mcg PO DAILY@0600 07/28/18 05/20/20 azaTHIOprine [Imuran] 25 mg PO DAILY@0800 07/28/18 05/20/20 Calcium Acetate [PhosLo] 667 mg PO TID@0800,1200,1700 04/26/20 05/20/20 Calcium Carb-Mag Carb-Folic 1 tab PO TID@0800,1200,1700 04/26/20 05/20/20 [Magnebind 400] Ondansetron [Zofran] 4 mg PO TID PRN 04/26/20 05/20/20 Apixaban [Eliquis] 2.5 mg PO BID@0800,1700 05/06/20 05/20/20 Docusate [Colace] 100 mg PO DAILY@1700 05/06/20 05/20/20 Pantoprazole Sodium [Protonix] 40 mg PO BID@0800,1700 05/06/20 05/20/20 Acetaminophen [Tylenol] 650 mg PO Q4H PRN 05/16/20 05/20/20 Midodrine HCl 10 mg PO TID 05/16/20 05/20/20 Collagenase [Santyl] 1 applic TOPICAL DAILY 05/20/20 05/20/20 Lactose-Reduced Food [Ensure Plus] 237 ml PO TID@0800,1200,1700 05/20/20 05/20/20 Previous Rx's Medication Instructions Recorded Amoxicillin 875 mg PO Q12HR #14 tablet 05/21/20 risperiDONE ODT [RisperDAL M-TAB] 0.5 mg PO HS #3 tab 05/21/20 Allergies Allergy/AdvReac Type Severity Reaction Status Date / Time adhesive Allergy Unknown Verified 05/31/20 17:01 allopurinol Allergy Unknown Verified 05/31/20 17:01 codeine Allergy Unknown Verified 05/31/20 17:01 iodine Allergy Unknown Verified 05/31/20 17:01 meperidine HCl [From Demerol] Allergy Unknown Verified 05/31/20 17:01 povidone-iodine Allergy Unknown Verified 05/31/20 17:01 [From Betadine] soap [From Betadine] Allergy Unknown Verified 05/31/20 17:01 Sulfa (Sulfonamide Allergy Unknown Verified 05/31/20 17:01 Antibiotics) Review of Systems ROS Statement: Those systems with pertinent positive or pertinent negative responses have been documented in the HPI. ROS Other: All systems not noted in ROS Statement are negative. Past Medical History Past Medical History: Blood Disorder, COPD, Dialysis, GERD/Reflux, Hyperlipidemia, Pulmonary Embolus (PE), Renal Disease, Thyroid Disorder Additional Past Medical History / Comment(s): scleraderma, gout, peritoneal dialysis. 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, Lupus History of Any Multi-Drug Resistant Organisms: VRE Date of last positivie culture/infection: 05/20/20 MDRO Source:: Urine Past Surgical History: Bowel Resection, Cholecystectomy, Hysterectomy, Orthopedic Surgery Additional Past Surgical History / Comment(s): left knee replacement, insertion of peritoneal diaylsis, thyroidectomy due to goiter, kidney biopsy X 2, Lung biopsy, Graft Left arm with failure, Right pointer finger amputation Past Anesthesia/Blood Transfusion Reactions: No Reported Reaction Past Psychological History: Anxiety, Depression Smoking Status: Never smoker Past Alcohol Use History: None Reported Past Drug Use History: None Reported - Past Family History Mother Additional Family Medical History / Comment(s): breast CA , mitrale valve damage, kidney disease, gout Father Family Medical History: Thyroid Disorder General Exam - General Exam Comments Initial Comments: is a well-developed asthenic appearing female who is awake alert oriented 3 Limitations: no limitations General appearance: alert, in no apparent distress Head exam: Present: atraumatic, normocephalic, normal inspection Eye exam: Present: normal appearance, PERRL, EOMI. Absent: scleral icterus, conjunctival injection, periorbital swelling ENT exam: Present: normal exam, mucous membranes moist Neck exam: Present: normal inspection. Absent: tenderness, meningismus, lymphadenopathy Respiratory exam: Present: normal lung sounds bilaterally. Absent: respiratory distress, wheezes, rales, rhonchi, stridor Cardiovascular Exam: Present: regular rate, normal rhythm, normal heart sounds. Absent: systolic murmur, diastolic murmur, rubs, gallop, clicks GI/Abdominal exam: Present: soft, normal bowel sounds. Absent: distended, tenderness, guarding, rebound, rigid Extremities exam: Present: normal inspection, full ROM, normal capillary refill. Absent: tenderness, pedal edema, joint swelling, calf tenderness Back exam: Present: normal inspection Neurological exam: Present: alert, oriented X3, CN II-XII intact Psychiatric exam: Present: normal affect, normal mood Skin exam: Present: warm, dry, intact, pallor. Absent: normal color, rash Course Vital Signs 05/31/20 14:02 Temperature 97.7 F Pulse Rate 85 Respiratory 18 Rate Blood Pressure 113/59 O2 Sat by Pulse 100 Oximetry Medical Decision Making - Medical Decision Making I did discuss findings with Dr. Barry as well as with Dr. Lai patient be admitted blood transfusion also consultation by neurology and GI. - Lab Data Result diagrams: 05/31/20 14:16 05/31/20 14:16 Lab Results 05/31/20 05/31/20 05/31/20 Range/Units 14:16 14:16 14:16 WBC 6.3 (3.8-10.6) k/uL RBC 2.50 L (3.80-5.40) m/uL Hgb 6.9 L* (11.4-16.0) gm/dL Hct 22.7 L (34.0-46.0) % MCV 90.5 (80.0-100.0) fL MCH 27.5 (25.0-35.0) pg MCHC 30.4 L (31.0-37.0) g/dL RDW 16.6 H (11.5-15.5) % Plt Count 417 (150-450) k/uL Neutrophils % 73 % Lymphocytes % 20 % Monocytes % 5 % Eosinophils % 1 % Basophils % 0 % Neutrophils # 4.6 (1.3-7.7) k/uL Lymphocytes # 1.2 (1.0-4.8) k/uL Monocytes # 0.3 (0-1.0) k/uL Eosinophils # 0.1 (0-0.7) k/uL Basophils # 0.0 (0-0.2) k/uL Hypochromasia Marked Poikilocytosis Slight Anisocytosis Slight PT 11.1 (9.0-12.0) sec INR 1.1 (<1.2) APTT 29.0 (22.0-30.0) sec Sodium 133 L (137-145) mmol/L Potassium 3.0 L (3.5-5.1) mmol/L Chloride 96 L (98-107) mmol/L Carbon Dioxide 35 H (22-30) mmol/L Anion Gap 2 mmol/L BUN 9 (7-17) mg/dL Creatinine 1.34 H (0.52-1.04) mg/dL Est GFR (CKD-EPI)AfAm 46 (>60 ml/min/1.73 sqM) Est GFR (CKD-EPI)NonAf 40 (>60 ml/min/1.73 sqM) Glucose 107 H (74-99) mg/dL Calcium 8.8 (8.4-10.2) mg/dL Magnesium 2.2 (1.6-2.3) mg/dL Total Bilirubin 0.4 (0.2-1.3) mg/dL AST 21 (14-36) U/L ALT 7 (4-34) U/L Alkaline Phosphatase 79 (38-126) U/L Total Protein 5.5 L (6.3-8.2) g/dL Albumin 2.7 L (3.5-5.0) g/dL Blood Type Blood Type Recheck Bld Type Recheck Status Antibody Screen Crossmatch Spec Expiration Date 05/31/20 Range/Units 15:33 WBC (3.8-10.6) k/uL RBC (3.80-5.40) m/uL Hgb (11.4-16.0) gm/dL Hct (34.0-46.0) % MCV (80.0-100.0) fL MCH (25.0-35.0) pg MCHC (31.0-37.0) g/dL RDW (11.5-15.5) % Plt Count (150-450) k/uL Neutrophils % % Lymphocytes % % Monocytes % % Eosinophils % % Basophils % % Neutrophils # (1.3-7.7) k/uL Lymphocytes # (1.0-4.8) k/uL Monocytes # (0-1.0) k/uL Eosinophils # (0-0.7) k/uL Basophils # (0-0.2) k/uL Hypochromasia Poikilocytosis Anisocytosis PT (9.0-12.0) sec INR (<1.2) APTT (22.0-30.0) sec Sodium (137-145) mmol/L Potassium (3.5-5.1) mmol/L Chloride (98-107) mmol/L Carbon Dioxide (22-30) mmol/L Anion Gap mmol/L BUN (7-17) mg/dL Creatinine (0.52-1.04) mg/dL Est GFR (CKD-EPI)AfAm (>60 ml/min/1.73 sqM) Est GFR (CKD-EPI)NonAf (>60 ml/min/1.73 sqM) Glucose (74-99) mg/dL Calcium (8.4-10.2) mg/dL Magnesium (1.6-2.3) mg/dL Total Bilirubin (0.2-1.3) mg/dL AST (14-36) U/L ALT (4-34) U/L Alkaline Phosphatase (38-126) U/L Total Protein (6.3-8.2) g/dL Albumin (3.5-5.0) g/dL Blood Type A Positive Blood Type Recheck A Pos Bld Type Recheck Status No Antibody Screen NEGATIVE Crossmatch See Detail Spec Expiration Date 06/03/2020 - 0315 Critical Care Time Critical Care Time: Yes Total Critical Care Time: 31 Critical Care Time: critical care time includes initial presentation with history physical labs. Di scussed with paramedics. Reevaluation the patient discussed with patient regarding findings discussion with the admitting consult physicians admission orders neck mentation above also includes review of old charting. Disposition Clinical Impression: Anemia, Chronic renal failure, Episodic confusion Disposition: ADMITTED IP TO THIS HOSP Condition: Fair Referrals: Tano Bernard DO [Primary Care Provider] - 1-2 days
[2020-05-31 14:49] LABS: Anisocytosis Slight; Basophils % (A) 0 %; Eosinophils # (A) 0.1 k/uL (0-0.7); Eosinophils % (A) 1 %; HCT 22.7 % (34.0-46.0); Hypochromasia Marked; Lymphocytes # (A) 1.2 k/uL (1.0-4.8); Lymphocytes % (A) 20 %; MCH 27.5 pg (25.0-35.0); MCHC 30.4 g/dL (31.0-37.0); MCV 90.5 fL (80.0-100.0); Mean Platelet Volume 7.7; Monocytes # (A) 0.3 k/uL (0-1.0); Monocytes % (A) 5 %; Neutrophils # (A) 4.6 k/uL (1.3-7.7); Neutrophils % (A) 73 %; Platelet Count 417 k/uL (150-450); Poikilocytosis Slight; RDW 16.6 % (11.5-15.5); WBC 6.3 k/uL (3.8-10.6)
[2020-05-31 14:54] LABS: Albumin 2.7 g/dL (3.5-5.0); Calcium 8.8 mg/dL (8.4-10.2); Magnesium 2.2 mg/dL (1.6-2.3); Total Bilirubin 0.4 mg/dL (0.2-1.3); Total Protein 5.5 g/dL (6.3-8.2)
[2020-05-31 14:55] LABS: INR 1.1 (<1.2); Prothrombin Time 11.1 sec (9.0-12.0)
[2020-05-31 15:01] LABS: HGB 6.9 gm/dL (11.4-16.0)
[2020-05-31] MEDS ORDERED: NALOXONE 0.4 MG/ML 1 ML VIAL IV PRN (17:19)
[2020-05-31] MEDS: SODIUM CHLORIDE 0.9% 1,000 ML IV SCH (17:49)
[2020-05-31] MEDS ORDERED: ALPRAZolam 0.25 MG TAB PO PRN (21:50)
[2020-05-31] MEDS ORDERED: ONDANSETRON 4 MG TAB PO PRN (21:50)
[2020-05-31] MEDS ORDERED: LORazepam 2 MG/ML INJ IM PRN (21:50)
[2020-05-31] MEDS ORDERED: ACETAMINOPHEN TAB 325 MG TAB PO PRN (21:50)
[2020-05-31] MEDS ORDERED: MAGNESIUM HYDROXIDE 2,400 MG/10 ML CUP PO PRN (21:50)
[2020-05-31] MEDS ORDERED: DAPTOMYCIN IV SCH (22:00)
[2020-05-31] MEDS ORDERED: POTASSIUM CHLORIDE ER 20 MEQ TAB.ER PO STA (22:28)
--- NOTE | 2020-05-31 22:58 | P.HPIM ---
History of Present Illness H&P Date: 05/31/20 Chief Complaint: Low hemoglobin History of presenting complaint: This is a 74-year-old patient at the [facility]. Follow with Dr. Bernard. 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 Patient getting hemodialysis today was found having hemoglobin of 6.8. Was transferred here. Denies any black stools. 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 Currently at rehab at [facility]. Physical examination: VITAL SIGNS: 98.4, 80, 18, 110/58, 97% room air GENERAL: BMI BMI 22.7, laying in bed, awake. EYES: Pupils equal. Conjunctiva pale. HEENT: External appearance of nose and ears normal, oral cavity grossly normal. NECK: JVD not raised; masses not palpable. HEART: First and second heart sounds are normal; no edema. LUNGS: Respiratory rate normal; clear to auscultation. ABDOMEN: Soft, nontender, liver spleen not palpable, no masses palpable. PSYCH: [Patient and answering occasional questions.. Confused.. NEUROLOGICAL: Cranial nerves grossly intact; no facial asymmetry, power and sensation grossly intact. LYMPHATICS: No lymph nodes palpable in the axilla and neck INVESTIGATIONS, reviewed in the clinical context: White count 6.3 hemoglobin 6.9 potassium 3 creatinine 1.34 Previous testing: Hemoglobin 8.5 on May 20 Investigations: -Acute normocytic anemia. 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 Repeat labs in the morning. Home medications resumed. Nephrology consulted. Past Medical History Past Medical History: Blood Disorder, COPD, Dialysis, GERD/Reflux, Hyperlipid emia, Pulmonary Embolus (PE), Renal Disease, Thyroid Disorder Additional Past Medical History / Comment(s): scleraderma, gout, peritoneal dialysis. 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, Lupus History of Any Multi-Drug Resistant Organisms: VRE Date of last positivie culture/infection: 05/20/20 MDRO Source:: Urine Past Surgical History: Bowel Resection, Cholecystectomy, Hysterectomy, Orthopedic Surgery Additional Past Surgical History / Comment(s): left knee replacement, insertion of peritoneal diaylsis, thyroidectomy due to goiter, kidney biopsy X 2, Lung biopsy, Graft Left arm with failure, Right pointer finger amputation Past Anesthesia/Blood Transfusion Reactions: No Reported Reaction Past Psychological History: Anxiety, Depression Smoking Status: Never smoker Past Alcohol Use History: None Reported Past Drug Use History: None Reported - Past Family History Mother Additional Family Medical History / Comment(s): breast CA , mitrale valve damage, kidney disease, gout Father Family Medical History: Thyroid Disorder Medications and Allergies Home Medications Medication Instructions Recorded Confirmed Type Atorvastatin [Lipitor] 20 mg PO HS@2100 07/28/18 05/31/20 History Doxepin HCl 75 mg PO HS@2100 07/28/18 05/31/20 History Folic Acid 0.8 mg PO DAILY@0800 07/28/18 05/31/20 History azaTHIOprine [Imuran] 25 mg PO DAILY@0800 07/28/18 05/31/20 History Calcium Acetate [PhosLo] 667 mg PO TID@0800,1200,1700 04/26/20 05/31/20 History Calcium Carb-Mag Carb-Folic 1 tab PO TID@0800,1200,1700 04/26/20 05/31/20 History [Magnebind 400] Ondansetron [Zofran] 4 mg PO TID PRN 04/26/20 05/31/20 History Apixaban [Eliquis] 2.5 mg PO BID@0800,1700 05/06/20 05/31/20 History Docusate [Colace] 100 mg PO DAILY@1700 05/06/20 05/31/20 History Pantoprazole Sodium [Protonix] 40 mg PO BID@0800,1700 05/06/20 05/31/20 History Acetaminophen [Tylenol] 650 mg PO Q4H PRN 05/16/20 05/31/20 History Midodrine HCl 10 mg PO TID@0800,1200,1700 05/16/20 05/31/20 History Collagenase [Santyl] 1 applic TOPICAL DAILY 05/20/20 05/31/20 History ALPRAZolam [Xanax] 0.25 mg PO BID PRN 05/31/20 05/31/20 History Daptomycin 300mg Solution 300 mg IV MOWEFR 05/31/20 05/31/20 History Ensure Clear 237 ml PO MOWEFR@06,12,17 05/31/20 05/31/20 History Ensure Clear 237 ml PO SUTUTHSA@08,12,17 05/31/20 05/31/20 History Levothyroxine Sodium [Synthroid] 150 mcg PO DAILY@0600 05/31/20 05/31/20 History Lorazepam Solution 2mg/Ml 1 mg IM TID PRN 05/31/20 05/31/20 History Magnesium Hydroxide [Milk of 7,200 mg PO DAILY PRN 05/31/20 05/31/20 History Magnesia Concentrate] Menthol-Zinc Oxide Oint 1 applic TOPICAL BID 05/31/20 05/31/20 History [Calmoseptine Oint] Na Phos,M-B/Na Phos,Di-Ba [Fleet 133 ml RECTAL DAILY PRN 05/31/20 05/31/20 History Adult] bisacodyL [Dulcolax] 10 mg RECTAL DAILY PRN 05/31/20 05/31/20 History risperiDONE ODT [RisperDAL M-TAB] 1 mg PO DAILY@1400 05/31/20 05/31/20 History Allergies Allergy/AdvReac Type Severity Reaction Status Date / Time adhesive Allergy Unknown Verified 05/31/20 17:01 allopurinol Allergy Unknown Verified 05/31/20 17:01 codeine Allergy Unknown Verified 05/31/20 17:01 iodine Allergy Unknown Verified 05/31/20 17:01 meperidine HCl [From Demerol] Allergy Unknown Verified 05/31/20 17:01 povidone-iodine Allergy Unknown Verified 05/31/20 17:01 [From Betadine] soap [From Betadine] Allergy Unknown Verified 05/31/20 17:01 Sulfa (Sulfonamide Allergy Unknown Verified 05/31/20 17:01 Antibiotics) Physical Exam Vitals: Vital Signs Temp Pulse Pulse Resp BP BP Pulse Ox 05/31/20 21:21 98.1 F 81 17 124/69 95 05/31/20 20:00 98.1 F 81 17 124/69 95 05/31/20 19:31 98.8 F 82 18 111/58 98 05/31/20 19:08 98.4 F 80 18 110/58 97 05/31/20 18:48 98.4 F 81 17 124/69 95 05/31/20 18:05 98.6 F 80 18 104/55 97 05/31/20 17:35 98.4 F 82 18 116/57 100 05/31/20 17:25 98.8 F 80 18 108/49 05/31/20 14:02 97.7 F 85 18 113/59 100 Intake and Output 05/31/20 05/31/20 05/31/20 06:59 14:59 22:59 Intake Total 310 Balance 310 Intake: Blood Product 310 Rc As-1 Unit 310 [id number] Other: Voiding Method Diaper Weight 65.771 kg 65.771 kg Results CBC & Chem 7: 05/31/20 14:16 05/31/20 14:16 Labs: Abnormal Lab Results - Last 24 Hours (Table) 05/31/20 05/31/20 05/31/20 Range/Units 14:16 14:16 15:33 RBC 2.50 L (3.80-5.40) m/uL Hgb 6.9 L* (11.4-16.0) gm/dL Hct 22.7 L (34.0-46.0) % MCHC 30.4 L (31.0-37.0) g/dL RDW 16.6 H (11.5-15.5) % Sodium 133 L (137-145) mmol/L Potassium 3.0 L (3.5-5.1) mmol/L Chloride 96 L (98-107) mmol/L Carbon Dioxide 35 H (22-30) mmol/L Creatinine 1.34 H (0.52-1.04) mg/dL Glucose 107 H (74-99) mg/dL Total Protein 5.5 L (6.3-8.2) g/dL Albumin 2.7 L (3.5-5.0) g/dL Crossmatch See Detail Thrombosis Risk Factor Assmnt - Choose All That Apply Each Factor Represents 1 point: Abnormal pulmonary function (COPD), Swollen legs (current) Other Risk Factors: Yes Each Risk Factor Represents 2 Points: Age 61-74 years Other congenital or acquired thrombophilia - If yes, enter type in comment: No Thrombosis Risk Factor Assessment Total Risk Factor Score: 4 Thrombosis Risk Factor Assessment Level: Moderate Risk
[2020-06-01] MEDS: LEVOTHYROXINE 100 MCG TAB PO SCH (06:33)
[2020-06-01] MEDS ORDERED: NON FORMULARY DRUG (Folic Acid [Folic Acid] 0.8 MG Capsule) PO SCH (08:00)
[2020-06-01] MEDS ORDERED: NON FORMULARY DRUG (Ensure Clear 1 BOX Liquid) PO SCH (08:00)
[2020-06-01 08:24] LABS: Anisocytosis Slight; Basophils % (A) 0 %; Eosinophils # (A) 0.1 k/uL (0-0.7); Eosinophils % (A) 2 %; HCT 24.7 % (34.0-46.0); HGB 7.8 gm/dL (11.4-16.0); Hypochromasia Marked; Lymphocytes # (A) 1.2 k/uL (1.0-4.8); Lymphocytes % (A) 17 %; MCHC 31.6 g/dL (31.0-37.0); MCV 91.6 fL (80.0-100.0); Monocytes # (A) 0.4 k/uL (0-1.0); Monocytes % (A) 5 %; Neutrophils # (A) 5.6 k/uL (1.3-7.7); Neutrophils % (A) 76 %; Platelet Count 339 k/uL (150-450); Poikilocytosis Slight; WBC 7.4 k/uL (3.8-10.6)
[2020-06-01 08:47] LABS: Calcium 8.7 mg/dL (8.4-10.2); Magnesium 2.1 mg/dL (1.6-2.3); Phosphorus 1.7 mg/dL (2.5-4.5); Potassium 3.4 mmol/L (3.5-5.1)
[2020-06-01] MEDS ORDERED: COLLAGENASE 250 UNIT/GM OINTMENT 30 GM TUBE TOPICAL SCH (09:00)
[2020-06-01] MEDS: MIDODRINE 5 MG TAB PO SCH ×3 (09:08→17:34)
[2020-06-01] MEDS: CALCIUM ACETATE 667 MG TAB PO SCH ×3 (09:08→17:34)
[2020-06-01] MEDS: PANTOPRAZOLE 40 MG TABLET PO SCH ×2 (09:08→17:35)
[2020-06-01] MEDS: APIXABAN 2.5 MG TABLET PO SCH ×2 (09:08→17:34)
[2020-06-01] MEDS: CALCIUM CARB-MAG CARB-FOLIC 1 EACH TAB PO SCH ×3 (10:36→19:34)
[2020-06-01] MEDS: azaTHIOprine 50 MG TAB PO SCH (12:07)
--- NOTE | 2020-06-01 12:09 | P.CONS ---
History of Present Illness - Reason for Consult Consult date: 06/01/20 wound care - History of Present Illness his is 74-year-old patient being seen on 3 S. by the wound care center for nonhealing ulceration to the left ankle medial and lateral. Patient states that the ulceration has been there for approximately 6 months. Patient developed the ulceration from trauma related to a saw blade. Patient had been utilizing Santyl at the [facility] care facility. Patient denies any drainage pain or discomfort to the site. Review of Systems Review Of Systems: Constitutional: No fever, no chills, no night sweats. No weight change. No weakness, fatigue or lethargy. No daytime sleepiness. Integumentary:reports wounds, no lesions. No rash or pruritus. No unusual bruising. No change in hair or nails. Past Medical History Past Medical History: Blood Disorder, COPD, Dialysis, GERD/Reflux, Hyperlipidemia, Pulmonary Embolus (PE), Renal Disease, Thyroid Disorder Additional Past Medical History / Comment(s): scleraderma, gout, peritoneal dialysis. 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, Lupus History of Any Multi-Drug Resistant Organisms: VRE Year Discovered:: 05/20/20 MDRO Source:: Urine Past Surgical History: Bowel Resection, Cholecystectomy, Hysterectomy, Orthopedi c Surgery Additional Past Surgical History / Comment(s): left knee replacement, insertion of peritoneal diaylsis, thyroidectomy due to goiter, kidney biopsy X 2, Lung biopsy, Graft Left arm with failure, Right pointer finger amputation Past Anesthesia/Blood Transfusion Reactions: No Reported Reaction Past Psychological History: Anxiety, Depression Smoking Status: Never smoker Past Alcohol Use History: None Reported Past Drug Use History: None Reported - Past Family History Mother Additional Family Medical History / Comment(s): breast CA , mitrale valve damage, kidney disease, gout Father Family Medical History: Thyroid Disorder Medications and Allergies Home Medications Medication Instructions Recorded Confirmed Type Atorvastatin [Lipitor] 20 mg PO HS@209907/28/18 05/31/20 History Doxepin HCl 75 mg PO HS@2100 07/28/18 05/31/20 History Folic Acid 0.8 mg PO DAILY@0800 07/28/18 05/31/20 History azaTHIOprine [Imuran] 25 mg PO DAILY@0800 07/28/18 05/31/20 History Calcium Acetate [PhosLo] 667 mg PO TID@0800,1200,1700 04/26/20 05/31/20 History Calcium Carb-Mag Carb-Folic 1 tab PO TID@0800,1200,1700 04/26/20 05/31/20 History [Magnebind 400] Ondansetron [Zofran] 4 mg PO TID PRN 04/26/20 05/31/20 History Apixaban [Eliquis] 2.5 mg PO BID@0800,1700 05/06/20 05/31/20 History Docusate [Colace] 100 mg PO DAILY@1700 05/06/20 05/31/20 History Pantoprazole Sodium [Protonix] 40 mg PO BID@0800,1700 05/06/20 05/31/20 History Acetaminophen [Tylenol] 650 mg PO Q4H PRN 05/16/20 05/31/20 History Midodrine HCl 10 mg PO TID@0800,1200,1700 05/16/20 05/31/20 History Collagenase [Santyl] 1 applic TOPICAL DAILY 05/20/20 05/31/20 History ALPRAZolam [Xanax] 0.25 mg PO BID PRN 05/31/20 05/31/20 History Daptomycin 300mg Solution 300 mg IV MOWEFR 05/31/20 05/31/20 History Ensure Clear 237 ml PO MOWEFR@06,12,17 05/31/20 05/31/20 History Ensure Clear 237 ml PO SUTUTHSA@08,12,17 05/31/20 05/31/20 History Levothyroxine Sodium [Synthroid] 150 mcg PO DAILY@0600 05/31/20 05/31/20 History Lorazepam Solution 2mg/Ml 1 mg IM TID PRN 05/31/20 05/31/20 History Magnesium Hydroxide [Milk of 7,200 mg PO DAILY PRN 05/31/20 05/31/20 History Magnesia Concentrate] Menthol-Zinc Oxide Oint 1 applic TOPICAL BID 05/31/20 05/31/20 History [Calmoseptine Oint] Na Phos,M-B/Na Phos,Di-Ba [Fleet 133 ml RECTAL DAILY PRN 05/31/20 05/31/20 History Adult] bisacodyL [Dulcolax] 10 mg RECTAL DAILY PRN 05/31/20 05/31/20 History risperiDONE ODT [RisperDAL M-TAB] 1 mg PO DAILY@1400 05/31/20 05/31/20 History Allergies Allergy/AdvReac Type Severity Reaction Status Date / Time adhesive Allergy Unknown Verified 05/31/20 17:01 allopurinol Allergy Unknown Verified 05/31/20 17:01 codeine Allergy Unknown Verified 05/31/20 17:01 iodine Allergy Unknown Verified 05/31/20 17:01 meperidine HCl [From Demerol] Allergy Unknown Verified 05/31/20 17:01 povidone-iodine Allergy Unknown Verified 05/31/20 17:01 [From Betadine] soap [From Betadine] Allergy Unknown Verified 05/31/20 17:01 Sulfa (Sulfonamide Allergy Unknown Verified 05/31/20 17:01 Antibiotics) Physical Exam Vitals: Vital Signs Temp Pulse Pulse Resp BP BP Pulse Ox 06/01/20 11:50 83 16 153/79 97 06/01/20 09:04 99.4 F 85 16 131/68 98 06/01/20 04:00 99.0 F 85 17 117/67 95 06/01/20 00:00 98.0 F 82 17 127/67 94 L 05/31/20 21:21 98.1 F 81 17 124/69 95 05/31/20 20:00 98.1 F 81 17 124/69 95 05/31/20 19:31 98.8 F 82 18 111/58 98 05/31/20 19:08 98.4 F 80 18 110/58 97 05/31/20 18:48 98.4 F 81 17 124/69 95 05/31/20 18:05 98.6 F 80 18 104/55 97 05/31/20 17:35 98.4 F 82 18 116/57 100 05/31/20 17:25 98.8 F 80 18 108/49 05/31/20 14:02 97.7 F 85 18 113/59 100 Intake and Output 05/31/20 06/01/20 06/01/20 22:59 06:59 14:59 Intake Total 310 200 Balance 310 200 Intake: Oral 200 Blood Product 310 Rc As-1 Unit 310 [id number] Other: Voiding Method Diaper Diaper Weight 65.771 kg 74.5 kg Physical exam: General Appearance: Alert, cooperative, no distress, appears stated age. Skin: no open ulcerations noted. Left medial lateral ankle shows epithelialized ulceration..all other Skin color, texture, tugor normal, no rashes or lesions. Neurologic: Alert oriented x3 Results CBC & Chem 7: 06/01/20 06:46 06/01/20 06:46 Labs: Abnormal Lab Results - Last 24 Hours (Table) 05/31/20 05/31/20 05/31/20 Range/Units 14:16 14:16 15:33 RBC 2.50 L (3.80-5.40) m/uL Hgb 6.9 L* (11.4-16.0) gm/dL Hct 22.7 L (34.0-46.0) % MCHC 30.4 L (31.0-37.0) g/dL RDW 16.6 H (11.5-15.5) % Sodium 133 L (137-145) mmol/L Potassium 3.0 L (3.5-5.1) mmol/L Chloride 96 L (98-107) mmol/L Carbon Dioxide 35 H (22-30) mmol/L Creatinine 1.34 H (0.52-1.04) mg/dL Glucose 107 H (74-99) mg/dL Phosphorus (2.5-4.5) mg/dL Total Protein 5.5 L (6.3-8.2) g/dL Albumin 2.7 L (3.5-5.0) g/dL Crossmatch See Detail 06/01/20 06/01/20 Range/Units 06:46 06:46 RBC 2.70 L (3.80-5.40) m/uL Hgb 7.8 L (11.4-16.0) gm/dL Hct 24.7 L (34.0-46.0) % MCHC (31.0-37.0) g/dL RDW 16.0 H (11.5-15.5) % Sodium 135 L (137-145) mmol/L Potassium 3.4 L (3.5-5.1) mmol/L Chloride 97 L (98-107) mmol/L Carbon Dioxide 31 H (22-30) mmol/L Creatinine 2.08 H (0.52-1.04) mg/dL Glucose (74-99) mg/dL Phosphorus 1.7 L (2.5-4.5) mg/dL Total Protein (6.3-8.2) g/dL Albumin (3.5-5.0) g/dL Crossmatch Assessment and Plan (1) Non-pressure chronic ulcer of left ankle limited to breakdown of skin Current Visit: Yes Status: Acute Code(s): L97.321 - NON-PRS CHRONIC ULCER OF LEFT ANKLE LIMITED TO BRKDWN SKIN SNOMED Code(s): 34435814900851495 Plan: Santyl was not needed. No dressing is required to the site. Monitor for any drainage. Thank you coming for the consultation any questions contact the wound care center DNP note has been reviewed and discussed with Dr. Gomes and the impression and plan of care has been directed as dictated.
[2020-06-01] MEDS ORDERED: POTASSIUM CHLORIDE ER 20 MEQ TAB.ER PO STA (12:20)
--- NOTE | 2020-06-01 12:23 | P.NPCON ---
History of Present Illness - Reason for Consult end stage renal disease - History of Present Illness Reason for consultation: End-stage renal disease History of present illness: Patient is a 74-year-old female seen in consultation for end-stage renal disease. She is maintained on hemodialysis on Sunday schedule. Patient's hemoglobin was low yesterday at 6 and she was subsequently sent to the hospital due to concern for GI bleed. In the emergency room her hemoglobin was 6.9 and she did receive a unit of blood transfusion. Hemoglobin 7.8 this morning. She did complete hemodialysis yesterday outpatient. Patient remains confused. She is on IV daptomycin for VRE UTI. Denies chest pain or shortness of breath. No vomiting or diarrhea. No melena or hematochezia. Denies any ac tive bleeding. Blood pressure is stable. No fever or chills. No chest pain or shortness of breath. Oral intake fair. Vital signs are stable. General: The patient appeared well nourished and normally developed. HEENT: Head exam is unremarkable. Neck is without jugular venous distension. LUNGS: Breath sounds decreased. HEART: Rate and Rhythm are regular. ABDOMEN: Soft, nontender. EXTREMITITES: No clubbing, cyanosis, or edema. Past Medical History Past Medical History: Blood Disorder, COPD, Dialysis, GERD/Reflux, Hyperlipidemia, Pulmonary Embolus (PE), Renal Disease, Thyroid Disorder Additional Past Medical History / Comment(s): scleraderma, gout, peritoneal dialysis. 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, Lupus History of Any Multi-Drug Resistant Organisms: VRE Date of last positivie culture/infection: 05/20/20 MDRO Source:: Urine Past Surgical History: Bowel Resection, Cholecystectomy, Hysterectomy, Orthoped ic Surgery Additional Past Surgical History / Comment(s): left knee replacement, insertion of peritoneal diaylsis, thyroidectomy due to goiter, kidney biopsy X 2, Lung biopsy, Graft Left arm with failure, Right pointer finger amputation Past Anesthesia/Blood Transfusion Reactions: No Reported Reaction Past Psychological History: Anxiety, Depression Smoking Status: Never smoker Past Alcohol Use History: None Reported Past Drug Use History: None Reported - Past Family History Mother Additional Family Medical History / Comment(s): breast CA , mitrale valve damage, kidney disease, gout Father Family Medical History: Thyroid Disorder Medications and Allergies Home Medications Medication Instructions Recorded Confirmed Type Atorvastatin [Lipitor] 20 mg PO HS@2100 07/28/18 05/31/20 History Doxepin HCl 75 mg PO HS@2100 07/28/18 05/31/20 History Folic Acid 0.8 mg PO DAILY@0800 07/28/18 05/31/20 History azaTHIOprine [Imuran] 25 mg PO DAILY@0800 07/28/18 05/31/20 History Calcium Acetate [PhosLo] 667 mg PO TID@0800,1200,1700 04/26/20 05/31/20 History Calcium Carb-Mag Carb-Folic 1 tab PO TID@0800,1200,1700 04/26/20 05/31/20 History [Magnebind 400] Ondansetron [Zofran] 4 mg PO TID PRN 04/26/20 05/31/20 History Apixaban [Eliquis] 2.5 mg PO BID@0800,1700 05/06/20 05/31/20 History Docusate [Colace] 100 mg PO DAILY@1700 05/06/20 05/31/20 History Pantoprazole Sodium [Protonix] 40 mg PO BID@0800,1700 05/06/20 05/31/20 History Acetaminophen [Tylenol] 650 mg PO Q4H PRN 05/16/20 05/31/20 History Midodrine HCl 10 mg PO TID@0800,1200,1700 05/16/20 05/31/20 History Collagenase [Santyl] 1 applic TOPICAL DAILY 05/20/20 05/31/20 History ALPRAZolam [Xanax] 0.25 mg PO BID PRN 05/31/20 05/31/20 History Daptomycin 300mg Solution 300 mg IV MOWEFR 05/31/20 05/31/20 History Ensure Clear 237 ml PO MOWEFR@,12,05/31/20 05/31/20 History Ensure Clear 237 ml PO SUTUTHSA@08,12,05/31/20 05/31/20 History Levothyroxine Sodium [Synthroid] 150 mcg PO DAILY@0600 05/31/20 05/31/20 History Lorazepam Solution 2mg/Ml 1 mg IM TID PRN 05/31/20 05/31/20 History Magnesium Hydroxide [Milk of 7,200 mg PO DAILY PRN 05/31/20 05/31/20 History Magnesia Concentrate] Menthol-Zinc Oxide Oint 1 applic TOPICAL BID 05/31/20 05/31/20 History [Calmoseptine Oint] Na Phos,M-B/Na Phos,Di-Ba [Fleet 133 ml RECTAL DAILY PRN 05/31/20 05/31/20 History Adult] bisacodyL [Dulcolax] 10 mg RECTAL DAILY PRN 05/31/20 05/31/20 History risperiDONE ODT [RisperDAL M-TAB] 1 mg PO DAILY@1400 05/31/20 05/31/20 History Allergies Allergy/AdvReac Type Severity Reaction Status Date / Time adhesive Allergy Unknown Verified 05/31/20 17:01 allopurinol Allergy Unknown Verified 05/31/20 17:01 codeine Allergy Unknown Verified 05/31/20 17:01 iodine Allergy Unknown Verified 05/31/20 17:01 meperidine HCl [From Demerol] Allergy Unknown Verified 05/31/20 17:01 povidone-iodine Allergy Unknown Verified 05/31/20 17:01 [From Betadine] soap [From Betadine] Allergy Unknown Verified 05/31/20 17:01 Sulfa (Sulfonamide Allergy Unknown Verified 05/31/20 17:01 Antibiotics) Physical Exam Vitals: Vital Signs Temp Pulse Pulse Resp BP BP Pulse Ox 06/01/20 11:50 83 16 153/79 97 06/01/20 09:04 99.4 F 85 16 131/68 98 06/01/20 04:00 99.0 F 85 17 117/67 95 06/01/20 00:00 98.0 F 82 17 127/67 94 L 05/31/20 21:21 98.1 F 81 17 124/69 95 05/31/20 20:00 98.1 F 81 17 124/69 95 05/31/20 19:31 98.8 F 82 18 111/58 98 05/31/20 19:08 98.4 F 80 18 110/58 97 05/31/20 18:48 98.4 F 81 17 124/69 95 05/31/20 18:05 98.6 F 80 18 104/55 97 05/31/20 17:35 98.4 F 82 18 116/57 100 05/31/20 17:25 98.8 F 80 18 108/49 05/31/20 14:02 97.7 F 85 18 113/59 100 Intake and Output 05/31/20 06/01/20 06/01/20 22:59 06:59 14:59 Intake Total 310 200 Balance 310 200 Intake: Oral 200 Blood Product 310 Rc As-1 Unit 310 [id number] Other: Voiding Method Diaper Diaper Weight 65.771 kg 74.5 kg Results - Lab Results Most recent lab results Calcium 8.7 mg/dL (8.4-10.2) 06/01/20 06:46 Phosphorus 1.7 mg/dL (2.5-4.5) L 06/01/20 06:46 Magnesium 2.1 mg/dL (1.6-2.3) 06/01/20 06:46 06/01/20 06:46 06/01/20 06:46 Assessment and Plan Plan: Assessment: 1. End-stage renal disease maintained on hemodialysis on Sunday schedule. 2. Acute blood loss anemia status post blood transfusion.EGD done in March 2020 reveals small superficial duodenal ulcer, antral erosive gastritis and a duodenal stricture. 3. VRE UTI maintained on daptomycin. 4. Altered mental status. Unclear cause. She was seen by psychiatry as well as neurology last admission. Possibly from the UTI. 5. Hypokalemia from poor intake. 6. 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 7. Left ankle ulcer being followed by wound care. Plan: Hemodialysis tomorrow. Replace potassium. 20 meq today. Add Aranesp. Check phosphorus level. Neurology consult for the confusion. Discussed with primary team. Thank you for the consultation. I will continue to follow the patient with you during her hospital stay.
[2020-06-01] MEDS ORDERED: DARBEPOETIN ALFA 40 MCG/0.4 ML SYRINGE SQ SCH (12:30)
[2020-06-01] MEDS: risperiDONE ODT 1 MG TAB PO SCH (17:25)
[2020-06-01] MEDS: DOCUSATE 100 MG CAP PO SCH (17:34)
[2020-06-01] MEDS: SODIUM CHLORIDE 0.9% 1,000 ML IV SCH (19:36)
[2020-06-01] MEDS: ATORVASTATIN 20 MG TAB PO SCH (21:28)
[2020-06-01] MEDS: DOXEPIN 25 MG CAP PO SCH (21:28)
[2020-06-01] MEDS ORDERED: ZIPRASIDONE 20 MG VIAL IM STA (21:44)
--- NOTE | 2020-06-01 23:36 | P.PN ---
Progress Note - Text Progress Note Date: 06/01/20 Chief Complaint: Low hemoglobin History of presenting complaint: This is a 74-year-old patient at the [facility]. Follow with Dr. Bernard. Chronic stable medical conditions include end-stage kidney disease on hemodialysis, COPD, GERD, hyperlipidemia, scleroderma, chronic pulmonary embolic 7 2015 on eliquis, hypothyroid, hyperlipidemia, history of duodenal ulcer with bleed, chronic kidney disease minimal bone disease. Patient getting hemodialysis today was found having hemoglobin of 6.8. Was transferred here. Denies any black stools. Today-sitting up in bed. Eating some. Later this afternoon patient was a bit irritated confuse. Earlier neurology was consulted. Review of systems: Was done for constitutional, cardiovascular, GI, pulmonary. relevant finding as above Active Medications Acetaminophen (Acetaminophen Tab 325 Mg Tab) 650 mg PO Q4H PRN PRN Reason: Pain or Fever > 100.5 Alprazolam (Alprazolam 0.25 Mg Tab) 0.25 mg PO BID PRN PRN Reason: agitation Apixaban (Apixaban 2.5 Mg Tablet) 2.5 mg PO BID@0800,1700 [facility] Last Admin: 06/01/20 17:34 Dose: 2.5 mg Documented by: Atorvastatin Calcium (Atorvastatin 20 Mg Tab) 20 mg PO HS@2100 [facility] Last Admin: 06/01/20 21:28 Dose: Not Given Documented by: Azathioprine (Azathioprine 50 Mg Tab) 25 mg PO DAILY@0800 [facility] Last Admin: 06/01/20 12:07 Dose: 25 mg Documented by: Ca Carbonate/Folic Ac/Mg Carbonate (Calcium Carb-Mag Carb-Folic 1 Each Tab) 1 each PO TID@0800,1200,1700 [facility] Last Admin: 06/01/20 19:34 Dose: 1 each Documented by: Calcium Acetate (Calcium Acetate 667 Mg Tab) 667 mg PO TID@0800,1200,1700 [facility] Last Admin: 06/01/20 17:34 Dose: 667 mg Documented by: Darbepoetin Sherman (Darbepoetin Sherman 40 Mcg/0.4 Ml Syringe) 40 mcg SQ Q7D [facility] Last Admin: 06/01/20 16:02 Dose: 40 mcg Documented by: Docusate Sodium (Docusate 100 Mg Cap) 100 mg PO DAILY@1700 [facility] Last Admin: 06/01/20 17:34 Dose: 100 mg Documented by: Doxepin HCl (Doxepin 25 Mg Cap) 75 mg PO HS@2100 [facility] Last Admin: 06/01/20 21:28 Dose: Not Given Documented by: Sodium Chloride (Saline 0.9%) 1,000 mls @ 20 mls/hr IV .Q24H [facility] Last Admin: 06/01/20 19:36 Dose: Not Given Documented by: Daptomycin 300 mg/ Sodium (Chloride) 50 mls @ 100 mls/hr IVPB MoWeFr [facility] Stop: 06/09/20 22:03 Last Admin: 05/31/20 22:50 Dose: 100 mls/hr Documented by: Levothyroxine Sodium (Levothyroxine 100 Mcg Tab) 150 mcg PO DAILY@0600 [facility] Last Admin: 06/01/20 06:33 Dose: 150 mcg Documented by: Lorazepam (Lorazepam 2 Mg/Ml Inj) 1 mg IM TID PRN PRN Reason: Agitation Last Admin: 06/01/20 21:02 Dose: 1 mg Documented by: Magnesium Hydroxide (Magnesium Hydroxide 2,400 Mg/10 Ml Cup) 2,400 mg PO DAILY PRN PRN Reason: Constipation Midodrine (Midodrine 5 Mg Tab) 10 mg PO TID@0800,1200,1700 [facility] Last Admin: 06/01/20 17:34 Dose: 10 mg Documented by: Naloxone HCl (Naloxone 0.4 Mg/Ml 1 Ml Vial) 0.2 mg IV Q2M PRN PRN Reason: Opioid Reversal Ondansetron HCl (Ondansetron 4 Mg Tab) 4 mg PO TID PRN PRN Reason: Nausea Pantoprazole Sodium (Pantoprazole 40 Mg Tablet) 40 mg PO BID@0800,1700 [facility] Last Admin: 06/01/20 17:35 Dose: 40 mg Documented by: Risperidone (Risperidone Odt 1 Mg Tab) 1 mg PO DAILY@1400 [facility] Last Admin: 06/01/20 17:25 Dose: Not Given Documented by: Physical examination: VITAL SIGNS: 99.2, 97, 18, 132/61, 95% room air GENERAL: Propped up in bed, awake. EYES: Pupils equal. Conjunctiva pale. HEENT: External appearance of nose and ears normal, oral cavity grossly normal. NECK: JVD not raised; masses not palpable. HEART: First and second heart sounds are normal; no edema. LUNGS: Respiratory rate normal; clear to auscultation. ABDOMEN: Soft, nontender, liver spleen not palpable, no masses palpable. PSYCH: Answering occasional questions Confused.. EXTREMITY: Ulcer of the left ankle INVESTIGATIONS, reviewed in the clinical context: White count 7.4 hemoglobin 7.8 potassium 3.4 creatinine 2.08 Admission testing White count 6.3 hemoglobin 6.9 potassium 3 creatinine 1.34 Previous testing: Hemoglobin 8.5 on May 20 Investigations: -Acute normocytic anemia. 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 Plan: We'll add 25 mg of Seroquel at night. Other medications to continue.
[2020-06-02] MEDS ORDERED: NON FORMULARY DRUG (Ensure Clear 1 BOX Liquid) PO SCH (06:00)
[2020-06-02] MEDS: LEVOTHYROXINE 100 MCG TAB PO SCH (06:44)
[2020-06-02 09:21] LABS: Phosphorus 1.6 mg/dL (2.5-4.5); Potassium 3.4 mmol/L (3.5-5.1)
--- NOTE | 2020-06-02 11:44 | PN ---
PROGRESS NOTE Patient is seen on hemodialysis. She has been confused. She is currently tolerating her treatment well. She has been complaining of pain, but refused to take pain medications. PHYSICAL EXAMINATION: On examination today, blood pressure 147/73, heart rate 95 per minute, she is afebrile. Examination of the heart S1, S2. Examination of the lungs, bilateral breath sounds are heard. Abdomen is soft, nontender. Examination of the lower extremities shows no significant edema. ASSISTANT HAIRSTYLIST exam shows patient moving all 4 extremities. She has been confused. LABS: Show sodium 134, potassium 3.4, hemoglobin was 7.8 yesterday. ASSESSMENT: 1. End-stage renal disease, on hemodialysis on a Sunday, Sunday, Sunday schedule. Currently being dialyzed. 2. Mental status changes, confusion. Neurology has been consulted. 3. Acute blood loss, status post packed RBCs transfusion. EGD done in March of 2020 showed superficial duodenal ulcer with antral erosive gastritis and duodenal stricture. 4. 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 5. Hypokalemia from poor oral intake, currently being replaced with dialysis. 6. Left ankle ulcer being followed by wound care. PLAN: Hemodialysis today, no significant ultrafiltration. Add oral potassium supplementation as potassium remains low. MMODL / IJN: [id number] /
[2020-06-02 12:13] LABS: T4, Free (Free Thyroxine) 1.71 ng/dL (0.78-2.19)
--- NOTE | 2020-06-02 12:21 | P.CNNES ---
History of Present Illness Consult date: 06/01/20 Requesting physician: Remy Lai Reason for Consult: episode of confusion History of Present Illness: This is a 75-year-old woman with medical history of end-stage renal disease on dialysis, chronic pulmonary embolism (2016) on Eliquis, Scleroderma, hypothryoidism, hyperlipidemia who presented to the emergency department on 05/31/2020 that was sent from dialysis after being found to have a hemoglobin of 5.8. History is obtained from medical records since she has altered mental status. Patient denied of any GI bleed. Denied of any nausea or vomiting. Neurology team is consulted for this episodic confusion. During her stay in our facility as she had the blood transfusion and her last hemoglobin 06/01/2020 is 7.8. Patient just finished her dialysis today just prior to seeing her. Workup in the hospital consisted of: Initial glucose is 107. Potassium on presentation is 3.0 A as 3.4. Her albumin is 2.7. I personally saw the patient on 05/07/2020 for altered mental status and weakness. At that time she presented to the emergency department on 05/06/2020 for generalized weakness. And the weakness history was unclear. At that time she was on dialysis when I saw her and was having a normal conversation and had strength without any focality. And she denied of any focal weakness or any neurological problems. Patient stated that a couple month ago she was walking her dog out and she felt lightheaded and somewhat dizzy she missed a step and as a result injured her left ankle. She denies any loss of consciousness and she recalls the the episode. Last time she had asymptomatic ureter tract infection and I felt the likely her change in mentation was toxin metabolic encephalopathy. And her generalized weakness likely was due to the urinary tract infection which her exam was much improved. TSH on 05/19/2020 is 279 and the free T4 is 0.70. Patient is on Synthroid [address] of the head was done on 05/20/2020 and there is no acute ischemia, hemorrhage or any encephalomalacia. Age-related atrophy and small vessel disease of aging. I personally agree with the radiology report. Review of Systems Review of system is limited because of patient's condition and pertinent positive and negative as per HPI. Past Medical History Past Medical History: Blood Disorder, COPD, Dialysis, GERD/Reflux, Hyperlipidem ia, Pulmonary Embolus (PE), Renal Disease, Thyroid Disorder Additional Past Medical History / Comment(s): scleraderma, gout, peritoneal dialysis. 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, Lupus History of Any Multi-Drug Resistant Organisms: VRE Date of last positivie culture/infection: 05/20/20 MDRO Source:: Urine Past Surgical History: Bowel Resection, Cholecystectomy, Hysterectomy, Orthopedic Surgery Additional Past Surgical History / Comment(s): left knee replacement, insertion of peritoneal diaylsis, thyroidectomy due to goiter, kidney biopsy X 2, Lung biopsy, Graft Left arm with failure, Right pointer finger amputation Past Anesthesia/Blood Transfusion Reactions: No Reported Reaction Past Psychological History: Anxiety, Depression Smoking Status: Never smoker Past Alcohol Use History: None Reported Past Drug Use History: None Reported - Past Family History Mother Additional Family Medical History / Comment(s): breast CA , mitrale valve damage, kidney disease, gout Father Family Medical History: Thyroid Disorder Medications and Allergies Home Medications Medication Instructions Recorded Confirmed Type Atorvastatin [Lipitor] 20 mg PO HS@2100 07/28/18 05/31/20 History Doxepin HCl 75 mg PO HS@2100 07/28/18 05/31/20 History Folic Acid 0.8 mg PO DAILY@0800 07/28/18 05/31/20 History azaTHIOprine [Imuran] 25 mg PO DAILY@0800 07/28/18 05/31/20 History Calcium Acetate [PhosLo] 667 mg PO TID@0800,1200,1700 04/26/20 05/31/20 History Calcium Carb-Mag Carb-Folic 1 tab PO TID@0800,1200,1700 04/26/20 05/31/20 History [Magnebind 400] Ondansetron [Zofran] 4 mg PO TID PRN 04/26/20 05/31/20 History Apixaban [Eliquis] 2.5 mg PO BID@0800,1700 05/06/20 05/31/20 History Docusate [Colace] 100 mg PO DAILY@1700 05/06/20 05/31/20 History Pantoprazole Sodium [Protonix] 40 mg PO BID@0800,1700 05/06/20 05/31/20 History Acetaminophen [Tylenol] 650 mg PO Q4H PRN 10/18/20 11/02/20 History Midodrine HCl 10 mg PO TID@0800,1200,1700 05/16/20 05/31/20 History Collagenase [Santyl] 1 applic TOPICAL DAILY 05/20/20 05/31/20 History ALPRAZolam [Xanax] 0.25 mg PO BID PRN 05/31/20 05/31/20 History Daptomycin 300mg Solution 300 mg IV MOWEFR 05/31/20 05/31/20 History Ensure Clear 237 ml PO MOWEFR@06,12,05/31/20 05/31/20 History Ensure Clear 237 ml PO SUTUTHSA@08,12,17 05/31/20 05/31/20 History Levothyroxine Sodium [Synthroid] 150 mcg PO DAILY@0600 05/31/20 05/31/20 History Lorazepam Solution 2mg/Ml 1 mg IM TID PRN 05/31/20 05/31/20 History Magnesium Hydroxide [Milk of 7,200 mg PO DAILY PRN 05/31/20 05/31/20 History Magnesia Concentrate] Menthol-Zinc Oxide Oint 1 applic TOPICAL BID 05/31/20 05/31/20 History [Calmoseptine Oint] Na Phos,M-B/Na Phos,Di-Ba [Fleet 133 ml RECTAL DAILY PRN 05/31/20 05/31/20 History Adult] bisacodyL [Dulcolax] 10 mg RECTAL DAILY PRN 05/31/20 05/31/20 History risperiDONE ODT [RisperDAL M-TAB] 1 mg PO DAILY@1400 05/31/20 05/31/20 History Allergies Allergy/AdvReac Type Severity Reaction Status Date / Time adhesive Allergy Unknown Verified 05/31/20 17:01 allopurinol Allergy Unknown Verified 05/31/20 17:01 codeine Allergy Unknown Verified 05/31/20 17:01 iodine Allergy Unknown Verified 05/31/20 17:01 meperidine HCl [From Demerol] Allergy Unknown Verified 05/31/20 17:01 povidone-iodine Allergy Unknown Verified 05/31/20 17:01 [From Betadine] soap [From Betadine] Allergy Unknown Verified 05/31/20 17:01 Sulfa (Sulfonamide Allergy Unknown Verified 05/31/20 17:01 Antibiotics) Physical Examination - Vital Signs Vital Signs: Vital Signs Temp Pulse Resp BP Pulse Ox 06/01/20 20:00 99.1 F 89 19 137/63 95 06/01/20 16:00 99.2 F 97 18 132/61 06/01/20 11:50 83 16 153/79 97 06/01/20 09:04 99.4 F 85 16 131/68 98 06/01/20 09:00 83 16 Intake and Output 06/01/20 06/02/20 06/02/20 22:59 06:59 14:59 Intake Total 160 Balance 160 Intake: Intake, IV Titration 160 Amount Sodium Chloride 0.9% 1, 160 000 ml @ 20 mls/hr IV . Q24H [facility] Rx#:[id number] Oral 0 Other: Voiding Method Diaper # Voids 4 # Bowel Movements 1 1 Weight 68 kg GENERAL: The patient is lying in bed and seemed in acute distress. She said her pain is throughout body. CHEST: The heart rate is regular rate rhythm. No murmurs to auscultation. No carotid bruit bilaterally. LUNG: Clear to auscultation bilaterally no wheezing noted throughout. Not labored breathing. ABDOMEN/GI: Bowel sounds present in all 4 quadrants. No tenderness to palpation throughout. NEUROLOGICAL: Limited because of patient's condition. Higher mental function: The patient is drowsy but awakeable to voice. States her first name correctly but last name incorrectly. She stated her last name was Watch. He followed few simple commands (showing thumbs up and opening and closing eyes). Named one object correctly pen while not able to name glassess. Cranial nerves: The pupils are round, equal (3mm bilaterally) and reactive to light. Visual field could not assess because of her cooperation. Extraocular movement could not assess because of lack of cooperation. No facial weakness noted bilaterally. No dysarthria is noted from limited language. Motor: Gait is deferred. The strength is limited but was able to lift bilateral upper extremities above gravity but then placed them back down, bilateral hand talent specialist is 4 bilaterally. Unable to assess lower extremities since she had she has pain. Normal tone and bulk. Cerebellum: Unable to assess. Sensation: Unable to assess because of patient pain. Reflexes (right/left): Bilateral upper extremities are 2+ symetrically. Unable to assess lower extremities because of patient pain. Plantars are mute bilaterally. Results AST of 21, ALT 7. On 05/07/2020: Vitamin B12 is 403 which is within normal limits., Red blood cell folate is 1710 which is above normal limits, TSH on 05/19/2020 is 279 and the free T4 is 0.70 - Laboratory Findings CBC and BMP: 06/01/20 06:46 06/02/20 08:42 Abnormal Lab Findings: Abnormal Labs 05/31/20 05/31/20 05/31/20 14:16 14:16 15:33 RBC 2.50 L Hgb 6.9 L* Hct 22.7 L MCHC 30.4 L RDW 16.6 H Sodium 133 L Potassium 3.0 L Chloride 96 L Carbon Dioxide 35 H Creatinine 1.34 H Glucose 107 H Phosphorus Total Protein 5.5 L Albumin 2.7 L Crossmatch See Detail 06/01/20 06/01/20 06:46 06:46 RBC 2.70 L Hgb 7.8 L Hct 24.7 L MCHC RDW 16.0 H Sodium 135 L Potassium 3.4 L Chloride 97 L Carbon Dioxide 31 H Creatinine 2.08 H Glucose Phosphorus 1.7 L Total Protein Albumin Crossmatch Assessment and Plan Assessment: This is a 75-year-old woman with medical history of end-stage renal disease on dialysis, atrial fibrillation on Eliquis, pulmonary embolus and, lupus, hyperlipidemia who presented to the emergency department on 05/31/2020 that was sent from dialysis after being found to have a hemoglobin of 5.8. Patient denied of any GI bleed. Denied of any nausea or vomiting. Neurology team is consulted for this episodic confusion. During her stay in our facility as she had the blood transfusion and her last hemoglobin 06/01/2020 is 7.8. Toxic-metabolic encephalopathy due multifactorial: Acute anemia leading to hypoxia, recent UTI epsecially in her age (04/2020), medication effect (doxepin), ESRD on dialysis Acute anemia Hyperlipidemia Hypothyroidism Scleroderma History of duodenal ulcer with bleed end-stage renal disease on dialysis Chronic pulmonary emboli (2016) on eliquis History COPD Plan: I ordered ammonia level. I also ordered TSH to be repeated since the last time was 05/19/2020 even though the patient is on Synthroid to make sure the TSH is within normal limits (last TSH on 05/19/20: 279 with free T4: 0.7). Recommend switching doxepin to a different medication since doxepin is a tricyclic antidepressant which can cause cognitive impairment especially at her age. I ordered a routine EEG. I will not start the patient on antiepileptic drugs unless there is a epileptic discharges or seizure. I ordered CT head to rule out intracranial process especially since she is on anticoagulation (she does not have focal deficits). On 05/20/2020: Vitamin B12 is 403 which is within normal limits., Red blood cell folate is 1710 which is above normal limits. There is no reason not to recheck them. Occupation therapy and physical therapy on board. Regarding the patient Scleroderma, she is on Imuran 25 mg daily. Thank you for the consultation. Misael Stokes M.D. Neuro-hospitalist Time with Patient: Greater than 30
[2020-06-02] MEDS: CALCIUM ACETATE 667 MG TAB PO SCH ×3 (14:42→17:51)
[2020-06-02] MEDS: MIDODRINE 5 MG TAB PO SCH ×3 (14:42→17:52)
[2020-06-02] MEDS: CALCIUM CARB-MAG CARB-FOLIC 1 EACH TAB PO SCH ×3 (14:42→17:52)
[2020-06-02] MEDS: APIXABAN 2.5 MG TABLET PO SCH ×2 (14:42→17:51)
[2020-06-02] MEDS: PANTOPRAZOLE 40 MG TABLET PO SCH ×2 (14:43→17:52)
--- NOTE | 2020-06-02 15:50 | CT ---
EXAMINATION TYPE: CT brain wo con DATE OF EXAM: 06/02/2020 HISTORY: Patient poor historian. CT DLP: 1129.4 mGycm. Automated Exposure Control for Dose Reduction was Utilized. TECHNIQUE: CT scan of the head is performed without contrast. COMPARISON: CT brain May 20, 2020. FINDINGS: There is no acute intracranial hemorrhage or midline shift identified. There is diffuse v entricular and sulcal prominence consistent with diffuse age-related cerebral atrophy. There is low- attenuation in the periventricular white matter consistent with chronic small vessel ischemic change. The globes are intact and the visualized sinuses are clear. IMPRESSION: No acute intracranial hemorrhage or midline shift. There is [id number] diffuse ce rebral atrophy and chronic small vessel ischemic change redemonstrated. No significant change from m ost recent study.
[2020-06-02] MEDS: SODIUM CHLORIDE 0.9% 1,000 ML IV SCH (17:39)
[2020-06-02] MEDS: azaTHIOprine 50 MG TAB PO SCH (17:50)
[2020-06-02] MEDS: POTASSIUM CHLORIDE ER 10 MEQ TAB.ER.PRT PO SCH (17:50)
[2020-06-02] MEDS: risperiDONE ODT 1 MG TAB PO SCH (17:51)
[2020-06-02] MEDS: DOCUSATE 100 MG CAP PO SCH (17:52)
--- NOTE | 2020-06-02 18:41 | EEG ---
ELECTROENCEPHALOGRAM REPORT DATE OF SERVICE: 06/02/2020. CLINICAL HISTORY: That This is a 74-year-old female who presented to the emergency department because of acute anemia. She has altered mental status. This video EEG was obtained to evaluate for seizure and epileptiform activity. RELEVANT MEDICATION: The patient is not on any central active medication. EEG TYPE: A routine 21-channel EEG was performed with video using the 10/20 electrode placement system. DESCRIPTION: Wakefulness and drowsiness are obtained. During wakefulness, there is a posterior- dominant rhythm of low to moderate voltage, nonreactive, that is poorly modulated of 6- 7 hertz activity over bilateral hemispheres. At times the background consists of diffuse non-rhythmic 1 to 2 hertz delta activity over bilateral hemispheres. During drowsiness there is slowing and attenuation of the background activity. There is no physiological stage II sleep. INTERICTAL AND ICTAL: None. ACTIVATION PROCEDURES: Photic stimulation did not evoke a posterior driving response. Hyperventilation was not done because of the patient's clinical history. CLINICAL INTERPRETATION: This is an abnormal routine EEG. The background slowing is suggestive of moderate encephalopathy of unspecified etiology. There are no focal slowing, epileptiform discharges or seizure during the study. Clinical correlation is recommended. MMODL / IJN: [id number] / MTDD
[2020-06-02] MEDS: ATORVASTATIN 20 MG TAB PO SCH (20:45)
[2020-06-02] MEDS: DOXEPIN 25 MG CAP PO SCH (20:45)
[2020-06-02] MEDS ORDERED: QUEtiapine 25 MG TAB PO SCH (21:00)
--- NOTE | 2020-06-02 22:57 | P.PN ---
Progress Note - Text Progress Note Date: 06/02/20 Chief Complaint: Low hemoglobin History of presenting complaint: This is a 74-year-old patient at the [facility]. Follow with Dr. Bernard. Chronic stable medical conditions include end-stage kidney disease on hemodialysis, COPD, GERD, hyperlipidemia, scleroderma, chronic pulmonary embolic 7 2015 on eliquis, hypothyroid, hyperlipidemia, history of duodenal ulcer with bleed, chronic kidney disease minimal bone disease. Patient getting hemodialysis today was found having hemoglobin of 6.8. Was transferred here. Denies any black stools. 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 Admitted with anemia. Symptomatic. Given a unit of blood. Discussed with Dr. Barry from nephrology. Patient has been not herself for last few weeks. Otherwise was doing rather well before. Today-tired. EEG showed encephalopathy. Decreased oral intake. Sleepy. Review of systems: Was done for constitutional, cardiovascular, GI, pulmonary. relevant finding as above Active Medications Acetaminophen (Acetaminophen Tab 325 Mg Tab) 650 mg PO Q4H PRN PRN Reason: Pain or Fever > 100.5 Alprazolam (Alprazolam 0.25 Mg Tab) 0.25 mg PO BID PRN PRN Reason: agitation Apixaban (Apixaban 2.5 Mg Tablet) 2.5 mg PO BID@0800,1700 [facility] Last Admin: 06/02/20 17:51 Dose: Not Given Documented by: Atorvastatin Calcium (Atorvastatin 20 Mg Tab) 20 mg PO HS@2100 [facility] Last Admin: 06/02/20 20:45 Dose: Not Given Documented by: Azathioprine (Azathioprine 50 Mg Tab) 25 mg PO DAILY@0800 [facility] Last Admin: 06/02/20 17:50 Dose: Not Given Documented by: Ca Carbonate/Folic Ac/Mg Carbonate (Calcium Carb-Mag Carb-Folic 1 Each Tab) 1 each PO TID@0800,1200,1700 [facility] Last Admin: 06/02/20 17:52 Dose: Not Given Documented by: Calcium Acetate (Calcium Acetate 667 Mg Tab) 667 mg PO TID@0800,1200,1700 [facility] Last Admin: 06/02/20 17:51 Dose: Not Given Documented by: Darbepoetin Sherman (Darbepoetin Sherman 40 Mcg/0.4 Ml Syringe) 40 mcg SQ Q7D [facility] Last Admin: 06/01/20 16:02 Dose: 40 mcg Documented by: Docusate Sodium (Docusate 100 Mg Cap) 100 mg PO DAILY@1700 [facility] Last Admin: 06/02/20 17:52 Dose: Not Given Documented by: Sodium Chloride (Saline 0.9%) 1,000 mls @ 20 mls/hr IV .Q24H [facility] Last Admin: 06/02/20 17:39 Dose: 20 mls/hr Documented by: Daptomycin 300 mg/ Sodium (Chloride) 50 mls @ 100 mls/hr IVPB MoWeFr [facility] Stop: 06/09/20 22:03 Last Admin: 06/02/20 20:49 Dose: 100 mls/hr Documented by: Levothyroxine Sodium (Levothyroxine 112 Mcg Tab) 112 mcg PO DAILY@0630 [facility] Lorazepam (Lorazepam 2 Mg/Ml Inj) 1 mg IM TID PRN PRN Reason: Agitation Last Admin: 06/01/20 21:02 Dose: 1 mg Documented by: Magnesium Hydroxide (Magnesium Hydroxide 2,400 Mg/10 Ml Cup) 2,400 mg PO DAILY PRN PRN Reason: Constipation Midodrine (Midodrine 5 Mg Tab) 10 mg PO TID@0800,1200,1700 [facility] Last Admin: 06/02/20 17:52 Dose: Not Given Documented by: Naloxone HCl (Naloxone 0.4 Mg/Ml 1 Ml Vial) 0.2 mg IV Q2M PRN PRN Reason: Opioid Reversal Ondansetron HCl (Ondansetron 4 Mg Tab) 4 mg PO TID PRN PRN Reason: Nausea Pantoprazole Sodium (Pantoprazole 40 Mg Tablet) 40 mg PO BID@0800,1700 [facility] Last Admin: 06/02/20 17:52 Dose: Not Given Documented by: Potassium Chloride (Potassium Chloride Er 10 Meq Tab.Er.Prt) 10 meq PO DAILY [facility] Last Admin: 06/02/20 17:50 Dose: Not Given Documented by: Risperidone (Risperidone Odt 1 Mg Tab) 1 mg PO [facility] Physical examination: VITAL SIGNS: 97.4, 139, 14, 117/82, 95% room air GENERAL: Propped up in bed, sleepy. EYES: Pupils equal. Conjunctiva pale. HEENT: External appearance of nose and ears normal, oral cavity grossly normal. NECK: JVD not raised; masses not palpable. HEART: First and second heart sounds are normal; no edema. LUNGS: Respiratory rate normal; clear to auscultation. ABDOMEN: Soft, nontender, liver spleen not palpable, no masses palpable. PSYCH: Answering occasional questions Confused.. EXTREMITY: Ulcer of the left ankle INVESTIGATIONS, reviewed in the clinical context: EEG evidence of encephalopathy White count 7.4 hemoglobin 7.8 potassium 3.4 creatinine 2.08 Admission testing White count 6.3 hemoglobin 6.9 potassium 3 creatinine 1.34 Previous testing: Hemoglobin 8.5 on May 20 Investigations: -Acute normocytic anemia. Cannot rule out GI bleed-received a unit of blood -Metabolic encephalopathy. Note that patient is on doxepin 75 mg. needs a reduced dose with renal failure. We'll discontinue the same. We'll also DC Xanax. -COPD -End-stage kidney disease on hemodialysis from underlying FSGS -GERD and --hyperlipidemia -Scleroderma -Chronic pulmonary embolism in 2016, on eliquis -Hypothyroid-given patient's small body frame patient of the hefty dose of Synthroid. We'll cut back the dose to 112 g. 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 -VRE UTI on daptomycin Plan: We will change the timing of Haldol to 9 PM. DC set". DC Xanax.;.dc doxepin. Watch the patient for another 24 hours hopefully turn around. Discussed with Dr. Stokes from pulmonary.
[2020-06-03] MEDS: MIDODRINE 5 MG TAB PO SCH ×3 (08:19→18:13)
[2020-06-03] MEDS: CALCIUM ACETATE 667 MG TAB PO SCH ×3 (11:16→18:31)
[2020-06-03] MEDS: CALCIUM CARB-MAG CARB-FOLIC 1 EACH TAB PO SCH ×3 (11:16→18:31)
[2020-06-03] MEDS: POTASSIUM CHLORIDE ER 10 MEQ TAB.ER.PRT PO SCH (12:15)
[2020-06-03] MEDS: PANTOPRAZOLE 40 MG TABLET PO SCH ×2 (12:15→18:13)
[2020-06-03] MEDS: APIXABAN 2.5 MG TABLET PO SCH ×2 (12:15→18:13)
[2020-06-03] MEDS: azaTHIOprine 50 MG TAB PO SCH (12:17)
--- NOTE | 2020-06-03 14:26 | P.PN ---
Subjective Patient is seen in follow-up for end-stage renal disease. She is maintained on hemodialysis on Sunday schedule. She is currently awake and alert. No chest pain or shortness of breath. Tolerated dialysis well yesterday. Vital signs are stable. General: The patient appeared well nourished and normally developed. HEENT: Head exam is unremarkable. Neck is without jugular venous distension. LUNGS: Breath sounds decreased. HEART: Rate and Rhythm are regular. ABDOMEN: Soft, nontender. EXTREMITITES: No edema. Objective - Vital Signs Vital signs: Vital Signs Temp 98.2 F 06/03/20 11:46 Pulse 84 06/03/20 11:47 Resp 17 06/03/20 11:47 BP 140/63 06/03/20 11:46 Pulse Ox 97 06/03/20 11:46 Intake & Output 06/02/20 06/03/20 06/03/20 18:59 06:59 18:59 Intake Total 0 290 Output Total 1000 Balance -1000 290 Weight 70.5 kg Intake: Intake, IV Titration 50 Amount DAPTOmycin 300 mg In 50 Sodium Chloride 0.9% 50 ml @ 100 mls/hr IVPB MoWeFr [facility] Rx#:[id number] Oral 0 240 Output: Hemodialysis 1000 Other: Voiding Method Diaper Diaper Diaper Incontinent # Voids 2 2 - Labs CBC & Chem 7: 06/01/20 06:46 06/02/20 08:42 Assessment and Plan Plan: Assessment: 1. End-stage renal disease maintained on hemodialysis on Sunday schedule. 2. Acute blood loss anemia status post blood transfusion. EGD done in March 2020 reveals small superficial duodenal ulcer, antral erosive gastritis and a duodenal stricture. Maintained on Aranesp. 3. VRE UTI maintained on daptomycin. 4. Altered mental status. Unclear cause. Possibly from UTI. EEG revealed moderate encephalopathy without seizure activity. Brain CT revealed no acute changes. Doxepin stopped. Also noted to be severely hypothyroid but not improved. Ammonia level normal. 5. Hypokalemia from poor intake maintained on potassium supplementation. 6. 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 7. Left ankle ulcer being followed by wound care. 8. Severe hypothyroidism maintained on Synthroid. Plan: Hemodialysis tomorrow. Repeat electrolytes including phosphorus level in the morning.
[2020-06-03] MEDS: DOCUSATE 100 MG CAP PO SCH (18:12)
[2020-06-03] MEDS: SODIUM CHLORIDE 0.9% 1,000 ML IV SCH (18:28)
--- NOTE | 2020-06-03 18:44 | P.PN ---
Progress Note - Text Progress Note Date: 06/03/20 Chief Complaint: Low hemoglobin History of presenting complaint: This is a 74-year-old patient at the [facility]. Follow with Dr. Bernard. Chronic stable medical conditions include end-stage kidney disease on hemodialysis, COPD, GERD, hyperlipidemia, scleroderma, chronic pulmonary embolic 7 2015 on eliquis, hypothyroid, hyperlipidemia, history of duodenal ulcer with bleed, chronic kidney disease minimal bone disease. Patient getting hemodialysis today was found having hemoglobin of 6.8. Was transferred here. Denies any black stools. 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 Admitted with anemia. Symptomatic. Given a unit of blood. Discussed with Dr. Barry from nephrology. Patient has been not herself for last few weeks. Otherwise was doing rather well before. EEG showed encephalopathy. Patient Xanax and doxepin discontinued. Today-more awake today. More communicative and interactive. Review of systems: Was done for constitutional, cardiovascular, GI, pulmonary. relevant finding as above Active Medications Acetaminophen (Acetaminophen Tab 325 Mg Tab) 650 mg PO Q4H PRN PRN Reason: Pain or Fever > 100.5 Last Admin: 06/03/20 12:16 Dose: 650 mg Documented by: Apixaban (Apixaban 2.5 Mg Tablet) 2.5 mg PO BID@0800,1700 [facility] Last Admin: 06/03/20 18:13 Dose: Not Given Documented by: Atorvastatin Calcium (Atorvastatin 20 Mg Tab) 20 mg PO HS@2100 [facility] Last Admin: 06/02/20 20:45 Dose: Not Given Documented by: Azathioprine (Azathioprine 50 Mg Tab) 25 mg PO DAILY@0800 [facility] Last Admin: 06/03/20 12:17 Dose: 25 mg Documented by: Ca Carbonate/Folic Ac/Mg Carbonate (Calcium Carb-Mag Carb-Folic 1 Each Tab) 1 each PO TID@0800,1200,1700 [facility] Last Admin: 06/03/20 18:31 Dose: 1 each Documented by: Calcium Acetate (Calcium Acetate 667 Mg Tab) 667 mg PO TID@0800,1200,1700 [facility] Last Admin: 06/03/20 18:31 Dose: 667 mg Documented by: Darbepoetin Sherman (Darbepoetin Sherman 40 Mcg/0.4 Ml Syringe) 40 mcg SQ Q7D [facility] Last Admin: 06/01/20 16:02 Dose: 40 mcg Documented by: Docusate Sodium (Docusate 100 Mg Cap) 100 mg PO DAILY@1700 [facility] Last Admin: 06/03/20 18:12 Dose: Not Given Documented by: Sodium Chloride (Saline 0.9%) 1,000 mls @ 20 mls/hr IV .Q24H [facility] Last Admin: 06/03/20 18:28 Dose: Not Given Documented by: Daptomycin 300 mg/ Sodium (Chloride) 50 mls @ 100 mls/hr IVPB MoWeFr [facility] Stop: 06/09/20 22:03 Last Admin: 06/02/20 20:49 Dose: 100 mls/hr Documented by: Levothyroxine Sodium (Levothyroxine 112 Mcg Tab) 112 mcg PO DAILY@0630 [facility] Lorazepam (Lorazepam 2 Mg/Ml Inj) 1 mg IM TID PRN PRN Reason: Agitation Last Admin: 06/01/20 21:02 Dose: 1 mg Documented by: Magnesium Hydroxide (Magnesium Hydroxide 2,400 Mg/10 Ml Cup) 2,400 mg PO DAILY PRN PRN Reason: Constipation Midodrine (Midodrine 5 Mg Tab) 10 mg PO TID@0800,1200,1700 [facility] Last Admin: 06/03/20 18:13 Dose: Not Given Documented by: Naloxone HCl (Naloxone 0.4 Mg/Ml 1 Ml Vial) 0.2 mg IV Q2M PRN PRN Reason: Opioid Reversal Ondansetron HCl (Ondansetron 4 Mg Tab) 4 mg PO TID PRN PRN Reason: Nausea Pantoprazole Sodium (Pantoprazole 40 Mg Tablet) 40 mg PO BID@0800,1700 [facility] Last Admin: 06/03/20 18:13 Dose: Not Given Documented by: Potassium Chloride (Potassium Chloride Er 10 Meq Tab.Er.Prt) 10 meq PO DAILY [facility] Last Admin: 06/03/20 12:15 Dose: 10 meq Documented by: Risperidone (Risperidone Odt 1 Mg Tab) 1 mg PO [facility] Physical examination: VITAL SIGNS: 98.4, 85, 17, 140/75, 96% room air GENERAL: Propped up in bed, awake EYES: Pupils equal. Conjunctiva pale. HEENT: External appearance of nose and ears normal, oral cavity grossly normal. NECK: JVD not raised; masses not palpable. HEART: First and second heart sounds are normal; no edema. LUNGS: Respiratory rate normal; clear to auscultation. ABDOMEN: Soft, nontender, liver spleen not palpable, no masses palpable. PSYCH: Answering questions appropriately EXTREMITY: Ulcer of the left ankle INVESTIGATIONS, reviewed in the clinical context: EEG evidence of encephalopathy White count 7.4 hemoglobin 7.8 potassium 3.4 creatinine 2.08 Admission testing White count 6.3 hemoglobin 6.9 potassium 3 creatinine 1.34 Previous testing: Hemoglobin 8.5 on May 20 Investigations: -Acute normocytic anemia. Cannot rule out GI bleed-received a unit of blood -Metabolic encephalopathy. Note that patient is on doxepin 75 mg. needs a reduced dose with renal failure. We'll discontinue the same. We'll also DC Xanax. -COPD -End-stage kidney disease on hemodialysis from underlying FSGS -GERD and --hyperlipidemia -Scleroderma -Chronic pulmonary embolism in 2016, on eliquis -Hypothyroid-given patient's small body frame patient of the hefty dose of Synthroid. We'll cut back the dose to 112 g. 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 -VRE UTI on daptomycin Plan: Patient looking much better. We'll see how the patient does. Hopefully discharged tomorrow.
--- NOTE | 2020-06-03 18:51 | P.PN ---
Subjective Progress Note Date: 06/03/20 He was seen at bedside and the patient states that she's doing much better today compared to yesterday. She did acknowledge she was acting K yesterday in her own words. He denies of any the headache, visual disturbance, weakness, numbness. Yesterday I personally spoke with the patient's son via phone and he stated that the the patient is alert oriented 3, very highly functional life. She takes care of her own bills and is very independent. He said that the since she had the duodenal ulcer in the 04/27/2020 thinks have been trending down for her condition. He said then she got a urinary tract infection which her mentation significant difficulty also 1 down and was hallucinating after that. And was not herself. He said prior end of June she was highly functional and her mentation was intact. He denied that she had any history of dementia. Objective - Vital Signs Vital signs: Vital Signs Temp 98.4 F 06/03/20 16:42 Pulse 85 06/03/20 16:42 Resp 17 06/03/20 16:42 BP 144/75 06/03/20 16:42 Pulse Ox 96 06/03/20 16:42 Intake & Output 06/02/20 06/03/20 06/03/20 18:59 06:59 18:59 Intake Total 0 290 900 Output Total 1000 Balance -1000 290 900 Weight 70.5 kg Intake: Intake, IV Titration 50 Amount DAPTOmycin 300 mg In 50 Sodium Chloride 0.9% 50 ml @ 100 mls/hr IVPB MoWeFr [facility] Rx#:[id number] Oral 0 240 900 Output: Hemodialysis 1000 Other: Voiding Method Diaper Diaper Diaper Incontinent # Voids 2 2 - Exam GENERAL: The patient is lying in bed and is not in acute distress. CHEST: The heart rate is regular rate rhythm. No murmurs to auscultation. LUNG: Clear to auscultation bilaterally no wheezing noted throughout. Not labored breathing. NEUROLOGICAL: Higher mental function: The patient is awake, alert, oriented to self, place but not time. She kept on saying this is June. She is able to name objects correctly (pen and watch). Patient is following simple commands. No aphasia and no neglect. Cranial nerves: The pupils are round, equal and reactive to light and accommodation. Visual holley are full to confrontation throughout. Extraocular movement is intact no nystagmus is noted. Facial sensation is normal to touch throughout. The facial strength is normal throughout. Hearing is normal bilaterally to hand rub. Tongue is midline and moved [id number] without any difficulty. No dysarthria is noted. Shoulder shrug is normal bilaterally. Motor: Gait is deferred. The strength is 5 over 5 throughout. Normal tone and bulk. Cerebellum: Normal finger to nose bilaterally. Sensation: Sensation is normal to touch throughout. Reflexes (right/left): 2+ throughout. Plantars are downgoing bilaterally. - Labs CBC & Chem 7: 06/01/20 06:46 06/02/20 08:42 Assessment and Plan Assessment: This is a 75-year-old woman with medical history of end-stage renal disease on dialysis, atrial fibrillation on Eliquis, pulmonary embolus and, lupus, hyperlipidemia who presented to the emergency department on 05/31/2020 that was sent from dialysis after being found to have a hemoglobin of 5.8. Patient denied of any GI bleed. Denied of any nausea or vomiting. Neurology team is consulted for this episodic confusion. During her stay in our facility as she had the blood transfusion and her last hemoglobin 06/01/2020 is 7.8. Toxic-metabolic encephalopathy due multifactorial: Acute anemia leading to hypoxia, recent UTI epsecially in her age (04/2020), medication effect (doxepin), ESRD on dialysis---improving Acute anemia Hyperlipidemia Hypothyroidism Scleroderma History of duodenal ulcer with bleed end-stage renal disease on dialysis Chronic pulmonary emboli (2016) on eliquis History COPD Plan: Ammonia level: <9. Current TSH: 45.8 and free T4: 1.71 (normal). Last TSH on 05/19/20: 279 with free T4: 0.7 even though on Synthroid. Recommend switching doxepin to a different medication since doxepin is a tricyclic antidepressant which can cause cognitive impairment especially at her age. Routine EEG (06/02/20): This is an abnormal EEG, tobacco slowing is suggestive of moderate encephalopathy of unspecified etiology. There are no focal slowing, Lipitor discharges or seizures in the study. CT head: Was reported as no acute intracranial hemorrhage or midline shift. There is mild to moderate diffuse cerebral atrophy and chronic small vessel ischemic changes redemonstrated. No significant change from most recent study at. I reviewed the CT of the head and I agree with the finding.. On 05/20/2020: Vitamin B12 is 403 which is within normal limits., Red blood cell folate is 1710 which is above normal limits. There is no reason not to recheck them. Occupation therapy and physical therapy on board. Regarding the patient Scleroderma, she is on Imuran 25 mg daily. We'll continue to follow. Misael Stokes M.D. Neuro-hospitalist Time with Patient: Less than 30
[2020-06-03] MEDS: ATORVASTATIN 20 MG TAB PO SCH (20:48)
[2020-06-03] MEDS ORDERED: risperiDONE ODT 1 MG TAB PO SCH (21:00)
[2020-06-04] MEDS ORDERED: LEVOTHYROXINE 112 MCG TAB PO SCH (06:30)
[2020-06-04 08:01] LABS: Calcium 9.2 mg/dL (8.4-10.2); Magnesium 2.1 mg/dL (1.6-2.3); Phosphorus 2.2 mg/dL (2.5-4.5); Potassium 3.5 mmol/L (3.5-5.1)
[2020-06-04] MEDS: azaTHIOprine 50 MG TAB PO SCH (09:15)
[2020-06-04] MEDS: CALCIUM CARB-MAG CARB-FOLIC 1 EACH TAB PO SCH ×3 (09:15→17:49)
[2020-06-04] MEDS: MIDODRINE 5 MG TAB PO SCH ×3 (09:16→17:50)
[2020-06-04] MEDS: APIXABAN 2.5 MG TABLET PO SCH ×2 (09:17→17:50)
[2020-06-04] MEDS: PANTOPRAZOLE 40 MG TABLET PO SCH ×2 (09:17→17:49)
[2020-06-04] MEDS: CALCIUM ACETATE 667 MG TAB PO SCH ×3 (09:17→17:49)
[2020-06-04] MEDS: POTASSIUM CHLORIDE ER 10 MEQ TAB.ER.PRT PO SCH (09:19)
[2020-06-04] MEDS ORDERED: Phosphorus Replacement Protoco 1 EACH MISC MISCELLANE PRN (12:11)
--- NOTE | 2020-06-04 12:12 | P.PN ---
Subjective Patient is seen in follow-up for end-stage renal disease. She is maintained on hemodialysis on Sunday schedule. Tolerating dialysis well. Continues to have intermittent confusion. Vital signs are stable. General: The patient appeared well nourished and normally developed. HEENT: Head exam is unremarkable. Neck is without jugular venous distension. LUNGS: Breath sounds decreased. HEART: Rate and Rhythm are regular. ABDOMEN: Soft, nontender. EXTREMITITES: No edema. Objective - Vital Signs Vital signs: Vital Signs Temp 97.6 F 06/04/20 12:06 Pulse 89 06/04/20 12:06 Resp 20 06/04/20 12:06 BP 141/79 06/04/20 12:06 Pulse Ox 96 06/04/20 11:04 Intake & Output 06/03/20 06/04/20 06/04/20 18:59 06:59 18:59 Intake Total 900 560 Output Total 0 Balance 900 560 Weight 71 kg Intake: Oral 900 560 Output: Urine 0 Other: Voiding Method Diaper Diaper Incontinent Incontinent - Labs CBC & Chem 7: 06/01/20 06:46 06/04/20 06:47 Labs: Abnormal Lab Results - Last 24 Hours (Table) 06/04/20 Range/Units 06:47 Sodium 133 L (137-145) mmol/L Creatinine 2.44 H (0.52-1.04) mg/dL Phosphorus 2.2 L (2.5-4.5) mg/dL Assessment and Plan Plan: Assessment: 1. End-stage renal disease maintained on hemodialysis on Sunday schedule. 2. Acute blood loss anemia status post blood transfusion. EGD done in March 2020 reveals small superficial duodenal ulcer, antral erosive gastritis and a duodenal stricture. Maintained on Aranesp. 3. VRE UTI maintained on daptomycin. 4. Altered mental status. Unclear cause. Possibly from UTI. EEG revealed moderate encephalopathy without seizure activity. Brain CT revealed no acute changes. Doxepin stopped. Also noted to be severely hypothyroid but now improved. Ammonia level normal. 5. Hypokalemia from poor intake maintained on potassium supplementation. 6. 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 7. Left ankle ulcer being followed by wound care. 8. Severe hypothyroidism maintained on Synthroid. Plan: Currently seen while undergoing hemodialysis. Replace phosphorus. Encourage oral intake.
--- NOTE | 2020-06-04 13:15 | P.PN ---
Subjective Progress Note Date: 06/04/20 Patient was seen at bedside and she was in the process of getting dialysis. She was screaming out her son's name and even though he is not in the room. She said "comeback Vineet". She seemed more delirious that today. Upon seeing her she stated that she's doing well. Per the patient nurse she's waxing and waning. Objective - Vital Signs Vital signs: Vital Signs Temp 97.6 F 06/04/20 12:06 Pulse 89 06/04/20 12:06 Resp 20 06/04/20 12:06 BP 141/79 06/04/20 12:06 Pulse Ox 96 06/04/20 11:04 Intake & Output 06/03/20 06/04/20 06/04/20 18:59 06:59 18:59 Intake Total 900 560 Output Total 0 Balance 900 560 Weight 71 kg Intake: Oral 900 560 Output: Urine 0 Other: Voiding Method Diaper Diaper Incontinent Incontinent - Exam GENERAL: The patient is lying in bed and seemed agitated. CHEST: The heart rate is regular rate rhythm. No murmurs to auscultation. LUNG: Clear to auscultation bilaterally no wheezing noted throughout. Not labored breathing. NEUROLOGICAL: Higher mental function: The patient is awake, alert, oriented to self, place but not time. She seemed delirious. Patient is following simple commands. No aphasia and no neglect. Cranial nerves: The pupils are round, equal and reactive to light. Visual holley are full to confrontation throughout. Extraocular movement is intact no nystagmus is noted. Facial sensation is normal to touch throughout. The facial strength is normal throughout. Tongue is midline and moved [id number] without any difficulty. No dysarthria is noted. Shoulder shrug is normal bilaterally. Motor: Gait is deferred. The strength is limited because of the patient c ooperation but is able to move all extremities above gravity without any drift and there is does not seem to be any focality. Cerebellum: Not tested because of a cooperation Sensation: Sensation is normal to touch throughout. Reflexes (right/left): 2+ throughout. Plantars are downgoing bilaterally. - Labs CBC & Chem 7: 06/01/20 06:46 06/04/20 06:47 Labs: Abnormal Lab Results - Last 24 Hours (Table) 06/04/20 Range/Units 06:47 Sodium 133 L (137-145) mmol/L Creatinine 2.44 H (0.52-1.04) mg/dL Phosphorus 2.2 L (2.5-4.5) mg/dL Assessment and Plan Assessment: This is a 75-year-old woman with medical history of end-stage renal disease on dialysis, atrial fibrillation on Eliquis, pulmonary embolus and, lupus, hyperlipidemia who presented to the emergency department on 05/31/2020 that was sent from dialysis after being found to have a hemoglobin of 5.8. Patient denied of any GI bleed. Denied of any nausea or vomiting. Neurology team is co nsulted for this episodic confusion. During her stay in our facility as she had the blood transfusion and her last hemoglobin 06/01/2020 is 7.8. Delerium--Multifactorial: Acute anemia leading to hypoxia, recent UTI epsecially in her age (04/2020), ESRD on dialysis or hospital delerium. Acute anemia Hyperlipidemia Hypothyroidism Scleroderma History of duodenal ulcer with bleed end-stage renal disease on dialysis Chronic pulmonary emboli (2015) on eliquis History COPD Plan: Ammonia level: <9. Current TSH: 45.8 and free T4: 1.71 (normal). Last TSH on 05/19/20: 279 with free T4: 0.7 even though on Synthroid. Routine EEG (06/02/20): This is an abnormal EEG, tobacco slowing is suggestive of moderate encephalopathy of unspecified etiology. There are no focal slowing, Lipitor discharges or seizures in the study. CT head: Was reported as no acute intracranial hemorrhage or midline shift. There is mild to moderate diffuse cerebral atrophy and chronic small vessel ischemic changes redemonstrated. No significant change from most recent study at. I reviewed the CT of the head and I agree with the finding.. On 05/20/2020: Vitamin B12 is 403 which is within normal limits., Red blood cell folate is 1710 which is above normal limits. There is no reason not to recheck them. Please avoid any sedation or narcotic that would worsen the patient's condition. Consider repeating the patient CBC and BMP will defer that to the primary team. Occupation therapy and physical therapy on board. Regarding the patient Scleroderma, she is on Imuran 25 mg daily. We'll continue to follow. Misael Stokes M.D. Neuro-hospitalist Time with Patient: Less than 30
--- NOTE | 2020-06-04 15:18 | P.DS ---
Providers Date of admission: 05/31/20 14:19 Expected date of discharge: 06/04/20 Attending physician: Remy Lai Consults: 05/31/20 17:20 Consult Physician Routine Consulting Provider: Danis Barry Consult Reason/Comments: renal failure, anemia Do you want consulting provider notified?: Yes 06/01/20 15:27 Consult Physician Routine Consulting Provider: Misael Stokes Consult Reason/Comments: Episodic confusion Do you want consulting provider notified?: Yes Primary care physician: [facility] Hospital Course: Chief Complaint: Low hemoglobin History of presenting complaint: This is a 74-year-old patient at the [facility]. Follow with Dr. Bernard. Chronic stable medical conditions include end-stage kidney disease on hemodialysis, COPD, GERD, hyperlipidemia, scleroderma, chronic pulmonary embolic 7 2015 on eliquis, hypothyroid, hyperlipidemia, history of duodenal ulcer with bleed, chronic kidney disease minimal bone disease. Patient getting hemodialysis today was found having hemoglobin of 6.8. Was transferred here. Denies any black stools. 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 Admitted with anemia. Symptomatic. Given a unit of blood. Discussed with Dr. Barry from nephrology. Patient has been not herself for last few weeks. Otherwise was doing rather well before. EEG showed encephalopathy. Patient Xanax and doxepin discontinued. More awake with that. Patient felt to underlying mild cognitive impairment. Patient's sister Smiley is [place]. Patient also found to have sick euthyroid syndrome. He was no TSH is elevated patient's dose of Synthroid was cut back. As she is felt to be order placed. He have to be very careful interpreting her TSH. Computed tomography scan of the brain showed chronic changes. Dose of risperidone be cut back. Because of renal failure. Today-oral intake fine. Discussed with Dr. Barry. Patient down the road will need further dementia evaluation. Example Woody assessment testing. Daptomycin is being discontinued. Patient has no fever no white count. No urinary symptoms. Discussion and discharge planning more than 35 minutes Consultation: Dr. Stokes from neurology Dr. Barry from nephrology Physical examination: VITAL SIGNS: 97.6, 89, 20, 141 with 79, 96% room air GENERAL: Laying in bed, comfortable EYES: Pupils equal. Conjunctiva pale. HEENT: External appearance of nose and ears normal, oral cavity grossly normal. NECK: JVD not raised; masses not palpable. HEART: First and second heart sounds are normal; no edema. LUNGS: Respiratory rate normal; clear to auscultation. ABDOMEN: Soft, nontender, liver spleen not palpable, no masses palpable. PSYCH: Answering questions appropriately EXTREMITY: Ulcer of the left ankle INVESTIGATIONS, reviewed in the clinical context: EEG evidence of encephalopathy White count 7.4 hemoglobin 7.8 potassium 3.4 creatinine 2.08 Admission testing White count 6.3 hemoglobin 6.9 potassium 3 creatinine 1.34 Previous testing: Hemoglobin 8.5 on May 20 Investigations: -Acute normocytic anemia. Cannot rule out GI bleed-received a unit of blood -Chronic Metabolic encephalopathy. Doxepin and Xanax discontinued. 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 We'll cut back the dose to 112 g. 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 -Mild cognitive impairment -VRE UTI on daptomycin-course completed Disposition: F/[place] Patient Condition at Discharge: Stable Plan - Discharge Summary Discharge Rx Participant: No New Discharge Prescriptions: New Darbepoetin Sherman [Aranesp] 40 mcg SQ Q7D syringe Potassium Chloride ER [K-Dur 10] 10 meq PO DAILY tab.er.prt Levothyroxine Sodium [Synthroid] 112 mcg PO DAILY@0630 tab risperiDONE [RisperDAL] 0.5 mg PO HS #3 tablet Continue Atorvastatin [Lipitor] 20 mg PO HS@2100 azaTHIOprine [Imuran] 25 mg PO DAILY@0800 Folic Acid 0.8 mg PO DAILY@0800 Calcium Carb-Mag Carb-Folic [Magnebind 400] 1 tab PO TID@0800,1200,1700 Calcium Acetate [PhosLo] 667 mg PO TID@0800,1200,1700 Ondansetron [Zofran] 4 mg PO TID PRN PRN Reason: Nausea Docusate [Colace] 100 mg PO DAILY@1700 Apixaban [Eliquis] 2.5 mg PO BID@0800,1700 Pantoprazole Sodium [Protonix] 40 mg PO BID@0800,1700 Acetaminophen [Tylenol] 650 mg PO Q4H PRN PRN Reason: Pain Or Fever > 100.5 Midodrine HCl 10 mg PO TID@0800,1200,1700 Collagenase [Santyl] 1 applic TOPICAL DAILY Menthol-Zinc Oxide Oint [Calmoseptine Oint] 1 applic TOPICAL BID Magnesium Hydroxide [Milk of Magnesia Concentrate] 7,200 mg PO DAILY PRN PRN Reason: Constipation Na Phos,M-B/Na Phos,Di-Ba [Fleet Adult] 133 ml RECTAL DAILY PRN PRN Reason: Constipation bisacodyL [Dulcolax] 10 mg RECTAL DAILY PRN PRN Reason: Constipation Ensure Clear 237 ml PO SUTUTHSA@,, Ensure Clear 237 ml PO MOWEFR@, Daptomycin 300mg Solution 300 mg IV MOWEFR Discontinued Doxepin HCl 75 mg PO HS@2100 ALPRAZolam [Xanax] 0.25 mg PO BID PRN PRN Reason: agitation Lorazepam Solution 2mg/Ml 1 mg IM TID PRN PRN Reason: Agitation risperiDONE ODT [RisperDAL M-TAB] 1 mg PO DAILY@1400 Levothyroxine Sodium [Synthroid] 150 mcg PO DAILY@0600 Discharge Medication List Atorvastatin [Lipitor] 20 mg PO HS@2100 07/28/18 [History] Folic Acid 0.8 mg PO DAILY@0800 07/28/18 [History] azaTHIOprine [Imuran] 25 mg PO DAILY@0800 07/28/18 [History] Calcium Acetate [PhosLo] 667 mg PO TID@0800,1200,1700 04/26/20 [History] Calcium Carb-Mag Carb-Folic [Magnebind 400] 1 tab PO TID@0800,1200,1700 04/26/20 [History] Ondansetron [Zofran] 4 mg PO TID PRN 04/26/20 [History] Apixaban [Eliquis] 2.5 mg PO BID@0800,1700 05/06/20 [History] Docusate [Colace] 100 mg PO DAILY@1700 05/06/20 [History] Pantoprazole Sodium [Protonix] 40 mg PO BID@0800,1700 05/06/20 [History] Acetaminophen [Tylenol] 650 mg PO Q4H PRN 05/16/20 [History] Midodrine HCl 10 mg PO TID@0800,1200,1700 05/16/20 [History] Collagenase [Santyl] 1 applic TOPICAL DAILY 05/20/20 [History] Daptomycin 300mg Solution 300 mg IV MOWEFR 05/31/20 [History] Ensure Clear 237 ml PO MOWEFR@,,17 05/31/20 [History] Ensure Clear 237 ml PO SUTUTHSA@,,17 05/31/20 [History] Magnesium Hydroxide [Milk of Magnesia Concentrate] 7,200 mg PO DAILY PRN 05/31/20 [History] Menthol-Zinc Oxide Oint [Calmoseptine Oint] 1 applic TOPICAL BID 05/31/20 [History] Na Phos,M-B/Na Phos,Di-Ba [Fleet Adult] 133 ml RECTAL DAILY PRN 05/31/20 [History] bisacodyL [Dulcolax] 10 mg RECTAL DAILY PRN 05/31/20 [History] Darbepoetin Sherman [Aranesp] 40 mcg SQ Q7D syringe 06/04/20 [Rx] Levothyroxine Sodium [Synthroid] 112 mcg PO DAILY@0630 tab 06/04/20 [Rx] Potassium Chloride ER [K-Dur 10] 10 meq PO DAILY tab.er.prt 06/04/20 [Rx] risperiDONE [RisperDAL] 0.5 mg PO HS #3 tablet 06/04/20 [Rx] Follow up Appointment(s)/Referral(s): Tano Bernard DO [Primary Care Provider] - 1-2 days Misael Huang MD [STAFF PHYSICIAN] - 10 Days Danis Barry DO [STAFF PHYSICIAN] - 1 Week Activity/Diet/Wound Care/Special Instructions: Palliative screen score=5-appropriate for palliative care, [facility] - [facility] for [facility]
[2020-06-04 16:16] VITALS: PULSE 98; TEMP 99.1
[2020-06-04 16:27] VITALS: BP 145/65; RESP 17
[2020-06-04] MEDS: SODIUM CHLORIDE 0.9% 1,000 ML IV SCH (17:50)
[2020-06-04] MEDS: DOCUSATE 100 MG CAP PO SCH (17:50)
== END 2020-06-04 19:32 | DRG 811 ==
LOC: EC 13:57 → 3SCARD 14:19 → EEVIPCON 14:19 → 3SCARD 19:31
PROVIDERS: ADMIT Hospitalist; ATTEND Hospitalist
PROC: 5A1D70Z Performance of Urinary Filtration, Intermittent, Less than 6 Hours Per Day (ICD-10-PCS; 2020-05-31)
PROC: 30233N1 Transfusion of Nonautologous Red Blood Cells into Peripheral Vein, Percutaneous Approach (ICD-10-PCS; principal; 2020-06-02)
DX: D64.9 Anemia, unspecified (principal); N18.6 End stage renal disease; G92 Toxic encephalopathy; L97.321 Non-pressure chronic ulcer of left ankle limited to breakdown of skin; N39.0 Urinary tract infection, site not specified; I27.82 Chronic pulmonary embolism; F05 Delirium due to known physiological condition; K92.2 Gastrointestinal hemorrhage, unspecified; E07.81 Sick-euthyroid syndrome; E78.5 Hyperlipidemia, unspecified; E87.6 Hypokalemia; E89.0 Postprocedural hypothyroidism; F32.9 Major depressive disorder, single episode, unspecified; Z20.828 Contact with and (suspected) exposure to other viral communicable diseases; F41.9 Anxiety disorder, unspecified; B95.2 Enterococcus as the cause of diseases classified elsewhere; K26.9 Duodenal ulcer, unspecified as acute or chronic, without hemorrhage or perforation; K29.60 Other gastritis without bleeding; I73.9 Peripheral vascular disease, unspecified; G31.84 Mild cognitive impairment of uncertain or unknown etiology; I48.91 Unspecified atrial fibrillation; J44.9 Chronic obstructive pulmonary disease, unspecified; Z96.652 Presence of left artificial knee joint; M10.9 Gout, unspecified; E83.89 Other disorders of mineral metabolism; K21.9 Gastro-esophageal reflux disease without esophagitis; Z79.899 Other long term (current) drug therapy; Z79.890 Hormone replacement therapy; Z79.01 Long term (current) use of anticoagulants; Z88.1 Allergy status to other antibiotic agents; Z91.041 Radiographic dye allergy status; Z88.5 Allergy status to narcotic agent; Z88.2 Allergy status to sulfonamides; Z88.8 Allergy status to other drugs, medicaments and biological substances; Z91.09 Other allergy status, other than to drugs and biological substances; Z99.2 Dependence on renal dialysis; Z90.710 Acquired absence of both cervix and uterus; Z87.11 Personal history of peptic ulcer disease; Z86.2 Personal history of diseases of the blood and blood-forming organs and certain disorders involving the immune mechanism; Z80.3 Family history of malignant neoplasm of breast; Z86.711 Personal history of pulmonary embolism; Z90.49 Acquired absence of other specified parts of digestive tract; Z83.49 Family history of other endocrine, nutritional and metabolic diseases
CPT/HCPCS: 36415; 36430; 70450; 80048; 80053; 82140; 82550; 83735; 84100; 84439; 84443; 85025; 85027; 85610; 85730; 86850; 86900; 86901; 86920; 87635; 90935; 95816; 99283; 99291

== ENCOUNTER 2020-07-31 08:25 | Emergency (ER) | payer MEDICARE, BC, OTHER ==
--- NOTE | 2020-07-31 08:48 | ED ---
Weakness HPI - General Stated complaint: Weakness Time Seen by Provider: 07/31/20 08:28 Source: patient, EMS, RN notes reviewed Mode of arrival: EMS Limitations: physical limitation - History of Present Illness Initial comments: This is a 74-year-old female presents emergency Department chief complaint generalized weakness. Patient states she has not been feeling well recently. Patient is currently on antibiotics for urinary tract infection. Patient denies any known fever states that she's had some chills. She does admit that she has shortness of breath and slight cough she had covid seen a few days ago which was negative. They're still concerned about possible covid. Patient states that she has chronic renal failure on dialysis stomach urine. Patient was rolling on Sunday and Sunday as but states secondary to holiday things were delayed and she is due for dialysis today. Patient does come from long term in which this is completed in their facility. Patient has no complaints of chest pain. She states that she is very weak and requires full assistance. - Related Data Home Medications Medication Instructions Recorded Confirmed Folic Acid 0.8 mg PO DAILY@0800 07/28/18 07/31/20 azaTHIOprine [Imuran] 25 mg PO DAILY@0800 07/28/18 07/31/20 Ondansetron [Zofran] 4 mg PO Q6H PRN 04/26/20 07/31/20 Docusate [Colace] 100 mg PO DAILY@0800 05/06/20 07/31/20 Acetaminophen [Tylenol] 650 mg PO Q8H PRN 05/16/20 07/31/20 Midodrine HCl 10 mg PO TID@0600,1200,1700 05/16/20 07/31/20 Menthol-Zinc Oxide Oint 1 applic TOPICAL Q1H PRN 05/31/20 07/31/20 [Calmoseptine Oint] bisacodyL [Dulcolax] 10 mg RECTAL DAILY PRN 05/31/20 07/31/20 Cholecalciferol [Vitamin D3 (25 1,000 unit PO DAILY@1700 07/31/20 07/31/20 Mcg = 1000 Iu)] Epoetin Sherman [Epogen] 4,000 unit SQ MOWEFR 07/31/20 07/31/20 Levothyroxine Sodium [Synthroid] 75 mcg PO DAILY@0600 07/31/20 07/31/20 Allergies Allergy/AdvReac Type Severity Reaction Status Date / Time adhesive Allergy Unknown Verified 07/31/20 08:57 allopurinol Allergy Unknown Verified 07/31/20 08:57 codeine Allergy Unknown Verified 07/31/20 08:57 iodine Allergy Unknown Verified 07/31/20 08:57 meperidine HCl [From Demerol] Allergy Unknown Verified 07/31/20 08:57 povidone-iodine Allergy Unknown Verified 07/31/20 08:57 [From Betadine] soap [From Betadine] Allergy Unknown Verified 07/31/20 08:57 Sulfa (Sulfonamide Allergy Unknown Verified 07/31/20 08:57 Antibiotics) Review of Systems ROS Statement: Those systems with pertinent positive or pertinent negative responses have been documented in the HPI. ROS Other: All systems not noted in ROS Statement are negative. Past Medical History Past Medical History: Blood Disorder, COPD, Dialysis, GERD/Reflux, Hyperlipidemia, Pulmonary Embolus (PE), Renal Disease, Thyroid Disorder Additional Past Medical History / Comment(s): scleraderma, gout, peritoneal dialysis. 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, Lupus History of Any Multi-Drug Resistant Organisms: VRE Date of last positivie culture/infection: 07/10/20 MDRO Source:: Urine Past Surgical History: Bowel Resection, Cholecystectomy, Hysterectomy, Or thopedic Surgery Additional Past Surgical History / Comment(s): left knee replacement, insertion of peritoneal diaylsis, thyroidectomy due to goiter, kidney biopsy X 2, Lung b iopsy, Graft Left arm with failure, Right pointer finger amputation Past Anesthesia/Blood Transfusion Reactions: No Reported Reaction Past Psychological History: Anxiety, Depression Smoking Status: Never smoker Past Alcohol Use History: None Reported Past Drug Use History: None Reported - Past Family History Mother Additional Family Medical History / Comment(s): breast CA , mitrale valve damage, kidney disease, gout Father Family Medical History: Thyroid Disorder General Exam Limitations: physical limitation General appearance: alert, in no apparent distress Head exam: Present: atraumatic, normocephalic, normal inspection Eye exam: Present: normal appearance, PERRL, EOMI. Absent: scleral icterus, conjunctival injection, periorbital swelling ENT exam: Present: normal exam, normal oropharynx, mucous membranes moist Neck exam: Present: normal inspection, full ROM. Absent: tenderness, meningismus, lymphadenopathy Respiratory exam: Present: wheezes, rales, other (Right-sided dialysis catheter noted). Absent: normal lung sounds bilaterally, respiratory distress, rhonchi, stridor Cardiovascular Exam: Present: regular rate, normal rhythm, normal heart sounds. Absent: systolic murmur, diastolic murmur, rubs, gallop, clicks GI/Abdominal exam: Present: soft, normal bowel sounds. Absent: distended, tenderness, guarding, rebound, rigid Back exam: Present: CVA tenderness (R). Absent: CVA tenderness (L) Neurological exam: Present: alert Skin exam: Present: warm, dry, intact, normal color. Absent: rash Course Vital Signs 07/31/20 07/31/20 07/31/20 08:33 08:46 10:35 Temperature 98.3 F 98.4 F Pulse Rate 98 93 Respiratory 16 18 16 Rate Blood Pressure 136/67 141/78 O2 Sat by Pulse 98 98 Oximetry 07/31/20 11:22 Temperature 98.3 F Pulse Rate 90 Respiratory 16 Rate Blood Pressure 134/68 O2 Sat by Pulse 97 Oximetry Medical Decision Making - Medical Decision Making 74-year-old that weakness shortness breath x-ray shows minimal pleural effusion. Patient is satting well and no signs of distress. Patient is due for dialysis today she does have mildly elevated BMP. Patient will be discharged back in stable condition for dialysis. Patient workup otherwise is unremarkable patient is chronic anemia which is improved. - Lab Data Result diagrams: 07/31/20 08:41 07/31/20 10:14 Lab Results 07/31/20 07/31/20 07/31/20 Range/Units 08:41 08:44 08:44 WBC 9.7 (3.8-10.6) k/uL RBC 3.50 L (3.80-5.40) m/uL Hgb 9.9 L (11.4-16.0) gm/dL Hct 31.7 L (34.0-46.0) % MCV 90.7 (80.0-100.0) fL MCH 28.4 (25.0-35.0) pg MCHC 31.3 (31.0-37.0) g/dL RDW 17.5 H (11.5-15.5) % Plt Count 288 (150-450) k/uL MPV 7.9 Neutrophils % 87 % Lymphocytes % 5 % Monocytes % 7 % Eosinophils % 0 % Basophils % 0 % Neutrophils # 8.4 H (1.3-7.7) k/uL Lymphocytes # 0.5 L (1.0-4.8) k/uL Monocytes # 0.7 (0-1.0) k/uL Eosinophils # 0.0 (0-0.7) k/uL Basophils # 0.0 (0-0.2) k/uL Hypochromasia Moderate Poikilocytosis Slight Anisocytosis Slight PT 11.7 (9.0-12.0) sec INR 1.2 H (<1.2) APTT 19.8 L (22.0-30.0) sec Sodium (137-145) mmol/L Potassium (3.5-5.1) mmol/L Chloride (98-107) mmol/L Carbon Dioxide (22-30) mmol/L Anion Gap mmol/L BUN (7-17) mg/dL Creatinine (0.52-1.04) mg/dL Est GFR (CKD-EPI)AfAm (>60 ml/min/1.73 sqM) Est GFR (CKD-EPI)NonAf (>60 ml/min/1.73 sqM) Glucose (74-99) mg/dL Plasma Lactic Acid Jose Antonio (0.7-2.0) mmol/L Calcium (8.4-10.2) mg/dL Phosphorus (2.5-4.5) mg/dL Magnesium (1.6-2.3) mg/dL Total Bilirubin (0.2-1.3) mg/dL AST (14-36) U/L ALT (4-34) U/L Alkaline Phosphatase (38-126) U/L Troponin I (0.000-0.034) ng/mL NT-Pro-B Natriuret Pep pg/mL Total Protein (6.3-8.2) g/dL Albumin (3.5-5.0) g/dL Urine Color Yellow Urine Appearance Cloudy H (Clear) Urine pH 6.5 (5.0-8.0) Ur Specific Gardiner 1.015 (1.001-1.035) Urine Protein 3+ H (Negative) Urine Glucose (UA) Negative (Negative) Urine Ketones 1+ H (Negative) Urine Blood Moderate H (Negative) Urine Nitrite Negative (Negative) Urine Bilirubin 1+ H (Negative) Urine Urobilinogen 3.0 (<2.0) mg/dL Ur Leukocyte Esterase Small H (Negative) Urine RBC 13 H (0-5) /hpf Urine WBC 20 H (0-5) /hpf Ur Squamous Epith Cells 17 H (0-4) /hpf Urine Bacteria Rare H (None) /hpf Hyaline Casts 1 (0-2) /lpf Urine Mucus Rare H (None) /hpf Urine Yeast (Budding) Rare H (None) /hpf Coronavirus (PCR) (Not Detectd) 07/31/20 07/31/20 07/31/20 Range/Units 08:44 08:44 10:14 WBC (3.8-10.6) k/uL RBC (3.80-5.40) m/uL Hgb (11.4-16.0) gm/dL Hct (34.0-46.0) % MCV (80.0-100.0) fL MCH (25.0-35.0) pg MCHC (31.0-37.0) g/dL RDW (11.5-15.5) % Plt Count (150-450) k/uL MPV Neutrophils % % Lymphocytes % % Monocytes % % Eosinophils % % Basophils % % Neutrophils # (1.3-7.7) k/uL Lymphocytes # (1.0-4.8) k/uL Monocytes # (0-1.0) k/uL Eosinophils # (0-0.7) k/uL Basophils # (0-0.2) k/uL Hypochromasia Poikilocytosis Anisocytosis PT (9.0-12.0) sec INR (<1.2) APTT (22.0-30.0) sec Sodium (137-145) mmol/L Potassium (3.5-5.1) mmol/L Chloride (98-107) mmol/L Carbon Dioxide (22-30) mmol/L Anion Gap mmol/L BUN (7-17) mg/dL Creatinine (0.52-1.04) mg/dL Est GFR (CKD-EPI)AfAm (>60 ml/min/1.73 sqM) Est GFR (CKD-EPI)NonAf (>60 ml/min/1.73 sqM) Glucose (74-99) mg/dL Plasma Lactic Acid Jose Antonio 1.1 (0.7-2.0) mmol/L Calcium (8.4-10.2) mg/dL Phosphorus (2.5-4.5) mg/dL Magnesium (1.6-2.3) mg/dL Total Bilirubin (0.2-1.3) mg/dL AST (14-36) U/L ALT (4-34) U/L Alkaline Phosphatase (38-126) U/L Troponin I 0.029 (0.000-0.034) ng/mL NT-Pro-B Natriuret Pep pg/mL Total Protein (6.3-8.2) g/dL Albumin (3.5-5.0) g/dL Urine Color Urine Appearance (Clear) Urine pH (5.0-8.0) Ur Specific Gardiner (1.001-1.035) Urine Protein (Negative) Urine Glucose (UA) (Negative) Urine Ketones (Negative) Urine Blood (Negative) Urine Nitrite (Negative) Urine Bilirubin (Negative) Urine Urobilinogen (<2.0) mg/dL Ur Leukocyte Esterase (Negative) Urine RBC (0-5) /hpf Urine WBC (0-5) /hpf Ur Squamous Epith Cells (0-4) /hpf Urine Bacteria (None) /hpf Hyaline Casts (0-2) /lpf Urine Mucus (None) /hpf Urine Yeast (Budding) (None) /hpf Coronavirus (PCR) Not Detected (Not Detectd) 07/31/20 07/31/20 Range/Units 10:14 10:14 WBC (3.8-10.6) k/uL RBC (3.80-5.40) m/uL Hgb (11.4-16.0) gm/dL Hct (34.0-46.0) % MCV (80.0-100.0) fL MCH (25.0-35.0) pg MCHC (31.0-37.0) g/dL RDW (11.5-15.5) % Plt Count (150-450) k/uL MPV Neutrophils % % Lymphocytes % % Monocytes % % Eosinophils % % Basophils % % Neutrophils # (1.3-7.7) k/uL Lymphocytes # (1.0-4.8) k/uL Monocytes # (0-1.0) k/uL Eosinophils # (0-0.7) k/uL Basophils # (0-0.2) k/uL Hypochromasia Poikilocytosis Anisocytosis PT (9.0-12.0) sec INR (<1.2) APTT (22.0-30.0) sec Sodium 131 L (137-145) mmol/L Potassium 3.2 L (3.5-5.1) mmol/L Chloride 95 L (98-107) mmol/L Carbon Dioxide 28 (22-30) mmol/L Anion Gap 8 mmol/L BUN 17 (7-17) mg/dL Creatinine 2.07 H (0.52-1.04) mg/dL Est GFR (CKD-EPI)AfAm 27 (>60 ml/min/1.73 sqM) Est GFR (CKD-EPI)NonAf 23 (>60 ml/min/1.73 sqM) Glucose 107 H (74-99) mg/dL Plasma Lactic Acid Jose Antonio (0.7-2.0) mmol/L Calcium 9.4 (8.4-10.2) mg/dL Phosphorus 3.5 (2.5-4.5) mg/dL Magnesium 1.7 (1.6-2.3) mg/dL Total Bilirubin 0.7 (0.2-1.3) mg/dL AST 15 (14-36) U/L ALT <6 (4-34) U/L Alkaline Phosphatase 95 (38-126) U/L Troponin I (0.000-0.034) ng/mL NT-Pro-B Natriuret Pep 6150 pg/mL Total Protein 5.7 L (6.3-8.2) g/dL Albumin 2.8 L (3.5-5.0) g/dL Urine Color Urine Appearance (Clear) Urine pH (5.0-8.0) Ur Specific Gardiner (1.001-1.035) Urine Protein (Negative) Urine Glucose (UA) (Negative) Urine Ketones (Negative) Urine Blood (Negative) Urine Nitrite (Negative) Urine Bilirubin (Negative) Urine Urobilinogen (<2.0) mg/dL Ur Leukocyte Esterase (Negative) Urine RBC (0-5) /hpf Urine WBC (0-5) /hpf Ur Squamous Epith Cells (0-4) /hpf Urine Bacteria (None) /hpf Hyaline Casts (0-2) /lpf Urine Mucus (None) /hpf Urine Yeast (Budding) (None) /hpf Coronavirus (PCR) (Not Detectd) Disposition Clinical Impression: Generalized weakness, Pleural effusion, Chronic renal failure, Chronic anemia Disposition: HOME SELF-CARE Condition: Stable Instructions (If sedation given, give patient instructions): Pleural Effusion (ED) Additional Instructions: Please return to the Emergency Department if symptoms worsen or any other concerns. Is patient prescribed a controlled substance at d/c from ED?: No Referrals: Tano Bernard DO [Primary Care Provider] - 1-2 days Time of Disposition: 11:31
[2020-07-31 09:53] LABS: Anisocytosis Slight; Basophils % (A) 0 %; Eosinophils % (A) 0 %; HCT 31.7 % (34.0-46.0); HGB 9.9 gm/dL (11.4-16.0); Hypochromasia Moderate; Lymphocytes # (A) 0.5 k/uL (1.0-4.8); Lymphocytes % (A) 5 %; MCH 28.4 pg (25.0-35.0); MCHC 31.3 g/dL (31.0-37.0); MCV 90.7 fL (80.0-100.0); Mean Platelet Volume 7.9; Monocytes # (A) 0.7 k/uL (0-1.0); Monocytes % (A) 7 %; Neutrophils # (A) 8.4 k/uL (1.3-7.7); Neutrophils % (A) 87 %; Platelet Count 288 k/uL (150-450); Poikilocytosis Slight; RDW 17.5 % (11.5-15.5); WBC 9.7 k/uL (3.8-10.6)
--- NOTE | 2020-07-31 09:56 | XR ---
EXAMINATION TYPE: XR chest 2V DATE OF EXAM: 07/31/2020 COMPARISON: Chest x-ray May 20, 2020 HISTORY: Altered mental status and weakness. TECHNIQUE: Frontal and lateral views of the chest are obtained. FINDINGS: Stable large bore right internal jugular dialysis catheter. There is chronic parenchymal c hanges without suspicious focal air space opacity or pneumothorax seen. Small bilateral pleural effu sions on current study. The cardiac silhouette size is stable and upper limits of normal without foca l hepatic change aortic knob. The osseous structures are demineralized. IMPRESSION: New small bilateral pleural effusions and
[2020-07-31 10:14] LABS: INR 1.2 (<1.2); Prothrombin Time 11.7 sec (9.0-12.0)
[2020-07-31 10:15] LABS: Partial Thromboplastin Time 19.8 sec (22.0-30.0)
[2020-07-31 10:38] LABS: ALT <6 U/L (4-34); AST 15 U/L (14-36); African American GFR (CKD) 27 (>60 ml/min/1.73 sqM); Albumin 2.8 g/dL (3.5-5.0); Alkaline Phosphatase 95 U/L (38-126); Anion Gap 8 mmol/L; Blood Urea Nitrogen 17 mg/dL (7-17); Calcium 9.4 mg/dL (8.4-10.2); Carbon Dioxide 28 mmol/L (22-30); Chloride 95 mmol/L (98-107); Glucose 107 mg/dL (74-99); Magnesium 1.7 mg/dL (1.6-2.3); Non-African American GFR(CKD) 23 (>60 ml/min/1.73 sqM); Phosphorus 3.5 mg/dL (2.5-4.5); Potassium 3.2 mmol/L (3.5-5.1); Sodium 131 mmol/L (137-145); Total Bilirubin 0.7 mg/dL (0.2-1.3); Total Protein 5.7 g/dL (6.3-8.2)
[2020-07-31 10:51] LABS: Appearance,Urine Cloudy (Clear); Bacteria,Urine Rare /hpf; Bilirubin,Urine 1+ (Negative); Blood,Urine Moderate (Negative); Budding Yeast,Urine Rare /hpf; Color,Urine Yellow; Glucose,Urine (UA) Negative (Negative); Hyaline Casts,Urine 1 /lpf (0-2); Ketones,Urine 1+ (Negative); Leukocyte Esterase,Urine Small (Negative); Mucus,Urine Rare /hpf; Nitrite,Urine Negative (Negative); PH, Urine 6.5 (5.0-8.0); Protein,Urine 3+ (Negative); RBC,Urine 13 /hpf (0-5); Specific Gravity,Urine 1.015 (1.001-1.035); Squamous Epithelial Cell,Urine 17 /hpf (0-4); WBC,Urine 20 /hpf (0-5)
[2020-07-31 12:36] VITALS: BP 144/72; PULSE 93; RESP 14; TEMP 98.1
== END 2020-07-31 13:24 | disposition home or self-care (01) ==
LOC: EC 08:25
DX: J90 Pleural effusion, not elsewhere classified (principal); N18.6 End stage renal disease; D63.1 Anemia in chronic kidney disease; R79.89 Other specified abnormal findings of blood chemistry; K21.9 Gastro-esophageal reflux disease without esophagitis; E78.5 Hyperlipidemia, unspecified; E07.9 Disorder of thyroid, unspecified; F41.9 Anxiety disorder, unspecified; F32.9 Major depressive disorder, single episode, unspecified; M10.9 Gout, unspecified; Z79.899 Other long term (current) drug therapy; Z20.828 Contact with and (suspected) exposure to other viral communicable diseases; Z91.048 Other nonmedicinal substance allergy status; Z88.8 Allergy status to other drugs, medicaments and biological substances; Z88.5 Allergy status to narcotic agent; Z88.2 Allergy status to sulfonamides; Z86.711 Personal history of pulmonary embolism; Z99.2 Dependence on renal dialysis; Z90.49 Acquired absence of other specified parts of digestive tract; Z96.652 Presence of left artificial knee joint
CPT/HCPCS: 36415; 71046; 80053; 81001; 83605; 83735; 83880; 84100; 84484; 85025; 85610; 85730; 87086; 87635; 93005; 99285

== ENCOUNTER 2020-08-23 11:14 | Inpatient (IN) | payer MEDICARE, BC ==
[2020-08-23] MEDS ORDERED: ALTEPLASE 2 MG VIAL (CATHFLO) IV STA (11:40)
--- NOTE | 2020-08-23 12:00 | ED ---
Recheck HPI <Joey Arora - Last Filed: 08/23/20 14:36> - General Source: patient, EMS Mode of arrival: EMS Limitations: no limitations <Yaz Barraza - Last Filed: 08/23/20 15:51> - General Chief Complaint: Recheck/Abnormal Lab/Rx Stated Complaint: Dialysis Issue Time Seen by Provider: 08/23/20 11:21 - History of Present Illness Initial Comments: Patient is a 74-year-old female, with history renal disease, on dialysis, presenting from [facility] with complaints of a clogged dialysis port. Patient states she went to go do dialysis today and they were unsuccessful as a think the port is clogged. She has a port in the right upper chest. She denies any other complaints, no pain, no recent fever or chills. There are no further complaints at this time. Upon arrival to the ER, her vital signs are stable. (Yaz Barraza) - Related Data Home Medications Medication Instructions Recorded Confirmed Folic Acid 0.8 mg PO DAILY@0800 07/28/18 08/23/20 azaTHIOprine [Imuran] 25 mg PO DAILY@0807/28/18 08/23/20 Ondansetron [Zofran] 4 mg PO Q6H PRN 04/26/20 08/23/20 Docusate [Colace] 100 mg PO DAILY@0800 05/06/20 08/23/20 Acetaminophen [Tylenol] 650 mg PO Q8H PRN 05/16/20 08/23/20 Midodrine HCl 10 mg PO TID@0600,1200,1700 05/16/20 08/23/20 Menthol-Zinc Oxide Oint 1 applic TOPICAL Q1H PRN 05/31/20 08/23/20 [Calmoseptine Oint] bisacodyL [Dulcolax] 10 mg RECTAL HS@2130 05/31/20 08/23/20 Epoetin Sherman [Epogen] 4,000 unit SQ MOWEFR@0800 07/31/20 08/23/20 Levothyroxine Sodium [Synthroid] 75 mcg PO DAILY@0600 07/31/20 08/23/20 ALPRAZolam [Xanax] 0.5 mg PO BID PRN 08/23/20 08/23/20 Atorvastatin Calcium [Lipitor] 20 mg PO HS 08/23/20 08/23/20 Lactose-Reduced Food [Ensure Plus] 237 ml PO BID@1200,1700 08/23/20 08/23/20 Lactose-Reduced Food [Ensure Plus] 237 ml PO DAILY@0800 PRN 08/23/20 08/23/20 Loperamide [Imodium] 2 mg PO DAILY PRN 08/23/20 08/23/20 Menthol-Zinc Oxide Oint 1 applic TOPICAL BID 08/23/20 08/23/20 [Calmoseptine Oint] Mirtazapine [Remeron] 15 mg PO HS 08/23/20 08/23/20 Potassium Chloride ER [K-Dur 10] 10 meq PO DAILY@0800 08/23/20 08/23/20 Allergies Allergy/AdvReac Type Severity Reaction Status Date / Time adhesive Allergy Unknown Verified 08/23/20 13:03 allopurinol Allergy Unknown Verified 08/23/20 13:03 codeine Allergy Unknown Verified 08/23/20 13:03 iodine Allergy Unknown Verified 08/23/20 13:03 meperidine HCl [From Demerol] Allergy Unknown Verified 08/23/20 13:03 povidone-iodine Allergy Unknown Verified 08/23/20 13:03 [From Betadine] soap [From Betadine] Allergy Unknown Verified 08/23/20 13:03 Sulfa (Sulfonamide Allergy Unknown Verified 08/23/20 13:03 Antibiotics) Review of Systems ROS Other: All systems not noted in ROS Statement are negative. <Joey Arora - Last Filed: 08/23/20 14:36> ROS Other: All systems not noted in ROS Statement are negative. <Yaz Barraza - Last Filed: 08/23/20 15:51> ROS Statement: Those systems with pertinent positive or pertinent negative responses have been documented in the HPI. Past Medical History Past Medical History: Blood Disorder, COPD, Dialysis, GERD/Reflux, Hyperlipide tristin, Pulmonary Embolus (PE), Renal Disease, Thyroid Disorder Additional Past Medical History / Comment(s): scleraderma, gout, peritoneal dialysis. 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, Lupus History of Any Multi-Drug Resistant Organisms: VRE Date of last positivie culture/infection: 07/10/20 MDRO Source:: Urine Past Surgical History: Bowel Resection, Cholecystectomy, Hysterectomy, Orthopedic Surgery Additional Past Surgical History / Comment(s): left knee replacement, insertion of peritoneal diaylsis, thyroidectomy due to goiter, kidney biopsy X 2, Lung biopsy, Graft Left arm with failure, Right pointer finger amputation Past Anesthesia/Blood Transfusion Reactions: No Reported Reaction Past Psychological History: Anxiety, Depression Smoking Status: Never smoker Past Alcohol Use History: None Reported Past Drug Use History: None Reported - Past Family History Mother Additional Family Medical History / Comment(s): breast CA , mitrale valve damage, kidney disease, gout Father Family Medical History: Thyroid Disorder <Yaz Barraza - Last Filed: 08/23/20 15:51> General Exam Limitations: no limitations <Yaz Barraza - Last Filed: 08/23/20 15:51> - General Exam Comments Initial Comments: GENERAL: Patient is well-developed and well-nourished. Patient is nontoxic and in no acute distress. HEAD: Atraumatic, normocephalic. EYES: Pupils equal round and reactive to light, extraocular movements intact, sclera anicteric, conjunctiva are normal. Eyelids were unremarkable. ENT: TMs normal, nares patent, oropharynx clear without exudates. Moist mucous membranes. NECK: Normal range of motion, supple without lymphadenopathy or JVD. LUNGS: Unlabored respirations. Breath sounds clear to auscultation bilaterally and equal. No wheezes rales or rhonchi. HEART: Regular rate and rhythm without murmurs, rubs or gallops. ABDOMEN: Soft, nontender, normoactive bowel sounds. No guarding, no rebound. No masses appreciated. : Deferred MUSCULOSKELETAL: Normal extremities with adequate strength and normal range of motion, no pitting or edema. No clubbing or cyanosis. NEUROLOGICAL: Patient is alert and oriented x 3. Motor and sensory are also intact. Cranial nerves II through XII grossly intact. Symmetrical smile. Normal speech, normal gait. PSYCH: Normal mood, normal affect. SKIN: Warm, Dry, normal turgor, no rashes or lesions noted. She has dialysis port present in the right upper chest, no erythema, no signs of infection. (Yaz Barraza) Course <Joey Arora - Last Filed: 08/23/20 14:36> Vital Signs 08/23/20 11:16 Temperature 97.2 F L Pulse Rate 109 H Respiratory 18 Rate Blood Pressure 97/61 O2 Sat by Pulse 98 Oximetry - Reevaluation(s) Reevaluation #1: 08/23/20 14:36 PA supervision: I did evaluate this case patient presenting with complaints of a occluded dialysis catheter. Initial attempts to flex the emergency department failed patient will be admitted. Dr. Lai is consulted (Joey Arora) Medical Decision Making - Lab Data Result diagrams: 08/23/20 14:45 08/23/20 14:45 <Yaz Barraza - Last Filed: 08/23/20 15:51> - Medical Decision Making Patient is 74-year-old female here from [facility] for a clogged dialysis port. She normally has dialysis Sunday, they attempted today and were unsuccessful. She has no other complaints, no signs of infection. We did attempt to unclog the port using TPA, this was unsuccessful. We were in contact with Dr. Galan, and she recommended admission for possible dialysis today or tomorrow morning, we will also consult vascular. We did then obtain labs which showed potassium of 6.8. Dr. Lai accepted admission. Case discussed with Dr. Arora. (Yaz Barraza) - Lab Data Lab Results 08/23/20 08/23/20 Range/Units 14:45 14:45 WBC 8.1 (3.8-10.6) k/uL RBC 3.66 L (3.80-5.40) m/uL Hgb 10.2 L (11.4-16.0) gm/dL Hct 33.2 L (34.0-46.0) % MCV 90.6 (80.0-100.0) fL MCH 27.9 (25.0-35.0) pg MCHC 30.8 L (31.0-37.0) g/dL RDW 17.4 H (11.5-15.5) % Plt Count 501 H (150-450) k/uL MPV 7.5 Neutrophils % 77 % Lymphocytes % 16 % Monocytes % 5 % Eosinophils % 1 % Basophils % 0 % Neutrophils # 6.2 (1.3-7.7) k/uL Lymphocytes # 1.3 (1.0-4.8) k/uL Monocytes # 0.4 (0-1.0) k/uL Eosinophils # 0.1 (0-0.7) k/uL Basophils # 0.0 (0-0.2) k/uL Hypochromasia Moderate Anisocytosis Slight Sodium 131 L (137-145) mmol/L Potassium 6.8 H* (3.5-5.1) mmol/L Chloride 101 (98-107) mmol/L Carbon Dioxide 26 (22-30) mmol/L Anion Gap 4 mmol/L BUN 33 H (7-17) mg/dL Creatinine 2.89 H (0.52-1.04) mg/dL Est GFR (CKD-EPI)AfAm 18 (>60 ml/min/1.73 sqM) Est GFR (CKD-EPI)NonAf 16 (>60 ml/min/1.73 sqM) Glucose 93 (74-99) mg/dL Calcium 9.2 (8.4-10.2) mg/dL Magnesium 2.2 (1.6-2.3) mg/dL Total Bilirubin 0.4 (0.2-1.3) mg/dL AST 19 (14-36) U/L ALT 7 (4-34) U/L Alkaline Phosphatase 96 (38-126) U/L Total Protein 5.3 L (6.3-8.2) g/dL Albumin 2.4 L (3.5-5.0) g/dL Disposition <Joey Arora - Last Filed: 08/23/20 14:36> Decision Date: 08/23/20 Decision Time: 15:14 <Yaz Barraza - Last Filed: 08/23/20 15:51> Clinical Impression: Hyperkalemia, Complications, dialysis, catheter, mechanical Disposition: ADMITTED IP TO THIS [facility] Condition: Stable Referrals: Tano Bernard DO [Primary Care Provider] - 1-2 days
[2020-08-23 14:59] LABS: Anisocytosis Slight; Basophils % (A) 0 %; Eosinophils # (A) 0.1 k/uL (0-0.7); Eosinophils % (A) 1 %; HCT 33.2 % (34.0-46.0); HGB 10.2 gm/dL (11.4-16.0); Hypochromasia Moderate; Lymphocytes # (A) 1.3 k/uL (1.0-4.8); Lymphocytes % (A) 16 %; MCH 27.9 pg (25.0-35.0); MCHC 30.8 g/dL (31.0-37.0); MCV 90.6 fL (80.0-100.0); Mean Platelet Volume 7.5; Monocytes # (A) 0.4 k/uL (0-1.0); Monocytes % (A) 5 %; Neutrophils # (A) 6.2 k/uL (1.3-7.7); Neutrophils % (A) 77 %; Platelet Count 501 k/uL (150-450); RBC 3.66 m/uL (3.80-5.40); RDW 17.4 % (11.5-15.5); WBC 8.1 k/uL (3.8-10.6)
[2020-08-23 15:06] LABS: Albumin 2.4 g/dL (3.5-5.0); Calcium 9.2 mg/dL (8.4-10.2); Magnesium 2.2 mg/dL (1.6-2.3); Total Bilirubin 0.4 mg/dL (0.2-1.3); Total Protein 5.3 g/dL (6.3-8.2)
[2020-08-23] MEDS ORDERED: NALOXONE 0.4 MG/ML 1 ML VIAL IV PRN (15:07)
[2020-08-23 15:09] LABS: Potassium 6.8 mmol/L (3.5-5.1)
--- NOTE | 2020-08-23 16:20 | P.GSCN ---
History of Present Illness Consult date: 08/23/20 Reason for Consult: Dialysis catheter dysfunction. History of present illness: Patient is a 74-year-old female who has a long-standing history of chronic renal insufficiency/failure requiring regular hemodialysis. Currently this is being performed via a tunneled hemodialysis catheter placed via the right internal jugular vein approach. This is been working well for her however today she was sent to the hospital for evaluation of what is perceived to be a catheter dysfunction. Past Medical History Past Medical History: Blood Disorder, COPD, Dialysis, GERD/Reflux, Hyperlipidemia, Pulmonary Embolus (PE), Renal Disease, Thyroid Disorder Additional Past Medical History / Comment(s): scleraderma, gout, peritoneal dialysis. 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 Insertion of a tunneled hemodialysis catheter. Aeration of a left upper extremity AV fistula currently thrombosed. Past Anesthesia/Blood Transfusion Reactions: No Reported Reaction Past Psychological History: Anxiety, Depression Smoking Status: Never smoker Past Alcohol Use History: None Reported Past Drug Use History: None Reported - Past Family History Mother Additional Family Medical History / Comment(s): breast CA , mitrale valve damage, kidney disease, gout Father Family Medical History: Thyroid Disorder Medications and Allergies Home Medications Medication Instructions Recorded Confirmed Type Folic Acid 0.8 mg PO DAILY@0800 07/28/18 08/23/20 History azaTHIOprine [Imuran] 25 mg PO DAILY@0800 07/28/18 08/23/20 History Ondansetron [Zofran] 4 mg PO Q6H PRN 04/26/20 08/23/20 History Docusate [Colace] 100 mg PO DAILY@0800 05/06/20 08/23/20 History Acetaminophen [Tylenol] 650 mg PO Q8H PRN 05/16/20 08/23/20 History Midodrine HCl 10 mg PO TID@0600,1200,1700 05/16/20 08/23/20 History Menthol-Zinc Oxide Oint 1 applic TOPICAL Q1H PRN 05/31/20 08/23/20 History [Calmoseptine Oint] bisacodyL [Dulcolax] 10 mg RECTAL HS@2130 05/31/20 08/23/20 History Epoetin Sherman [Epogen] 4,000 unit SQ MOWEFR@0800 07/31/20 08/23/20 History Levothyroxine Sodium [Synthroid] 75 mcg PO DAILY@0600 07/31/20 08/23/20 History ALPRAZolam [Xanax] 0.5 mg PO BID PRN 08/23/20 08/23/20 History Atorvastatin Calcium [Lipitor] 20 mg PO HS 08/23/20 08/23/20 History Lactose-Reduced Food [Ensure Plus] 237 ml PO BID@1200,1700 08/23/20 08/23/20 History Lactose-Reduced Food [Ensure Plus] 237 ml PO DAILY@0800 PRN 08/23/20 08/23/20 History Loperamide [Imodium] 2 mg PO DAILY PRN 08/23/20 08/23/20 History Menthol-Zinc Oxide Oint 1 applic TOPICAL BID 08/23/20 08/23/20 History [Calmoseptine Oint] Mirtazapine [Remeron] 15 mg PO HS 08/23/20 08/23/20 History Potassium Chloride ER [K-Dur 10] 10 meq PO DAILY@0800 08/23/20 08/23/20 History Allergies Allergy/AdvReac Type Severity Reaction Status Date / Time adhesive Allergy Unknown Verified 08/23/20 13:03 allopurinol Allergy Unknown Verified 08/23/20 13:03 codeine Allergy Unknown Verified 08/23/20 13:03 iodine Allergy Unknown Verified 08/23/20 13:03 meperidine HCl [From Demerol] Allergy Unknown Verified 08/23/20 13:03 povidone-iodine Allergy Unknown Verified 08/23/20 13:03 [From Betadine] soap [From Betadine] Allergy Unknown Verified 08/23/20 13:03 Sulfa (Sulfonamide Allergy Unknown Verified 08/23/20 13:03 Antibiotics) Surgical - Exam Osteopathic Statement: *. No significant issues noted on an osteopathic structural exam other than those noted in the History and Physical/Consult. Vital Signs Temp Pulse Resp BP Pulse Ox 97.2 F L 109 H 18 97/61 98 08/23/20 11:16 08/23/20 11:16 08/23/20 11:16 08/23/20 11:16 08/23/20 11:16 - General well developed, no distress - ENT normal mucosa - Neck no masses, no bruits, trachea midline, no lymphadectomy, no venous distension carotid bruit: absent - Respiratory normal expansion - Cardiovascular Rhythm: regular - Abdomen Abdomen: soft, non tender Hernia: none - Integumentary no rash - Psychiatric oriented to time, oriented to person, oriented to place, speech is normal, memory intact Results - Labs 08/23/20 14:45 08/23/20 14:45 Abnormal Lab Results - Last 24 Hours (Table) 08/23/20 08/23/20 Range/Units 14:45 14:45 RBC 3.66 L (3.80-5.40) m/uL Hgb 10.2 L (11.4-16.0) gm/dL Hct 33.2 L (34.0-46.0) % MCHC 30.8 L (31.0-37.0) g/dL RDW 17.4 H (11.5-15.5) % Plt Count 501 H (150-450) k/uL Sodium 131 L (137-145) mmol/L Potassium 6.8 H* (3.5-5.1) mmol/L BUN 33 H (7-17) mg/dL Creatinine 2.89 H (0.52-1.04) mg/dL Total Protein 5.3 L (6.3-8.2) g/dL Albumin 2.4 L (3.5-5.0) g/dL Diabetes panel 08/23/20 Range/Units 14:45 Sodium 131 L (137-145) mmol/L Potassium 6.8 H* (3.5-5.1) mmol/L Chloride 101 (98-107) mmol/L Carbon Dioxide 26 (22-30) mmol/L BUN 33 H (7-17) mg/dL Creatinine 2.89 H (0.52-1.04) mg/dL Glucose 93 (74-99) mg/dL Calcium 9.2 (8.4-10.2) mg/dL AST 19 (14-36) U/L ALT 7 (4-34) U/L Alkaline Phosphatase 96 (38-126) U/L Total Protein 5.3 L (6.3-8.2) g/dL Albumin 2.4 L (3.5-5.0) g/dL Calcium panel 08/23/20 Range/Units 14:45 Calcium 9.2 (8.4-10.2) mg/dL Albumin 2.4 L (3.5-5.0) g/dL Pituitary panel 08/23/20 Range/Units 14:45 Sodium 131 L (137-145) mmol/L Potassium 6.8 H* (3.5-5.1) mmol/L Chloride 101 (98-107) mmol/L Carbon Dioxide 26 (22-30) mmol/L BUN 33 H (7-17) mg/dL Creatinine 2.89 H (0.52-1.04) mg/dL Glucose 93 (74-99) mg/dL Calcium 9.2 (8.4-10.2) mg/dL Adrenal panel 08/23/20 Range/Units 14:45 Sodium 131 L (137-145) mmol/L Potassium 6.8 H* (3.5-5.1) mmol/L Chloride 101 (98-107) mmol/L Carbon Dioxide 26 (22-30) mmol/L BUN 33 H (7-17) mg/dL Creatinine 2.89 H (0.52-1.04) mg/dL Glucose 93 (74-99) mg/dL Calcium 9.2 (8.4-10.2) mg/dL Total Bilirubin 0.4 (0.2-1.3) mg/dL AST 19 (14-36) U/L ALT 7 (4-34) U/L Alkaline Phosphatase 96 (38-126) U/L Total Protein 5.3 L (6.3-8.2) g/dL Albumin 2.4 L (3.5-5.0) g/dL Assessment and Plan (1) Chronic renal failure Current Visit: No Status: Acute Code(s): N18.9 - CHRONIC KIDNEY DISEASE, UNSPECIFIED SNOMED Code(s): 04251667 (2) ESRD (end stage renal disease) Narrative/Plan: The patient's dominant masses catheter was hooked to the hemodialysis machine with the lines reversed. This allowed for normal flow characteristics. As such no intervention is warranted at this time. The patient will need to be followed as an outpatient for consideration in reference to AV fistula/graft. Current Visit: No Status: Acute Code(s): N18.6 - END STAGE RENAL DISEASE SNOMED Code(s): 93535828 Time with Patient: Greater than 30
[2020-08-23] MEDS ORDERED: MENTHOL-ZINC OXIDE OINT 113 GM TUBE TOPICAL PRN (22:04)
[2020-08-23] MEDS ORDERED: LOPERAMIDE 2 MG CAP PO PRN (22:04)
[2020-08-23] MEDS ORDERED: NON FORMULARY DRUG (Lactose-Reduced Food [Ensure Plus] 237 ML Liquid) PO PRN (22:04)
[2020-08-23] MEDS ORDERED: ONDANSETRON 4 MG TAB PO PRN (22:04)
[2020-08-23] MEDS: ATORVASTATIN 20 MG TAB PO SCH (22:30)
[2020-08-23] MEDS: ACETAMINOPHEN TAB 325 MG TAB PO PRN (22:30)
[2020-08-23] MEDS: ALPRAZolam 0.5 MG TAB PO PRN (22:31)
--- NOTE | 2020-08-23 23:03 | P.HPIM ---
History of Present Illness H&P Date: 08/23/20 Chief Complaint: Hemodialysis catheter dysfunction History of presenting complaint: This is a 74-year-old patient at the [facility]. Follow with Dr. Bernard. Chronic stable medical conditions include end-stage kidney disease on hemodialysis, COPD, GERD, hyperlipidemia, scleroderma, chronic pulmonary embolic - on eliquis, hypothyroid, hyperlipidemia, history of duodenal ulcer with bleed, chronic kidney disease minimal bone disease. At her baseline patient is pretty much bedbound. This morning was discovered that the hemodialysis catheter was not working that was blocked. And she was sent in. No pain. No fever no chills. All of this afternoon patient is seen by Dr. Christensen from vascular. He did reverse the ports for dialysis and it was functioning. Otherwise patient will the symptoms. Review of systems: GEN.: Tired EYES: None HEENT: None NECK: None RESPIRATORY: None CARDIOVASCULAR: None GASTROINTESTINAL: None GENITOURINARY: None MUSCULOSKELETAL: None LYMPHATICS: None HEMATOLOGICAL: None PSYCHIATRY: Currently calm NEUROLOGICAL: Lower extremity weakness Past medical history to include: COPD, end-stage kidney disease on hemodialysis from underlying FSGS, GERD, hyperlipidemia, scleroderma, pulmonary embolism in 2016,, chronic lupus, anxiety depression, anemia of chronic kidney disease , duodenal ulcer with GI bleed for which patient is on a PPI, hypothyroid, hyperlipidemia Social history: No history of smoking or alcohol. Currently at rehab at [facility]. Physical examination: VITAL SIGNS: 97.6, 89, 17, 118/56, 91% on room air GENERAL: BMI 18.7, LAYING IN BED, AWAKE. EYES: Pupils equal. Conjunctiva pale. HEENT: External appearance of nose and ears normal, oral cavity grossly normal. NECK: JVD not raised; masses not palpable. HEART: First and second heart sounds are normal; no edema. LUNGS: Respiratory rate normal; clear to auscultation. ABDOMEN: Soft, nontender, liver spleen not palpable, no masses palpable. PSYCH: Answering questions appropriately NEUROLOGICAL: Cranial nerves grossly intact; no facial asymmetry, decreased bowel or lower extremities. Bilateral foot drop LYMPHATICS: No lymph nodes palpable in the axilla and neck INVESTIGATIONS, reviewed in the clinical context: White count 8.1 hemoglobin 10.2 platelets 501 potassium 6.8 bun 33 creatinine 2.89 Assessment -Malfunctioning right inferior chest wall hemodialysis catheter. The flow was reversed patient did have successful dialysis earlier today. 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 Plan for vascular to follow the patient as an outpatient for reference from AV fistula graft. Home medications to be continued. Hopefully patient can return to [facility] tomorrow. Past Medical History Past Medical History: Blood Disorder, COPD, Dialysis, GERD/Reflux, Hyperlipidemia, Pulmonary Embolus (PE), Renal Disease, Thyroid Disorder Additional Past Medical History / Comment(s): scleraderma, gout, peritoneal dialysis. 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 Insertion of a tunneled hemodialysis catheter. Aeration of a left upper extremity AV fistula currently thrombosed. Past Anesthesia/Blood Transfusion Reactions: No Reported Reaction Past Psychological History: Anxiety, Depression Smoking Status: Never smoker Past Alcohol Use History: None Reported Past Drug Use History: None Reported - Past Family History Mother Additional Family Medical History / Comment(s): breast CA , mitrale valve damage, kidney disease, gout Father Family Medical History: Thyroid Disorder Medications and Allergies Home Medications Medication Instructions Recorded Confirmed Type Folic Acid 0.8 mg PO DAILY@0800 07/28/18 08/23/20 History azaTHIOprine [Imuran] 25 mg PO DAILY@0800 07/28/18 08/23/20 History Ondansetron [Zofran] 4 mg PO Q6H PRN 04/26/20 08/23/20 History Docusate [Colace] 100 mg PO DAILY@0800 05/06/20 08/23/20 History Acetaminophen [Tylenol] 650 mg PO Q8H PRN 05/16/20 08/23/20 History Midodrine HCl 10 mg PO TID@0600,1200,1700 05/16/20 08/23/20 History Menthol-Zinc Oxide Oint 1 applic TOPICAL Q1H PRN 05/31/20 08/23/20 History [Calmoseptine Oint] bisacodyL [Dulcolax] 10 mg RECTAL HS@2130 05/31/20 08/23/20 History Epoetin Sherman [Epogen] 4,000 unit SQ MOWEFR@0800 07/31/20 08/23/20 History Levothyroxine Sodium [Synthroid] 75 mcg PO DAILY@0600 07/31/20 08/23/20 History ALPRAZolam [Xanax] 0.5 mg PO BID PRN 08/23/20 08/23/20 History Atorvastatin Calcium [Lipitor] 20 mg PO HS 08/23/20 08/23/20 History Lactose-Reduced Food [Ensure Plus] 237 ml PO BID@1200,1700 08/23/20 08/23/20 History Lactose-Reduced Food [Ensure Plus] 237 ml PO DAILY@0800 PRN 08/23/20 08/23/20 History Loperamide [Imodium] 2 mg PO DAILY PRN 08/23/20 08/23/20 History Menthol-Zinc Oxide Oint 1 applic TOPICAL BID 08/23/20 08/23/20 History [Calmoseptine Oint] Mirtazapine [Remeron] 15 mg PO HS 08/23/20 08/23/20 History Potassium Chloride ER [K-Dur 10] 10 meq PO DAILY@0800 08/23/20 08/23/20 History Allergies Allergy/AdvReac Type Severity Reaction Status Date / Time adhesive Allergy Unknown Verified 08/23/20 13:03 allopurinol Allergy Unknown Verified 08/23/20 13:03 codeine Allergy Unknown Verified 08/23/20 13:03 iodine Allergy Unknown Verified 08/23/20 13:03 meperidine HCl [From Demerol] Allergy Unknown Verified 08/23/20 13:03 povidone-iodine Allergy Unknown Verified 08/23/20 13:03 [From Betadine] soap [From Betadine] Allergy Unknown Verified 08/23/20 13:03 Sulfa (Sulfonamide Allergy Unknown Verified 08/23/20 13:03 Antibiotics) Physical Exam Vitals: Vital Signs Temp Pulse Pulse Pulse Resp BP BP 08/23/20 20:00 97.6 F 89 17 118/56 08/23/20 19:00 89 18 103/61 08/23/20 18:19 97.4 F L 98 18 115/68 08/23/20 18:17 97.2 F L 98 18 115/68 08/23/20 18:14 98 18 115/68 08/23/20 11:16 97.2 F L 109 H 18 97/61 Pulse Ox 08/23/20 20:00 91 L 08/23/20 19:00 96 08/23/20 18:19 08/23/20 18:17 98 08/23/20 18:14 98 08/23/20 11:16 98 Intake and Output 08/23/20 08/23/20 08/23/20 06:59 14:59 22:59 Intake Total 300 Output Total 1300 Balance -1000 Intake: Hemodialysis 300 Output: Hemodialysis 1300 Other: Weight 55.792 kg 55.792 kg Results CBC & Chem 7: 08/23/20 14:45 08/23/20 14:45 Labs: Abnormal Lab Results - Last 24 Hours (Table) 08/23/20 08/23/20 Range/Units 14:45 14:45 RBC 3.66 L (3.80-5.40) m/uL Hgb 10.2 L (11.4-16.0) gm/dL Hct 33.2 L (34.0-46.0) % MCHC 30.8 L (31.0-37.0) g/dL RDW 17.4 H (11.5-15.5) % Plt Count 501 H (150-450) k/uL Sodium 131 L (137-145) mmol/L Potassium 6.8 H* (3.5-5.1) mmol/L BUN 33 H (7-17) mg/dL Creatinine 2.89 H (0.52-1.04) mg/dL Total Protein 5.3 L (6.3-8.2) g/dL Albumin 2.4 L (3.5-5.0) g/dL Thrombosis Risk Factor Assmnt - Choose All That Apply Any of the Below Risk Factors Present?: No
[2020-08-24] MEDS: MIDODRINE 5 MG TAB PO SCH ×3 (05:46→18:16)
[2020-08-24] MEDS ORDERED: LEVOTHYROXINE 75 MCG TAB PO SCH (06:00)
[2020-08-24] MEDS: ACETAMINOPHEN TAB 325 MG TAB PO PRN (06:28)
[2020-08-24 07:46] LABS: Calcium 8.9 mg/dL (8.4-10.2); Potassium 4.8 mmol/L (3.5-5.1)
[2020-08-24] MEDS ORDERED: FOLIC ACID 1 MG TAB PO SCH (08:00)
[2020-08-24] MEDS ORDERED: azaTHIOprine 50 MG TAB PO SCH (08:00)
[2020-08-24] MEDS ORDERED: MENTHOL-ZINC OXIDE OINT 113 GM TUBE TOPICAL SCH (09:00)
[2020-08-24] MEDS: DOCUSATE 100 MG CAP PO SCH ×2 (09:07→09:11)
--- NOTE | 2020-08-24 11:32 | P.PN ---
Subjective Progress Note Date: 08/24/20 Principal diagnosis: Dialysis catheter dysfunction She was seen and examined at the bedside. She is without any acute changes through the night. She underwent hemodialysis yesterday without any further difficulty. Objective - Vital Signs Vital signs: Vital Signs Temp 97.6 F 08/24/20 08:00 Pulse 76 08/24/20 08:00 Resp 15 08/24/20 08:00 BP 121/65 08/24/20 08:00 Pulse Ox 97 08/24/20 08:00 Intake & Output 08/23/20 08/24/20 08/24/20 18:59 06:59 18:59 Intake Total 300 240 Output Total 1300 300 Balance -1000 -300 240 Weight 55.792 kg 66.5 kg Intake: Oral 240 Hemodialysis 300 Output: Urine 300 Hemodialysis 1300 Other: Voiding Method Bedpan Bedpan # Voids 1 # Bowel Movements 1 - Exam General appearance: The patient is alert, oriented, appears in no acute distress. HET: Head is normocephalic and atraumatic. Neck: Supple without lymphadenopathy. Trachea midline. Right permacath clean dry and intact. Heart: S1 S2. Regular rate and rhythm. Lungs: No crackles or wheezes are heard. Extremities: Normal skin color and turgor. Radial pulses are 2/4 bilaterally. Neurological: No focal deficits. Strength and sensation are grossly intact. - Labs CBC & Chem 7: 08/23/20 14:45 08/24/20 07:04 Labs: Abnormal Lab Results - Last 24 Hours (Table) 08/23/20 08/23/20 08/24/20 Range/Units 14:45 14:45 07:04 RBC 3.66 L (3.80-5.40) m/uL Hgb 10.2 L (11.4-16.0) gm/dL Hct 33.2 L (34.0-46.0) % MCHC 30.8 L (31.0-37.0) g/dL RDW 17.4 H (11.5-15.5) % Plt Count 501 H (150-450) k/uL Sodium 131 L 132 L (137-145) mmol/L Potassium 6.8 H* (3.5-5.1) mmol/L BUN 33 H 19 H (7-17) mg/dL Creatinine 2.89 H 2.15 H (0.52-1.04) mg/dL Total Protein 5.3 L (6.3-8.2) g/dL Albumin 2.4 L (3.5-5.0) g/dL Assessment and Plan (1) ESRD (end stage renal disease) Narrative/Plan: Patient underwent hemodialysis yesterday without any further difficulty. No intervention is warranted at this time. It was discussed with the patient she will need follow-up as an outpatient for consideration for possible AV fistula/graft Current Visit: No Status: Acute Code(s): N18.6 - END STAGE RENAL DISEASE SNOMED Code(s): 05075550 (2) Chronic renal failure Current Visit: No Status: Acute Code(s): N18.9 - CHRONIC KIDNEY DISEASE, UNSPECIFIED SNOMED Code(s): 80149789 Plan: Patient successfully underwent hemodialysis yesterday without any further difficulty. No further vascular surgical intervention is warranted at this time. Patient is instructed to follow-up as an outpatient for consideration for AV fistula/graft creation. The impression and plan of care has been dictated as directed. I performed a history and examination of this patient, discussed the same with the dictator. I agree with the dictator's note ,documented as a scribe. Any additional findings or plans will be noted.
[2020-08-24] MEDS ORDERED: NON FORMULARY DRUG (Lactose-Reduced Food [Ensure Plus] 237 ML Liquid) PO SCH (12:00)
[2020-08-24 12:03] VITALS: TEMP 98.3
--- NOTE | 2020-08-24 15:51 | CONS ---
CONSULTATION REASON FOR CONSULT: End-stage renal disease. HISTORY OF PRESENT ILLNESS: The patient is a 74-year-old female who was admitted to the hospital with malfunctioning dialysis catheter. The patient was not dialyzed yesterday at the outpatient unit, as her catheter did not work after Cathflo. However, she received Cathflo again in the ER post admission, following which her treatment went fairly well. The catheter seemed a bit positional, but the patient was able to get dialyzed. She was seen by Vascular Surgery and plans are to follow up as outpatient. There was no need for any further intervention at this point. No other complaints. Patient denies any fevers, chills, nausea, vomiting, abdominal pain or fever. PAST MEDICAL HISTORY: End-stage renal disease, anemia of chronic disease, CKD mineral bone disorder, generalized debility, COPD, history of scleroderma, gout, history of PE. PAST SURGICAL HISTORY: Cholecystectomy, hysterectomy, bowel resection, left knee arthroplasty, thyroidectomy, AV graft in the left arm, PermCath placement. SOCIAL HISTORY: Negative for smoking, drug abuse or alcohol abuse. PHYSICAL EXAMINATION: Patient is comfortable, awake, not in any acute distress. Blood pressure 119/65, heart rate 80 per minute. She is afebrile. EXAMINATION OF THE HEART: S1 and S2. EXAMINATION OF LUNGS: Decreased breath sounds at bases. ABDOMEN: Soft, non-tender. Examination of lower extremities shows no evidence of edema. PORTFOLIO STRATEGIST exam is grossly intact. LABS: Labs show sodium 132, potassium 4.8, down from 6.8 yesterday. Hemoglobin 10.2 g/dL. ASSESSMENT: 1. End-stage renal disease, on hemodialysis on a Sunday, Sunday, Sunday schedule, status post dialysis yesterday. Patient can be discharged with plans to follow up for dialysis tomorrow. 2. Chronic kidney disease mineral bone disorder. 3. Anemia of chronic disease. 4. History of gout. 5. History of scleroderma. 6. Malfunctioning catheter, currently improved post tPA. PLAN: Patient can be discharged and follow up for hemodialysis as outpatient tomorrow. MMODL / IJN: [id number] /
--- NOTE | 2020-08-24 16:25 | P.DS ---
Providers Date of admission: 08/23/20 14:36 Expected date of discharge: 08/24/20 Attending physician: Remy Lai Consults: 08/23/20 15:08 Consult Physician Urgent Consulting Provider: Lewis Buckley Consult Reason/Comments: clogged dialysis port Do you want consulting provider notified?: Yes Consult Physician Urgent Consulting Provider: Tala Galan Consult Reason/Comments: Clogged dialysis port Do you want consulting provider notified?: Already Contacted Primary care physician: [facility] Course: Chief Complaint: Hemodialysis catheter dysfunction History of presenting complaint: This is a 74-year-old patient at the [facility]. Follow with Dr. Bernard. Chronic stable medical conditions include end-stage kidney disease on hemodialysis, COPD, GERD, hyperlipidemia, scleroderma, chronic pulmonary embolic - on eliquis, hypothyroid, hyperlipidemia, history of duodenal ulcer with bleed, chronic kidney disease minimal bone disease. At her baseline patient is pretty much bedbound. This morning was discovered that the hemodialysis catheter was not working that was blocked. And she was sent in. No pain. No fever no chills. All of this afternoon patient is seen by Dr. Christensen from vascular. He did reverse the ports for dialysis and it was functioning. Otherwise patient will the symptoms. Patient is to follow-up with vascular 4 consideration of AV fistula graft creation Consultation: Dr. Christensen from vascular Dr. 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 Currently at rehab at [facility]. Physical examination: VITAL SIGNS: 98.3, 80, 16, 119/65, 96% room air GENERAL: BMI 18.7, LAYING IN BED, AWAKE. EYES: Pupils equal. Conjunctiva pale. HEENT: External appearance of nose and ears normal, oral cavity grossly normal. NECK: JVD not raised; masses not palpable. HEART: First and second heart sounds are normal; no edema. LUNGS: Respiratory rate normal; clear to auscultation. ABDOMEN: Soft, nontender, liver spleen not palpable, no masses palpable. PSYCH: Answering questions appropriately NEUROLOGICAL: Cranial nerves grossly intact; no facial asymmetry, decreased bowel or lower extremities. Bilateral foot drop LYMPHATICS: No lymph nodes palpable in the axilla and neck INVESTIGATIONS, reviewed in the clinical context: White count 8.1 hemoglobin 10.2 platelets 501 potassium 6.8 bun 33 creatinine 2.89 Assessment -Malfunctioning right inferior chest wall hemodialysis catheter. 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 -Mild cognitive impairment Disposition: [facility] Patient Condition at Discharge: Stable Plan - Discharge Summary New Discharge Prescriptions: Continue azaTHIOprine [Imuran] 25 mg PO DAILY@0800 Folic Acid 0.8 mg PO DAILY@0800 Ondansetron [Zofran] 4 mg PO Q6H PRN PRN Reason: Nausea Docusate [Colace] 100 mg PO DAILY@0800 Acetaminophen [Tylenol] 650 mg PO Q8H PRN PRN Reason: Pain Or Fever > 100.5 Midodrine HCl 10 mg PO TID@0600,1200,1700 Menthol-Zinc Oxide Oint [Calmoseptine Oint] 1 applic TOPICAL Q1H PRN PRN Reason: Rash bisacodyL [Dulcolax] 10 mg RECTAL HS@2130 Epoetin Sherman [Epogen] 4,000 unit SQ MOWEFR@0800 Levothyroxine Sodium [Synthroid] 75 mcg PO DAILY@0600 Menthol-Zinc Oxide Oint [Calmoseptine Oint] 1 applic TOPICAL BID Loperamide [Imodium] 2 mg PO DAILY PRN PRN Reason: Diarrhea Potassium Chloride ER [K-Dur 10] 10 meq PO DAILY@0800 Lactose-Reduced Food [Ensure Plus] 237 ml PO DAILY@0800 PRN PRN Reason: See Comments Atorvastatin Calcium [Lipitor] 20 mg PO HS Mirtazapine [Remeron] 15 mg PO HS #3 tab ALPRAZolam [Xanax] 0.5 mg PO BID PRN #6 tab PRN Reason: Anxiety Discontinued Lactose-Reduced Food [Ensure Plus] 237 ml PO BID@1200,1700 Discharge Medication List Folic Acid 0.8 mg PO DAILY@0800 07/28/18 [History] azaTHIOprine [Imuran] 25 mg PO DAILY@0800 07/28/18 [History] Ondansetron [Zofran] 4 mg PO Q6H PRN 04/26/20 [History] Docusate [Colace] 100 mg PO DAILY@0800 05/06/20 [History] Acetaminophen [Tylenol] 650 mg PO Q8H PRN 05/16/20 [History] Midodrine HCl 10 mg PO TID@0600,1200,1700 05/16/20 [History] Menthol-Zinc Oxide Oint [Calmoseptine Oint] 1 applic TOPICAL Q1H PRN 05/31/20 [History] bisacodyL [Dulcolax] 10 mg RECTAL HS@21305/31/20 [History] Epoetin Sherman [Epogen] 4,000 unit SQ MOWEFR@0800 07/31/20 [History] Levothyroxine Sodium [Synthroid] 75 mcg PO DAILY@0600 07/31/20 [History] Atorvastatin Calcium [Lipitor] 20 mg PO HS 08/23/20 [History] Lactose-Reduced Food [Ensure Plus] 237 ml PO DAILY@0800 PRN 08/23/20 [History] Loperamide [Imodium] 2 mg PO DAILY PRN 08/23/20 [History] Menthol-Zinc Oxide Oint [Calmoseptine Oint] 1 applic TOPICAL BID 08/23/20 [History] Potassium Chloride ER [K-Dur 10] 10 meq PO DAILY@0800 08/23/20 [History] ALPRAZolam [Xanax] 0.5 mg PO BID PRN #6 tab 08/24/20 [Rx] Mirtazapine [Remeron] 15 mg PO HS #3 tab 08/24/20 [Rx] Follow up Appointment(s)/Referral(s): Tano Bernard DO [Primary Care Provider] - 1-2 days Lewis Buckley DO [Doctor of Osteopathic Medicine] - 1 Week (1-2 weeks)
[2020-08-24 18:20] VITALS: BP 124/68; PULSE 82; RESP 18
[2020-08-24] MEDS: ALPRAZolam 0.5 MG TAB PO PRN (18:44)
[2020-08-24] MEDS: ATORVASTATIN 20 MG TAB PO SCH (18:44)
[2020-08-24] MEDS ORDERED: MIRTAZAPINE 15 MG TAB PO SCH (21:00)
[2020-08-29] MEDS ORDERED: DARBEPOETIN ALFA 40 MCG/0.4 ML SYRINGE SQ SCH (09:00)
== END 2020-08-24 19:01 | DRG 698 ==
LOC: EC 11:14 → 3SCARD 14:36
PROVIDERS: ADMIT Hospitalist; ATTEND Hospitalist
PROC: 5A1D70Z Performance of Urinary Filtration, Intermittent, Less than 6 Hours Per Day (ICD-10-PCS; principal; 2020-08-23)
DX: T82.41XA Breakdown (mechanical) of vascular dialysis catheter, initial encounter (principal); N18.6 End stage renal disease; Y71.2 Prosthetic and other implants, materials and accessory cardiovascular devices associated with adverse incidents; Z96.652 Presence of left artificial knee joint; N26.9 Renal sclerosis, unspecified; M34.9 Systemic sclerosis, unspecified; K21.9 Gastro-esophageal reflux disease without esophagitis; J44.9 Chronic obstructive pulmonary disease, unspecified; F41.9 Anxiety disorder, unspecified; G31.84 Mild cognitive impairment of uncertain or unknown etiology; F32.9 Major depressive disorder, single episode, unspecified; E89.0 Postprocedural hypothyroidism; E87.5 Hyperkalemia; D63.1 Anemia in chronic kidney disease; Z20.822 Contact with and (suspected) exposure to COVID-19; E83.89 Other disorders of mineral metabolism; E78.5 Hyperlipidemia, unspecified; Z99.2 Dependence on renal dialysis; Z90.710 Acquired absence of both cervix and uterus; Z87.11 Personal history of peptic ulcer disease; Z86.711 Personal history of pulmonary embolism; Z80.3 Family history of malignant neoplasm of breast; Z79.899 Other long term (current) drug therapy; Z79.890 Hormone replacement therapy; Z88.2 Allergy status to sulfonamides; Z88.8 Allergy status to other drugs, medicaments and biological substances; Z91.09 Other allergy status, other than to drugs and biological substances; Z90.49 Acquired absence of other specified parts of digestive tract; Z98.890 Other specified postprocedural states; Z82.61 Family history of arthritis; Z82.49 Family history of ischemic heart disease and other diseases of the circulatory system
CPT/HCPCS: 36415; 36593; 80048; 80053; 83735; 85025; 87635; 90935; 99285

== ENCOUNTER 2020-08-25 17:08 | Emergency (ER) | payer MEDICARE, BC ==
[2020-08-25 17:34] VITALS: BP 112/73; PULSE 78; RESP 17; TEMP 98.1
--- NOTE | 2020-08-25 17:52 | ED ---
Fall HPI - General Chief Complaint: Fall Stated Complaint: fall Time Seen by Provider: 08/25/20 17:32 Source: patient, EMS Mode of arrival: EMS Limitations: altered mental status, physical limitation - History of Present Illness Initial Comments: This a 74-year-old female presents emergency Department chief complaint of a fall out of her bed, right hip pain. Patient had no prior right hip fractures or surgeries. Patient states that she had no head injury no loss conscious she has no other complaints pain other than right hip. Patient states she is non- ambulatory she states that she sits in her bed in her wheelchair. Patient does have multiple chronic, but is been no other complaints. - Related Data Home Medications Medication Instructions Recorded Confirmed Folic Acid 0.8 mg PO DAILY@0800 07/28/18 08/25/20 azaTHIOprine [Imuran] 25 mg PO DAILY@0800 07/28/18 08/25/20 Ondansetron [Zofran] 4 mg PO Q6H PRN 04/26/20 08/25/20 Docusate [Colace] 100 mg PO DAILY@0800 05/06/20 08/25/20 Acetaminophen [Tylenol] 650 mg PO Q8H PRN 05/16/20 08/25/20 Midodrine HCl 10 mg PO TID@0600,1200,1700 05/16/20 08/25/20 Menthol-Zinc Oxide Oint 1 applic TOPICAL Q1H PRN 05/31/20 08/25/20 [Calmoseptine Oint] bisacodyL [Dulcolax] 10 mg RECTAL HS@2130 05/31/20 08/25/20 Epoetin Sherman [Epogen] 4,000 unit SQ MOWEFR@0800 07/31/20 08/25/20 Levothyroxine Sodium [Synthroid] 75 mcg PO DAILY@0600 07/31/20 08/25/20 Atorvastatin Calcium [Lipitor] 20 mg PO HS@2100 08/23/20 08/25/20 Lactose-Reduced Food [Ensure Plus] 237 ml PO QID 08/23/20 08/25/20 Loperamide [Imodium] 2 mg PO DAILY PRN 08/23/20 08/25/20 Menthol-Zinc Oxide Oint 1 applic TOPICAL BID 08/23/20 08/25/20 [Calmoseptine Oint] Potassium Chloride ER [K-Dur 10] 10 meq PO DAILY@0800 08/23/20 08/25/20 Mirtazapine [Remeron] 15 mg PO HS@2100 08/25/20 08/25/20 risperiDONE [RisperDAL] 0.5 mg PO HS@2100 08/25/20 08/25/20 Previous Rx's Medication Instructions Recorded ALPRAZolam [Xanax] 0.5 mg PO BID PRN #6 tab 08/24/20 Allergies Allergy/AdvReac Type Severity Reaction Status Date / Time adhesive Allergy Unknown Verified 08/25/20 17:36 allopurinol Allergy Unknown Verified 08/25/20 17:36 codeine Allergy Unknown Verified 08/25/20 17:36 iodine Allergy Unknown Verified 08/25/20 17:36 meperidine HCl [From Demerol] Allergy Unknown Verified 08/25/20 17:36 povidone-iodine Allergy Unknown Verified 08/25/20 17:36 [From Betadine] soap [From Betadine] Allergy Unknown Verified 08/25/20 17:36 Sulfa (Sulfonamide Allergy Unknown Verified 08/25/20 17:36 Antibiotics) Review of Systems ROS Statement: Those systems with pertinent positive or pertinent negative responses have been documented in the HPI. ROS Other: All systems not noted in ROS Statement are negative. Past Medical History Past Medical History: Blood Disorder, COPD, Dialysis, GERD/Reflux, Hyperlipidemia, Pulmonary Embolus (PE), Renal Disease, Thyroid Disorder Additional Past Medical History / Comment(s): scleraderma, gout, peritoneal dialysis. 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 Insertion of a tunneled hemodialysis catheter. Aeration of a left upper extremity AV fistula currently thrombosed. Past Anesthesia/Blood Transfusion Reactions: No Reported Reaction Past Psychological History: Anxiety, Depression Smoking Status: Never smoker Past Alcohol Use History: None Reported Past Drug Use History: None Reported - Past Family History Mother Additional Family Medical History / Comment(s): breast CA , mitrale valve damage, kidney disease, gout Father Family Medical History: Thyroid Disorder General Exam Limitations: no limitations General appearance: alert, in no apparent distress Head exam: Present: atraumatic, normocephalic, normal inspection Neck exam: Present: normal inspection. Absent: tenderness, meningismus, lym phadenopathy Respiratory exam: Present: normal lung sounds bilaterally, other (Port right- sided chest). Absent: respiratory distress, wheezes, rales, rhonchi, stridor Cardiovascular Exam: Present: regular rate, normal rhythm, normal heart sounds. Absent: systolic murmur, diastolic murmur, rubs, gallop, clicks GI/Abdominal exam: Present: soft, normal bowel sounds. Absent: distended, tenderness, guarding, rebound, rigid Extremities exam: Present: other (Patient's full range of motion of bilateral lower extremities, there is no significant localized tenderness. Neurovascular intact remaining extremity exam within normal limits) Neurological exam: Present: alert, CN II-XII intact, reflexes normal. Absent: oriented X3, motor sensory deficit Skin exam: Present: warm, dry, intact, normal color. Absent: rash Course Vital Signs 08/25/20 17:25 Temperature 98.1 F Pulse Rate 78 Respiratory 17 Rate Blood Pressure 112/73 O2 Sat by Pulse 98 Oximetry Medical Decision Making - Medical Decision Making X-rays were reviewed no acute fracture. Patient does not ambulate on a normal basis. Patient be discharged in stable condition Disposition Clinical Impression: Fall, Contusion, hip Disposition: HOME SELF-CARE Condition: Stable Instructions (If sedation given, give patient instructions): Fall Prevention for Older Adults (ED) Additional Instructions: Please return to the Emergency Department if symptoms worsen or any other concerns. Is patient prescribed a controlled substance at d/c from ED?: No Referrals: Tano Bernard DO [Primary Care Provider] - 1-2 days Time of Disposition: 18:48
--- NOTE | 2020-08-25 18:12 | XR ---
EXAMINATION TYPE: XR Hip RT and AP Pelvis DATE OF EXAM: 08/25/2020 COMPARISON: NONE HISTORY: Hip pain TECHNIQUE: 3 views FINDINGS: Pelvic ring is intact. Proximal femurs and hip joints are intact. There is some sclerosis a t the right sacroiliac joint. IMPRESSION: No acute abnormality of the pelvis and right hip. No hip fracture seen.
== END 2020-08-25 20:35 | disposition home or self-care (01) ==
LOC: EC 17:08
DX: S70.00XA Contusion of unspecified hip, initial encounter (principal); E07.9 Disorder of thyroid, unspecified; E78.5 Hyperlipidemia, unspecified; F41.9 Anxiety disorder, unspecified; F32.9 Major depressive disorder, single episode, unspecified; Z79.890 Hormone replacement therapy; Z79.899 Other long term (current) drug therapy; Z91.048 Other nonmedicinal substance allergy status; Z88.5 Allergy status to narcotic agent; Z88.8 Allergy status to other drugs, medicaments and biological substances; Z88.2 Allergy status to sulfonamides; Z96.652 Presence of left artificial knee joint; Z86.711 Personal history of pulmonary embolism; Z99.2 Dependence on renal dialysis; W06.XXXA Fall from bed, initial encounter
CPT/HCPCS: 73502; 99283

== ENCOUNTER 2020-08-27 09:56 | Emergency (ER) | payer MEDICARE, BC ==
[2020-08-27 10:03] VITALS: TEMP 98.2
[2020-08-27] MEDS ORDERED: SODIUM CHLORIDE 0.9% 500 ML 500 ML IV STA (10:13)
--- NOTE | 2020-08-27 10:27 | ED ---
Weakness HPI - General Chief complaint: Weakness Stated complaint: weakness Time Seen by Provider: 08/27/20 10:07 Source: patient, EMS Mode of arrival: EMS Limitations: no limitations - History of Present Illness Initial comments: Patient is a 74-year-old female with history of renal disease on dialysis, COPD, presenting to the emergency department with complaints of weakness for the last 3 days. Patient just finished dialysis this morning and stated that she continues to feel weak. They said at dialysis her blood pressure was on the lower side today recommended ER evaluation. Upon arrival to the ER, patient's blood pressure is 93/64. Respiratory vital signs are normal. She denies any recent fever or chills, no recent falls. She admits to having some mild pain on her right gluteal area but no other areas of pain. She denies chest pain or shortness of breath. Her vomiting. She states she has not ate very much the last 2-3 days, low appetite. She has no further concerns at this time. - Related Data Home Medications Medication Instructions Recorded Confirmed Folic Acid 0.8 mg PO DAILY@0800 07/28/18 08/27/20 azaTHIOprine [Imuran] 25 mg PO DAILY@0800 07/28/18 08/27/20 Ondansetron [Zofran] 4 mg PO Q6H PRN 04/26/20 08/27/20 Docusate [Colace] 100 mg PO DAILY@0800 05/06/20 08/27/20 Acetaminophen [Tylenol] 650 mg PO Q8H PRN 05/16/20 08/27/20 Menthol-Zinc Oxide Oint 1 applic TOPICAL Q1H PRN 05/31/20 08/27/20 [Calmoseptine Oint] bisacodyL [Dulcolax] 10 mg RECTAL HS@2130 05/31/20 08/27/20 Epoetin Sherman [Epogen] 4,000 unit SQ MOWEFR@0800 07/31/20 08/27/20 Levothyroxine Sodium [Synthroid] 75 mcg PO DAILY@0600 07/31/20 08/27/20 Atorvastatin Calcium [Lipitor] 20 mg PO HS@2100 08/23/20 08/27/20 Lactose-Reduced Food [Ensure Plus] 237 ml PO QID 08/23/20 08/27/20 Loperamide [Imodium] 2 mg PO DAILY PRN 08/23/20 08/27/20 Menthol-Zinc Oxide Oint 1 applic TOPICAL BID 08/23/20 08/27/20 [Calmoseptine Oint] Potassium Chloride ER [K-Dur 10] 10 meq PO DAILY@0800 08/23/20 08/27/20 Mirtazapine [Remeron] 15 mg PO HS@2100 08/25/20 08/27/20 risperiDONE [RisperDAL] 0.5 mg PO HS@2100 08/25/20 08/27/20 ALPRAZolam [Xanax] 0.5 mg PO TID PRN 08/27/20 08/27/20 Midodrine HCl [ProAmatine] 10 mg PO TID@0600,1200,1700 08/27/20 08/27/20 Allergies Allergy/AdvReac Type Severity Reaction Status Date / Time adhesive Allergy Unknown Verified 08/27/20 11:26 allopurinol Allergy Unknown Verified 08/27/20 11:26 codeine Allergy Unknown Verified 08/27/20 11:26 iodine Allergy Unknown Verified 08/27/20 11:26 meperidine HCl [From Demerol] Allergy Unknown Verified 08/27/20 11:26 povidone-iodine Allergy Unknown Verified 08/27/20 11:26 [From Betadine] soap [From Betadine] Allergy Unknown Verified 08/27/20 11:26 Sulfa (Sulfonamide Allergy Unknown Verified 08/27/20 11:26 Antibiotics) Review of Systems ROS Statement: Those systems with pertinent positive or pertinent negative responses have been documented in the HPI. ROS Other: All systems not noted in ROS Statement are negative. Past Medical History Past Medical History: Blood Disorder, COPD, Dialysis, GERD/Reflux, Hyperlipidemia, Pulmonary Embolus (PE), Renal Disease, Thyroid Disorder Additional Past Medical History / Comment(s): scleraderma, gout, peritoneal dialysis. 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 Insertion of a tunneled hemodialysis catheter. Aeration of a left upper extremity AV fistula currently thrombosed. Past Anesthesia/Blood Transfusion Reactions: No Reported Reaction Past Psychological History: Anxiety, Depression Smoking Status: Never smoker Past Alcohol Use History: None Reported Past Drug Use History: None Reported - Past Family History Mother Additional Family Medical History / Comment(s): breast CA , mitrale valve damage, kidney disease, gout Father Family Medical History: Thyroid Disorder General Exam - General Exam Comments Initial Comments: GENERAL: Patient is well-developed and well-nourished. Patient is nontoxic and in no acute distress. HEAD: Atraumatic, normocephalic. EYES: Pupils equal round and reactive to light, extraocular movements intact, sclera anicteric, conjunctiva are normal. Eyelids were unremarkable. ENT: TMs normal, nares patent, oropharynx clear without exudates. Dry mucous membranes. NECK: Normal range of motion, supple without lymphadenopathy or JVD. LUNGS: Unlabored respirations. Breath sounds clear to auscultation bilaterally and equal. No wheezes rales or rhonchi. HEART: Regular rate and rhythm without murmurs, rubs or gallops. ABDOMEN: Soft, nontender, normoactive bowel sounds. No guarding, no rebound. No masses appreciated. : Deferred MUSCULOSKELETAL: Normal extremities with adequate strength and normal range of motion, no pitting or edema. No clubbing or cyanosis. NEUROLOGICAL: Patient is alert and oriented x 3. Motor and sensory are also intact. Cranial nerves II through XII grossly intact. Symmetrical smile. Normal speech, normal gait. PSYCH: Normal mood, normal affect. SKIN: Warm, Dry, normal turgor, no rashes or lesions noted. Limitations: no limitations Course Vital Signs 08/27/20 08/27/20 08/27/20 09:59 11:03 12:00 Temperature 98.2 F Pulse Rate 95 88 Respiratory 16 18 18 Rate Blood Pressure 93/64 95/65 O2 Sat by Pulse 96 95 95 Oximetry 08/27/20 12:32 Temperature Pulse Rate 83 Respiratory 18 Rate Blood Pressure 109/65 O2 Sat by Pulse 100 Oximetry EKG Findings - EKG Comments: EKG Findings:: Normal sinus rhythm, no signs of an acute process. Similar to previous on 07/31/2020. Ventricular rate 90, [place] interval 162, QT 382. Medical Decision Making - Medical Decision Making Patient 74-year-old female with history of renal disease presenting after dialysis with complaints of some weakness, hypotension. Patient's blood pressure on arrival was 93/64, labs are stable, troponin is negative. Patient was given some fluids in the ER, reports improvement in her symptoms. She is requesting to go home. Blood pressure improved to 109/65. Patient will be discharged home. Recommend continuing to increase fluid intake. She'll follow up with her regular doctor. Case discussed with Dr. Avina. - Lab Data Result diagrams: 08/27/20 10:49 08/27/20 10:49 Lab Results 08/27/20 08/27/20 08/27/20 Range/Units 10:49 10:49 10:49 WBC 6.6 (3.8-10.6) k/uL RBC 3.20 L (3.80-5.40) m/uL Hgb 8.9 L (11.4-16.0) gm/dL Hct 29.8 L (34.0-46.0) % MCV 93.1 (80.0-100.0) fL MCH 28.0 (25.0-35.0) pg MCHC 30.0 L (31.0-37.0) g/dL RDW 18.0 H (11.5-15.5) % Plt Count 469 H (150-450) k/uL MPV 7.3 Neutrophils % 68 % Lymphocytes % 21 % Monocytes % 5 % Eosinophils % 3 % Basophils % 1 % Neutrophils # 4.4 (1.3-7.7) k/uL Lymphocytes # 1.4 (1.0-4.8) k/uL Monocytes # 0.4 (0-1.0) k/uL Eosinophils # 0.2 (0-0.7) k/uL Basophils # 0.0 (0-0.2) k/uL Hypochromasia Marked Anisocytosis Slight PT (9.0-12.0) sec INR (<1.2) APTT (22.0-30.0) sec Sodium 135 L (137-145) mmol/L Potassium 4.3 (3.5-5.1) mmol/L Chloride 101 (98-107) mmol/L Carbon Dioxide 32 H (22-30) mmol/L Anion Gap 2 mmol/L BUN 13 (7-17) mg/dL Creatinine 1.77 H (0.52-1.04) mg/dL Est GFR (CKD-EPI)AfAm 33 (>60 ml/min/1.73 sqM) Est GFR (CKD-EPI)NonAf 28 (>60 ml/min/1.73 sqM) Glucose 97 (74-99) mg/dL Plasma Lactic Acid Jose Antonio 1.1 (0.7-2.0) mmol/L Calcium 8.6 (8.4-10.2) mg/dL Magnesium 2.0 (1.6-2.3) mg/dL Total Bilirubin 0.4 (0.2-1.3) mg/dL AST 19 (14-36) U/L ALT 8 (4-34) U/L Alkaline Phosphatase 93 (38-126) U/L Troponin I (0.000-0.034) ng/mL Total Protein 5.1 L (6.3-8.2) g/dL Albumin 2.4 L (3.5-5.0) g/dL 08/27/20 08/27/20 Range/Units 10:49 13:04 WBC (3.8-10.6) k/uL RBC (3.80-5.40) m/uL Hgb (11.4-16.0) gm/dL Hct (34.0-46.0) % MCV (80.0-100.0) fL MCH (25.0-35.0) pg MCHC (31.0-37.0) g/dL RDW (11.5-15.5) % Plt Count (150-450) k/uL MPV Neutrophils % % Lymphocytes % % Monocytes % % Eosinophils % % Basophils % % Neutrophils # (1.3-7.7) k/uL Lymphocytes # (1.0-4.8) k/uL Monocytes # (0-1.0) k/uL Eosinophils # (0-0.7) k/uL Basophils # (0-0.2) k/uL Hypochromasia Anisocytosis PT 10.7 (9.0-12.0) sec INR 1.0 (<1.2) APTT 20.7 L (22.0-30.0) sec Sodium (137-145) mmol/L Potassium (3.5-5.1) mmol/L Chloride (98-107) mmol/L Carbon Dioxide (22-30) mmol/L Anion Gap mmol/L BUN (7-17) mg/dL Creatinine (0.52-1.04) mg/dL Est GFR (CKD-EPI)AfAm (>60 ml/min/1.73 sqM) Est GFR (CKD-EPI)NonAf (>60 ml/min/1.73 sqM) Glucose (74-99) mg/dL Plasma Lactic Acid Jose Antonio (0.7-2.0) mmol/L Calcium (8.4-10.2) mg/dL Magnesium (1.6-2.3) mg/dL Total Bilirubin (0.2-1.3) mg/dL AST (14-36) U/L ALT (4-34) U/L Alkaline Phosphatase (38-126) U/L Troponin I <0.012 (0.000-0.034) ng/mL Total Protein (6.3-8.2) g/dL Albumin (3.5-5.0) g/dL Disposition Clinical Impression: Dehydration Disposition: HOME SELF-CARE Condition: Stable Instructions (If sedation given, give patient instructions): Dehydration (ED) Additional Instructions: Please return to the Emergency Department if symptoms worsen or any other concerns. Follow-up with your regular family doctor. Make sure to drink plenty of fluids. Is patient prescribed a controlled substance at d/c from ED?: No Referrals: Tano Bernard DO [Primary Care Provider] - 1-2 days
[2020-08-27 11:16] LABS: Anisocytosis Slight; Basophils % (A) 1 %; Eosinophils # (A) 0.2 k/uL (0-0.7); Eosinophils % (A) 3 %; HCT 29.8 % (34.0-46.0); HGB 8.9 gm/dL (11.4-16.0); Hypochromasia Marked; Lymphocytes # (A) 1.4 k/uL (1.0-4.8); Lymphocytes % (A) 21 %; MCV 93.1 fL (80.0-100.0); Mean Platelet Volume 7.3; Monocytes # (A) 0.4 k/uL (0-1.0); Monocytes % (A) 5 %; Neutrophils # (A) 4.4 k/uL (1.3-7.7); Neutrophils % (A) 68 %; Platelet Count 469 k/uL (150-450); WBC 6.6 k/uL (3.8-10.6)
--- NOTE | 2020-08-27 12:06 | XR ---
EXAMINATION TYPE: XR chest 2V DATE OF EXAM: 08/27/2020 COMPARISON: Chest x-ray July 31, 2020 HISTORY: Weakness. TECHNIQUE: Frontal and lateral views of the chest are obtained. FINDINGS: Large bore right internal jugular dialysis catheter redemonstrated. There is stable small t o tiny right pleural effusion. Associated right basilar atelectasis and/or infiltrate. Improved left -sided pleural effusion. The cardiac silhouette size is stable and within normal limits. The osseou s structures remain intact. IMPRESSION: Stable small right pleural effusion and associated right basilar atelectasis and/or infil trate. Improved left-sided effusion.
[2020-08-27 12:17] VITALS: RESP 18
[2020-08-27 12:33] VITALS: BP 109/65; PULSE 83
[2020-08-27 13:01] LABS: Albumin 2.4 g/dL (3.5-5.0); Calcium 8.6 mg/dL (8.4-10.2); Potassium 4.3 mmol/L (3.5-5.1); Total Bilirubin 0.4 mg/dL (0.2-1.3); Total Protein 5.1 g/dL (6.3-8.2)
[2020-08-27 13:37] LABS: Prothrombin Time 10.7 sec (9.0-12.0)
[2020-08-27 13:42] LABS: Partial Thromboplastin Time 20.7 sec (22.0-30.0)
== END 2020-08-27 14:28 | disposition home or self-care (01) ==
LOC: EC 09:56
DX: E86.0 Dehydration (principal); I95.9 Hypotension, unspecified; F41.9 Anxiety disorder, unspecified; N18.6 End stage renal disease; F32.9 Major depressive disorder, single episode, unspecified; K21.9 Gastro-esophageal reflux disease without esophagitis; E78.5 Hyperlipidemia, unspecified; E07.9 Disorder of thyroid, unspecified; M10.9 Gout, unspecified; Z79.890 Hormone replacement therapy; Z79.899 Other long term (current) drug therapy; Z91.048 Other nonmedicinal substance allergy status; Z88.2 Allergy status to sulfonamides; Z88.5 Allergy status to narcotic agent; Z88.8 Allergy status to other drugs, medicaments and biological substances; Z91.041 Radiographic dye allergy status; Z99.2 Dependence on renal dialysis; Z90.49 Acquired absence of other specified parts of digestive tract; Z90.710 Acquired absence of both cervix and uterus; Z96.652 Presence of left artificial knee joint; Z89.021 Acquired absence of right finger(s)
CPT/HCPCS: 36415; 71046; 80053; 83605; 83735; 84484; 85025; 85610; 85730; 93005; 99285

== ENCOUNTER 2020-08-30 09:28 | Emergency (ER) | payer MEDICARE, BC ==
--- NOTE | 2020-08-30 09:51 | ED ---
General Adult HPI - General Stated complaint: Low BP Time Seen by Provider: 08/30/20 09:33 Source: patient, EMS, RN notes reviewed Mode of arrival: EMS Limitations: no limitations - History of Present Illness Initial comments: This is a 74-year-old female presents emergency Department via EMS from [facility] with chief complaint of low blood pressure. Patient reportedly had a blood pressure of 83/60 taken by dialysis, patient started dialysis and had to stop she noted to have elevated heart rate. His blood pressure was improved at that time but remained have heart rate in the 120s. She has had this happen the past in which she is scheduled see cardiology. Patient states that she felt like her heart was beating so fast that she could not breathe. Patient states her sym ptoms have resolved. Denies any chest pain, abdominal pain, nausea vomiting patient offers no complaints. - Related Data Home Medications Medication Instructions Recorded Confirmed Folic Acid 0.8 mg PO DAILY@0800 07/28/18 08/30/20 azaTHIOprine [Imuran] 25 mg PO DAILY@0800 07/28/18 08/30/20 Ondansetron [Zofran] 4 mg PO Q6H PRN 04/26/20 08/30/20 Docusate [Colace] 100 mg PO DAILY@0800 05/06/20 08/30/20 Acetaminophen [Tylenol] 650 mg PO Q8H PRN 05/16/20 08/30/20 Menthol-Zinc Oxide Oint 1 applic TOPICAL Q1H PRN 05/31/20 08/30/20 [Calmoseptine Oint] bisacodyL [Dulcolax] 10 mg RECTAL HS@2130 05/31/20 08/30/20 Epoetin Sherman [Epogen] 4,000 unit SQ MOWEFR@0800 07/31/20 08/30/20 Levothyroxine Sodium [Synthroid] 75 mcg PO DAILY@0600 07/31/20 08/30/20 Atorvastatin Calcium [Lipitor] 20 mg PO HS@2100 08/23/20 08/30/20 Lactose-Reduced Food [Ensure Plus] 237 ml PO QID 08/23/20 08/30/20 Loperamide [Imodium] 2 mg PO DAILY PRN 08/23/20 08/30/20 Menthol-Zinc Oxide Oint 1 applic TOPICAL BID 08/23/20 08/30/20 [Calmoseptine Oint] Potassium Chloride ER [K-Dur 10] 10 meq PO DAILY@0800 08/23/20 08/30/20 Mirtazapine [Remeron] 15 mg PO HS@2100 08/25/20 08/30/20 risperiDONE [RisperDAL] 0.5 mg PO HS@2100 08/25/20 08/30/20 ALPRAZolam [Xanax] 0.5 mg PO BID PRN 08/27/20 08/30/20 Midodrine HCl [ProAmatine] 10 mg PO TID@0600,1200,1700 08/27/20 08/30/20 Allergies Allergy/AdvReac Type Severity Reaction Status Date / Time adhesive Allergy Unknown Verified 08/30/20 10:17 allopurinol Allergy Unknown Verified 08/30/20 10:17 codeine Allergy Unknown Verified 08/30/20 10:17 iodine Allergy Unknown Verified 08/30/20 10:17 meperidine HCl [From Demerol] Allergy Unknown Verified 08/30/20 10:17 povidone-iodine Allergy Unknown Verified 08/30/20 10:17 [From Betadine] soap [From Betadine] Allergy Unknown Verified 08/30/20 10:17 Sulfa (Sulfonamide Allergy Unknown Verified 08/30/20 10:17 Antibiotics) Review of Systems ROS Statement: Those systems with pertinent positive or pertinent negative responses have been documented in the HPI. ROS Other: All systems not noted in ROS Statement are negative. Past Medical History Past Medical History: Blood Disorder, COPD, Dialysis, GERD/Reflux, Hyperlipidemia, Pulmonary Embolus (PE), Renal Disease, Thyroid Disorder Additional Past Medical History / Comment(s): scleraderma, gout, peritoneal dialysis. 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 Insertion of a tunneled hemodialysis catheter. Aeration of a left upper extremity AV fistula currently thrombosed. Past Anesthesia/Blood Transfusion Reactions: No Reported Reaction Past Psychological History: Anxiety, Depression Smoking Status: Never smoker Past Alcohol Use History: None Reported Past Drug Use History: None Reported - Past Family History Mother Additional Family Medical History / Comment(s): breast CA , mitrale valve damage, kidney disease, gout Father Family Medical History: Thyroid Disorder General Exam General appearance: alert, in no apparent distress Head exam: Present: atraumatic, normocephalic, normal inspection Eye exam: Present: normal appearance, PERRL, EOMI. Absent: scleral icterus, conjunctival injection, periorbital swelling ENT exam: Present: normal exam, normal oropharynx, mucous membranes moist Neck exam: Present: normal inspection, full ROM. Absent: tenderness, meningismus, lymphadenopathy Respiratory exam: Present: normal lung sounds bilaterally. Absent: respiratory distress, wheezes, rales, rhonchi, stridor Cardiovascular Exam: Present: regular rate, normal rhythm, normal heart sounds. Absent: systolic murmur, diastolic murmur, rubs, gallop, clicks GI/Abdominal exam: Present: soft, normal bowel sounds. Absent: distended, tenderness, guarding, rebound, rigid Extremities exam: Absent: pedal edema, calf tenderness Neurological exam: Present: alert, oriented X3, CN II-XII intact Course Vital Signs 08/30/20 08/30/20 09:45 11:19 Temperature 97.7 F 98.1 F Pulse Rate 100 90 Respiratory 16 14 Rate Blood Pressure 99/66 108/70 O2 Sat by Pulse 100 99 Oximetry EKG Findings - EKG Comments: EKG Findings:: EKG performed at 9:39 normal sinus rhythm rate of 100. MD 166 QRS 88 QTC is QTC 340/438 - EKG Results: EKG: interpreted by [facility] Medical Decision Making - Medical Decision Making Patient remains asymptomatic in the emergency department. Patient blood pressure is 118/72. Patient hasn't complained of chest pain shortness of breath no dizziness. Patient's labwork reviewed shows elevated creatinine doses chroni c in nature. Patient has no emergent need for dialysis in the hospital. She'll be discharged back to [facility] for dialysis. - Lab Data Result diagrams: 08/30/20 09:40 08/30/20 09:40 Lab Results 08/30/20 08/30/20 08/30/20 Range/Units 09:40 09:40 09:40 WBC 6.6 (3.8-10.6) k/uL RBC 3.60 L (3.80-5.40) m/uL Hgb 10.1 L (11.4-16.0) gm/dL Hct 33.3 L (34.0-46.0) % MCV 92.6 (80.0-100.0) fL MCH 28.0 (25.0-35.0) pg MCHC 30.3 L (31.0-37.0) g/dL RDW 17.4 H (11.5-15.5) % Plt Count 480 H (150-450) k/uL MPV 7.1 Neutrophils % 77 % Lymphocytes % 15 % Monocytes % 5 % Eosinophils % 2 % Basophils % 0 % Neutrophils # 5.1 (1.3-7.7) k/uL Lymphocytes # 1.0 (1.0-4.8) k/uL Monocytes # 0.3 (0-1.0) k/uL Eosinophils # 0.1 (0-0.7) k/uL Basophils # 0.0 (0-0.2) k/uL Hypochromasia Marked Anisocytosis Slight PT 10.4 (9.0-12.0) sec INR 1.0 (<1.2) APTT 21.8 L (22.0-30.0) sec Sodium 134 L (137-145) mmol/L Potassium 5.3 H (3.5-5.1) mmol/L Chloride 99 (98-107) mmol/L Carbon Dioxide 28 (22-30) mmol/L Anion Gap 7 mmol/L BUN 23 H (7-17) mg/dL Creatinine 3.08 H (0.52-1.04) mg/dL Est GFR (CKD-EPI)AfAm 17 (>60 ml/min/1.73 sqM) Est GFR (CKD-EPI)NonAf 14 (>60 ml/min/1.73 sqM) Glucose 108 H (74-99) mg/dL Plasma Lactic Acid Jose Antonio (0.7-2.0) mmol/L Calcium 9.6 (8.4-10.2) mg/dL Total Bilirubin 0.4 (0.2-1.3) mg/dL AST 18 (14-36) U/L ALT 9 (4-34) U/L Alkaline Phosphatase 108 (38-126) U/L Troponin I (0.000-0.034) ng/mL Total Protein 5.6 L (6.3-8.2) g/dL Albumin 2.8 L (3.5-5.0) g/dL 08/30/20 08/30/20 Range/Units 09:40 09:40 WBC (3.8-10.6) k/uL RBC (3.80-5.40) m/uL Hgb (11.4-16.0) gm/dL Hct (34.0-46.0) % MCV (80.0-100.0) fL MCH (25.0-35.0) pg MCHC (31.0-37.0) g/dL RDW (11.5-15.5) % Plt Count (150-450) k/uL MPV Neutrophils % % Lymphocytes % % Monocytes % % Eosinophils % % Basophils % % Neutrophils # (1.3-7.7) k/uL Lymphocytes # (1.0-4.8) k/uL Monocytes # (0-1.0) k/uL Eosinophils # (0-0.7) k/uL Basophils # (0-0.2) k/uL Hypochromasia Anisocytosis PT (9.0-12.0) sec INR (<1.2) APTT (22.0-30.0) sec Sodium (137-145) mmol/L Potassium (3.5-5.1) mmol/L Chloride (98-107) mmol/L Carbon Dioxide (22-30) mmol/L Anion Gap mmol/L BUN (7-17) mg/dL Creatinine (0.52-1.04) mg/dL Est GFR (CKD-EPI)AfAm (>60 ml/min/1.73 sqM) Est GFR (CKD-EPI)NonAf (>60 ml/min/1.73 sqM) Glucose (74-99) mg/dL Plasma Lactic Acid Jose Antonio 1.1 (0.7-2.0) mmol/L Calcium (8.4-10.2) mg/dL Total Bilirubin (0.2-1.3) mg/dL AST (14-36) U/L ALT (4-34) U/L Alkaline Phosphatase (38-126) U/L Troponin I <0.012 (0.000-0.034) ng/mL Total Protein (6.3-8.2) g/dL Albumin (3.5-5.0) g/dL Disposition Clinical Impression: ESRD (end stage renal disease), Palpitations Disposition: HOME SELF-CARE Condition: Stable Instructions (If sedation given, give patient instructions): Heart Palpitations (ED) Additional Instructions: Please return to the Emergency Department if symptoms worsen or any other concerns. Is patient prescribed a controlled substance at d/c from ED?: No Referrals: Tano Bernard DO [Primary Care Provider] - 1-2 days Time of Disposition: 12:41
[2020-08-30 11:21] VITALS: TEMP 98.1
[2020-08-30 11:25] LABS: Anisocytosis Slight; Basophils % (A) 0 %; Eosinophils # (A) 0.1 k/uL (0-0.7); Eosinophils % (A) 2 %; HCT 33.3 % (34.0-46.0); HGB 10.1 gm/dL (11.4-16.0); Hypochromasia Marked; Lymphocytes % (A) 15 %; MCHC 30.3 g/dL (31.0-37.0); MCV 92.6 fL (80.0-100.0); Mean Platelet Volume 7.1; Monocytes # (A) 0.3 k/uL (0-1.0); Monocytes % (A) 5 %; Neutrophils # (A) 5.1 k/uL (1.3-7.7); Neutrophils % (A) 77 %; Platelet Count 480 k/uL (150-450); RDW 17.4 % (11.5-15.5); WBC 6.6 k/uL (3.8-10.6)
[2020-08-30 11:36] LABS: Albumin 2.8 g/dL (3.5-5.0); Calcium 9.6 mg/dL (8.4-10.2); Potassium 5.3 mmol/L (3.5-5.1); Total Bilirubin 0.4 mg/dL (0.2-1.3); Total Protein 5.6 g/dL (6.3-8.2)
[2020-08-30 11:49] LABS: Prothrombin Time 10.4 sec (9.0-12.0)
[2020-08-30 11:55] LABS: Partial Thromboplastin Time 21.8 sec (22.0-30.0)
--- NOTE | 2020-08-30 12:09 | XR ---
EXAMINATION TYPE: XR chest 2V DATE OF EXAM: 08/30/2020 COMPARISON: 08/27/2020 HISTORY: Shortness of breath TECHNIQUE: Frontal and lateral views of the chest are obtained. FINDINGS: Scattered senescent parenchymal changes noted. Hyperinflation compatible with COPD. Increased density right medial lung base may reflect underlying infiltrate. Heart size is stable. Mediastinal structures are stable and grossly unremarkable. No evidence for hilar prominence. Degenerative changes dorsal spine. IMPRESSION: 1. Increased density right medial lung base may reflect underlying infiltrate.
[2020-08-30 14:08] VITALS: BP 108/62; PULSE 72; RESP 18
== END 2020-08-30 13:45 | disposition home or self-care (01) ==
LOC: EC 09:28
DX: N18.6 End stage renal disease (principal); R00.2 Palpitations; K21.9 Gastro-esophageal reflux disease without esophagitis; E78.5 Hyperlipidemia, unspecified; E07.9 Disorder of thyroid, unspecified; F41.9 Anxiety disorder, unspecified; M10.9 Gout, unspecified; F32.9 Major depressive disorder, single episode, unspecified; Z99.2 Dependence on renal dialysis; Z79.890 Hormone replacement therapy; Z79.899 Other long term (current) drug therapy; Z88.2 Allergy status to sulfonamides; Z88.5 Allergy status to narcotic agent; Z88.8 Allergy status to other drugs, medicaments and biological substances; Z91.041 Radiographic dye allergy status; Z91.048 Other nonmedicinal substance allergy status; Z90.49 Acquired absence of other specified parts of digestive tract; Z90.710 Acquired absence of both cervix and uterus; Z96.652 Presence of left artificial knee joint
CPT/HCPCS: 71046; 80053; 83605; 84484; 85025; 85610; 85730; 93005; 99285

== ENCOUNTER 2020-09-01 08:18 | Inpatient (IN) | payer MEDICARE, BC ==
[2020-09-01] MEDS ORDERED: SODIUM CHLORIDE 0.9% 1,000 ML IV ONE (08:40)
--- NOTE | 2020-09-01 08:47 | ED ---
General Adult HPI - General Chief complaint: Weakness Stated complaint: dehydration Time Seen by Provider: 09/01/20 08:23 Source: EMS Mode of arrival: EMS Limitations: no limitations - History of Present Illness Initial comments: Dictation was produced using [employer] dictation software. please excuse any grammatical, word or spelling errors. This patient was cared for during a federal and state declared state of emergency secondary to Covid 19 Chief Complaint: 74-year-old female past medical history of end-stage renal disease presents to the emergency department for low blood pressure History of Present Illness: 74-year-old female she is a current resident at [facility]. Patient was seen for similar complaint 2 days ago. Patient gets dialysis Sunday was a Sunday. She was supposed to get dialysis 2 days ago and was sent to the emergency department for low blood pressures. She was sent home with normal blood pressures. Today they reattempted to do dialysis when she was found to have low blood pressure again. No dialysis was initiated patient was transferred to the emergency department. Patient states she's been having worsening diarrhea over the last several days. She has not had a complete dialysis and almost one week. Patient states she's been having abdominal pain. Sinus any fever. She states she has not looked at her diarrhea can safely gets bloody or bilious. She feels nauseated but no vomiting. At dialysis today she was found have blood pressures with systolics measured in the 70s. The ROS documented in this emergency department record has been reviewed and confirmed by me. Those systems with pertinent positive or negative responses have been documented in the HPI. All other systems are other negative and/or noncontributory. PHYSICAL EXAM: General Impression: Alert and oriented x3, not in acute distress HEENT: Normocephalic atraumatic, extra-ocular movements intact, pupils equal and reactive to light bilaterally, dry mucous membranes Cardiovascular: Heart regular rate and rhythm Chest: Able to complete full sentences, no retractions, no tachypnea Abdomen: abdomen soft, non-tender, non-distended, no organomegaly Musculoskeletal: Pulses present and equal in all extremities, no peripheral edema Motor: no focal deficits noted Neurological: CN II-XII grossly intact, no focal motor or sensory deficits noted Skin: Intact with no visualized rashes Psych: Normal affect and mood ED course: 74-year-old female brought to the emergency department for hypotension. He was sent here from dialysis center. Vital signs upon arrival shows blood pressure of 62/36, 88% on room air, heart rate of 126. EKG shows findings suggesting hyperkalemia. US guided IV access was obtaine. Patient reevaluated after 1500 mL IV fluid bolus with improvement of blood pressure into the normal range.Patient on the cardiac rehab nurse showed possible tachydysrhythmia. She did not appear to be shivering. Repeat EKG shows ventricular rate of 81, normal sinus rhythm,. Interval 190, QRS 84, QTC 466 but was seen on the cardiac rehab nurse is likely artifact from tremulousness. Patient reevaluated bedside with improvement of blood pressure with 2 L normal saline bolus. Laboratory evaluation obtained. No signs of leukocytosis or infection. Metabolic panel is unremarkable. Lactic acid was 2.5. Renal markers are at the higher limits of patient's baseline. Coronavirus is negative. Patient be admitted. Nephrology will be consulted. EKG interpretation: Ventricular rate 122, accelerated junctional rhythm, QRS 86, QTC 464. No MO prolongation, no QTC prolongation, no ST or T-wave changes noted. - Related Data Home Medications Medication Instructions Recorded Confirmed Folic Acid 0.8 mg PO DAILY@0800 07/28/18 09/01/20 azaTHIOprine [Imuran] 25 mg PO DAILY@0807/28/18 09/01/20 Ondansetron [Zofran] 4 mg PO Q6H PRN 04/26/20 09/01/20 Docusate [Colace] 100 mg PO DAILY@0800 05/06/20 09/01/20 Menthol-Zinc Oxide Oint 1 applic TOPICAL Q1H PRN 05/31/20 09/01/20 [Calmoseptine Oint] bisacodyL [Dulcolax] 10 mg RECTAL HS@2130 05/31/20 09/01/20 Epoetin Sherman [Epogen] 4,000 unit SQ MOWEFR@0800 07/31/20 09/01/20 Levothyroxine Sodium [Synthroid] 75 mcg PO DAILY@0600 07/31/20 09/01/20 Atorvastatin Calcium [Lipitor] 20 mg PO HS@2100 08/23/20 09/01/20 Lactose-Reduced Food [Ensure Plus] 237 ml PO QID 08/23/20 09/01/20 Loperamide [Imodium] 2 mg PO DAILY PRN 08/23/20 09/01/20 Menthol-Zinc Oxide Oint 1 applic TOPICAL BID 08/23/20 09/01/20 [Calmoseptine Oint] Potassium Chloride ER [K-Dur 10] 10 meq PO DAILY@0800 08/23/20 09/01/20 Mirtazapine [Remeron] 15 mg PO HS@2100 08/25/20 09/01/20 risperiDONE [RisperDAL] 0.5 mg PO HS@2100 08/25/20 09/01/20 ALPRAZolam [Xanax] 0.5 mg PO BID PRN 08/27/20 09/01/20 Midodrine HCl [ProAmatine] 10 mg PO TID@0600,1200,1700 08/27/20 09/01/20 Allergies Allergy/AdvReac Type Severity Reaction Status Date / Time adhesive Allergy Unknown Verified 09/01/20 09:28 allopurinol Allergy Unknown Verified 09/01/20 09:28 codeine Allergy Unknown Verified 09/01/20 09:28 iodine Allergy Unknown Verified 09/01/20 09:28 meperidine HCl [From Demerol] Allergy Unknown Verified 09/01/20 09:28 povidone-iodine Allergy Unknown Verified 09/01/20 09:28 [From Betadine] soap [From Betadine] Allergy Unknown Verified 09/01/20 09:28 Sulfa (Sulfonamide Allergy Unknown Verified 09/01/20 09:28 Antibiotics) Review of Systems ROS Statement: Those systems with pertinent positive or pertinent negative responses have been documented in the HPI. ROS Other: All systems not noted in ROS Statement are negative. Past Medical History Past Medical History: Blood Disorder, COPD, Dialysis, GERD/Reflux, Hyperlipidemia, Pulmonary Embolus (PE), Renal Disease, Thyroid Disorder Additional Past Medical History / Comment(s): scleraderma, gout, peritoneal dialysis. 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 Insertion of a tunneled hemodialysis catheter. Aeration of a left upper extremity AV fistula currently thrombosed. Past Anesthesia/Blood Transfusion Reactions: No Reported Reaction Past Psychological History: Anxiety, Depression Smoking Status: Never smoker Past Alcohol Use History: None Reported Past Drug Use History: None Reported - Past Family History Mother Additional Family Medical History / Comment(s): breast CA , mitrale valve da mage, kidney disease, gout Father Family Medical History: Thyroid Disorder General Exam Limitations: no limitations Course Vital Signs 09/01/20 09/01/20 09/01/20 08:27 08:45 08:59 Temperature 97.6 F Pulse Rate 126 H 122 H Pulse Rate [ 122 H Web Production Manager ] Respiratory 14 20 16 Rate Blood Pressure 63/36 52/38 O2 Sat by Pulse 88 L 95 Oximetry 09/01/20 09/01/20 09/01/20 09:00 09:15 09:30 Temperature Pulse Rate 117 H 108 H 111 H Pulse Rate [ Web Production Manager ] Respiratory 15 14 14 Rate Blood Pressure 57/43 67/44 67/44 O2 Sat by Pulse 95 95 94 L Oximetry 09/01/20 09/01/20 09/01/20 09:32 09:45 09:49 Temperature Pulse Rate 110 H 82 80 Pulse Rate [ Web Production Manager ] Respiratory 16 15 16 Rate Blood Pressure 67/47 98/63 98/63 O2 Sat by Pulse 95 95 95 Oximetry 09/01/20 09/01/20 09/01/20 10:00 10:15 10:23 Temperature Pulse Rate 80 75 78 Pulse Rate [ Web Production Manager ] Respiratory 14 16 16 Rate Blood Pressure 88/55 93/56 90/69 O2 Sat by Pulse 95 95 95 Oximetry 09/01/20 09/01/20 09/01/20 10:30 10:41 11:01 Temperature Pulse Rate 75 73 73 Pulse Rate [ Web Production Manager ] Respiratory 14 16 15 Rate Blood Pressure 90/69 93/63 93/56 O2 Sat by Pulse 95 95 95 Oximetry Medical Decision Making - Lab Data Result diagrams: 09/01/20 08:26 09/01/20 08:53 Lab Results 09/01/20 09/01/20 09/01/20 Range/Units 08:26 08:26 08:26 WBC 5.6 (3.8-10.6) k/uL RBC 5.55 H (3.80-5.40) m/uL Hgb 15.5 D (11.4-16.0) gm/dL Hct 51.8 H (34.0-46.0) % MCV 93.4 (80.0-100.0) fL MCH 27.9 (25.0-35.0) pg MCHC 29.8 L (31.0-37.0) g/dL RDW 17.0 H (11.5-15.5) % Plt Count 197 D (150-450) k/uL MPV 7.7 Neutrophils % 72 % Lymphocytes % 19 % Monocytes % 5 % Eosinophils % 2 % Basophils % 0 % Neutrophils # 4.0 (1.3-7.7) k/uL Lymphocytes # 1.1 (1.0-4.8) k/uL Monocytes # 0.3 (0-1.0) k/uL Eosinophils # 0.1 (0-0.7) k/uL Basophils # 0.0 (0-0.2) k/uL Hypochromasia Marked Anisocytosis Slight Sodium (137-145) mmol/L Potassium (3.5-5.1) mmol/L Chloride (98-107) mmol/L Carbon Dioxide (22-30) mmol/L Anion Gap mmol/L BUN (7-17) mg/dL Creatinine (0.52-1.04) mg/dL Est GFR (CKD-EPI)AfAm (>60 ml/min/1.73 sqM) Est GFR (CKD-EPI)NonAf (>60 ml/min/1.73 sqM) Glucose (74-99) mg/dL Plasma Lactic Acid Jose Antonio 2.5 H* (0.7-2.0) mmol/L Calcium (8.4-10.2) mg/dL Magnesium 2.3 (1.6-2.3) mg/dL Total Bilirubin (0.2-1.3) mg/dL AST (14-36) U/L ALT (4-34) U/L Alkaline Phosphatase (38-126) U/L Troponin I (0.000-0.034) ng/mL Total Protein (6.3-8.2) g/dL Albumin (3.5-5.0) g/dL Lipase (23-300) U/L Coronavirus (PCR) (Not Detectd) 09/01/20 09/01/20 09/01/20 Range/Units 08:26 08:53 09:49 WBC (3.8-10.6) k/uL RBC (3.80-5.40) m/uL Hgb (11.4-16.0) gm/dL Hct (34.0-46.0) % MCV (80.0-100.0) fL MCH (25.0-35.0) pg MCHC (31.0-37.0) g/dL RDW (11.5-15.5) % Plt Count (150-450) k/uL MPV Neutrophils % % Lymphocytes % % Monocytes % % Eosinophils % % Basophils % % Neutrophils # (1.3-7.7) k/uL Lymphocytes # (1.0-4.8) k/uL Monocytes # (0-1.0) k/uL Eosinophils # (0-0.7) k/uL Basophils # (0-0.2) k/uL Hypochromasia Anisocytosis Sodium 134 L (137-145) mmol/L Potassium 5.1 (3.5-5.1) mmol/L Chloride 101 (98-107) mmol/L Carbon Dioxide 22 (22-30) mmol/L Anion Gap 11 mmol/L BUN 32 H (7-17) mg/dL Creatinine 4.06 H (0.52-1.04) mg/dL Est GFR (CKD-EPI)AfAm 12 (>60 ml/min/1.73 sqM) Est GFR (CKD-EPI)NonAf 10 (>60 ml/min/1.73 sqM) Glucose 145 H (74-99) mg/dL Plasma Lactic Acid Jose Antonio (0.7-2.0) mmol/L Calcium 9.7 (8.4-10.2) mg/dL Magnesium (1.6-2.3) mg/dL Total Bilirubin 0.4 (0.2-1.3) mg/dL AST 16 (14-36) U/L ALT 9 (4-34) U/L Alkaline Phosphatase 102 (38-126) U/L Troponin I <0.012 (0.000-0.034) ng/mL Total Protein 5.4 L (6.3-8.2) g/dL Albumin 2.7 L (3.5-5.0) g/dL Lipase 77 (23-300) U/L Coronavirus (PCR) Not Detected (Not Detectd) Disposition Clinical Impression: Dehydration Disposition: ADMITTED IP TO THIS HOSP Condition: Fair Referrals: Tano Bernard DO [Primary Care Provider] - 1-2 days Decision Time: 11:33
[2020-09-01 09:13] LABS: Anisocytosis Slight; Basophils % (A) 0 %; Eosinophils # (A) 0.1 k/uL (0-0.7); Eosinophils % (A) 2 %; HCT 51.8 % (34.0-46.0); Hypochromasia Marked; Lymphocytes # (A) 1.1 k/uL (1.0-4.8); Lymphocytes % (A) 19 %; MCH 27.9 pg (25.0-35.0); MCHC 29.8 g/dL (31.0-37.0); MCV 93.4 fL (80.0-100.0); Mean Platelet Volume 7.7; Monocytes # (A) 0.3 k/uL (0-1.0); Monocytes % (A) 5 %; Neutrophils % (A) 72 %; RBC 5.55 m/uL (3.80-5.40); WBC 5.6 k/uL (3.8-10.6)
[2020-09-01 09:20] LABS: Albumin 2.7 g/dL (3.5-5.0); Calcium 9.7 mg/dL (8.4-10.2); Potassium 5.1 mmol/L (3.5-5.1); Total Bilirubin 0.4 mg/dL (0.2-1.3); Total Protein 5.4 g/dL (6.3-8.2)
[2020-09-01 09:22] LABS: HGB 15.5 gm/dL (11.4-16.0); Platelet Count 197 k/uL (150-450)
--- NOTE | 2020-09-01 09:26 | XR ---
EXAMINATION TYPE: XR chest 1V portable DATE OF EXAM: 09/01/2020 COMPARISON: 08/30/2020 INDICATION: Hypotension TECHNIQUE: Single frontal view of the chest is obtained. FINDINGS: The heart size is normal. The pulmonary vasculature is normal. There is a right lower lobe consolidation with air bronchograms. Correlate for pneumonia. Minimal eff usion is not excluded. Double-lumen catheter is on the right. IMPRESSION: 1. Right lower lobe consolidation with minimal effusion. Correlate for pneumonia. Follow-up is recomm ended.
[2020-09-01] MEDS ORDERED: SODIUM CHLORIDE 0.9% 1,000 ML IV STA (09:31)
[2020-09-01] MEDS ORDERED: NALOXONE 0.4 MG/ML 1 ML VIAL IV PRN (11:29)
[2020-09-01] MEDS: SODIUM CHLORIDE 0.9% 1,000 ML IV SCH (12:28)
[2020-09-01] MEDS ORDERED: MIDODRINE 5 MG TAB PO PRN (12:45)
[2020-09-01] MEDS ORDERED: LOPERAMIDE 2 MG CAP PO PRN (18:38)
[2020-09-01] MEDS: ATORVASTATIN 20 MG TAB PO SCH (20:16)
[2020-09-01] MEDS: MIRTAZAPINE 15 MG TAB PO SCH (20:16)
[2020-09-01] MEDS: MENTHOL-ZINC OXIDE OINT 113 GM TUBE TOPICAL SCH (20:16)
[2020-09-01] MEDS: risperiDONE 0.5 MG TAB PO SCH (20:17)
[2020-09-01] MEDS: ALPRAZolam 0.5 MG TAB PO PRN (23:01)
[2020-09-02] MEDS: SODIUM CHLORIDE 0.9% 1,000 ML IV SCH ×2 (06:13→19:56)
[2020-09-02] MEDS: LEVOTHYROXINE 75 MCG TAB PO SCH (06:23)
[2020-09-02] MEDS: MENTHOL-ZINC OXIDE OINT 113 GM TUBE TOPICAL SCH ×2 (07:51→19:56)
[2020-09-02] MEDS: azaTHIOprine 50 MG TAB PO SCH (07:53)
[2020-09-02] MEDS: FOLIC ACID 1 MG TAB PO SCH (07:53)
[2020-09-02] MEDS ORDERED: POTASSIUM CHLORIDE ER 10 MEQ TAB.ER.PRT PO SCH (08:00)
--- NOTE | 2020-09-02 09:15 | P.NPCON ---
History of Present Illness - Reason for Consult end stage renal disease - History of Present Illness reason for consultation: End-stage renal disease History of present illness: Patient is a 74-year-old female seen in renal consultation for end-stage renal disease. She is maintained on hemodialysis on Sunday schedule. Patient has been hypotensive and tachycardic when arriving for dialysis outpatient. Patient came to the ER yesterday and was noted to be dehydrated. She did receive 2 L of normal saline bolus with improvement in her blood pressure. She tolerated dialysis yesterday in the hospital without any ultrafiltration. She is currently awake and alert. Blood pressure stable. She is maintained on midodrine outpatient. Oral intake has been poor and she does not like the food at the [facility]. No vomiting or diarrhea. No edema. No chest pain or shortness of breath. No fever or chills. Vital signs are stable. General: The patient appeared well nourished and normally developed. HEENT: Head exam is unremarkable. Neck is without jugular venous distension. LUNGS: Breath sounds decreased. HEART: Rate and Rhythm are regular. ABDOMEN: soft, nontender. EXTREMITITES: No edema. Past Medical History Past Medical History: Blood Disorder, COPD, Dialysis, GERD/Reflux, GI Bleed, Hyperlipidemia, Pulmonary Embolus (PE), Renal Disease, Thyroid Disorder Additional Past Medical History / Comment(s): ESRD with hemodialysis M/W/F, recent hypotension, mineral bone disease, FSGS and lupus per past medical record but LG does not recall these disagnosis, scleroderma, factor V, interstitial lung disease, duodenal ulcer with bleed, gout, UTIs History of Any Multi-Drug Resistant Organisms: VRE Date of last positivie culture/infection: 07/10/20 MDRO Source:: Urine Past Surgical History: Cholecystectomy, Hysterectomy, Joint Replacement, Orthopedic Surgery Additional Past Surgical History / Comment(s): L arm graft/no longer functioning, R hemodialysis catheter tunneld into intermal jugular vein, past peritoneal catheter, total L knee arthroplasty, ORIF L ankle, R index finger amputation d/t gout, kidney biopsies x2, thyroidectomy d/t goiter, Past Anesthesia/Blood Transfusion Reactions: No Reported Reaction Smoking Status: Never smoker - Past Family History Mother Additional Family Medical History / Comment(s): breast CA , mitrale valve damage, kidney disease, gout Father Family Medical History: Thyroid Disorder Medications and Allergies Home Medications Medication Instructions Recorded Confirmed Type Folic Acid 0.8 mg PO DAILY@0800 07/28/18 09/01/20 History azaTHIOprine [Imuran] 25 mg PO DAILY@0800 07/28/18 09/01/20 History Ondansetron [Zofran] 4 mg PO Q6H PRN 04/26/20 09/01/20 History Docusate [Colace] 100 mg PO DAILY@0800 05/06/20 09/01/20 History Menthol-Zinc Oxide Oint 1 applic TOPICAL Q1H PRN 05/31/20 09/01/20 History [Calmoseptine Oint] bisacodyL [Dulcolax] 10 mg RECTAL HS@212905/31/20 09/01/20 History Epoetin Sherman [Epogen] 4,000 unit SQ MOWEFR@79907/31/20 09/01/20 History Levothyroxine Sodium [Synthroid] 75 mcg PO DAILY@0600 07/31/20 09/01/20 History Atorvastatin Calcium [Lipitor] 20 mg PO HS@209908/23/20 09/01/20 History Lactose-Reduced Food [Ensure Plus] 237 ml PO QID 08/23/20 09/01/20 History Loperamide [Imodium] 2 mg PO DAILY PRN 08/23/20 09/01/20 History Menthol-Zinc Oxide Oint 1 applic TOPICAL BID 08/23/20 09/01/20 History [Calmoseptine Oint] Potassium Chloride ER [K-Dur 10] 10 meq PO DAILY@0800 08/23/20 09/01/20 History Mirtazapine [Remeron] 15 mg PO HS@209908/25/20 09/01/20 History risperiDONE [RisperDAL] 0.5 mg PO HS@209908/25/20 09/01/20 History ALPRAZolam [Xanax] 0.5 mg PO BID PRN 08/27/20 09/01/20 History Midodrine HCl [ProAmatine] 10 mg PO TID@0600,1200,1700 08/27/20 09/01/20 History Allergies Allergy/AdvReac Type Severity Reaction Status Date / Time adhesive Allergy Unknown Verified 09/01/20 09:28 allopurinol Allergy Unknown Verified 09/01/20 09:28 codeine Allergy Unknown Verified 09/01/20 09:28 iodine Allergy Unknown Verified 09/01/20 09:28 latex Allergy Rash/Hives Verified 09/01/20 13:13 meperidine HCl [From Demerol] Allergy Unknown Verified 09/01/20 09:28 povidone-iodine Allergy Unknown Verified 09/01/20 09:28 [From Betadine] soap [From Betadine] Allergy Unknown Verified 09/01/20 09:28 Sulfa (Sulfonamide Allergy Unknown Verified 09/01/20 09:28 Antibiotics) Physical Exam Vitals: Vital Signs Temp Pulse Pulse Resp BP BP Pulse Ox 09/02/20 08:00 99.2 F 96 20 140/69 93 L 09/02/20 04:00 98 F 81 16 119/58 94 L 09/01/20 23:36 97.6 F 81 18 126/71 98 09/01/20 20:00 97.9 F 84 18 112/56 95 09/01/20 18:58 97.5 F L 82 16 118/56 93 L 09/01/20 18:30 84 22 100/74 98 09/01/20 18:00 84 12 113/71 97 09/01/20 17:30 80 12 117/65 98 09/01/20 17:00 79 12 111/62 99 09/01/20 16:30 82 12 99/68 99 09/01/20 16:00 81 12 111/63 99 09/01/20 15:30 77 12 105/63 100 09/01/20 15:00 81 12 97/69 100 09/01/20 14:30 73 12 123/83 99 09/01/20 14:00 78 12 101/54 92 L 09/01/20 13:30 70 12 103/59 100 09/01/20 13:00 73 12 96/58 100 09/01/20 12:30 69 12 104/60 100 09/01/20 12:00 66 12 82/52 100 09/01/20 11:30 66 12 93/56 100 09/01/20 11:01 73 15 93/56 95 09/01/20 11:00 71 12 93/63 100 09/01/20 10:41 73 16 93/63 95 09/01/20 10:30 75 14 90/69 95 09/01/20 10:23 78 16 90/69 95 09/01/20 10:15 75 16 93/56 95 09/01/20 10:00 80 14 88/55 95 09/01/20 09:49 80 16 98/63 95 09/01/20 09:45 82 15 98/63 95 09/01/20 09:32 110 H 16 67/47 95 09/01/20 09:30 111 H 14 67/44 94 L 09/01/20 09:15 108 H 14 6744 95 Intake and Output 09/01/20 09/02/20 09/02/20 22:59 06:59 14:59 Intake Total 120 Balance 120 Intake: Oral 120 Other: Voiding Method Bedpan Bedpan # Voids 1 1 1 Weight 41 kg Results - Lab Results Most recent lab results Calcium 9.7 mg/dL (8.4-10.2) 09/01/20 08:53 Magnesium 2.3 mg/dL (1.6-2.3) 09/01/20 08:26 09/01/20 08:26 09/01/20 08:53 Assessment and Plan Plan: assessment: 1. End-stage renal disease maintained on hemodialysis on Sunday schedule. 2. Hypotension related to hypovolemia. Maintained on midodrine. Status post IV fluids on admission. 3. Chronic kidney disease mineral bone disease. Plan: Hemodialysis tomorrow with minimal ultrafiltration. Maintain midodrine. Hold for systolic blood pressure greater than 120. Stop Aranesp as hemoglobin is above goal. Maintain normal saline at 50 mL an hour. Encouraged oral intake. Stop potassium supplementation. Check phosphorus level. Thank you for the consultation. I will continue to follow the patient with you during her hospital stay.
[2020-09-02 10:15] LABS: Appearance,Urine Cloudy (Clear); Bacteria,Urine Rare /hpf; Bilirubin,Urine Negative (Negative); Blood,Urine Small (Negative); Color,Urine Light Yellow; Glucose,Urine (UA) Negative (Negative); Ketones,Urine Negative (Negative); Leukocyte Esterase,Urine Large (Negative); Nitrite,Urine Negative (Negative); Protein,Urine 1+ (Negative); RBC,Urine 10 /hpf (0-5); Specific Gravity,Urine 1.007 (1.001-1.035); Squamous Epithelial Cell,Urine 1 /hpf (0-4); Urobilinogen,Urine <2.0 mg/dL (<2.0); WBC,Urine >182 /hpf (0-5)
[2020-09-02 10:39] VITALS: BMI 13.7
[2020-09-02] MEDS: MIDODRINE 5 MG TAB PO SCH ×2 (12:40→16:56)
[2020-09-02] MEDS: risperiDONE 0.5 MG TAB PO SCH (19:59)
[2020-09-02] MEDS: MIRTAZAPINE 15 MG TAB PO SCH (19:59)
[2020-09-02] MEDS: ATORVASTATIN 20 MG TAB PO SCH (19:59)
[2020-09-02 21:21] LABS: Hepatitis B Surface AB- Quant 3.5 mIU/mL; Hepatitis B Surface Antibody Non-Reactive (Non-Reactive); Hepatitis B Surface Antigen Non-Reactive (Non-Reactive)
--- NOTE | 2020-09-02 21:53 | P.HPIM ---
History of Present Illness H&P Date: 09/02/20 Chief Complaint: Low blood pressure History of presenting complaint: This is a 74-year-old patient at the [facility]. Follow with Dr. Bernard. 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 At her baseline patient is pretty much bedbound. . 2 days ago was patient came to the ER to the low blood pressure. Sent back to the [facility]. Again pressure attempted was found to be rather low. During hemodialysis. Sent back in again. Patient states she does not like the food at [facility]. Has not been drinking much. Denies any chest pain no shortness b reath. No fever no chills. No abdominal pain. Review of systems: GEN.: Tired EYES: None HEENT: None NECK: None RESPIRATORY: None CARDIOVASCULAR: None GASTROINTESTINAL: None GENITOURINARY: None MUSCULOSKELETAL: None LYMPHATICS: None HEMATOLOGICAL: None PSYCHIATRY: Currently calm NEUROLOGICAL: Lower extremity weakness Past medical history to include: COPD, end-stage kidney disease on hemodialysis from underlying FSGS, GERD, hyperlipidemia, scleroderma, pulmonary embolism in 2016,, chronic lupus, anxiety depression, anemia of chronic kidney disease , duodenal ulcer with GI bleed for which patient is on a PPI, hypothyroid, hyperlipidemia Social history: No history of smoking or alcohol. Currently at rehab at [facility]. Physical examination: VITAL SIGNS: 97.6, 126, 14, 63/36, 88% room air-upon presentation GENERAL: BMI 13.7, laying in bed, awake. Muscle muscle mass and subcutaneous t issue. EYES: Pupils equal. Conjunctiva pale. HEENT: External appearance of nose and ears normal, oral cavity grossly normal. NECK: JVD not raised; masses not palpable. HEART: First and second heart sounds are normal; no edema. CHEST wall: Right chest wall hemodialysis catheter double-lumen LUNGS: Respiratory rate normal; clear to auscultation. ABDOMEN: Soft, nontender, liver spleen not palpable, no masses palpable. PSYCH: Answering questions appropriately NEUROLOGICAL: Cranial nerves grossly intact; no facial asymmetry, decreased bowel or lower extremities. Bilateral foot drop LYMPHATICS: No lymph nodes palpable in the axilla and neck INVESTIGATIONS, reviewed in the clinical context: White count 5.6 hemoglobin 15.5 platelets 197 potassium 5.1 creatinine 4.06 Coronavirus [PCR]-not detected EKG tracing personally reviewed by me-normal sinus rhythm Chest x-ray film personally reviewed by me-right lower lobe pneumonia Assessment -Right lower lobe pneumonia -Severe hypotension combination of patient not taking food by mouth as she does not like it and also patient severely malnourished -Pending outpatient consideration of AV fistula and graft creation -Normocytic anemia of chronic kidney disease -COPD -End-stage kidney disease on hemodialysis from underlying FSGS -GERD and --hyperlipidemia -Scleroderma -Hypothyroid- -Hyperlipidemia -History of Duodenal ulcer -Chronic kidney disease 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 Spoke to the nurse but the same. Home medications resumed. Nephrology consulted. Consult dietitian. Prognosis guarded. Past Medical History Past Medical History: Blood Disorder, COPD, Dialysis, GERD/Reflux, GI Bleed, Hyperlipidemia, Pulmonary Embolus (PE), Renal Disease, Thyroid Disorder Additional Past Medical History / Comment(s): ESRD with hemodialysis M/W/F, recent hypotension, mineral bone disease, FSGS and lupus per past medical record but LG does not recall these disagnosis, scleroderma, factor V, interstitial lung disease, duodenal ulcer with bleed, gout, UTIs History of Any Multi-Drug Resistant Organisms: VRE Date of last positivie culture/infection: 07/10/20 MDRO Source:: Urine Past Surgical History: Cholecystectomy, Hysterectomy, Joint Replacement, Orthopedic Surgery Additional Past Surgical History / Comment(s): L arm graft/no longer functioning, R hemodialysis catheter tunneld into intermal jugular vein, past peritoneal catheter, total L knee arthroplasty, ORIF L ankle, R index finger amputation d/t gout, kidney biopsies x2, thyroidectomy d/t goiter, Past Anesthesia/Blood Transfusion Reactions: No Reported Reaction Smoking Status: Never smoker - Past Family History Mother Additional Family Medical History / Comment(s): breast CA , mitrale valve damage, kidney disease, gout Father Family Medical History: Thyroid Disorder Medications and Allergies Home Medications Medication Instructions Recorded Confirmed Type Folic Acid 0.8 mg PO DAILY@0800 07/28/18 09/01/20 History azaTHIOprine [Imuran] 25 mg PO DAILY@0800 07/28/18 09/01/20 History Ondansetron [Zofran] 4 mg PO Q6H PRN 04/26/20 09/01/20 History Docusate [Colace] 100 mg PO DAILY@0800 05/06/20 09/01/20 History Menthol-Zinc Oxide Oint 1 applic TOPICAL Q1H PRN 05/31/20 09/01/20 History [Calmoseptine Oint] bisacodyL [Dulcolax] 10 mg RECTAL HS@212905/31/20 09/01/20 History Epoetin Sherman [Epogen] 4,000 unit SQ MOWEFR@79907/31/20 09/01/20 History Levothyroxine Sodium [Synthroid] 75 mcg PO DAILY@0600 07/31/20 09/01/20 History Atorvastatin Calcium [Lipitor] 20 mg PO HS@209908/23/20 09/01/20 History Lactose-Reduced Food [Ensure Plus] 237 ml PO QID 08/23/20 09/01/20 History Loperamide [Imodium] 2 mg PO DAILY PRN 08/23/20 09/01/20 History Menthol-Zinc Oxide Oint 1 applic TOPICAL BID 08/23/20 09/01/20 History [Calmoseptine Oint] Potassium Chloride ER [K-Dur 10] 10 meq PO DAILY@0800 08/23/20 09/01/20 History Mirtazapine [Remeron] 15 mg PO HS@209908/25/20 09/01/20 History risperiDONE [RisperDAL] 0.5 mg PO HS@209908/25/20 09/01/20 History ALPRAZolam [Xanax] 0.5 mg PO BID PRN 08/27/20 09/01/20 History Midodrine HCl [ProAmatine] 10 mg PO TID@0600,1200,1700 08/27/20 09/01/20 History Allergies Allergy/AdvReac Type Severity Reaction Status Date / Time adhesive Allergy Unknown Verified 09/01/20 09:28 allopurinol Allergy Unknown Verified 09/01/20 09:28 codeine Allergy Unknown Verified 09/01/20 09:28 iodine Allergy Unknown Verified 09/01/20 09:28 latex Allergy Rash/Hives Verified 09/01/20 13:13 meperidine HCl [From Demerol] Allergy Unknown Verified 09/01/20 09:28 povidone-iodine Allergy Unknown Verified 09/01/20 09:28 [From Betadine] soap [From Betadine] Allergy Unknown Verified 09/01/20 09:28 Sulfa (Sulfonamide Allergy Unknown Verified 09/01/20 09:28 Antibiotics) Physical Exam Vitals: Vital Signs Temp Pulse Pulse Resp BP BP Pulse Ox 09/02/20 08:00 99.2 F 96 20 140/69 93 L 09/02/20 04:00 98 F 81 16 119/58 94 L 09/01/20 23:36 97.6 F 81 18 126/71 98 09/01/20 20:00 97.9 F 84 18 112/56 95 09/01/20 18:58 97.5 F L 82 16 118/56 93 L 09/01/20 18:30 84 22 100/74 98 09/01/20 18:00 84 12 113/71 97 09/01/20 17:30 80 12 117/65 98 09/01/20 17:00 79 12 111/62 99 09/01/20 16:30 82 12 99/68 99 09/01/20 16:00 81 12 111/63 99 09/01/20 15:30 77 12 105/63 100 09/01/20 15:00 81 12 97/69 100 09/01/20 14:30 73 12 123/83 99 09/01/20 14:00 78 12 101/54 92 L 09/01/20 13:30 70 12 103/59 100 09/01/20 13:00 73 12 96/58 100 09/01/20 12:30 69 12 104/60 100 09/01/20 12:00 66 12 82/52 100 09/01/20 11:30 66 12 93/56 100 09/01/20 11:01 73 15 93/56 95 09/01/20 11:00 71 12 93/63 100 09/01/20 10:41 73 16 93/63 95 09/01/20 10:30 75 14 90/69 95 09/01/20 10:23 78 16 90/69 95 09/01/20 10:15 75 16 93/56 95 09/01/20 10:00 80 14 88/55 95 Intake and Output 09/01/20 09/02/20 09/02/20 22:59 06:59 14:59 Intake Total 120 Balance 120 Intake: Oral 120 Other: Voiding Method Bedpan Bedpan # Voids 1 1 1 Weight 41 kg Results CBC & Chem 7: 09/01/20 08:26 09/01/20 08:53 Thrombosis Risk Factor Assmnt - Choose All That Apply Any of the Below Risk Factors Present?: Yes Each Factor Represents 1 point: Abnormal pulmonary function (COPD), Medical pt on bed rest Other Risk Factors: Yes Each Risk Factor Represents 2 Points: Age 61-74 years, Patient confined to bed Each Risk Factor Represents 3 Points: History of DVT/PE Other congenital or acquired thrombophilia - If yes, enter type in comment: No Thrombosis Risk Factor Assessment Total Risk Factor Score: 9 Thrombosis Risk Factor Assessment Level: High Risk
[2020-09-02] MEDS ORDERED: ENOXAPARIN 40 MG/0.4 ML SYRINGE SQ SCH (22:00)
[2020-09-03] MEDS: MIDODRINE 5 MG TAB PO SCH ×3 (06:07→18:01)
[2020-09-03] MEDS: LEVOTHYROXINE 75 MCG TAB PO SCH (06:45)
[2020-09-03 08:01] LABS: Potassium 3.7 mmol/L (3.5-5.1)
[2020-09-03] MEDS: azaTHIOprine 50 MG TAB PO SCH (08:31)
[2020-09-03] MEDS: FOLIC ACID 1 MG TAB PO SCH (08:31)
[2020-09-03] MEDS: ONDANSETRON 4 MG TAB PO PRN ×2 (08:31→18:29)
[2020-09-03] MEDS: MENTHOL-ZINC OXIDE OINT 113 GM TUBE TOPICAL SCH ×2 (10:27→20:48)
--- NOTE | 2020-09-03 11:10 | P.PN ---
Subjective Patient is seen in follow-up for end-stage renal disease. She is maintained on hemodialysis on Sunday schedule. Hypotension has resolved. She has not been receiving the Midodrin. Awake and alert. No active complaints. Vital signs are stable. General: The patient appeared well nourished and normally developed. HEENT: Head exam is unremarkable. Neck is without jugular venous distension. LUNGS: Breath sounds decreased. HEART: Rate and Rhythm are regular. ABDOMEN: Soft, nontender. EXTREMITITES: No edema. Objective - Vital Signs Vital signs: Vital Signs Temp 98.2 F 09/03/20 08:00 Pulse 93 09/03/20 08:00 Resp 16 09/03/20 08:00 BP 174/81 09/03/20 08:00 Pulse Ox 93 L 09/03/20 08:00 Intake & Output 09/02/20 09/03/20 09/03/20 18:59 06:59 18:59 Intake Total 140 Output Total 0 200 Balance 140 -200 Weight 41 kg 42 kg Intake: Oral 140 Output: Urine 200 Hemodialysis 0 Other: Voiding Method Bedpan Bedpan # Voids 3 1 - Labs CBC & Chem 7: 09/01/20 08:26 09/03/20 07:16 Labs: Abnormal Lab Results - Last 24 Hours (Table) 09/03/20 Range/Units 07:16 Sodium 136 L (137-145) mmol/L Chloride 108 H (98-107) mmol/L Creatinine 2.46 H (0.52-1.04) mg/dL Microbiology - Last 24 Hours (Table) 09/02/20 09:00 Urine Culture - Preliminary Urine,Voided 09/01/20 10:11 Blood Culture - Preliminary Blood No Growth after 24 hours Assessment and Plan Plan: assessment: 1. End-stage renal disease maintained on hemodialysis on Sunday schedule. 2. Hypotension related to hypovolemia. Resolved. Not needing Midodrine. 3. Chronic kidney disease mineral bone disease. Phosphorous normal. Plan: Maintain gentle IV hydration. Hemodialysis today without ultrafiltration. Hold midodrine for systolic blood pressure greater than 120. Follow-up cultures.
[2020-09-03] MEDS: SODIUM CHLORIDE 0.9% 1,000 ML IV SCH (18:02)
--- NOTE | 2020-09-03 19:44 | P.PN ---
Progress Note - Text Progress Note Date: 09/03/20 Chief Complaint: Low blood pressure History of presenting complaint: This is a 74-year-old patient at the [facility]. Follow with Dr. Bernard. Chronic stable medical conditions include end-stage kidney disease on hemodialysis, COPD, GERD, hyperlipidemia, scleroderma, chronic pulmonary embolism - on eliquis, hypothyroid, hyperlipidemia, history of duodenal ulcer with bleed, chronic kidney disease minimal bone disease. At her baseline patient is pretty much bedbound. . 2 days ago was patient came to the ER to the low blood pressure. Sent back to the [facility]. Again pressure attempted was found to be rather low. During hemodialysis. Sent back in again. Patient states she does not like the food at [facility]. Has not been drinking much. Denies any chest pain no shortness breath. No fever no chills. No abdominal pain. Admitted with hypotension. Apparently patient is not taking midodrine. Resume. Given IV fluids. Right lower lobe pneumonia.-Started IV ceftriaxone. Today-blood pressures has come up,. Feeling better. Patient is pending hemodialysis this afternoon. Review of systems: Was done for constitutional, cardiovascular, GI, pulmonary. relevant finding as above Active Medications Alprazolam (Alprazolam 0.5 Mg Tab) 0.5 mg PO BID PRN PRN Reason: Anxiety Last Admin: 09/01/20 23:01 Dose: 0.5 mg Documented by: Atorvastatin Calcium (Atorvastatin 20 Mg Tab) 20 mg PO HS@2100 [facility] Last Admin: 09/02/20 19:59 Dose: 20 mg Documented by: Azathioprine (Azathioprine 50 Mg Tab) 25 mg PO DAILY@0800 [facility] Last Admin: 09/03/20 08:31 Dose: 25 mg Documented by: Calamine/Phenol (Menthol-Zinc Oxide Oint 113 Gm Tube) 1 applic TOPICAL BID [facility] Last Admin: 09/03/20 10:27 Dose: Not Given Documented by: Enoxaparin Sodium (Enoxaparin 30 Mg/0.3 Ml Syringe) 30 mg SQ DAILY@2100 [facility] Folic Acid (Folic Acid 1 Mg Tab) 1 mg PO DAILY@0800 [facility] Last Admin: 09/03/20 08:31 Dose: 1 mg Documented by: Sodium Chloride (Saline 0.9%) 1,000 mls @ 50 mls/hr IV .Q20H [facility] Last Admin: 09/03/20 18:02 Dose: Not Given Documented by: Ceftriaxone Sodium 1 gm/ (Sodium Chloride) 50 mls @ 100 mls/hr IVPB Q24H [facility] Last Admin: 09/02/20 22:57 Dose: 100 mls/hr Documented by: Levothyroxine Sodium (Levothyroxine 75 Mcg Tab) 75 mcg PO DAILY@0630 [facility] Last Admin: 09/03/20 06:45 Dose: 75 mcg Documented by: Loperamide HCl (Loperamide 2 Mg Cap) 2 mg PO DAILY PRN PRN Reason: Diarrhea Last Admin: 09/02/20 21:32 Dose: 2 mg Documented by: Midodrine (Midodrine 5 Mg Tab) 10 mg PO AC-TID [facility] Last Admin: 09/03/20 18:01 Dose: Not Given Documented by: Mirtazapine (Mirtazapine 15 Mg Tab) 15 mg PO HS@2100 [facility] Last Admin: 09/02/20 19:59 Dose: 15 mg Documented by: Naloxone HCl (Naloxone 0.4 Mg/Ml 1 Ml Vial) 0.2 mg IV Q2M PRN PRN Reason: Opioid Reversal Ondansetron HCl (Ondansetron 4 Mg Tab) 4 mg PO Q6H PRN PRN Reason: Nausea Last Admin: 09/03/20 18:29 Dose: 4 mg Documented by: Risperidone (Risperidone 0.5 Mg Tab) 0.5 mg PO HS@2100 [facility] Last Admin: 09/02/20 19:59 Dose: 0.5 mg Documented by: Past medical history to include: COPD, end-stage kidney disease on hemodialysis from underlying FSGS, GERD, hyperlipidemia, scleroderma, pulmonary embolism in 2016,, chronic lupus, anxiety depression, anemia of chronic kidney disease , duodenal ulcer with GI bleed for which patient is on a PPI, hypothyroid, hyperlipidemia Social history: No history of smoking or alcohol. Currently at rehab at [facility]. Physical examination: VITAL SIGNS: 98, 80, 16, 150/73, 92% room air GENERAL: BMI 13.7, laying in bed, awake. Muscle muscle mass and subcutaneous tissue. EYES: Pupils equal. Conjunctiva pale. NECK: JVD not raised; masses not palpable. HEART: First and second heart sounds are normal; no edema. CHEST wall: Right chest wall hemodialysis catheter double-lumen LUNGS: Respiratory rate normal; clear to auscultation. ABDOMEN: Soft, nontender, liver spleen not palpable, no masses palpable. PSYCH: Answering questions appropriately NEUROLOGICAL: Cranial nerves grossly intact; no facial asymmetry, decreased bowel or lower extremities. Bilateral foot drop INVESTIGATIONS, reviewed in the clinical context: September 03: Potassium 3.7 creatinine 2.46 C. diff-negative White count 5.6 hemoglobin 15.5 platelets 197 potassium 5.1 creatinine 4.06 Coronavirus [PCR]-not detected EKG tracing personally reviewed by me-normal sinus rhythm Chest x-ray film personally reviewed by me-right lower lobe pneumonia Assessment -Right lower lobe pneumonia-on IV ceftriaxone -Severe hypotension combination of patient not taking food by mouth as she does not like it and also patient severely malnourished. Patient is midodrine was resumed -Pending outpatient consideration of AV fistula and graft creation -Normocytic anemia of chronic kidney [id number] H&H -COPD-stable -End-stage kidney disease on hemodialysis from underlying FSGS- -GERD -controlled --hyperlipidemia -Scleroderma -Hypothyroid- -Hyperlipidemia -History of Duodenal ulcer-add Pepcid -Chronic kidney disease mineral bone disease on phosphate binders -Mild cognitive impairment -Severe protein calorie malnutrition from decreased oral intake Plan: Continue ceftriaxone . Repeat chest x-ray in the morning. Hemodialysis this afternoon. Should be able to return to [facility] tomorrow. Decreased oral intake.
[2020-09-03] MEDS: risperiDONE 0.5 MG TAB PO SCH (20:49)
[2020-09-03] MEDS: MIRTAZAPINE 15 MG TAB PO SCH (20:59)
[2020-09-03] MEDS: ATORVASTATIN 20 MG TAB PO SCH (20:59)
[2020-09-03] MEDS ORDERED: ENOXAPARIN 30 MG/0.3 ML SYRINGE SQ SCH (21:00)
[2020-09-03] MEDS: ALPRAZolam 0.5 MG TAB PO PRN (22:15)
[2020-09-04] MEDS: LEVOTHYROXINE 75 MCG TAB PO SCH (06:55)
[2020-09-04] MEDS: MIDODRINE 5 MG TAB PO SCH ×2 (06:55→12:25)
--- NOTE | 2020-09-04 07:30 | XR ---
EXAMINATION TYPE: XR chest 2V DATE OF EXAM: 09/04/2020 COMPARISON: September 01, 2020 HISTORY: Shortness of breath TECHNIQUE: Frontal and lateral views of the chest are obtained. FINDINGS: Scattered senescent parenchymal changes noted. Hyperinflation compatible with COPD. There is right lower lobe infiltrate and/or atelectasis noted. Overall no change relative to the prio r study. Central venous line unchanged in position. Heart size is stable. Mediastinal structures are stable and grossly unremarkable. No evidence for hilar prominence. Degenerative changes dorsal spine. IMPRESSION: 1. There is right lower lobe infiltrate and/or atelectasis noted. Overall no change relative to the p rior study.
[2020-09-04] MEDS: azaTHIOprine 50 MG TAB PO SCH (08:18)
[2020-09-04] MEDS: FOLIC ACID 1 MG TAB PO SCH (08:18)
[2020-09-04] MEDS: MENTHOL-ZINC OXIDE OINT 113 GM TUBE TOPICAL SCH (08:20)
[2020-09-04 09:20] VITALS: RESP 20
[2020-09-04 12:04] VITALS: BP 187/88; PULSE 87; TEMP 98.7
[2020-09-04] MEDS ORDERED: MIDODRINE 5 MG TAB PO PRN (12:43)
[2020-09-04] MEDS: ONDANSETRON 4 MG TAB PO PRN (13:22)
--- NOTE | 2020-09-04 14:35 | P.DS ---
Providers Date of admission: 09/01/20 11:52 Expected date of discharge: 09/04/20 Attending physician: Remy Lai Consults: 09/01/20 10:31 Consult Physician Routine Consulting Provider: Danis Barry Consult Reason/Comments: esrd, missed HD 2/2 to hypotension Do you want consulting provider notified?: Yes [facility]: Chief Complaint: Low blood pressure History of presenting complaint: This is a 74-year-old patient at the [facility]. Follow with Dr. Bernard. Chronic stable medical conditions include end-stage kidney disease on hemodialysis, COPD, GERD, hyperlipidemia, scleroderma, chronic pulmonary embolism - on eliquis, hypothyroid, hyperlipidemia, history of duodenal ulcer with bleed, chronic kidney disease minimal bone disease. At her baseline patient is pretty much bedbound. . 2 days ago was patient came to the ER to the low blood pressure. Sent back to the [facility]. Again pressure attempted was found to be rather low. During hemodialysis. Sent back in again. Patient states she does not like the food at [facility]. Has not been drinking much. Denies any chest pain no shortness breath. No fever no chills. No abdominal pain. Admitted with hypotension. Apparently patient is not taking midodrine. Resume. Given IV fluids. Right lower lobe pneumonia.-Started IV ceftriaxone. Today-blood pressures come up nicely. Hemodialysis yesterday. No respiratory symptoms. Given other 3 days of oral antibiotics. Consultation: Nephrology Past medical history to include: COPD, end-stage kidney disease on hemodialysis from underlying FSGS, GERD, hyperlipidemia, scleroderma, pulmonary embolism in 2016,, chronic lupus, anxiety depression, anemia of chronic kidney disease , duodenal ulcer with GI bleed for which patient is on a PPI, hypothyroid, hyperlipidemia Social history: No history of smoking or alcohol. Currently at rehab at [facility]. Physical examination: VITAL SIGNS: 98.7, 83, 20, 1 7381, 90% on room air GENERAL: BMI 13.7, laying in bed, awake. Muscle muscle mass and subcutaneous tissue. EYES: Pupils equal. Conjunctiva pale. NECK: JVD not raised; masses not palpable. HEART: First and second heart sounds are normal; no edema. CHEST wall: Right chest wall hemodialysis catheter double-lumen LUNGS: Respiratory rate normal; clear to auscultation. ABDOMEN: Soft, nontender, liver spleen not palpable, no masses palpable. PSYCH: Answering questions appropriately NEUROLOGICAL: decreased power lower extremities. Bilateral foot drop INVESTIGATIONS, reviewed in the clinical context: September 03: Potassium 3.7 creatinine 2.46 C. diff-negative White count 5.6 hemoglobin 15.5 platelets 197 potassium 5.1 creatinine 4.06 Coronavirus [PCR]-not detected EKG tracing personally reviewed by me-normal sinus rhythm Chest x-ray film personally reviewed by me-right lower lobe infiltrate Assessment -Right lower lobe pneumonia-on IV ceftriaxone. Respiratory symptoms controlled -Severe hypotension combination of patient not taking food by mouth as she does not like it and also patient severely malnourished. Patient is midodrine was resumed. Blood pressures,. Currently not dating midodrine. -Pending outpatient consideration of AV fistula and graft creation -Normocytic anemia of chronic kidney [id number] H&H -COPD-stable -End-stage kidney disease on hemodialysis from underlying FSGS- -GERD -controlled --hyperlipidemia -Scleroderma -Hypothyroid- -Hyperlipidemia -History of Duodenal ulcer-add Pepcid -Chronic kidney disease mineral bone disease on phosphate binders -Mild cognitive impairment -Severe protein calorie malnutrition from decreased oral intake Disposition: F/[facility] Patient Condition at Discharge: Fair Plan - Discharge Summary Discharge Rx Participant: No New Discharge Prescriptions: New Psyllium Husk 100% [Metamucil Packet] 6 gm PO DAILY #1 packet Midodrine [ProAmatine] 5 mg PO AC-TID PRN tab PRN Reason: Hypotension Continue azaTHIOprine [Imuran] 25 mg PO DAILY@0800 Folic Acid 0.8 mg PO DAILY@0800 Ondansetron [Zofran] 4 mg PO Q6H PRN PRN Reason: Nausea Menthol-Zinc Oxide Oint [Calmoseptine Oint] 1 applic TOPICAL Q1H PRN PRN Reason: Rash bisacodyL [Dulcolax] 10 mg RECTAL HS@2130 Epoetin Sherman [Epogen] 4,000 unit SQ MOWEFR@0800 Levothyroxine Sodium [Synthroid] 75 mcg PO DAILY@0600 Menthol-Zinc Oxide Oint [Calmoseptine Oint] 1 applic TOPICAL BID Loperamide [Imodium] 2 mg PO DAILY PRN PRN Reason: Diarrhea Potassium Chloride ER [K-Dur 10] 10 meq PO DAILY@0800 Lactose-Reduced Food [Ensure Plus] 237 ml PO QID Atorvastatin Calcium [Lipitor] 20 mg PO HS@2100 Mirtazapine [Remeron] 15 mg PO HS@2100 risperiDONE [RisperDAL] 0.5 mg PO HS@2100 #3 tab ALPRAZolam [Xanax] 0.5 mg PO BID PRN #6 tab PRN Reason: Anxiety Discontinued Docusate [Colace] 100 mg PO DAILY@0800 Midodrine HCl [ProAmatine] 10 mg PO TID@0600,1200,1700 Discharge Medication List Folic Acid 0.8 mg PO DAILY@0800 07/28/18 [History] azaTHIOprine [Imuran] 25 mg PO DAILY@0800 07/28/18 [History] Ondansetron [Zofran] 4 mg PO Q6H PRN 04/26/20 [History] Menthol-Zinc Oxide Oint [Calmoseptine Oint] 1 applic TOPICAL Q1H PRN 05/31/20 [History] bisacodyL [Dulcolax] 10 mg RECTAL HS@212905/31/20 [History] Epoetin Sherman [Epogen] 4,000 unit SQ MOWEFR@0807/31/20 [History] Levothyroxine Sodium [Synthroid] 75 mcg PO DAILY@0600 07/31/20 [History] Atorvastatin Calcium [Lipitor] 20 mg PO HS@209908/23/20 [History] Lactose-Reduced Food [Ensure Plus] 237 ml PO QID 08/23/20 [History] Loperamide [Imodium] 2 mg PO DAILY PRN 08/23/20 [History] Menthol-Zinc Oxide Oint [Calmoseptine Oint] 1 applic TOPICAL BID 08/23/20 [History] Potassium Chloride ER [K-Dur 10] 10 meq PO DAILY@0800 08/23/20 [History] Mirtazapine [Remeron] 15 mg PO HS@209908/25/20 [History] ALPRAZolam [Xanax] 0.5 mg PO BID PRN #6 tab 09/04/20 [Rx] Midodrine [ProAmatine] 5 mg PO AC-TID PRN tab 09/04/20 [Rx] Psyllium Husk 100% [Metamucil Packet] 6 gm PO DAILY #1 packet 09/04/20 [Rx] risperiDONE [RisperDAL] 0.5 mg PO HS@2100 #3 tab 09/04/20 [Rx] Follow up Appointment(s)/Referral(s): Tano Bernard DO [Primary Care Provider] - 1-2 days Activity/Diet/Wound Care/Special Instructions: Palliative Score=5
--- NOTE | 2020-09-04 15:09 | P.PN ---
Subjective Progress Note Date: 09/04/20 Follow-up for ESRD. Objective - Vital Signs Vital signs: Vital Signs Temp 98.7 F 09/04/20 12:03 Pulse 87 09/04/20 12:03 Resp 20 09/04/20 12:03 BP 187/88 09/04/20 12:03 Pulse Ox 94 L 09/04/20 12:03 Intake & Output 09/03/20 09/04/20 09/04/20 18:59 06:59 18:59 Intake Total 400 425 Output Total 200 125 200 Balance 200 300 -200 Weight 43 kg Intake: Intake, IV Titration 400 425 Amount Sodium Chloride 0.9% 1, 400 325 000 ml @ 50 mls/hr IV . Q20H REBECCA Rx#:[id number] cefTRIAXone 1 gm In 100 Sodium Chloride 0.9% 50 ml @ 100 mls/hr IVPB Q24H REBECCA Rx#:[id number] Oral 0 Output: Urine 200 125 200 Other: Voiding Method Bedpan Bedpan Bedpan - Exam No acute distress Right jugular permacath - Labs CBC & Chem 7: 09/01/20 08:26 09/03/20 07:16 Labs: Abnormal Lab Results - Last 24 Hours (Table) 09/04/20 Range/Units 07:06 Procalcitonin 0.35 H (0.02-0.09) ng/mL Microbiology - Last 24 Hours (Table) 09/01/20 10:11 Blood Culture - Preliminary Blood No Growth after 72 hours 09/02/20 09:00 Urine Culture - Preliminary Urine,Voided Gram Neg Bacilli Group D Enterococcus Assessment and Plan Assessment: #1 ESRD MWF. #2 hypotension #3 anemia with ESRD #4 metabolic bone disease with ESRD Plan: #1 hemodialysis on Sunday, next treatment on Sunday #2 stable from nephrology for discharge
[2020-09-06] MEDS ORDERED: DARBEPOETIN ALFA 40 MCG/0.4 ML SYRINGE SQ SCH (09:00)
== END 2020-09-04 15:07 | DRG 640 ==
LOC: EC 08:18 → 3SCARD 11:52
PROVIDERS: ADMIT Hospitalist; ATTEND Hospitalist
PROC: 5A1D70Z Performance of Urinary Filtration, Intermittent, Less than 6 Hours Per Day (ICD-10-PCS; principal; 2020-09-01)
DX: E86.1 Hypovolemia (principal); J18.9 Pneumonia, unspecified organism; E43 Unspecified severe protein-calorie malnutrition; N18.6 End stage renal disease; J44.0 Chronic obstructive pulmonary disease with (acute) lower respiratory infection; Z68.1 Body mass index [BMI] 19.9 or less, adult; I95.3 Hypotension of hemodialysis; K21.9 Gastro-esophageal reflux disease without esophagitis; G31.84 Mild cognitive impairment of uncertain or unknown etiology; D63.1 Anemia in chronic kidney disease; Z20.822 Contact with and (suspected) exposure to COVID-19; E78.5 Hyperlipidemia, unspecified; E83.89 Other disorders of mineral metabolism; E89.0 Postprocedural hypothyroidism; E88.89 Other specified metabolic disorders; Z96.652 Presence of left artificial knee joint; M34.9 Systemic sclerosis, unspecified; N26.9 Renal sclerosis, unspecified; Z99.2 Dependence on renal dialysis; Z90.710 Acquired absence of both cervix and uterus; Z87.11 Personal history of peptic ulcer disease; Z80.3 Family history of malignant neoplasm of breast; Z79.899 Other long term (current) drug therapy; Z79.890 Hormone replacement therapy; Z91.041 Radiographic dye allergy status; Z91.040 Latex allergy status; Z88.5 Allergy status to narcotic agent; Z88.2 Allergy status to sulfonamides; Z88.8 Allergy status to other drugs, medicaments and biological substances; Z91.09 Other allergy status, other than to drugs and biological substances
CPT/HCPCS: 36415; 71045; 71046; 80048; 80053; 81001; 83605; 83690; 83735; 84100; 84145; 84484; 85025; 86706; 87040; 87077; 87086; 87186; 87324; 87340; 87635; 90935; 93005; 96360; 99285

== ENCOUNTER 2020-10-20 13:55 | Emergency (ER) | payer MEDICARE, OTHER, BC ==
[2020-10-20 14:24] VITALS: TEMP 97.7
--- NOTE | 2020-10-20 14:49 | ED ---
Fall HPI - General Chief Complaint: Fall Stated Complaint: Fall Time Seen by Provider: 10/20/20 14:17 Source: patient, EMS Mode of arrival: EMS Limitations: altered mental status - History of Present Illness MD Complaint: fall Fall From: chair When Fall Occurred: 1-[address] Fall Occurred: [facility]) Loss of Consciousness: none Prolonged Down Time?: no Symptoms Prior to Fall: none Location: head, chest (c/o right rib pain and headache) Severity: mild Severity scale (1-10): 2 Quality: aching (headache, right rib pain ) Associated Symptoms: other (chills) - Related Data Home Medications Medication Instructions Recorded Confirmed Folic Acid 0.8 mg PO DAILY@0800 07/28/18 10/20/20 azaTHIOprine [Imuran] 25 mg PO DAILY@0800 07/28/18 10/20/20 Ondansetron [Zofran] 4 mg PO Q6H PRN 04/26/20 10/20/20 bisacodyL [Dulcolax] 10 mg RECTAL HS@209905/31/20 10/20/20 Epoetin Sherman [Epogen] 4,000 unit SQ MOWEFR@0800 07/31/20 10/20/20 Levothyroxine Sodium [Synthroid] 75 mcg PO DAILY@0600 07/31/20 10/20/20 Atorvastatin Calcium [Lipitor] 20 mg PO HS@209908/23/20 10/20/20 Lactose-Reduced Food [Ensure Plus] 237 ml PO QID 08/23/20 10/20/20 Loperamide [Imodium] 2 mg PO DAILY PRN 08/23/20 10/20/20 Mirtazapine [Remeron] 15 mg PO HS@209908/25/20 10/20/20 Acetaminophen [Tylenol 8 Hour] 650 mg PO Q4H PRN 10/20/20 10/20/20 Calcium Carbonate [Tums] 500 mg PO BID PRN 10/20/20 10/20/20 Famotidine [Pepcid] 20 mg PO BID@0800,2100 10/20/20 10/20/20 LORazepam [Ativan] 1 mg PO TID PRN 10/20/20 10/20/20 Megestrol [Megace] 400 mg PO DAILY@1400 10/20/20 10/20/20 Midodrine HCl [ProAmatine] 10 mg PO TID@0600,1200,1700 10/20/20 10/20/20 Psyllium Husk 100% [Metamucil 6 gm PO DAILY@0800 10/20/20 10/20/20 Packet] bisacodyL [Bisacodyl] 10 mg RECTAL DAILY PRN 10/20/20 10/20/20 Allergies Allergy/AdvReac Type Severity Reaction Status Date / Time adhesive Allergy Unknown Verified 10/20/20 15:54 allopurinol Allergy Unknown Verified 10/20/20 15:54 codeine Allergy Unknown Verified 10/20/20 15:54 iodine Allergy Unknown Verified 10/20/20 15:54 latex Allergy Rash/Hives Verified 10/20/20 15:54 meperidine HCl [From Demerol] Allergy Unknown Verified 10/20/20 15:54 povidone-iodine Allergy Unknown Verified 10/20/20 15:54 [From Betadine] soap [From Betadine] Allergy Unknown Verified 10/20/20 15:54 Sulfa (Sulfonamide Allergy Unknown Verified 10/20/20 15:54 Antibiotics) Review of Systems ROS Statement: Those systems with pertinent positive or pertinent negative responses have been documented in the HPI. ROS Other: All systems not noted in ROS Statement are negative. Past Medical History Past Medical History: Blood Disorder, COPD, Dialysis, GERD/Reflux, GI Bleed, Hyperlipidemia, Pulmonary Embolus (PE), Renal Disease, Thyroid Disorder Additional Past Medical History / Comment(s): ESRD with hemodialysis M/W/F, recent hypotension, mineral bone disease, FSGS and lupus per past medical record but LG does not recall these disagnosis, scleroderma, factor V, interstitial lung disease, duodenal ulcer with bleed, gout, UTIs History of Any Multi-Drug Resistant Organisms: VRE Date of last positivie culture/infection: 07/10/20 MDRO Source:: Urine Past Surgical History: Cholecystectomy, Hysterectomy, Joint Replacement, Orthopedic Surgery Additional Past Surgical History / Comment(s): L arm graft/no longer functioning, R hemodialysis catheter tunneld into intermal jugular vein, past peritoneal catheter, total L knee arthroplasty, ORIF L ankle, R index finger amputation d/t gout, kidney biopsies x2, thyroidectomy d/t goiter, Past Anesthesia/Blood Transfusion Reactions: No Reported Reaction Past Psychological History: Anxiety, Depression Smoking Status: Never smoker Past Alcohol Use History: None Reported Past Drug Use History: None Reported - Past Family History Mother Additional Family Medical History / Comment(s): breast CA , mitrale valve damage, kidney disease, gout Father Family Medical History: Thyroid Disorder General Exam Limitations: altered mental status General appearance: alert Head exam: Present: atraumatic, normocephalic, normal inspection Eye exam: Present: normal appearance, EOMI (left pupil sluggish) ENT exam: Present: normal exam, normal oropharynx, mucous membranes dry, normal external ear exam Neck exam: Present: normal inspection, full ROM. Absent: tenderness, meningismus, lymphadenopathy, thyromegaly Respiratory exam: Present: normal lung sounds bilaterally, chest wall tenderness (right side rib pain with palpation). Absent: respiratory distress, wheezes, rales, rhonchi, stridor, accessory muscle use, decreased breath sounds Cardiovascular Exam: Present: regular rate. Absent: JVD (perma cath to right chest wall) GI/Abdominal exam: Present: soft, normal bowel sounds. Absent: distended, tenderness, guarding, rebound, rigid Extremities exam: Present: normal inspection, normal capillary refill, other (unable to elevate legs against gravity). Absent: tenderness, calf tenderness Back exam: Present: normal inspection Neurological exam: Present: alert Psychiatric exam: Present: normal affect, normal mood Skin exam: Present: warm, dry, normal color. Absent: cyanosis, diaphoretic Course Vital Signs 10/20/20 10/20/20 13:59 15:44 Temperature 97.7 F Pulse Rate 71 86 Respiratory 18 20 Rate Blood Pressure 132/67 145/69 O2 Sat by Pulse 99 93 L Oximetry Medical Decision Making - Medical Decision Making Hemoglobin 10.3 hematocrit 33.7 WBC count 8.7 potassium 4.3 creatinine 2.17 patient is dialysis patient. CT of the brain shows chronic ischemic changes no acute bleeds. Chest x-ray negative for effusion, negative for fractures, catheter to right chest noted. Patient will be discharged back to [facility]. Case discussed with Dr. Bird. - Lab Data Result diagrams: 10/20/20 15:41 10/20/20 15:41 Lab Results 10/20/20 10/20/20 Range/Units 15:41 15:41 WBC 8.7 (3.8-10.6) k/uL RBC 3.68 L (3.80-5.40) m/uL Hgb 10.3 L D (11.4-16.0) gm/dL Hct 33.7 L (34.0-46.0) % MCV 91.6 (80.0-100.0) fL MCH 27.9 (25.0-35.0) pg MCHC 30.4 L (31.0-37.0) g/dL RDW 19.3 H (11.5-15.5) % Plt Count 378 (150-450) k/uL MPV 7.0 Neutrophils % 77 % Lymphocytes % 14 % Monocytes % 7 % Eosinophils % 1 % Basophils % 0 % Neutrophils # 6.7 (1.3-7.7) k/uL Lymphocytes # 1.2 (1.0-4.8) k/uL Monocytes # 0.6 (0-1.0) k/uL Eosinophils # 0.1 (0-0.7) k/uL Basophils # 0.0 (0-0.2) k/uL Hypochromasia Moderate Anisocytosis Slight Sodium 139 (137-145) mmol/L Potassium 4.3 (3.5-5.1) mmol/L Chloride 102 (98-107) mmol/L Carbon Dioxide 27 (22-30) mmol/L Anion Gap 10 mmol/L BUN 16 (7-17) mg/dL Creatinine 2.17 H (0.52-1.04) mg/dL Est GFR (CKD-EPI)AfAm 25 (>60 ml/min/1.73 sqM) Est GFR (CKD-EPI)NonAf 22 (>60 ml/min/1.73 sqM) Glucose 92 (74-99) mg/dL Calcium 9.6 (8.4-10.2) mg/dL Disposition Clinical Impression: Fall from chair Disposition: HOME SELF-CARE Condition: Good Instructions (If sedation given, give patient instructions): Fall Prevention for Older Adults (ED), Fall Prevention (ED) Additional Instructions: Patient to be sent back to [facility] communicated to staff the patient will be coming back with a negative CAT scan, negative chest x-ray, and labs within normal limits for patient. Is patient prescribed a controlled substance at d/c from ED?: No Referrals: Tano Bernard DO [Primary Care Provider] - 1-2 days Time of Disposition: 16:23
--- NOTE | 2020-10-20 14:58 | CT ---
EXAMINATION TYPE: CT brain wo con DATE OF EXAM: 10/20/2020 COMPARISON: 06/02/2020 HISTORY: altered mental status CT DLP: 1099.[address] of the brain was performed. The ventricles, basal cisterns and sulci overlying the cerebral convexities demonstrate mild enlargem ent. There is no evidence for intracranial hemorrhage or sulcal effacement. There is decreased attenuation about the periventricular white matter and deep white matter of both c erebral hemispheres, compatible with chronic small vessel ischemia. Differential diagnosis does inclu de demyelination. No mass effects are seen.No midline shift. Osseous calvarium is intact. If symptoms persist consider MRI. IMPRESSION: 1. Age related atrophic and chronic small vessel ischemic change without acute intracranial process s een at this time.
--- NOTE | 2020-10-20 15:02 | XR ---
EXAMINATION TYPE: XR chest 2V DATE OF EXAM: 10/20/2020 COMPARISON: 09/04/2020 INDICATION: Fall, right rib pain TECHNIQUE: Frontal and lateral views of the chest are obtained. FINDINGS: The heart size is normal. The pulmonary vasculature is normal. There is blunting the right costophrenic angle. Small residual pleural fluid may be present.. Double -lumen catheter is present on right with the tips in the proximal right atrium. No pneumothorax is ev ident. IMPRESSION: 1. Small right pleural fluid. 2. Double lumen catheter right chest.
[2020-10-20 15:48] VITALS: BP 145/69; PULSE 86; RESP 20
[2020-10-20 15:50] LABS: Anisocytosis Slight; Basophils % (A) 0 %; Eosinophils # (A) 0.1 k/uL (0-0.7); Eosinophils % (A) 1 %; HCT 33.7 % (34.0-46.0); Hypochromasia Moderate; Lymphocytes # (A) 1.2 k/uL (1.0-4.8); Lymphocytes % (A) 14 %; MCH 27.9 pg (25.0-35.0); MCHC 30.4 g/dL (31.0-37.0); MCV 91.6 fL (80.0-100.0); Monocytes # (A) 0.6 k/uL (0-1.0); Monocytes % (A) 7 %; Neutrophils # (A) 6.7 k/uL (1.3-7.7); Neutrophils % (A) 77 %; Platelet Count 378 k/uL (150-450); RBC 3.68 m/uL (3.80-5.40); RDW 19.3 % (11.5-15.5); WBC 8.7 k/uL (3.8-10.6)
[2020-10-20 15:53] LABS: HGB 10.3 gm/dL (11.4-16.0)
[2020-10-20 16:00] LABS: Calcium 9.6 mg/dL (8.4-10.2); Potassium 4.3 mmol/L (3.5-5.1)
== END 2020-10-20 18:05 | disposition home or self-care (01) ==
LOC: EC 13:55
DX: R07.81 Pleurodynia (principal); R41.82 Altered mental status, unspecified; N18.6 End stage renal disease; E07.9 Disorder of thyroid, unspecified; E78.5 Hyperlipidemia, unspecified; I95.9 Hypotension, unspecified; K21.9 Gastro-esophageal reflux disease without esophagitis; F41.9 Anxiety disorder, unspecified; F32.9 Major depressive disorder, single episode, unspecified; Z79.890 Hormone replacement therapy; Z79.899 Other long term (current) drug therapy; Z91.048 Other nonmedicinal substance allergy status; Z88.8 Allergy status to other drugs, medicaments and biological substances; Z88.5 Allergy status to narcotic agent; Z91.040 Latex allergy status; Z88.2 Allergy status to sulfonamides; Z86.711 Personal history of pulmonary embolism; Z99.2 Dependence on renal dialysis; Z96.652 Presence of left artificial knee joint; W07.XXXA Fall from chair, initial encounter
CPT/HCPCS: 36415; 70450; 71046; 80048; 85025; 99284

== ENCOUNTER 2020-11-16 17:34 | Inpatient (IN) | payer MEDICARE, BC ==
--- NOTE | 2020-11-16 18:04 | ED ---
General Adult HPI - General Chief complaint: Weakness Stated complaint: failure to thrive Time Seen by Provider: 11/16/20 17:41 Source: EMS Mode of arrival: EMS Limitations: altered mental status, physical limitation - History of Present Illness Initial comments: Dictation was produced using [employer] dictation software. please excuse any grammatical, word or spelling errors. This patient was cared for during a federal and state declared state of emergency secondary to Covid 19 Chief Complaint: 74-year-old male presents with failure to thrive History of Present Illness: Is 74-year-old female she is currently a resident at [facility]. She presents to the emergency department for further thrive. She has not been eating. She is end-stage renal disease and on dialysis. Over the last several days she's been having worsening mentation and showing signs of decline. According to nurse received report from EMS at the [facility] she has been refusing all oral intake. Patient has a complicated decision making issue. Allegedly according to nurse there is been debate over patient's legal guardian and family on with the patient should be hospice care. Patient initially got a legal guardian for decision-making because he was concerned that family is making poor decisions on behalf of patient's care. Legal guardian along with primary care physician signed an order for hospice however family debated that and there is a court date to decide in the near future. Patient unable to provide history present illness this time. Unable to obtain review of systems secondary to mental status PHYSICAL EXAM: General Impression: Eyes closed, responsive painful stimuli of all extremities, gag is intact, patient squeezing her eyes shut when trying to open them HEENT: Normocephalic atraumatic, extra-ocular movements intact, pupils equal and reactive to light bilaterally, dry mucous membranes Cardiovascular: Heart regular rate and rhythm Chest: no retractions, no tachypnea Abdomen: abdomen soft, non-tender, non-distended, no organomegaly Musculoskeletal: Pulses present and equal in all extremities, no peripheral edema Motor: no focal deficits noted Neurological: no focal motor or sensory deficits noted Skin: Intact with no visualized rashes ED course: 74-year-old female multiple comorbidities presents to the emergency department for chief complaint of failure to thrive. She was sent in from [facility] for fusing to eat or drink in the last 2 days. There's been legal battles on decision-making about half the patient between family and legal guardian. Sounds are at this point that there has not been any decision on CODE STATUS at this time. Patient will be treated as full code currently. Vital signs upon arrival are within acceptable limits. Laboratory evaluation obtained. CBC within acceptable limits. There is about a platelet count of 72 which appears to be abnormal. This could be related to heparin that she receives during dialysis. Coag panel is unremarkable. Metabolic panel shows findings within acceptable limits. Lactic acid is 2.1. TSH is graded 100.000. Previous labs showed that patient has had significantly elevated TSH levels. She does have established diagnosis of thyroid disease for which she is supposed to be on levothyroxine. Given patient's mental status with elevated TSH level we ordered T4 and T3. In the meantime patient's given Synthroid and IV steroids. Computed tomography scan of the brain shows no acute intracranial processes. Chest x-ray is nonacute. Patient be admitted. Case discussed Dr. Dasilva is willing to accept patients care. EKG interpretation: Ventricular rate 89, sinus rhythm,. 164, QRS 74, QTC 435. No [place] prolongation, no QTC prolongation, no ST or T-wave changes noted. EKG compared to. Third 2020 showing no changes. Overall, this EKG is unremarkable - Related Data Home Medications Medication Instructions Recorded Confirmed Folic Acid 0.8 mg PO DAILY@0800 07/28/18 11/16/20 azaTHIOprine [Imuran] 25 mg PO DAILY@0800 07/28/18 11/16/20 Ondansetron [Zofran] 4 mg PO Q6H PRN 04/26/20 11/16/20 bisacodyL [Dulcolax] 10 mg RECTAL HS@209905/31/20 11/16/20 Epoetin Sherman [Epogen] 4,000 unit SQ MOWEFR@0800 07/31/20 11/16/20 Atorvastatin Calcium [Lipitor] 20 mg PO HS@209908/23/20 11/16/20 Lactose-Reduced Food [Ensure Plus] 237 ml PO QID 08/23/20 11/16/20 Loperamide [Imodium] 2 mg PO DAILY PRN 08/23/20 11/16/20 Calcium Carbonate [Tums] 500 mg PO BID PRN 10/20/20 11/16/20 Famotidine [Pepcid] 20 mg PO BID@0800,2100 10/20/20 11/16/20 Megestrol [Megace] 400 mg PO DAILY@1400 10/20/20 11/16/20 Midodrine HCl [ProAmatine] 10 mg PO TID@0600,1200,1700 10/20/20 11/16/20 Psyllium Husk 100% [Metamucil 6 gm PO DAILY@0800 10/20/20 11/16/20 Packet] bisacodyL [Bisacodyl] 10 mg RECTAL DAILY PRN 10/20/20 11/16/20 Acetaminophen [Tylenol] 650 mg PO Q4H PRN 11/16/20 11/16/20 LORazepam [Ativan] 2 mg PO BID PRN 11/16/20 11/16/20 Levothyroxine Sodium 112 mcg PO DAILY@0600 11/16/20 11/16/20 Liquacel 30 ml PO BID@1200,1700 11/16/20 11/16/20 Mirtazapine [Remeron] 30 mg PO HS@2100 11/16/20 11/16/20 risperiDONE ODT [RisperDAL M-TAB] 1 mg PO BID@0800,1700 11/16/20 11/16/20 traMADol HCL [Ultram] 50 mg PO Q6HR PRN 11/16/20 11/16/20 Allergies Allergy/AdvReac Type Severity Reaction Status Date / Time adhesive Allergy Unknown Verified 11/16/20 18:29 allopurinol Allergy Unknown Verified 11/16/20 18:29 codeine Allergy Unknown Verified 11/16/20 18:29 iodine Allergy Unknown Verified 11/16/20 18:29 latex Allergy Rash/Hives Verified 11/16/20 18:29 meperidine HCl [From Demerol] Allergy Unknown Verified 11/16/20 18:29 povidone-iodine Allergy Unknown Verified 11/16/20 18:29 [From Betadine] soap [From Betadine] Allergy Unknown Verified 11/16/20 18:29 Sulfa (Sulfonamide Allergy Unknown Verified 11/16/20 18:29 Antibiotics) Review of Systems ROS Statement: Those systems with pertinent positive or pertinent negative responses have been documented in the HPI. ROS Other: All systems not noted in ROS Statement are negative. Past Medical History Past Medical History: Blood Disorder, COPD, Dialysis, GERD/Reflux, GI Bleed, Hyperlipidemia, Pulmonary Embolus (PE), Renal Disease, Thyroid Disorder Additional Past Medical History / Comment(s): ESRD with hemodialysis M/W/F, recent hypotension, mineral bone disease, FSGS and lupus per past medical record but LG does not recall these disagnosis, scleroderma, factor V, interstitial lung disease, duodenal ulcer with bleed, gout, UTIs History of Any Multi-Drug Resistant Organisms: VRE Date of last positivie culture/infection: 07/10/20 MDRO Source:: Urine Past Surgical History: Cholecystectomy, Hysterectomy, Joint Replacement, Orthopedic Surgery Additional Past Surgical History / Comment(s): L arm graft/no longer functioning, R hemodialysis catheter tunneld into intermal jugular vein, past peritoneal catheter, total L knee arthroplasty, ORIF L ankle, R index finger amputation d/t gout, kidney biopsies x2, thyroidectomy d/t goiter, Past Anesthesia/Blood Transfusion Reactions: No Reported Reaction Past Psychological History: Anxiety, Depression Smoking Status: Never smoker Past Alcohol Use History: None Reported Past Drug Use History: None Reported - Past Family History Mother Additional Family Medical History / Comment(s): breast CA , mitrale valve damage, kidney disease, gout Father Family Medical History: Thyroid Disorder General Exam Limitations: altered mental status, physical limitation Course Vital Signs 11/16/20 17:42 Temperature 98.1 F Pulse Rate 91 Respiratory 18 Rate Blood Pressure 101/63 O2 Sat by Pulse 96 Oximetry Medical Decision Making - Lab Data Result diagrams: 11/16/20 18:01 11/16/20 18:01 Lab Results 11/16/20 11/16/20 11/16/20 Range/Units 18:01 18:01 18:01 WBC 5.3 (3.8-10.6) k/uL RBC 4.42 (3.80-5.40) m/uL Hgb 12.5 (11.4-16.0) gm/dL Hct 40.0 (34.0-46.0) % MCV 90.5 (80.0-100.0) fL MCH 28.4 (25.0-35.0) pg MCHC 31.3 (31.0-37.0) g/dL RDW 17.0 H (11.5-15.5) % Plt Count 72 L D (150-450) k/uL MPV 8.8 Neutrophils % 80 % Lymphocytes % 15 % Monocytes % 3 % Eosinophils % 1 % Basophils % 0 % Neutrophils # 4.2 (1.3-7.7) k/uL Lymphocytes # 0.8 L (1.0-4.8) k/uL Monocytes # 0.1 (0-1.0) k/uL Eosinophils # 0.1 (0-0.7) k/uL Basophils # 0.0 (0-0.2) k/uL Manual Slide Review Performed Polychromasia Present Hypochromasia Marked Anisocytosis Slight PT (9.0-12.0) sec INR (<1.2) APTT (22.0-30.0) sec Sodium 141 (137-145) mmol/L Potassium 3.8 (3.5-5.1) mmol/L Chloride 105 (98-107) mmol/L Carbon Dioxide 32 H (22-30) mmol/L Anion Gap 4 mmol/L BUN 16 (7-17) mg/dL Creatinine 3.10 H (0.52-1.04) mg/dL Est GFR (CKD-EPI)AfAm 17 (>60 ml/min/1.73 sqM) Est GFR (CKD-EPI)NonAf 14 (>60 ml/min/1.73 sqM) Glucose 110 H (74-99) mg/dL Lactic Ac Sepsis Rflx Plasma Lactic Acid Jose Antonio 2.1 H* (0.7-2.0) mmol/L Calcium 9.2 (8.4-10.2) mg/dL Magnesium 2.1 (1.6-2.3) mg/dL Total Bilirubin 0.3 (0.2-1.3) mg/dL AST 20 (14-36) U/L ALT 9 (4-34) U/L Alkaline Phosphatase 89 (38-126) U/L Ammonia 27 (<30) umol/L Troponin I (0.000-0.034) ng/mL Total Protein 5.3 L (6.3-8.2) g/dL Albumin 2.5 L (3.5-5.0) g/dL Lipase 30 (23-300) U/L TSH >100.000 H (0.465-4.680) mIU/L 11/16/20 11/16/20 11/16/20 Range/Units 18:01 18:27 18:55 WBC (3.8-10.6) k/uL RBC (3.80-5.40) m/uL Hgb (11.4-16.0) gm/dL Hct (34.0-46.0) % MCV (80.0-100.0) fL MCH (25.0-35.0) pg MCHC (31.0-37.0) g/dL RDW (11.5-15.5) % Plt Count (150-450) k/uL MPV Neutrophils % % Lymphocytes % % Monocytes % % Eosinophils % % Basophils % % Neutrophils # (1.3-7.7) k/uL Lymphocytes # (1.0-4.8) k/uL Monocytes # (0-1.0) k/uL Eosinophils # (0-0.7) k/uL Basophils # (0-0.2) k/uL Manual Slide Review Polychromasia Hypochromasia Anisocytosis PT 11.1 (9.0-12.0) sec INR 1.1 (<1.2) APTT 23.4 (22.0-30.0) sec Sodium (137-145) mmol/L Potassium (3.5-5.1) mmol/L Chloride (98-107) mmol/L Carbon Dioxide (22-30) mmol/L Anion Gap mmol/L BUN (7-17) mg/dL Creatinine (0.52-1.04) mg/dL Est GFR (CKD-EPI)AfAm (>60 ml/min/1.73 sqM) Est GFR (CKD-EPI)NonAf (>60 ml/min/1.73 sqM) Glucose (74-99) mg/dL Lactic Ac Sepsis Rflx Y Plasma Lactic Acid Jose Antonio (0.7-2.0) mmol/L Calcium (8.4-10.2) mg/dL Magnesium (1.6-2.3) mg/dL Total Bilirubin (0.2-1.3) mg/dL AST (14-36) U/L ALT (4-34) U/L Alkaline Phosphatase (38-126) U/L Ammonia (<30) umol/L Troponin I 0.016 (0.000-0.034) ng/mL Total Protein (6.3-8.2) g/dL Albumin (3.5-5.0) g/dL Lipase (23-300) U/L TSH (0.465-4.680) mIU/L Disposition Clinical Impression: Grave disability, Hypothyroid Disposition: ADMITTED IP TO THIS HOSP Condition: Fair Referrals: Tano Bernard DO [Primary Care Provider] - 1-2 days Decision Time: 20:34
[2020-11-16 18:14] LABS: Anisocytosis Slight; Basophils % (A) 0 %; Eosinophils # (A) 0.1 k/uL (0-0.7); Eosinophils % (A) 1 %; HGB 12.5 gm/dL (11.4-16.0); Hypochromasia Marked; Lymphocytes # (A) 0.8 k/uL (1.0-4.8); Lymphocytes % (A) 15 %; MCH 28.4 pg (25.0-35.0); MCHC 31.3 g/dL (31.0-37.0); MCV 90.5 fL (80.0-100.0); Mean Platelet Volume 8.8; Monocytes # (A) 0.1 k/uL (0-1.0); Monocytes % (A) 3 %; Neutrophils # (A) 4.2 k/uL (1.3-7.7); Neutrophils % (A) 80 %; RBC 4.42 m/uL (3.80-5.40); WBC 5.3 k/uL (3.8-10.6)
[2020-11-16 18:25] LABS: ALT 9 U/L (4-34); AST 20 U/L (14-36); African American GFR (CKD) 17 (>60 ml/min/1.73 sqM); Albumin 2.5 g/dL (3.5-5.0); Alkaline Phosphatase 89 U/L (38-126); Anion Gap 4 mmol/L; Blood Urea Nitrogen 16 mg/dL (7-17); Calcium 9.2 mg/dL (8.4-10.2); Carbon Dioxide 32 mmol/L (22-30); Chloride 105 mmol/L (98-107); Glucose 110 mg/dL (74-99); Lipase 30 U/L (23-300); Magnesium 2.1 mg/dL (1.6-2.3); Non-African American GFR(CKD) 14 (>60 ml/min/1.73 sqM); Potassium 3.8 mmol/L (3.5-5.1); Sodium 141 mmol/L (137-145); Total Bilirubin 0.3 mg/dL (0.2-1.3); Total Protein 5.3 g/dL (6.3-8.2)
[2020-11-16 18:26] LABS: Lactic Acid, Venous 2.1 mmol/L (0.7-2.0)
[2020-11-16 18:52] LABS: Platelet Count 72 k/uL (150-450); Polychromasia Present
[2020-11-16 19:41] LABS: INR 1.1 (<1.2); Partial Thromboplastin Time 23.4 sec (22.0-30.0); Prothrombin Time 11.1 sec (9.0-12.0)
--- NOTE | 2020-11-16 20:02 | CT ---
EXAMINATION TYPE: CT brain wo con DATE OF EXAM: 11/16/2020 COMPARISON: 10/20/2020 HISTORY: altered mental status CT DLP: 1071.[address] of the brain was performed. The ventricles, basal cisterns and sulci overlying the cerebral convexities demonstrate mild enlargem ent. There is no evidence for intracranial hemorrhage or sulcal effacement. There is decreased attenuation about the periventricular white matter and deep white matter of both c erebral hemispheres, compatible with chronic small vessel ischemia. Differential diagnosis does inclu de demyelination. No mass effects are seen.No midline shift. Osseous calvarium is intact. If symptoms persist consider MRI. IMPRESSION: 1. Age related atrophic and chronic small vessel ischemic change without acute intracranial process s een at this time.
--- NOTE | 2020-11-16 20:07 | XR ---
EXAMINATION TYPE: XR chest 1V portable DATE OF EXAM: 11/16/2020 CLINICAL HISTORY: altered mental status. TECHNIQUE: Portable frontal view of the chest. COMPARISON: 10/20/2020 chest radiograph FINDINGS: Right-sided internal jugular hemodialysis catheter. The cardiomediastinal silhouette is wi thin normal limits for size. Pulmonary vasculature is normal. There is no focal air space opacity, pl eural effusion, or pneumothorax seen. The osseous structures are intact. IMPRESSION: No acute cardiopulmonary process.
[2020-11-16] MEDS ORDERED: ACETAMINOPHEN TAB 325 MG TAB PO PRN (20:34)
[2020-11-16] MEDS ORDERED: NALOXONE 0.4 MG/ML 1 ML VIAL IV PRN (20:34)
[2020-11-16] MEDS: HYDROCORTISONE SUCCINATE 100 MG/2 ML VIAL IV SCH (20:54)
[2020-11-16] MEDS: LEVOTHYROXINE IVP 100 MCG/5 ML VIAL IV SCH (20:54)
[2020-11-16 21:42] LABS: T4, Free (Free Thyroxine) 0.91 ng/dL (0.78-2.19)
[2020-11-17] MEDS: SODIUM CHLORIDE 0.9% 1,000 ML IV SCH ×2 (03:22→19:44)
[2020-11-17] MEDS: HYDROCORTISONE SUCCINATE 100 MG/2 ML VIAL IV SCH ×3 (03:22→19:35)
[2020-11-17 06:08] LABS: Glucose,Whole Blood 114 mg/dL (75-99)
[2020-11-17 08:29] LABS: Potassium 4.2 mmol/L (3.5-5.1)
[2020-11-17 08:31] LABS: Anisocytosis Slight; Basophils % (A) 0 %; Eosinophils % (A) 0 %; HCT 37.9 % (34.0-46.0); HGB 11.9 gm/dL (11.4-16.0); Hypochromasia Marked; Lymphocytes # (A) 0.7 k/uL (1.0-4.8); Lymphocytes % (A) 8 %; MCH 28.4 pg (25.0-35.0); MCHC 31.4 g/dL (31.0-37.0); MCV 90.3 fL (80.0-100.0); Mean Platelet Volume 8.5; Monocytes # (A) 0.2 k/uL (0-1.0); Monocytes % (A) 2 %; Neutrophils # (A) 7.3 k/uL (1.3-7.7); Neutrophils % (A) 89 %; RBC 4.19 m/uL (3.80-5.40); RDW 17.1 % (11.5-15.5); WBC 8.3 k/uL (3.8-10.6)
[2020-11-17 08:35] LABS: Platelet Count 301 k/uL (150-450)
[2020-11-17 11:38] LABS: Glucose,Whole Blood 94 mg/dL (75-99)
--- NOTE | 2020-11-17 11:47 | CONS ---
CONSULTATION REASON FOR CONSULT: End-stage renal disease. HISTORY OF PRESENT ILLNESS: The patient is a 74-year-old female with end-stage renal disease, on hemodialysis on a Sunday, Sunday, Sunday schedule. The patient was admitted to the hospital with increased weakness. Over the past few weeks, patient has declined quite a bit and has not been eating at all and appears to be almost catatonic at the dialysis unit. She does not communicate much as well and the patient does have a legal guardian and there were plans for consideration of hospice care. However, family has intervened and it appears that there is a court date regarding that. In the meantime, patient is being treated as a FULL CODE. She is not able to give me any history. She is comfortable. Potassium was 4.2. The patient does not appear to be volume overloaded. She did have her treatment at the outpatient unit on 11/15/2020. PAST MEDICAL HISTORY: End-stage renal disease, coronary artery disease, history of bipolar disorder, COPD, gastroesophageal reflux disease, hyperlipidemia, GI bleed, PE, hypothyroidism, interstitial lung disease, GI bleed, duodenal ulcer, gout, history of UTIs. PAST SURGICAL HISTORY: Cholecystectomy, hysterectomy, vascular surgeries, left knee arthroplasty, ORIF left ankle, right index finger amputation, kidney biopsies, thyroidectomy, PermCath placement. SOCIAL HISTORY: Negative for smoking, drug abuse or alcohol abuse. MEDICATIONS: Medications prior to admission included Zofran, Imuran, folic acid, Dulcolax, Lipitor, Ensure, Imodium, Tums, Pepcid, Megace, midodrine, Ativan, LiquaCel, Remeron, Ultram. ALLERGIES: Allergies are multiple include ADHESIVE TAPE, ALLOPURINOL, CODEINE, IODINE, LATEX, SOAP, SULFA, BETADINE. REVIEW OF SYSTEMS: As per HPI. Other systems negative. PHYSICAL EXAMINATION: Patient is currently comfortable, awake, not in any acute distress. Blood pressure is 127/61, heart rate 90 per minute. She is afebrile. EXAMINATION OF THE HEART: S1, S2. EXAMINATION OF THE LUNGS: Bilateral breath sounds are heard. Abdomen is soft, nontender. Examination of lower extremities shows no evidence of edema. SAP BPC ARCHITECT exam shows patient does not communicate much. She does nod to certain questions. LABS: Labs show sodium 142, potassium 4.2, chloride 108, CO2 is 28, BUN 26, creatinine 3.46, hemoglobin 11.9 g/dL. ASSESSMENT: 1. End-stage renal disease, on hemodialysis on a Sunday, Sunday, Sunday schedule. 2. Chronic kidney disease mineral bone disorder. 3. Failure to thrive as outpatient with consideration for hospice with dispute between family and legal guardian. Apparently a court date is scheduled. PLAN: Hemodialysis in a.m. MMORLANDOL / DARNELLN: [id number] /
--- NOTE | 2020-11-17 15:12 | P.DS ---
Providers Date of admission: 11/16/20 20:34 Attending physician: Regan Dasilva Consults: 11/16/20 20:35 Consult Physician Routine Consulting Provider: Tala Galan Consult Reason/Comments: esrd Do you want consulting provider notified?: Yes Primary care physician: Tano Bernard [facility] Course: Final diagnoses End-stage renal disease was on hemodialysis Failure to thrive COPD GERD GI bleed Hyperlipidemia PE history Hypothyroidism Cholecystectomy Hysterectomy Anxiety depression No code no CPR no event Hospice/comfort measures Discharge disposition. The patient be discharged in a stable condition with a guarded prognosis to ECF. Total time taken 35 minutes. History of present illness this 80-year-old woman with a past medical history of multiple medical problems as mentioned earlier being followed by Dr. Bernard in the ECF was admitted with a diminish by mouth intake refusing to eat and failure to thrive from ECF. The patient refuses to take any medications and was extremely weak the prognosis is extremely guarded at this point. Case management and social worker clinical contacted the legal guardian at this time. At this point an emergency no code order has to be obtained for no code order and as well as hospice measures. The overall prognosis remains guarded in this elderly individual with multiple complex medical issues including end-stage renal disease and is on hemodialysis. The patient is will be returned to ECF with the following of his medications. Please refer to the medication record was initiated for list of medications. Also place refer to case management sheet and the social worker clinical notes for further information. The prognosis was extremely guarded throughout the hospital stay. Patient Condition at Discharge: Fair Plan - Discharge Summary Discharge Rx Participant: Yes New Discharge Prescriptions: Continue LORazepam [Ativan] 2 mg PO BID PRN #4 tab PRN Reason: Anxiety Mirtazapine [Remeron] 30 mg PO HS@2100 #2 tab risperiDONE ODT [RisperDAL M-TAB] 1 mg PO BID@0800,1700 #6 tab traMADol HCL [Ultram] 50 mg PO Q6HR PRN #4 tab PRN Reason: Pain Discontinued azaTHIOprine [Imuran] 25 mg PO DAILY@0800 Folic Acid 0.8 mg PO DAILY@0800 Ondansetron [Zofran] 4 mg PO Q6H PRN PRN Reason: Nausea bisacodyL [Dulcolax] 10 mg RECTAL HS@2100 Epoetin Sherman [Epogen] 4,000 unit SQ MOWEFR@0800 Loperamide [Imodium] 2 mg PO DAILY PRN PRN Reason: Diarrhea Lactose-Reduced Food [Ensure Plus] 237 ml PO QID Atorvastatin Calcium [Lipitor] 20 mg PO HS@2100 bisacodyL [Bisacodyl] 10 mg RECTAL DAILY PRN PRN Reason: Constipation Famotidine [Pepcid] 20 mg PO BID@0800,2100 Psyllium Husk 100% [Metamucil Packet] 6 gm PO DAILY@0800 Acetaminophen [Tylenol] 650 mg PO Q4H PRN PRN Reason: Pain Or Fever > 100.5 Liquacel 30 ml PO BID@1200,1700 Calcium Carbonate [Tums] 500 mg PO BID PRN PRN Reason: Heartburn Megestrol [Megace] 400 mg PO DAILY@1400 Midodrine HCl [ProAmatine] 10 mg PO TID@0600,1200,1700 Levothyroxine Sodium 112 mcg PO DAILY@0600 Discharge Medication List LORazepam [Ativan] 2 mg PO BID PRN #4 tab 11/17/20 [Rx] Mirtazapine [Remeron] 30 mg PO HS@2100 #2 tab 11/17/20 [Rx] risperiDONE ODT [RisperDAL M-TAB] 1 mg PO BID@0800,1700 #6 tab 11/17/20 [Rx] traMADol HCL [Ultram] 50 mg PO Q6HR PRN #4 tab 11/17/20 [Rx] Follow up Appointment(s)/Referral(s): Tano Bernard DO [Primary Care Provider] - 1-2 days Activity/Diet/Wound Care/Special Instructions: Diet as tolerated activity as tolerated Continue hospice /comfort measures
--- NOTE | 2020-11-17 15:39 | HP ---
HISTORY AND PHYSICAL DATE OF SERVICE: 11/17/2020 CHIEF COMPLAINT: Weakness and failure to thrive. HISTORY OF PRESENT ILLNESS: This 74-year-old woman with a past medical history of medical medical problems including COPD, CVA, end-stage renal disease, hemodialysis, GI bleed, hypertension, hyperlipidemia, pulmonary embolism being followed by Dr. Bernard at [facility]. She apparently was refusing to eat and drink for the past several days. Patient also has a history of failure to thrive. Patient has hemodialysis. The patient is extremely weak and confused. Patient taken to taken to [facility] and admitted for evaluation. Apparently patient has legal guardian and legal guardian is going for emergency authorization for no code and hospice care also at this time. According to the documents, the family was making poor decisions on the patient's care and legal guardian was obtained previously. PAST MEDICAL HISTORY: COPD, end-stage renal disease, GERD, GI bleed, hyperlipidemia, pulmonary embolism, renal disease. MEDICATIONS: Medications prior to admission include home medications Ultram, bisacodyl, Zofran, Imodium, Pepcid, Ativan, Tums, Tylenol, ProAmatine, Ensure, Risperdal, Remeron, Megace, , Imuran, Lipitor. Doses are reviewed. ALLERGIES: ADHESIVE, ALLOPURINOL, CODEINE, IODINE, LATEX, MEPERIDINE, POVIDONE-IODINE SOAP, SULFA. Family history, social history, surgical history reviewed. REVIEW OF SYSTEMS: Could not be taken because the patient's change in mental status. PHYSICAL EXAMINATION: VITAL SIGNS: Pulse 98, blood pressure 125/69, respirations 16, temperature 97.9, pulse ox 97% on room air. HEENT: Conjunctivae normal. Oral mucosa moist. NECK: No jugular venous distention. No carotid bruits. RESPIRATORY: Breath sounds diminished at the bases. A few scattered rhonchi. HEART: S1 and S2, muffled. ABDOMEN: Soft, no tenderness. EXTREMITIES: No edema, no swelling. NERVOUS: Diffusely weak. SKIN: No rashes. JOINTS: No active deforming arthropathy. LABS: CBC within normal limits. Lymphocytes 0.7, Sodium 132, potassium 4.2, creatinine 3.46. Other labs are reviewed. ASSESSMENT: 1. Chronic kidney disease, end-stage renal disease on hemodialysis. 2. Failure to thrive. 3. Gait dysfunction. 4. Severe hypothyroidism. 5. Chronic obstructive pulmonary disease. 6. Gastroesophageal reflux disease. 7. History of gastrointestinal bleed. 8. Hyperlipidemia. 9. Pulmonary embolism. 10.History of cholecystectomy. 11.FULL CODE. RECOMMENDATIONS AND DISCUSSION: Recommend to continue current management and continue symptomatic treatment. Continue the hemodialysis. I would also recommend Social Work Case Management to work on the guardianship issues and obtain an emergency order because the prognosis is extremely guarded because of multiple complex medical issues. Further recommendations to follow. Patient is apparently refusing further treatment and food at this point. Old charts reviewed and discussed with staff and the case management. MMORLANDOL / IJN: [id number] / IAIN
[2020-11-17 16:44] LABS: Glucose,Whole Blood 123 mg/dL (75-99)
[2020-11-17] MEDS: LEVOTHYROXINE IVP 100 MCG/5 ML VIAL IV SCH (19:35)
[2020-11-17 20:01] LABS: Glucose,Whole Blood 134 mg/dL (75-99)
[2020-11-18 01:22] LABS: Hepatitis B Surface AB- Quant 341.3 mIU/mL; Hepatitis B Surface Antibody Reactive (Non-Reactive); Hepatitis B Surface Antigen Non-Reactive (Non-Reactive)
[2020-11-18] MEDS: HYDROCORTISONE SUCCINATE 100 MG/2 ML VIAL IV SCH ×2 (04:39→11:16)
[2020-11-18 06:00] LABS: Glucose,Whole Blood 107 mg/dL (75-99)
[2020-11-18 11:40] LABS: Glucose,Whole Blood 113 mg/dL (75-99)
[2020-11-18 11:48] VITALS: BP 151/76; PULSE 91; RESP 16; TEMP 97.6
--- NOTE | 2020-11-18 18:07 | PN ---
PROGRESS NOTE Patient is seen for followup for end-stage renal disease. She is currently seen on hemodialysis. It appears that the decision from the court was to proceed with hospice care. This will be her last dialysis treatment today. On examination, patient is comfortable. She states she is having pain all over, but appears fairly comfortable. The patient is confused. On examination today blood pressure was 140/68, heart rate 71 per minute. She is afebrile. Examination shows patient is euvolemic. No evidence of edema in lower extremities. Abdomen is soft, nontender. Heart and lungs are unremarkable. ASSESSMENT: 1. End-stage renal disease, on hemodialysis on a Sunday, Sunday, Sunday schedule. 2. Chronic kidney disease mineral bone disorder. 3. Failure to thrive. PLAN: Agree with plans for hospice. MMODL / IJN: [id number] /
== END 2020-11-18 12:36 | DRG 640 ==
LOC: EC 17:34 → 3SCARD 20:34
PROVIDERS: ADMIT Internal Medicine; ATTEND Internal Medicine
PROC: 5A1D70Z Performance of Urinary Filtration, Intermittent, Less than 6 Hours Per Day (ICD-10-PCS; principal; 2020-11-17)
DX: R62.7 Adult failure to thrive (principal); N18.6 End stage renal disease; I12.0 Hypertensive chronic kidney disease with stage 5 chronic kidney disease or end stage renal disease; D68.51 Activated protein C resistance; M34.9 Systemic sclerosis, unspecified; J44.9 Chronic obstructive pulmonary disease, unspecified; F31.9 Bipolar disorder, unspecified; Z99.2 Dependence on renal dialysis; Z51.5 Encounter for palliative care; Z66 Do not resuscitate; Z20.822 Contact with and (suspected) exposure to COVID-19; E83.9 Disorder of mineral metabolism, unspecified; E89.0 Postprocedural hypothyroidism; E78.5 Hyperlipidemia, unspecified; K21.9 Gastro-esophageal reflux disease without esophagitis; I25.10 Atherosclerotic heart disease of native coronary artery without angina pectoris; R26.9 Unspecified abnormalities of gait and mobility; Z79.890 Hormone replacement therapy; Z79.818 Long term (current) use of other agents affecting estrogen receptors and estrogen levels; Z79.899 Other long term (current) drug therapy; Z90.49 Acquired absence of other specified parts of digestive tract; Z87.19 Personal history of other diseases of the digestive system; Z86.711 Personal history of pulmonary embolism; Z87.11 Personal history of peptic ulcer disease; Z86.19 Personal history of other infectious and parasitic diseases; Z90.710 Acquired absence of both cervix and uterus; Z87.42 Personal history of other diseases of the female genital tract; Z87.39 Personal history of other diseases of the musculoskeletal system and connective tissue; Z87.440 Personal history of urinary (tract) infections; Z86.73 Personal history of transient ischemic attack (TIA), and cerebral infarction without residual deficits; Z89.021 Acquired absence of right finger(s); Z96.652 Presence of left artificial knee joint; Z86.79 Personal history of other diseases of the circulatory system; Z98.890 Other specified postprocedural states; Z88.9 Allergy status to unspecified drugs, medicaments and biological substances; Z91.040 Latex allergy status; Z88.5 Allergy status to narcotic agent; Z88.2 Allergy status to sulfonamides; Z88.8 Allergy status to other drugs, medicaments and biological substances; Z91.048 Other nonmedicinal substance allergy status; Z80.3 Family history of malignant neoplasm of breast; Z84.1 Family history of disorders of kidney and ureter; Z82.49 Family history of ischemic heart disease and other diseases of the circulatory system; Z82.69 Family history of other diseases of the musculoskeletal system and connective tissue
CPT/HCPCS: 36415; 70450; 71045; 80048; 80053; 82140; 83605; 83690; 83735; 84436; 84439; 84443; 84481; 84484; 85025; 85610; 85730; 86706; 87040; 87340; 87635; 90935; 93005; 96374; 99285